=== PATIENT | male | born 1940 | race Caucasian/White ===

== ENCOUNTER 2023-09-17 20:11 | Inpatient (IN) ==
--- NOTE | 2023-09-17 20:37 | Emergency Department Note ---
Impression & Plan Acute UTI, Nausea & vomiting, Weakness ED Provider Note Provider: Onur Tate MD DATE OF SERVICE: 09/17/2023 CHIEF COMPLAINT: Weakness, nausea and vomiting, some diarrhea HISTORY OF PRESENT ILLNESS: Patient is a 83-year-old gentleman past medical history of thyroid cancer, PE on Eliquis, hypertension presenting here today with daughter. Yesterday became quite weak and had difficulty getting out of bed. Experience of nausea and then vomiting last evening. Continued weakness today nausea decreased intake and has had some blackish diarrhea but did take Pepto-Bismol. Vomited up some brownish-red vomit a little bit ago and daughter brought here for evaluation as he seemed a little bit weak and fatigued. Denies syncope or trauma. Some slight mid upper abdominal discomfort. No other sick contacts. Low-grade fever at home. PAST MEDICAL HISTORY: As noted above MEDICATIONS: Reviewed home medications but unsure he been able to keep them down SOCIAL HISTORY: Lives at home PHYSICAL EXAM: GENERAL: alert and oriented in no acute distress on stretcher Head: normocephalic and atraumatic EYES: No injection, discharge or icterus. PERRL, EOMI. NECK: Trachea midline. Supple. ENT: Mucous membranes pink and moist. LUNGS: Airway patent. No retractions. Breath sounds clear with good air entry bilaterally. HEART: Regular rate and rhythm. No chest wall tenderness ABDOMEN: Soft and non-tender, without guarding or rebound. No hepatosplenomegaly or masses Rectal: brown Hemoccult negative stool with RN present for exam ; no hemorrhoids noted. SKIN: Acyanotic, warm, dry, without rashes EXTREMITIES: Without swelling, tenderness or deformity NEUROLOGICAL: No focal deficits. No aphasia. No facial droop or slurred speech. Normal strength and tone in the extremities. Sensation to gross touch normal. EK bpm sinus bradycardia first-degree AV block. No PVC or PAC. No clear acute ST segment elevation or depression with a left axis noted. CONTINUOUS CARDIAC MONITORING: was ordered and showed a heart rate of 20s-60s bpm in sinus bradycardia to sinus rhythm with a first reviewed by Patient's laboratory studies and imaging reviewed. 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 IMPRESSION/MEDICAL DECISION MAKING: Patient given some Zofran and while this was occurring dry heaves and did vagal with heart rate into the 30s. No LOC. Little bit of abdominal discomfort but not significantly tender. Will obtain CT scan of the abdomen pelvis as well as with his generalized weakness anticoagulation a CT of the head although not really having focal deficits. Occult stool testing with brownish-black stool negative and has been on Pepto-Bismol lower suspicion for GI bleed but given some Protonix. Is anticoagulated. Blood work was sent including cultures given reports of some fever. History of heart failure given some gentle IV hydration but being careful to avoid fluid overload. 250 cc initially ordered as he is somewhat hypertensive. Respiratory viral panel sent to look for any viral respiratory infection that could be contributing. Denies significant chest pain or shortness of breath and I doubt this represents diaphragmatic injury or pneumonia. Blood work here with slight leukocytosis of 11.2. No significant anemia hemoglobin of 13.3. Normal platelet count. Normal electrolytes. No signs of significant renal dysfunction creatinine 1.08. Urinalysis is floridly positive likely the etiology of his symptoms. Procalcitonin low at 0.51. Lactate normal. Negative Lyme screen and respiratory viral panel. Quick review of the CT imaging by myself without obvious emergent pathology although formal reports from radiology are pending. (notable prostatomegaly and noninflamed hernia) Will bring into the hospital. Zosyn ordered. Updated patient and family. Will discuss with the hospitalist for admission and further care. Lower suspicion for GI bleed believe this is likely all secondary to the UTI. Blood pressure still somewhat high. Patient bit bradycardic but again seems to be perfusing well at this time. Discussed with hospitalist. DIAGNOSIS: Acute UTI, nausea and vomiting, weakness, bradycardia DISPOSITION: Hospitalist will evaluate Patient was agreeable with this plan. Past Med/Surg History Problem List (Updated 09/18/23 @ 11:41 by Maxim Ward) History of pulmonary embolism Aortic root dilatation Aortic valve sclerosis Hypertensive heart disease HFrEF (heart failure with reduced ejection fraction) Bradycardia Bacteremia UTI (urinary tract infection) Benign prostatic hyperplasia (BPH) with straining on urination Weakness (Acute) Nausea & vomiting (Acute) Acute UTI (Acute) Vitamin D deficiency Fatigue Hyperthyroidism Fracture Post-surgical hypothyroidism Papillary thyroid carcinoma COVID-19 (Acute) Medical History Hypertension Social History Smoking Status: Never smoker Second Hand Exposure: No; Do You Dip or Chew Tobacco: No; Tobacco Cessation Education Requested by Patient: No Hx Alcohol Use: No Hx Substance Use: No Preferred Language: Icelandic Communication Ability: Effective Deer Farmer 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: No Beliefs That Will Affect Care: None Current Living Situation: Alone Other Information That Helps Us Care for You: No Feels Safe at Home: Yes Safety Concerns: Feels Safe At This Time Assistive Devices: Walker Allergies Allergies Allergy/AdvReac Type Severity Reaction Status Date / Time shrimp Allergy Anaphylaxis Verified 09/17/23 21:58 Home Meds Home Medications Medication Instructions Recorded Confirmed escitalopram oxalate 10 mg tablet 10 mg PO QA 11/27/17 09/17/23 finasteride 5 mg tablet (Proscar) 5 mg PO [facility] 11/18/21 09/17/23 apixaban 5 mg tablet 5 mg PO BID 05/15/23 09/17/23 furosemide 20 mg tablet 20 mg PO 3XWK 05/15/23 09/17/23 metoprolol succinate 25 mg 12.5 mg PO QA 05/15/23 09/17/23 tablet,extended release 24 hr spironolactone 25 mg tablet 25 mg PO [facility] 05/15/23 09/17/23 tryptophan 500 mg capsule 1,500 mg PO 05/15/23 09/17/23 acetaminophen 500 mg tablet 1,000 mg PO Q6H PRN Pain 09/17/23 09/17/23 empagliflozin 10 mg tablet 10 mg PO QA 09/17/23 09/17/23 (Jardiance) levothyroxine 150 mcg tablet 150 mcg PO 5XWK 09/17/23 09/17/23 levothyroxine 150 mcg tablet 225 mcg PO 2XWK 09/17/23 09/17/23 sacubitril 97 mg-valsartan 103 mg 1 tab PO [facility] 09/17/23 09/17/23 tablet (Entresto) tamsulosin 0.4 mg capsule 0.4 mg PO QA 09/17/23 09/17/23 terazosin 10 mg capsule 10 mg PO 09/17/23 09/17/23 Previous Rx's Medication Instructions Recorded needle (disp) 18 G 18 gauge x 1 #4 ea 12/05/212" (BD Regular Bevel Joes) Results & Data (ED) Vital Signs Vital Signs - 24 hr 09/17/23 20:19 09/17/23 20:20 09/17/23 20:20 Temperature 36.8 C Temperature Source Oral Pulse Rate 50 L 48 L Pulse Rate from SpO2 Sensor Respiratory Rate 13 Respiratory Effort / Characteristics Non-Labored Respiratory Depth Normal Respiratory Pattern Regular Blood Pressure 166/73 H Blood Pressure Mean 104 Blood Pressure Position Sitting Pulse Oximetry 96 96 Oxygen Delivery Method Room Air Room Air Sepsis Recent Fever Within 48 Hours Yes Sepsis New/Unexplained Change in Mental Status No Sepsis Action Taken by Nursing No Action Required 09/17/23 20:23 09/17/23 20:27 09/17/23 20:30 Temperature Temperature Source Pulse Rate 50 L Pulse Rate from SpO2 Sensor 50 L 51 L Respiratory Rate 21 20 Respiratory Effort / Characteristics Respiratory Depth Respiratory Pattern Blood Pressure Blood Pressure Mean Blood Pressure Position Pulse Oximetry 96 96 95 Oxygen Delivery Method Room Air Sepsis Recent Fever Within 48 Hours Sepsis New/Unexplained Change in Mental Status Sepsis Action Taken by Nursing 09/17/23 20:42 09/17/23 21:00 09/17/23 21:06 Temperature Temperature Source Pulse Rate 48 L 45 L 48 L Pulse Rate from SpO2 Sensor 49 L 45 L 34 L Respiratory Rate 17 27 H 19 Respiratory Effort / Characteristics Respiratory Depth Respiratory Pattern Blood Pressure Blood Pressure Mean Blood Pressure Position Pulse Oximetry 94 93 93 Oxygen Delivery Method Sepsis Recent Fever Within 48 Hours Sepsis New/Unexplained Change in Mental Status Sepsis Action Taken by Nursing 09/17/23 21:30 09/17/23 21:30 09/17/23 21:39 Temperature Temperature Source Pulse Rate 45 L Pulse Rate from SpO2 Sensor 43 L Respiratory Rate 23 Respiratory Effort / Characteristics Respiratory Depth Respiratory Pattern Blood Pressure 166/86 H 166/86 H Blood Pressure Mean 108 108 Blood Pressure Position Pulse Oximetry 94 Oxygen Delivery Method Sepsis Recent Fever Within 48 Hours Sepsis New/Unexplained Change in Mental Status Sepsis Action Taken by Nursing 09/17/23 21:42 09/17/23 22:00 09/17/23 22:00 Temperature Temperature Source Pulse Rate 47 L Pulse Rate from SpO2 Sensor 42 L Respiratory Rate 29 H Respiratory Effort / Characteristics Respiratory Depth Respiratory Pattern Blood Pressure 140/73 140/73 Blood Pressure Mean 102 102 Blood Pressure Position Pulse Oximetry 94 Oxygen Delivery Method Sepsis Recent Fever Within 48 Hours Sepsis New/Unexplained Change in Mental Status Sepsis Action Taken by Nursing 09/17/23 22:00 09/17/23 22:03 09/17/23 22:36 Temperature Temperature Source Pulse Rate 44 L 45 L Pulse Rate from SpO2 Sensor 44 L 39 L Respiratory Rate 20 17 Respiratory Effort / Characteristics Respiratory Depth Respiratory Pattern Blood Pressure 140/73 Blood Pressure Mean 102 Blood Pressure Position Pulse Oximetry 94 95 Oxygen Delivery Method Sepsis Recent Fever Within 48 Hours Sepsis New/Unexplained Change in Mental Status Sepsis Action Taken by Nursing 09/17/23 22:42 09/17/23 23:00 09/17/23 23:01 Temperature Temperature Source Pulse Rate 43 L 39 L Pulse Rate from SpO2 Sensor 42 L 39 L Respiratory Rate 23 18 Respiratory Effort / Characteristics Respiratory Depth Respiratory Pattern Blood Pressure 126/62 Blood Pressure Mean 94 Blood Pressure Position Pulse Oximetry 95 95 Oxygen Delivery Method Sepsis Recent Fever Within 48 Hours Sepsis New/Unexplained Change in Mental Status Sepsis Action Taken by Nursing Laboratory Data 09/18/23 06:04 09/18/23 06:04 Lab Results 09/17/23 09/17/23 09/17/23 Range/Units 20:16 20:22 20:31 WBC 11.20 H (4.8-10.8) K/ul RBC 4.20 L (4.70-6.10) M/uL Hgb 13.3 L (14.0-18.0) g/dl POC Hgb (14.0-18.0) g/dl Hct 39.4 L (42.0-52.0) % POC Hct (42-52) % MCV 93.8 (80.0-100.0) fL MCH 31.7 (25.0-34.0) pg MCHC 33.8 (32.0-36.0) g/dL RDW Std Deviation 43.8 (36.4-46.3) fL RDW Coeff of Suma 12.8 (11.5-14.5) % Plt Count 202 (130-400) K/uL MPV 10.9 (9.4-12.4) fL Immature Gran % (Auto) 0.4 % Neut % (Auto) 85.7 % Lymph % (Auto) 5.3 % Morgan % (Auto) 8.5 % Eos % (Auto) 0.0 % Baso % (Auto) 0.1 % Neut # (Auto) 9.61 H (1.40-6.50) K/uL Lymph # (Auto) 0.59 L (1.20-3.40) K/uL Morgan # (Auto) 0.95 H (0.11-0.59) K/uL Eos # (Auto) 0.00 (0.00-0.50) K/uL Baso # (Auto) 0.01 (0.00-0.20) K/uL Immature Gran # (Auto) 0.04 (0.01-0.20) K/uL PT 11.4 (9.0-12.0) Seconds INR 1.1 (0.9-1.1) POC Sodium (135-144) mmol/L Sodium 138 (136-145) mmol/L POC Potassium (3.3-5.0) mmol/L Potassium 4.4 (3.5-5.1) mmol/L POC Chloride (101-112) mmol/L Chloride 107 (98-107) mmol/L Carbon Dioxide 23 (21-32) mmol/L POC Total CO2 (24-31) mmol/L Anion Gap 8 (3-11) POC Anion Gap (16-25) mmol/L POC BUN (7-18) mg/dl BUN 38 H (6-23) mg/dl Creatinine 1.08 (0.6-1.4) mg/dl POC Creatinine (0.6-1.3) mg/dl Est Cr Clr Drug Dosing 59.8 ml/min Est GFR ( Amer) 72.2 ml/min Est GFR (Non-Af Amer) 62.3 ml/min BUN/Creatinine Ratio 35.2 H (10-20) Glucose 181 H (70-99(Fasting)) mg/dl POC Glucose (other) (70-99) mg/dl Lactate 1.3 (0.4-2.0) mmol/L Calcium 8.6 (8.6-10.3) mg/dl POC Ioniz Calcium Arvind (1.12-1.32) mmol/l Magnesium 2.1 (1.7-2.4) mg/dl Total Bilirubin 0.6 (0.2-1.0) mg/dl AST 12 L (13-39) U/L ALT 10 (7-52) U/L Alkaline Phosphatase 56 (34-104) U/L Troponin I High Sens 15.6 (0-20) pg/ml Total Protein 6.3 (6.0-8.3) gm/dl Albumin 3.5 (3.4-5.0) gm/dl Globulin 2.8 (2.5-4.0) gm/dl Albumin/Globulin Ratio 1.3 (0.9-2) Lipase 84 H (11-82) U/L Procalcitonin 0.51 H (0-0.5) ng/ml TSH 0.279 L (0.300-4.500) uIu/ml Free T4 1.23 (0.61-1.60) ng/dl Urine Color Urine Appearance (Clear) Urine pH (4.5-7.5) Ur Specific Winston (1.000-1.030) Urine Protein (Negative) Urine Glucose (UA) (Negative) Urine Ketones (Negative) Urine Blood (Negative) Urine Nitrite (Negative) Urine Bilirubin (Negative) Urine Urobilinogen (Negative) Ur Leukocyte Esterase (Negative) Urine WBC (Auto) (0-5) /hpf Urine RBC (Auto) (0-2) /hpf U Hyaline Cast (Auto) (0-2) /lpf U Epithel Cells (Auto) (0-2) /hpf Urine Bacteria (Auto) (None Seen) POC Stool Occult Blood Negative (Negative) Adenovirus (PCR) (NotDetected) B. pertussis DNA (PCR) (NotDetected) B.parapertussis DNA PCR (NotDetected) Lyme Disease Screen Negative (Negative) C. pneumoniae DNA (PCR) (NotDetected) Coronavirus OC43 (PCR) (NotDetected) Coronavirus HKU1 (PCR) (NotDetected) Coronavirus 229E (PCR) (NotDetected) SARS-CoV-2 (PCR) (NotDetected) Coronavirus NL63 (PCR) (NotDetected) Enterobacterales (PCR) DETECTED A (NotDetected) E. cloacae complex PCR DETECTED A (NotDetected) Human Metapneumovir PCR (NotDetected) Influenza Type A (PCR) (NotDetected) Influenza Type B (PCR) (NotDetected) M. pneumoniae (PCR) (NotDetected) Parainfluenza 1 (PCR) (NotDetected) Parainfluenza 2 (PCR) (NotDetected) Parainfluenza 3 (PCR) (NotDetected) Parainfluenza 4 (PCR) (NotDetected) RSV (PCR) (NotDetected) Entero/Rhino (PCR) (NotDetected) mcr-1 Colistin Res Gene PCR Not Detected (NotDetected) blaIMP Car res Gene PCR Not Detected (NotDetected) KPC-Carbap Res Gene PCR Not Detected (NotDetected) blaNDM Car Res Gene PCR Not Detected (NotDetected) OXA-48 Carbapenem Resis Gene (PCR) Not Detected (NotDetected) blaVIM Car Res Gene PCR Not Detected (NotDetected) CTX-M Gene Resistance (PCR) Not Detected (NotDetected) Bld Cult ID Panel PCR See PCR Comment (NotDetected) 09/17/23 09/17/23 Range/Units 20:38 20:39 WBC (4.8-10.8) K/ul RBC (4.70-6.10) M/uL Hgb (14.0-18.0) g/dl POC Hgb 13.3 L (14.0-18.0) g/dl Hct (42.0-52.0) % POC Hct 39 L (42-52) % MCV (80.0-100.0) fL MCH (25.0-34.0) pg MCHC (32.0-36.0) g/dL RDW Std Deviation (36.4-46.3) fL RDW Coeff of Suma (11.5-14.5) % Plt Count (130-400) K/uL MPV (9.4-12.4) fL Immature Gran % (Auto) % Neut % (Auto) % Lymph % (Auto) % Morgan % (Auto) % Eos % (Auto) % Baso % (Auto) % Neut # (Auto) (1.40-6.50) K/uL Lymph # (Auto) (1.20-3.40) K/uL Morgan # (Auto) (0.11-0.59) K/uL Eos # (Auto) (0.00-0.50) K/uL Baso # (Auto) (0.00-0.20) K/uL Immature Gran # (Auto) (0.01-0.20) K/uL PT (9.0-12.0) Seconds INR (0.9-1.1) POC Sodium 140 (135-144) mmol/L Sodium (136-145) mmol/L POC Potassium 4.3 (3.3-5.0) mmol/L Potassium (3.5-5.1) mmol/L POC Chloride 108 (101-112) mmol/L Chloride (98-107) mmol/L Carbon Dioxide (21-32) mmol/L POC Total CO2 20 L (24-31) mmol/L Anion Gap (3-11) POC Anion Gap 17.0 (16-25) mmol/L POC BUN 33 H (7-18) mg/dl BUN (6-23) mg/dl Creatinine (0.6-1.4) mg/dl POC Creatinine 1.2 (0.6-1.3) mg/dl Est Cr Clr Drug Dosing ml/min Est GFR ( Amer) ml/min Est GFR (Non-Af Amer) ml/min BUN/Creatinine Ratio (10-20) Glucose (70-99(Fasting)) mg/dl POC Glucose (other) 184 H (70-99) mg/dl Lactate (0.4-2.0) mmol/L Calcium (8.6-10.3) mg/dl POC Ioniz Calcium Arvind 1.16 (1.12-1.32) mmol/l Magnesium (1.7-2.4) mg/dl Total Bilirubin (0.2-1.0) mg/dl AST (13-39) U/L ALT (7-52) U/L Alkaline Phosphatase (34-104) U/L Troponin I High Sens (0-20) pg/ml Total Protein (6.0-8.3) gm/dl Albumin (3.4-5.0) gm/dl Globulin (2.5-4.0) gm/dl Albumin/Globulin Ratio (0.9-2) Lipase (11-82) U/L Procalcitonin (0-0.5) ng/ml TSH (0.300-4.500) uIu/ml Free T4 (0.61-1.60) ng/dl Urine Color Yellow Urine Appearance Cloudy A (Clear) Urine pH 5.5 (4.5-7.5) Ur Specific Winston 1.030 (1.000-1.030) Urine Protein 2+ H (Negative) Urine Glucose (UA) 3+ H (Negative) Urine Ketones 1+ H (Negative) Urine Blood 3+ H (Negative) Urine Nitrite Positive A (Negative) Urine Bilirubin Negative (Negative) Urine Urobilinogen Negative (Negative) Ur Leukocyte Esterase 2+ H (Negative) Urine WBC (Auto) >50 H (0-5) /hpf Urine RBC (Auto) 6-10 H (0-2) /hpf U Hyaline Cast (Auto) 6-10 H (0-2) /lpf U Epithel Cells (Auto) 0-2 (0-2) /hpf Urine Bacteria (Auto) 4+ H (None Seen) POC Stool Occult Blood (Negative) Adenovirus (PCR) Not Detected (NotDetected) B. pertussis DNA (PCR) Not Detected (NotDetected) B.parapertussis DNA PCR Not Detected (NotDetected) Lyme Disease Screen (Negative) C. pneumoniae DNA (PCR) Not Detected (NotDetected) Coronavirus OC43 (PCR) Not Detected (NotDetected) Coronavirus HKU1 (PCR) Not Detected (NotDetected) Coronavirus 229E (PCR) Not Detected (NotDetected) SARS-CoV-2 (PCR) Not Detected (NotDetected) Coronavirus NL63 (PCR) Not Detected (NotDetected) Enterobacterales (PCR) (NotDetected) E. cloacae complex PCR (NotDetected) Human Metapneumovir PCR Not Detected (NotDetected) Influenza Type A (PCR) Not Detected (NotDetected) Influenza Type B (PCR) Not Detected (NotDetected) M. pneumoniae (PCR) Not Detected (NotDetected) Parainfluenza 1 (PCR) Not Detected (NotDetected) Parainfluenza 2 (PCR) Not Detected (NotDetected) Parainfluenza 3 (PCR) Not Detected (NotDetected) Parainfluenza 4 (PCR) Not Detected (NotDetected) RSV (PCR) Not Detected (NotDetected) Entero/Rhino (PCR) Not Detected (NotDetected) mcr-1 Colistin Res Gene PCR (NotDetected) blaIMP Car res Gene PCR (NotDetected) KPC-Carbap Res Gene PCR (NotDetected) blaNDM Car Res Gene PCR (NotDetected) OXA-48 Carbapenem Resis Gene (PCR) (NotDetected) blaVIM Car Res Gene PCR (NotDetected) CTX-M Gene Resistance (PCR) (NotDetected) Bld Cult ID Panel PCR (NotDetected) Administered Medications Apixaban (Apixaban 5 Mg Tablet) 5 mg PO BID ON LICENSE OF [facility] Stop: 10/18/23 08:59 Last Admin: 09/18/23 08:13 Dose: 5 mg Documented By: ALBERT Escitalopram Oxalate (Escitalopram [facility]alate 10 Mg Tab) [facility] Stop: 10/18/23 08:59 Last Admin: 09/18/23 08:13 Dose: 10 mg Documented By: ALBERT Finasteride (Finasteride 5 Mg Tab) [facility] Stop: 10/18/23 08:59 Last Admin: 09/18/23 08:13 Dose: 5 mg Documented By: ALBERT Sodium Chloride (Nss) 1,000 mls @ 75 mls/hr IV .[id number] ON LICENSE OF [facility] Stop: 09/18/23 13:40 Last Admin: 09/18/23 00:30 Dose: 75 mls/hr Documented By: BENITA Cefepime HCl 2,000 mg/ Syringe 20 mls @ 5 mls/min IV Q8H ON LICENSE OF [facility] Stop: 10/02/23 11:59 Last Admin: 09/18/23 12:23 Dose: 5 mls/min Documented By: ALBERT Insulin Aspart (Insulin Aspart Per Unit Charge) 0 units SC Q6 ON LICENSE OF [facility] Stop: 10/18/23 01:14 Last Admin: 09/18/23 11:13 Dose: Not Given Documented By: Admin: 09/18/23 05:32 Dose: Not Given Documented By: Admin: 09/18/23 01:33 Dose: 2 units Documented By: BENITA Co-signed By: ALBERT(2) Levothyroxine Sodium (Levothyroxine Sodium 150 Mcg Tablet) 150 mcg PO DAILYBB ON LICENSE OF [facility] Stop: 10/18/23 06:29 Last Admin: 09/18/23 05:38 Dose: 150 mcg Documented By: BENITA Melatonin (Melatonin 3 Mg Tab) 3 mg PO HS PRN PRN Reason: Sleep Stop: 10/18/23 01:35 Last Admin: 09/18/23 01:56 Dose: 3 mg Documented By: BENITA Sacubitril/Valsartan (Valsartan/Sacubitril 103/97mg Tab) 1 tab PO BID ASIF Stop: 10/18/23 08:59 Last Admin: 09/18/23 08:13 Dose: 1 tab Documented By: ALBERT Tamsulosin HCl (Tamsulosin Hcl 0.4 Mg Cap) 0.4 mg PO QAM ASIF Stop: 10/18/23 08:59 Last Admin: 09/18/23 08:14 Dose: 0.4 mg Documented By: ALBERT Discontinued Medications Sodium Chloride (Nss) 250 mls @ 999 mls/hr IV .Q16M ONE Stop: 09/17/23 20:39 Last Infusion: 09/17/23 21:03 Dose: Infused Documented By: Admin: 09/17/23 20:45 Dose: 999 mls/hr Documented By: ROBIN Pantoprazole Sodium 80 mg/ (Dextrose) 120 mls @ 480 mls/hr IV ONE STA Stop: 09/17/23 20:58 Last Infusion: 09/17/23 22:14 Dose: Infused Documented By: Admin: 09/17/23 21:41 Dose: 480 mls/hr Documented By: ROBIN Piperacillin Sod/Tazobactam Sod (Zosyn) 4.5 gm in 100 mls @ 200 mls/hr IV NOW ONE Stop: 09/17/23 21:54 Last Infusion: 09/17/23 23:19 Dose: Infused Documented By: Admin: 09/17/23 22:09 Dose: 200 mls/hr Documented By: ROBIN Piperacillin Sod/Tazobactam (Sod 4.5 gm/ Dextrose) 100 mls @ 25 mls/hr IV Q8H ON LICENSE OF [facility]; Protocol Stop: 09/28/23 04:59 Last Infusion: 09/18/23 09:44 Dose: Infused Documented By: Admin: 09/18/23 05:32 Dose: 25 mls/hr Documented By: BENITA Ioversol (Optiray 320 100ml) 94 ml IV ONCE ONE Stop: 09/17/23 21:23 Last Admin: 09/17/23 21:22 Dose: 94 ml Documented By: SHAGGY Ondansetron HCl (Ondansetron Inj 2 Mg/Ml 2 Ml Vial) 4 mg IV NOW STA Stop: 09/17/23 20:23 Last Admin: 09/17/23 20:38 Dose: 4 mg Documented By: KMHarrison Imaging Data Radiologist's Impression: Chest X-Ray 09/17/23 20:23 XR chest 1V portable CLINICAL HISTORY: weakness TECHNIQUE: Single frontal radiograph of the chest was obtained. Comparison: Comparison is made to chest radiograph 02/28/2023 FINDINGS: No lines and tubes are seen. Cardiomegaly is noted. The lungs are clear. Small left pleural effusion is seen. IMPRESSION: Small left pleural effusion is seen. No airspace opacities are seen. ACT 112: Negative or not required by law. Electronically signed by: Matthieu Kelley M.D. 09/18/2023 7:50 AM Discharge Plan Visit Data Chief Complaint: Weakness Stated Complaint: WEAKNESS, N/V, LETHARGIC, ED Provider: Onur Tate Discharge Problem: Acute UTI, Nausea & vomiting, Weakness Patient Disposition: Admitted As Inpatient Discharge Instructions Interventions: ED Discharge Assessment Last Done: 09/18/23 00:42
[2023-09-17] MEDS: ONDANSETRON INJ 2 MG/ML 2 ML VIAL IV STA (20:38)
[2023-09-17 20:44] LABS: Basophils # (auto) 0.01 K/uL (0.00-0.20); Basophils % (auto) 0.1 %; Hematocrit (blood only) 39.4 % (42.0-52.0); Hemoglobin 13.3 g/dl (14.0-18.0); Immature Granulocytes # (auto) 0.04 K/uL (0.01-0.20); Immature Granulocytes % (auto) 0.4 %; Lymphocytes # (auto) 0.59 K/uL (1.20-3.40); Lymphocytes % (auto) 5.3 %; Mean Corpuscular Hemoglobin 31.7 pg (25.0-34.0); Mean Corpuscular Hgb Conc 33.8 g/dL (32.0-36.0); Mean Corpuscular Volume 93.8 fL (80.0-100.0); Mean Platelet Volume 10.9 fL (9.4-12.4); Monocytes # (auto) 0.95 K/uL (0.11-0.59); Monocytes % (auto) 8.5 %; Neutrophils # (auto) 9.61 K/uL (1.40-6.50); Neutrophils % (auto) 85.7 %; Platelet Count 202 K/uL (130-400); RDW Coefficient of Variation 12.8 % (11.5-14.5); RDW Standard Deviation 43.8 fL (36.4-46.3)
[2023-09-17] MEDS: SODIUM CHLORIDE 0.9% 250 ML IV ONE (20:45)
[2023-09-17 20:49] LABS: INR 1.1 (0.9-1.1); Prothrombin Time 11.4 Seconds (9.0-12.0)
[2023-09-17 20:50] LABS: iSTAT Creatinine 1.2 mg/dl (0.6-1.3); iSTAT Hemoglobin 13.3 g/dl (14.0-18.0); iSTAT Ionized Calcium 1.16 mmol/l (1.12-1.32); iSTAT Potassium 4.3 mmol/L (3.3-5.0)
[2023-09-17 20:57] LABS: Albumin Globulin Ratio 1.3 (0.9-2); Albumin Level 3.5 gm/dl (3.4-5.0); BUN Creatinine Ratio 35.2 (10-20); Bilirubin,Total 0.6 mg/dl (0.2-1.0); Calcium 8.6 mg/dl (8.6-10.3); Creatinine Clr Calc Pharmacy 59.8 ml/min; Est GFR (African American) 72.2 ml/min; Est GFR (Non-African American) 62.3 ml/min; Globulin 2.8 gm/dl (2.5-4.0); Magnesium 2.1 mg/dl (1.7-2.4); Potassium 4.4 mmol/L (3.5-5.1); Total Protein 6.3 gm/dl (6.0-8.3)
[2023-09-17 21:02] LABS: Appearance Urine Cloudy (Clear); Bacteria Urine Automated 4+ (None Seen); Bilirubin Urine Negative (Negative); Blood Urine 3+ (Negative); Color Urine Yellow; Epithelial Cell Urine Auto 0-2 /hpf (0-2); Glucose Urine UA 3+ (Negative); Ketones Urine 1+ (Negative); Leukocyte Esterase Urine 2+ (Negative); Nitrite Urine Positive (Negative); Protein Urine 2+ (Negative); Urobilinogen Urine Negative (Negative); WBC Urine Automated >50 /hpf (0-5); pH Urine 5.5 (4.5-7.5)
[2023-09-17 21:03] LABS: Troponin I High Sensitivity 15.6 pg/ml (0-20)
[2023-09-17 21:13] LABS: Thyroid Stimulating Hormone 0.279 uIu/ml (0.300-4.500)
[2023-09-17 21:14] LABS: Procalcitonin 0.51 ng/ml (0-0.5)
[2023-09-17] MEDS: OPTIRAY 320 100ml IV ONE (21:22)
[2023-09-17] MEDS: PANTOprazole 80 MG in DEXTROSE 5% 100 ML IV STA (21:41)
[2023-09-17 21:44] LABS: Adenovirus PCR Not Detected (NotDetected); Bordetella parapertussis PCR Not Detected (NotDetected); Bordetella pertussis PCR Not Detected (NotDetected); Chlamydia pneumoniae PCR Not Detected (NotDetected); Coronavirus 229E PCR Not Detected (NotDetected); Coronavirus CoV-2 (COVID19)PCR Not Detected (NotDetected); Coronavirus HKU1 PCR Not Detected (NotDetected); Coronavirus NL63 PCR Not Detected (NotDetected); Coronavirus OC43PCR Not Detected (NotDetected); Human Metapneumovirus PCR Not Detected (NotDetected); Influenza A PCR Not Detected (NotDetected); Influenza B PCR Not Detected (NotDetected); Mycoplasma pneumoniae PCR Not Detected (NotDetected); Parainfluenza Virus 1 PCR Not Detected (NotDetected); Parainfluenza Virus 2 PCR Not Detected (NotDetected); Parainfluenza Virus 3 PCR Not Detected (NotDetected); Parainfluenza Virus 4 PCR Not Detected (NotDetected); Respiratory Syncytial VirusPCR Not Detected (NotDetected); Rhinovirus/Enterovirus PCR Not Detected (NotDetected)
[2023-09-17 21:47] LABS: Lyme Screen Rflx Confirmation Negative (Negative)
[2023-09-17 21:48] LABS: T4 Free Thyroxine 1.23 ng/dl (0.61-1.60)
[2023-09-17] MEDS: PIPERACILLIN/TAZOBACTAM 4.5 GM/100 ML BAG IV ONE (22:09)
--- NOTE | 2023-09-17 23:27 | History & Physical Report ---
Date of Service September 17, 2023 Assessment & Plan (1) Acute UTI: Plan: 83-year-old male with past medical history significant for prediabetes, history of papillary thyroid carcinoma, pancreatic cyst, history of left hemothorax, history of acute pulmonary embolism, history of systolic CHF, hypertension, closed fracture of multiple ribs of left side, history of anxiety state, insomnia, lives alone at home and ambulates with a walker and daughter lives close by was brought in because of weakness and also nausea vomiting and in the ER he was found to have bradycardia and also found to have UTI. As per daughter yesterday patient was feeling very weak having difficulty getting up from the bed and last night he had nausea vomiting but today when he woke up was doing okay. But later in the evening again he developed nausea and in the bathroom he felt like falling down and he was holding on the sink and called his daughter. When daughter came he seemed very stiff and weak and brought him to the ER. Resting comfortably. Bradycardia on monitor. Family is in the room. Today had a fever as per daughter. Denies any headache. When he was in the bathroom when he felt like falling down felt dizzy at that time. No blurred vision. No headache. No runny nose. No sore throat. No cough. No difficulty swallowing. Denies any chest pain or shortness of breath. Earlier complained of some left lower quad abdominal pain as per daughter but currently patient denies any pain. No burning micturition. No hematuria. Patient had black stools but took Pepto-Bismol yesterday and Hemoccult was negative in the ER. As per daughter when he had PE he had to be left flighted to [place] and is on Eliquis. Acute UTI weakness possible cause of nausea and vomiting will follow CT abdomen pelvis and CT head empirically started on Zosyn which will be continued gentle fluids follow cultures bradycardia will hold metoprolol will check Lyme screen telemetry cardiology consult chronic systolic CHF had echo on 09/05/2023 which showed EF of 50 to 54%. Previous echo on 03/29/2023 EF 45%. Echo on 03/01/23 showed EF of 40% holding metoprolol for bradycardia. Holding Lasix and spironolactone as patient has nausea vomiting. Will continue Entresto. Hold Jardiance. restart diuretics as soon as possible. Will monitor for volume overload. prediabetes follow HbA1c levels and sliding scale. History of PE on Eliquis questionable black stools Hemoccult was negative in the ER will monitor H&H hypertension continue Entresto and terazosin holding diuretics and metoprolol we will monitor BPH on Flomax and terazosin and finasteride ct abd/pelvis showing severe prostatomegaly with significant mass effect on base of bladder and bladder outlet obstruction. Will consult urology. will monitor hypothyroidism on Synthyroid anxiety on Lexapro DVT prophylaxis on Eliquis disposition telemetry full code. History of Present Illness Chief Complaint: Weakness Primary Care Provider: Linda Rendon DO 83-year-old male with past medical history significant for prediabetes, history of papillary thyroid carcinoma, pancreatic cyst, history of left hemothorax, history of acute pulmonary embolism, history of systolic CHF, hypertension, closed fracture of multiple ribs of left side, history of anxiety state, insomnia, lives alone at home and ambulates with a walker and daughter lives close by was brought in because of weakness and also nausea vomiting and in the ER he was found to have bradycardia and also found to have UTI. As per daughter yesterday patient was feeling very weak having difficulty getting up from the bed and last night he had nausea vomiting but today when he woke up was doing okay. But later in the evening again he developed nausea and in the bathroom he felt like falling down and he was holding on the sink and called his daughter. When daughter came he seemed very stiff and weak and brought him to the ER. Resting comfortably. Bradycardia on monitor. Family is in the room. Today had a fever as per daughter. Denies any headache. When he was in the bathroom when he felt like falling down felt dizzy at that time. No blurred vision. No headache. No runny nose. No sore throat. No cough. No difficulty swallowing. Denies any chest pain or shortness of breath. Earlier complained of some left lower quad abdominal pain as per daughter but currently patient denies any pain. No burning micturition. No hematuria. Patient had black stools but took Pepto-Bismol yesterday and Hemoccult was negative in the ER. As per daughter when he had PE he had to be left flighted to [place] and is on Eliquis. Past medical history. As mentioned above past surgical history. Anesthesia for bladder surgery. Removal of thyroid tumor. Bilateral cataracts. Social history. . Lives alone. Daughter lives close by. Quit smoking 1965. No alcohol use. No drug use. Family history. Father had CHF. Brother had prostate cancer. Brother had NM. Sister has hypertension. Allergies Allergy/AdvReac Type Severity Reaction Status Date / Time shrimp Allergy Anaphylaxis Verified 09/17/23 21:58 Home Medications Medication Instructions Recorded Confirmed Type escitalopram oxalate 10 mg tablet 10 mg PO QAM 11/27/17 09/17/23 History finasteride 5 mg tablet (Proscar) 5 mg PO QAM 11/18/21 09/17/23 History needle (disp) 18 G 18 gauge x 1 #4 ea 12/05/21 05/15/23 Rx 1/2" (BD Regular Bevel [place]) apixaban 5 mg tablet 5 mg PO BID 05/15/23 09/17/23 History furosemide 20 mg tablet 20 mg PO 3XWK 05/15/23 09/17/23 History metoprolol succinate 25 mg 12.5 mg PO QAM 05/15/23 09/17/23 History tablet,extended release 24 hr spironolactone 25 mg tablet 25 mg PO QAM 05/15/23 09/17/23 History tryptophan 500 mg capsule 1,500 mg PO HS 05/15/23 09/17/23 History acetaminophen 500 mg tablet 1,000 mg PO Q6H PRN Pain 09/17/23 09/17/23 History empagliflozin 10 mg tablet 10 mg PO QAM 09/17/23 09/17/23 History (Jardiance) levothyroxine 150 mcg tablet 150 mcg PO 5XWK 09/17/23 09/17/23 History levothyroxine 150 mcg tablet 225 mcg PO 2XWK 09/17/23 09/17/23 History sacubitril 97 mg-valsartan 103 mg 1 tab PO AMHS 09/17/23 09/17/23 History tablet (Entresto) tamsulosin 0.4 mg capsule 0.4 mg PO QAM 09/17/23 09/17/23 History terazosin 10 mg capsule 10 mg PO HS 09/17/23 09/17/23 History Past Med/Surg History Problem List (Updated 09/18/23 @ 00:19 by Background Daemon) Weakness (Acute) Nausea & vomiting (Acute) Acute UTI (Acute) Vitamin D deficiency Fatigue Hyperthyroidism Fracture Post-surgical hypothyroidism Papillary thyroid carcinoma COVID-19 (Acute) Medical History (Updated 09/18/23 @ 00:19 by Background Dachencho) Hypertension Social History Smoking Status: Never smoker Second Hand Exposure: No; Do You Dip or Chew Tobacco: No; Tobacco Cessation Education Requested by Patient: No Hx Alcohol Use: No Hx Substance Use: No Preferred Language: Citizen Of [place] Communication Ability: Effective Aerobics Teacher Required: No Beliefs That Will Affect Care: None Current Living Situation: Alone Other Information That Helps Us Care for You: No Feels Safe at Home: Yes Safety Concerns: Feels Safe At This Time Assistive Devices: Glasses and Walker Review of Systems Review of Systems: All systems reviewed & are unremarkable except as noted in HPI & below Physical Exam Physical Exam: General-Not in distress Head- atraumatic Eyes- PERRL. ENT- oropharynx clear Neck- supple, no JVD. Lungs- clear to auscultation no wheezing or crackles. Heart- regular rate and rhythm; no murmur, no gallop. Abdomen- normal bowel sounds, soft, nontender, no distension. Extremities- no pretibial edema, no erythema seen. Neuro- alert, oriented PERRL, ; no facial palsy; no dysarthria; moves extremities. Results & Data Results & Data Vital Signs (Past 12 Hours) Vital Signs Temp Pulse Resp BP Pulse Ox O2 Del Method 09/17/23 20:23 96 Room Air 09/17/23 20:20 96 Room Air 09/17/23 20:20 36.8 C 48 L 13 166/73 H 96 Room Air 09/17/23 20:19 50 L Diagnostic Findings Laboratory Results WBC 11.20 K/ul (4.8-10.8) H 09/17/23 20:16 RBC 4.20 M/uL (4.70-6.10) L 09/17/23 20:16 Hgb 13.3 g/dl (14.0-18.0) L 09/17/23 20:16 POC Hgb 13.3 g/dl (14.0-18.0) L 09/17/23 20:38 Hct 39.4 % (42.0-52.0) L 09/17/23 20:16 POC Hct 39 % (42-52) L 09/17/23 20:38 MCV 93.8 fL (80.0-100.0) 09/17/23 20:16 MCH 31.7 pg (25.0-34.0) 09/17/23 20:16 MCHC 33.8 g/dL (32.0-36.0) 09/17/23 20:16 RDW Std Deviation 43.8 fL (36.4-46.3) 09/17/23 20:16 RDW Coeff of [place] 12.8 % (11.5-14.5) 09/17/23 20:16 Plt Count 202 K/uL (130-400) 09/17/23 20:16 MPV 10.9 fL (9.4-12.4) 09/17/23 20:16 Immature Gran % (Auto) 0.4 % 09/17/23 20:16 Neut % (Auto) 85.7 % 09/17/23 20:16 Lymph % (Auto) 5.3 % 09/17/23 20:16 Gove % (Auto) 8.5 % 09/17/23 20:16 Eos % (Auto) 0.0 % 09/17/23 20:16 Baso % (Auto) 0.1 % 09/17/23 20:16 Neut # (Auto) 9.61 K/uL (1.40-6.50) H 09/17/23 20:16 Lymph # (Auto) 0.59 K/uL (1.20-3.40) L 09/17/23 20:16 Gove # (Auto) 0.95 K/uL (0.11-0.59) H 09/17/23 20:16 Eos # (Auto) 0.00 K/uL (0.00-0.50) 09/17/23 20:16 Baso # (Auto) 0.01 K/uL (0.00-0.20) 09/17/23 20:16 Immature Gran # (Auto) 0.04 K/uL (0.01-0.20) 09/17/23 20:16 PT 11.4 Seconds (9.0-12.0) 09/17/23 20:16 INR 1.1 (0.9-1.1) 09/17/23 20:16 POC Sodium 140 mmol/L (135-144) 09/17/23 20:38 Sodium 138 mmol/L (136-145) 09/17/23 20:16 POC Potassium 4.3 mmol/L (3.3-5.0) 09/17/23 20:38 Potassium 4.4 mmol/L (3.5-5.1) 09/17/23 20:16 POC Chloride 108 mmol/L (101-112) 09/17/23 20:38 Chloride 107 mmol/L (98-107) 09/17/23 20:16 Carbon Dioxide 23 mmol/L (21-32) 09/17/23 20:16 POC Total CO2 20 mmol/L (24-31) L 09/17/23 20:38 Anion Gap 8 (3-11) 09/17/23 20:16 POC Anion Gap 17.0 mmol/L (16-25) 09/17/23 20:38 POC BUN 33 mg/dl (7-18) H 09/17/23 20:38 BUN 38 mg/dl (6-23) H 09/17/23 20:16 Creatinine 1.08 mg/dl (0.6-1.4) 09/17/23 20:16 POC Creatinine 1.2 mg/dl (0.6-1.3) 09/17/23 20:38 Est Cr Clr Drug Dosing 59.8 ml/min 09/17/23 20:16 Est GFR ( Amer) 72.2 ml/min 09/17/23 20:16 Est GFR (Non-Af Amer) 62.3 ml/min 09/17/23 20:16 BUN/Creatinine Ratio 35.2 (10-20) H 09/17/23 20:16 Glucose 181 mg/dl (70-99(Fasting)) H 09/17/23 20:16 POC Glucose (other) 184 mg/dl (70-99) H 09/17/23 20:38 Lactate 1.3 mmol/L (0.4-2.0) 09/17/23 20:31 Calcium 8.6 mg/dl (8.6-10.3) 09/17/23 20:16 POC Ioniz Calcium Arvind 1.16 mmol/l (1.12-1.32) 09/17/23 20:38 Magnesium 2.1 mg/dl (1.7-2.4) 09/17/23 20:16 Total Bilirubin 0.6 mg/dl (0.2-1.0) 09/17/23 20:16 AST 12 U/L (13-39) L 09/17/23 20:16 ALT 10 U/L (7-52) 09/17/23 20:16 Alkaline Phosphatase 56 U/L (34-104) 09/17/23 20:16 Troponin I High Sens 15.6 pg/ml (0-20) 09/17/23 20:16 Total Protein 6.3 gm/dl (6.0-8.3) 09/17/23 20:16 Albumin 3.5 gm/dl (3.4-5.0) 09/17/23 20:16 Globulin 2.8 gm/dl (2.5-4.0) 09/17/23 20:16 Albumin/Globulin Ratio 1.3 (0.9-2) 09/17/23 20:16 Lipase 84 U/L (11-82) H 09/17/23 20:16 Procalcitonin 0.51 ng/ml (0-0.5) H 09/17/23 20:16 TSH 0.279 uIu/ml (0.300-4.500) L 09/17/23 20:16 Free T4 1.23 ng/dl (0.61-1.60) 09/17/23 20:16 Urine Color Yellow 09/17/23 20:39 Urine Appearance Cloudy (Clear) A 09/17/23 20:39 Urine pH 5.5 (4.5-7.5) 09/17/23 20:39 Ur Specific [place] 1.030 (1.000-1.030) 09/17/23 20:39 Urine Protein 2+ (Negative) H 09/17/23 20:39 Urine Glucose (UA) 3+ (Negative) H 09/17/23 20:39 Urine Ketones 1+ (Negative) H 09/17/23 20:39 Urine Blood 3+ (Negative) H 09/17/23 20:39 Urine Nitrite Positive (Negative) A 09/17/23 20:39 Urine Bilirubin Negative (Negative) 09/17/23 20:39 Urine Urobilinogen Negative (Negative) 09/17/23 20:39 Ur Leukocyte Esterase 2+ (Negative) H 09/17/23 20:39 Urine WBC (Auto) >50 /hpf (0-5) H 09/17/23 20:39 Urine RBC (Auto) 6-10 /hpf (0-2) H 09/17/23 20:39 U Hyaline Cast (Auto) 6-10 /lpf (0-2) H 09/17/23 20:39 U Epithel Cells (Auto) 0-2 /hpf (0-2) 09/17/23 20:39 Urine Bacteria (Auto) 4+ (None Seen) H 09/17/23 20:39 POC Stool Occult Blood Negative (Negative) 09/17/23 20:22 Adenovirus (PCR) Not Detected (NotDetected) 09/17/23 20:39 B. pertussis DNA (PCR) Not Detected (NotDetected) 09/17/23 20:39 B.parapertussis DNA PCR Not Detected (NotDetected) 09/17/23 20:39 Lyme Disease Screen Negative (Negative) 09/17/23 20:16 C. pneumoniae DNA (PCR) Not Detected (NotDetected) 09/17/23 20:39 Coronavirus OC43 (PCR) Not Detected (NotDetected) 09/17/23 20:39 Coronavirus HKU1 (PCR) Not Detected (NotDetected) 09/17/23 20:39 Coronavirus 229E (PCR) Not Detected (NotDetected) 09/17/23 20:39 SARS-CoV-2 (PCR) Not Detected (NotDetected) 09/17/23 20:39 Coronavirus NL63 (PCR) Not Detected (NotDetected) 09/17/23 20:39 Human Metapneumovir PCR Not Detected (NotDetected) 09/17/23 20:39 Influenza Type A (PCR) Not Detected (NotDetected) 09/17/23 20:39 Influenza Type B (PCR) Not Detected (NotDetected) 09/17/23 20:39 M. pneumoniae (PCR) Not Detected (NotDetected) 09/17/23 20:39 Parainfluenza 1 (PCR) Not Detected (NotDetected) 09/17/23 20:39 Parainfluenza 2 (PCR) Not Detected (NotDetected) 09/17/23 20:39 Parainfluenza 3 (PCR) Not Detected (NotDetected) 09/17/23 20:39 Parainfluenza 4 (PCR) Not Detected (NotDetected) 09/17/23 20:39 RSV (PCR) Not Detected (NotDetected) 09/17/23 20:39 Entero/Rhino (PCR) Not Detected (NotDetected) 09/17/23 20:39 ECG Additional Comments: ECG. Sinus bradycardia with first-degree AV block at rate of 47. Left axis deviation. Nonspecific intra-atrial conduction block. T wave abnormality lateral leads. QTc 410. Code Status & VTE Plan VTE Prophylaxis Plan VTE Prophylaxis will be ordered: Yes
[2023-09-18] MEDS ORDERED: ACETAMINOPHEN 325 MG TAB PO PRN (00:21)
[2023-09-18] MEDS ORDERED: GLUCOSE 40% GEL 15 GM TUBE PO PRN (00:21)
[2023-09-18] MEDS ORDERED: NITROGLYCERIN SL 0.4 MG/TAB TAB SL PRN (00:21)
[2023-09-18] MEDS ORDERED: DEXTROSE 50% 50 ML SYRINGE IV PRN (00:21)
[2023-09-18] MEDS ORDERED: GLUCAGON FOR INJ 1 MG VIAL SQ PRN (00:21)
[2023-09-18] MEDS ORDERED: GLUCOSE 10 TAB/TUBE PO PRN (00:21)
[2023-09-18] MEDS ORDERED: CARBOHYDRATES FOR HYPOGLYCEMIA PO PRN (00:21)
[2023-09-18] MEDS: SODIUM CHLORIDE 0.9% 1,000 ML IV SCH (00:30)
--- NOTE | 2023-09-18 00:34 | CT Scan Report ---
Exam(s): CT HEAD Without Contrast EXAM: CT Head Without Intravenous Contrast CLINICAL HISTORY: Reason for exam: nausea, eliquis, weak. TECHNIQUE: Axial computed tomography images of the head/brain without intravenous contrast. CTDI is 55.07 mGy and DLP is 2432.52 mGy-cm. Automated exposure control was utilized for the study. A dose lowering technique was utilized adhering to the principles of ALARA. COMPARISON: No relevant prior studies available. FINDINGS: Brain: Unremarkable. No hemorrhage. Moderate nonspecific white matter changes. No edema. Ventricles: Moderate ventriculomegaly. Bones/joints: Unremarkable. No acute fracture. Soft tissues: Unremarkable. Sinuses: Unremarkable as visualized. No acute sinusitis. Mastoid air cells: Unremarkable as visualized. No mastoid effusion. IMPRESSION: No evidence of acute intracranial pathology. Electronically signed by: Anny Pathak MD 09/18/23 00:33 AM
--- NOTE | 2023-09-18 01:16 | CT Scan Report ---
Exam(s): CT ABDOMEN + PELVIS With Contrast IV Amt: 94 ml opti 320 EXAM: CT Abdomen and Pelvis With Intravenous Contrast CLINICAL HISTORY: Reason for exam: n/v/abd pain, weak. TECHNIQUE: Axial computed tomography images of the abdomen and pelvis with intravenous contrast. CTDI is 55.07 mGy and DLP is 2432.52 mGy-cm. Automated exposure control was utilized for the study. A dose lowering technique was utilized adhering to the principles of ALARA. CONTRAST: Patient received 94 ml opti 320 of IV contrast COMPARISON: 02/18/23. FINDINGS: Lung bases: Unremarkable. No mass. No consolidation. Heart: Enlarged heart, unchanged. Small pericardial effusion and severe coronary artery calcifications noted as well. Mediastinum: Small hiatal hernia. There is a very small fluid at the left aspect of the hiatal hernia, and this may represent an ulcer. Consider correlation with direct endoscopic visualization. ABDOMEN: Liver: Unremarkable. No mass. Gallbladder and bile ducts: Unremarkable. No calcified stones. No ductal dilation. Pancreas: Unremarkable. No mass. No ductal dilation. Spleen: Unremarkable. No splenomegaly. Adrenals: Unremarkable. No mass. Kidneys and ureters: Unremarkable. No hydronephrosis. There are scattered, simple morphology parapelvic and cortical renal cysts bilaterally, stable from prior examination. These require no further follow-up. Stomach and bowel: Left inguinal hernia containing portion of large bowel again demonstrated, unchanged in appearance. There is no transition point or bowel dilatation to suggest obstruction. No mucosal thickening. PELVIS: Appendix: No findings to suggest acute appendicitis. Bladder: Large mass-effect from the enlarged prostate with small bladder diverticula. There is also abnormal thickening of the anterior aspect of the urinary bladder wall, unchanged. Findings are characteristic for chronic bladder outlet obstruction. Reproductive: Severe prostatomegaly redemonstrated. Prostate measures 9.9 cm AP, 9.1 cm transverse, and 9.3 cm in height. Significant mass- effect on the base of the urinary bladder. ABDOMEN and PELVIS: Intraperitoneal space: Unremarkable. No free air. No significant fluid collection. Bones/joints: No acute fracture. No dislocation. Lumbar spine degenerative changes noted. There is left hip osteoarthritis. Soft tissues: See above. Vasculature: See above. Lymph nodes: Unremarkable. No enlarged lymph nodes. IMPRESSION: 1. Severe prostatomegaly redemonstrated. Prostate measures 9.9 cm AP, 9. 1 cm transverse, and 9.3 cm in height. Significant mass-effect on the base of the urinary bladder. 2. Large mass-effect from the enlarged prostate with small bladder diverticula. There is also abnormal thickening of the anterior aspect of the urinary bladder wall, unchanged. Findings are characteristic for chronic bladder outlet obstruction. 3. Enlarged heart, unchanged. Small pericardial effusion and severe coronary artery calcifications noted as well. 4. Left inguinal hernia containing portion of large bowel again demonstrated, unchanged in appearance. There is no transition point or bowel dilatation to suggest obstruction. 5. Small hiatal hernia. There is a very small fluid at the left aspect of the hiatal hernia, and this may represent an ulcer. Consider correlation with direct endoscopic visualization. Electronically signed by: Bruce Pearson MD 09/18/23 01:15 AM
[2023-09-18] MEDS: INSULIN ASPART PER UNIT CHARGE SC SCH ×2 (01:33→16:52)
[2023-09-18] MEDS: MELATONIN 3 MG TAB PO PRN (01:56)
[2023-09-18] MEDS: PIPERACILLIN/TAZOBACTAM 4.5 GM in DEXTROSE 5% MINI-B 100 ML IV SCH (05:32)
[2023-09-18] MEDS: LEVOTHYROXINE SODIUM 150 MCG TABLET PO SCH (05:38)
[2023-09-18 06:40] LABS: Basophils # (auto) 0.01 K/uL (0.00-0.20); Basophils % (auto) 0.1 %; Hematocrit (blood only) 37.8 % (42.0-52.0); Hemoglobin 12.7 g/dl (14.0-18.0); Immature Granulocytes # (auto) 0.03 K/uL (0.01-0.20); Immature Granulocytes % (auto) 0.3 %; Lymphocytes # (auto) 0.59 K/uL (1.20-3.40); Lymphocytes % (auto) 5.5 %; Mean Corpuscular Hemoglobin 31.4 pg (25.0-34.0); Mean Corpuscular Hgb Conc 33.6 g/dL (32.0-36.0); Mean Corpuscular Volume 93.3 fL (80.0-100.0); Mean Platelet Volume 10.6 fL (9.4-12.4); Monocytes # (auto) 1.13 K/uL (0.11-0.59); Monocytes % (auto) 10.6 %; Neutrophils # (auto) 8.94 K/uL (1.40-6.50); Neutrophils % (auto) 83.5 %; Platelet Count 174 K/uL (130-400); RDW Standard Deviation 44.9 fL (36.4-46.3); Red Blood Count 4.05 M/uL (4.70-6.10)
[2023-09-18 06:59] LABS: Calcium 7.8 mg/dl (8.6-10.3); Potassium 3.9 mmol/L (3.5-5.1)
[2023-09-18 07:05] LABS: BUN Creatinine Ratio 32.8 (10-20); Creatinine Clr Calc Pharmacy 55.6 ml/min; Est GFR (African American) 66.2 ml/min; Est GFR (Non-African American) 57.1 ml/min
[2023-09-18 07:40] LABS: Estimated Average Glucose 137 mg/dl; Hemoglobin A1C 6.4 % (4.5-5.6)
--- NOTE | 2023-09-18 07:51 | XRay Report ---
XR chest 1V portable CLINICAL HISTORY: weakness TECHNIQUE: Single frontal radiograph of the chest was obtained. Comparison: Comparison is made to chest radiograph 02/28/2023 FINDINGS: No lines and tubes are seen. Cardiomegaly is noted. The lungs are clear. Small left pleural effusion is seen. IMPRESSION: Small left pleural effusion is seen. No airspace opacities are seen. ACT 112: Negative or not required by law. Electronically signed by: Matthieu Kelley M.D. 09/18/2023 7:50 AM
[2023-09-18] MEDS: ESCITALOPRAM OXALATE 10 MG TAB PO SCH (08:13)
[2023-09-18] MEDS: FINASTERIDE 5 MG TAB PO SCH (08:13)
[2023-09-18] MEDS: VALSARTAN/SACUBITRIL 103/97MG TAB PO SCH (08:13)
[2023-09-18] MEDS: APIXABAN 5 MG TABLET PO SCH (08:13)
[2023-09-18] MEDS: TAMSULOSIN HCL 0.4 MG CAP PO SCH (08:14)
--- OUTSIDE RECORDS SUMMARY | 2023-09-18 09:50 | External Medical Summary | Summary of Care ---
Author Name Unknown Organization [facility] Address [address] [place] [address] Phone [phone] Care Team Providers Care Machine Inspector Name Role Phone Linda Rendon DO Primary Care Provider [phone] Reason for Visit * Reason Onset Date Comments Test Results 09/05/2023 Encounter Details Date Type Department Care Team (Late st Contact Info) Description 09/05/2023 Telephone Cardiology, [facility] [address] [place] [address] Preeti Calix CRNP [address] [facility] [place] [address] Test Results Allergies Active Allergy Reactions Criticality Noted Date Comments Nitroglycerin 09/01/1999 Family is unsure of this being a true allergy documented as of this encounter (statuses as of 09/05/2023) Medications Medication Sig Dispensed Refills Start Date End Date Status Levothyroxine Sodium 150 MCG Oral Tablet (Levoxyl) Take by mouth 1 Tablet in the morning. (at least 30 min prior to breakfast or other meds). Do not start before October 11, 2021. 30 Tablet 3 10/11/2021 Active Acetaminophen 500 MG Oral Tablet (Tylenol Extra Strength) Take 2 Tablets by mouth every 6 hours as needed for Pain, Moderate. Active L-Tryptophan 500 MG Oral Tablet Take 1,500 mg by mouth at bedtime. Pt takes 3 tablets at night Active Escitalopram Oxalate 10 MG Oral Tablet (Lexapro)Indication s:Adjustment disorder with anxious mood Take 1 Tablet by mouth in the morning. 90 Tablet 1 04/25/2023 Active Spironolactone 25 MG Oral Tablet (Aldactone)Indicati ons:HFrEF (heart failure with reduced ejection fraction) ([facility]),Acute pulmonary embolism, unspecified pulmonary embolism type, unspecified whether acute cor pulmonale present (HCC),NSVT (nonsustained ventricular tachycardia) (HCC),HTN, goal below 140/90 Take 1 Tablet by mouth in the morning. 90 Tablet 3 04/25/2023 Active Metoprolol Succinate ER 25 MG Oral Tablet Extended Release 24 Hour (toPROL XL)Indications:HFrE F (heart failure with reduced ejection fraction) ([facility]),NSVT (nonsustained ventricular tachycardia) ([facility]) Take 0.5 Tablets by mouth in the morning. 45 Tablet 3 04/27/2023 Active Furosemide 20 MG Oral Tablet (Lasix)Indications: HFrEF (heart failure with reduced ejection fraction) ([facility]),NSVT (nonsustained ventricular tachycardia) ([facility]) Take 1 Tablet by mouth once a day on Sunday, Sunday, and Sunday only. 30 Tablet 5 04/27/2023 Active Levothyroxine Sodium 150 MCG Oral Tablet (Levoxyl) Take 1.5 tablet Sunday and Sunday. (at least 30 min prior to breakfast or other meds) Do not start before June 03, 2023. 06/03/2023 Active Tamsulosin HCl 0.4 MG Oral Capsule (Flomax) Take 1 Capsule by mouth in the morning. 30 Capsule 6 06/22/2023 Active Finasteride 5 MG Oral Tablet (Proscar) Take 1 Tablet by mouth in the morning. 90 Tablet 3 06/22/2023 Active Sacubitril-Valsarta n 97-103 MG Oral Tablet (Entresto) Take 1 Tablet by mouth in the morning and 1 Tablet before bedtime. 60 Tablet 5 07/06/2023 Active Apixaban 5 MG Oral Tablet (Eliquis) Take two tablets twice daily for 7 days; then take 1 tab twice daily as maintenance therapy. 90 Tablet 2 07/17/2023 Active Empagliflozin 10 MG Oral Tablet (Jardiance) Take 1 Tablet by mouth in the morning. 30 Tablet 5 08/03/2023 Active documented as of this encounter (statuses as of 09/05/2023) Active Problems Problem Noted Date Diagnosed Date Pancreatic cyst 03/09/2023 Renal cyst 03/09/2023 Cardiomyopathy 03/02/2023 Acute pulmonary embolism 03/02/2023 Fall at home 02/28/2023 Closed fracture of multiple ribs of left side Hemothorax on left 02/28/2023 Papillary thyroid carcinoma 02/27/2023 Prediabetes 04/01/2018 Overview: Per Prediabetes protocol #1 History of nonmelanoma skin cancer 04/30/2017 Overview: BCC left ala 04/02, BCC left posterior shoulder 10/29 Family history of malignant neoplasm of prostate 03/07/2016 Anxiety state 12/01/2014 Insomnia 11/25/2014 HTN, goal below 140/90 documented as of this encounter (statuses as of 09/05/2023) Resolved Problems Problem Noted Date Diagnosed Date Resolved Date Elevated prostate specific antigen (PSA) 10/04/2015 documented as of this encounter (statuses as of 09/05/2023) Immunizations Name Administration Dates Next Due Seasonal Influenza, Quad, Nasal (Flumist) 2018 documented as of this encounter Social History Tobacco Use Types Packs/Day Years Used Date Smoking Tobacco: Former Cigarettes Q uit: 03/19/1965 Smokeless Tobacco: Never Comments:QUIT 1965 Alcohol Use Standard Drinks/Week Comments Not Currently 0 (1 standard drink = 0.6 oz pur e alcohol) RARE PHQ-2 Answer Date Recorded PHQ Adult Total Score 0 08/21/2023 Personal Safety Answer Date Recorded Do you feel unsafe or have concerns for your saf ety? No 02/28/2023 Do you have concerns for you r family's safety? (Household - for ages 0-17 years) Not on file 02/28/2023 Utilities Answer Date Recorded Do you have trouble paying y our heating, water, or electric bill? No 02/28/2023 Is your family able to pay t he heat, water, or electric bill? (Household - for ages 0-17 years) Not on file 02/28/2023 Does your family have access to good internet? (Household - for ages 0-17 years) Not on file 02/28/2023 Social Connections Answer Date Recorded How often do you feel lonely or isolated from those around you? (Adult - for ages 18 years and over) Not on file 09/04/2023 Transportation Needs Answer Date Record ed READ ONLY Do you have troubl e getting a ride to medical visits or work? Never True 02/28/2023 Does your family have a hard time getting a ride to doctors visits? (Household - for ages 0-17 years) Not on file 02/28/2023 Has lack of transportation k ept you from medical appointments, meetings, work, or from getting things needed for daily living? Check all that apply. (Adult - for ages 18 years and over) Not on file 02/28/2023 Do you (or your family) have trouble finding or paying for a ride (transportation)? (Household - for ages 0-17 years) Not on file 02/28/2023 Housing Stability Answer Date Recorded Do you currently live in a s helter or have no steady place to sleep at night? (Adult - for ages 18 years and over) Not on file 02/28/2023 READ ONLY Do you think you a re at risk of becoming homeless? No 02/28/2023 Does your family worry about paying for your home or becoming homeless? (Household - for ages 0-17 years) Not on file 1 05/01/2022 Are you homeless or worried that you might be in the future? (Adult - for ages 18 years and over) Not on file Are you (or your family) hank eless or worried that you might be in the future? (Household - for ages 0-17 years) Not on file Food Insecurity Answer Date Recorded Do you need food for this week? No 02/28/2023 Are you able to get enough f ood for your family? (Household - for ages 0-17 years) Not on file 02/28/2023 Does your family need food t his week? (Household - for ages 0-17 years) Not on file 02/28/2023 Do you always have enough fo od for your family? (Household - for ages 0-17 years) Not on file 02/28/2023 Sex and Gender Information Value Date Recorded Sex Assigned at Not on file Gender Identity Not on file Sexual Orientation Not on file Job Start Date Occupation Industry Not on file Not on file Not on file documented as of this encounter Functional Status Functional Status Response Date of Assess ment Are you deaf or do you have serious difficulty h earing? No 02/28/2023 Are you blind or do you have serious difficulty seeing, even when wearing glasses? No 02/28/2023 Do you have serious difficul ty walking or climbing stairs? (5 years old or older) Yes 02/28/2023 Do you have difficulty dress ing or bathing? (5 years old or older) No 02/28/2023 Because of a physical, menta l, or emotional condition, do you have difficulty doing errands alone such as visiting a doctor s office or shopping? (15 years old or older) No 02/29/20 Cognitive Status Response Date of Assessm ent Because of a physical, menta l, or emotional condition, do you have serious difficulty concentrating, remembering, or making decisions? (5 years old or older) No 02/28/2023 documented as of this encounter Miscellaneous Notes * Telephone Encounter - Cricket Sauceda LPN - 09/05/2023 12:54 PM EDT Sent patient a TV Volume Wizard App message to make aware. ----- Message from Preeti Calix sent at 09/05/2023 12:13 PM EDT ----- Echocardiogram showed a low normal LVEF of 50-54%, slightly improved compared to prior echo. No wall motion abnormalities. Small pericardial effusion noted-- known and stable. Aortic root measured at4.0 cm and proximal ascending thoracic aorta measured at 4.1 cm. No changes needed at this time. Follow-up as scheduled to discuss in detail. documented in this encounter Plan of Treatment Upcoming Encounters Date Type Department Care Team (Late st Contact Info) Description 09/14/2023 10:30 AM EDT [facility] [address] [place] [address] [facility] Card[facility] [address] [place] [address] 09/18/2023 11:30 AM EDT Office Visit Cardiology, [facility] [address] [place] [address] Giovani Shannon MD [address] [facility] [place] [address] 12/25/2023 10:15 AM EDT Office Visit Urology, [facility] [address] [facility] [place] [address] Jean Marie Mix MD [address] [facility] [address] [place] [address] 08/26/2024 1:00 PM EDT Office Visit Family Practice [facility] [address] [facility] [place] [address] Linda Rendon DO [address] [place] [place] [address] Scheduled Procedures Name Priority Associated Diagnoses Date/Ti me ESOPHAGOGASTRODUODENOSCOPY ( EGD), FLEXIBLE, TRANSORAL, ENDOSCOPIC ULTRASOUND Recall Abnormal CT scan Health Maintenance Due Date Last Done Comments Pneumococcal Vaccine: 65+ Years (1 of 2 - PCV) 1946 DTaP,Tdap,and Td Vaccines (1 - Tdap) 1957 Zoster Vaccines (1 of 2) 1988 COVID-19 Vaccine (1 - 2022- season) 2022 Influenza Vaccine (FLU shot) (Season Ended) 2023 01/21/2019 TSH 03/22/2024 03/22/2023, 02/16, 06/07/2022, Additional history exists HbA1c 06/12/2024 06/13/2023, 06/0 05/2021, 02/20/2019, Additional history exists Depression Screening 08/20/2024 08/21/2023 Albumin/Creatinine Ratio 06/12/2026 06/13/2023, 05/18 GARDASIL-HPV IMMUNIZATION SERIES Aged Out No longer eligible based on patient's age to complete this topic Hepatitis B Aged Out No longer eligi ble based on patient's age to complete this topic MENINGOCOCCAL (MENACTRA/MENVEO) Aged Out No longer eligible based on patient's age to complete this topic documented as of this encounter Medical Devices Implanted Type Area Nurse Transplant Device Identifier Shelf Expiration Date Model / Serial / Lot Lens Intraoc 18.5 - [id number] - [id number] Implanted:Qty: 1 on 06/01/2022 by Jonny Foster MD at [facility] Right: Eye [employer] 01/16/2027 [id number] / [id number] / [id number] Lens Intraoc 18.5 - [id number] - [id number] Implanted:Qty: 1 on 06/13/2022 by Jonny Foster MD at OR [facility] Left: Eye [employer] 01/16/2027 [id number] / [id number] / [id number] documented as of this encounter Advance Directives * Full Code (Latest Code Status on File) Date Activated Date Inactivated Comments 02/28/2023 5:39 PM 03/12/2023 6:27 PM This order reflects the patients wishes and were consensually agreed upon. Question Answer Comments Discussion of Advance Directives occurred with: Patient * No Code Date Activated Date Inactivated Comments 06/13/2022 9:04 AM 06/13/2022 3:27 PM This order r eflects the patients wishes and were consensually agreed upon. Question Answer Comments Discussion of Advance Directives occurred with: Patient Does the patient have a Living Will? No Does the patient have Health Care Power of Attor bahman? No * No Code Date Activated Date Inactivated Comments 06/01/2022 7:05 AM 06/01/2022 1:27 PM This order r eflects the patients wishes and were consensually agreed upon. Question Answer Comments Discussion of Advance Directives occurred with: Patient Does the patient have a Living Will? No Does the patient have Health Care Power of Attor bahman? No * Full Code Date Activated Date Inactivated Comments 10/10/2021 12:53 PM 10/11/2021 4:11 PM This order reflects the patients wishes and were consensually agreed upon. Question Answer Comments Discussion of Advance Directives occurred with: Not Discussed Care Teams Machine Inspector Relationship Specialty Start Date End Date Linda Rendon DO [address] [place] [address] PCP - General Family Medicine 03/07/16 documented as of this encounter
--- OUTSIDE RECORDS SUMMARY | 2023-09-18 09:50 | External Medical Summary ---
Author Name Unknown Address Unknown Organization K01:[facility] [address] [facility] [place] [address] Laboratory Report Ordering Provider Test Date Status GODFREY GARRIDO 08/20/2023 15:16:35 Final Observation Date Value Abnormality Reference (Units ) Status BUN 08/20/2023 15:16:35 33 Above high normal 6-20 (mg/dL) Final Creatinine 08/20/2023 15:16:35 1.0 0.6-1.2 (mg/dL) Final Glomerular filtration rate/1.73 sq M.predicted [Volume Rate/Area] in Serum, Plasma or Blood by Creatinine-based formula (CKD-EPI) 08/20/2023 15:16:35 78 >=60 (mL/min) Final eGFR is calculated based on the CKD-EPI 2020 equation Sodium 08/20/2023 15:16:35 140 135-146 (m mol/L) Final Potassium 08/20/2023 15:16:35 5.0 3.5-5.1 (m mol/L) Final Cl 08/20/2023 15:16:35 105 98-107 (mm ol/L) Final CO2 08/20/2023 15:16:35 25 22-32 (mmo l/L) Final Anion gap 08/20/2023 15:16:35 10 7-15 (mmol /L) Final Glucose 08/20/2023 15:16:35 104 70-120 (mg /dL) Final Calcium 08/20/2023 15:16:35 9.5 8.4-10.2 ( mg/dL) Final Performing Location [facility] [address] [place] [address]
--- OUTSIDE RECORDS SUMMARY | 2023-09-18 09:50 | External Medical Summary | Summary of Care ---
Author Name Unknown Organization [facility] Address [address] [place] [address] Phone [phone] Care Team Providers Care Transverse Abdominal Muscle Surgeon Name Role Phone Linda Rendon DO Primary Care Provider [phone] Reason for Referral * Precert (Within 10 days (routine)) - Pending Review Specialty Diagnoses / Procedures Referred By Contac t Referred To Contact Cardiac Studies Diagnoses HFrEF (heart failure with reduced ejection fraction) (HCC) Stress-induced cardiomyopathy Procedures ECHO, COMPLETE (2D), TRANS-THORACIC ECHO, COMPLETE (2D), TRANS-THORACIC Preeti Calix CRNP [address] [place] [address] Referral ID Status Reason Start Date Expiration Date Visits Requested Visits Authorized [id number] Pending Review Precert 09/17/[phone] Encounter Details Date Type Department Care Team (Late st Contact Info) Description 08/03/2023 Telephone Cardiology, [facility] [address] [place] [address] Preeti Calix CRNP [address] [place] [address] Allergies Active Allergy Reactions Criticality Noted Date Comments Nitroglycerin 09/01/1999 Family is unsure of this being a true allergy documented as of this encounter (statuses as of 08/03/2023) Medications Medication Sig Dispensed Refills Start Date End Date Status Levothyroxine Sodium 150 MCG Oral Tablet (Levoxyl) Take by mouth 1 Tablet in the morning. (at least 30 min prior to breakfast or other meds). Do not start before October 11, 2021. 30 Tablet 3 10/11/2021 Active Calcium Carbonate Antacid 500 MG Oral Tablet Chewable (Tums) Take 1 Tablet by mouth 2 times a day as needed for Heartburn. 0 Active Acetaminophen 500 MG Oral Tablet (Tylenol Extra Strength) Take 2 Tablets by mouth every 6 hours as needed for Pain, Moderate. 0 Active L-Tryptophan 500 MG Oral Tablet Take 1,500 mg by mouth at bedtime. Pt takes 3 tablets at night 0 Active Escitalopram Oxalate 10 MG Oral Tablet (Lexapro)Indication s:Adjustment disorder with anxious mood Take 1 Tablet by mouth in the morning. 90 Tablet 1 04/25/2023 Active Spironolactone 25 MG Oral Tablet (Aldactone)Indicati ons:HFrEF (heart failure with reduced ejection fraction) ([facility]),Acute pulmonary embolism, unspecified pulmonary embolism type, unspecified whether acute cor pulmonale present ([facility]),NSVT (nonsustained ventricular tachycardia) ([facility]),HTN, goal below 140/90 Take 1 Tablet by mouth in the morning. 90 Tablet 3 04/25/2023 Active Metoprolol Succinate ER 25 MG Oral Tablet Extended Release 24 Hour (toPROL XL)Indications:HFrE F (heart failure with reduced ejection fraction) ([facility]),NSVT (nonsustained ventricular tachycardia) ([facility]) Take 0.5 Tablets by mouth in the morning. 45 Tablet 3 04/27/2023 Active Furosemide 20 MG Oral Tablet (Lasix)Indications: HFrEF (heart failure with reduced ejection fraction) ([facility]),NSVT (nonsustained ventricular tachycardia) ([facility]) Take 1 Tablet by mouth once a day on Sunday, Sunday, and Sunday only. 30 Tablet 5 04/27/2023 Active Levothyroxine Sodium 150 MCG Oral Tablet (Levoxyl) Take 1.5 tablet Sunday and Sunday. (at least 30 min prior to breakfast or other meds) Do not start before June 03, 2023. 0 06/03/2023 Active Terazosin HCl 10 MG Oral Capsule Take 1 Capsule by mouth at bedtime. 90 Capsule 3 06/05/2023 Active Tamsulosin HCl 0.4 MG Oral Capsule [...] as of this encounter (statuses as of 08/03/2023) Active Problems Problem Noted Date Diagnosed Date [...] as of this encounter (statuses as of 08/03/2023) Resolved Problems Problem Noted Date Diagnosed Date Resolved Date Elevated prostate specific antigen (PSA) 10/04/2015 documented as of this encounter (statuses as of 08/03/2023) Immunizations Name Administration Dates Next Due Seasonal Influenza, Quad, Nasal (Flumist) 2018 documented as of this encounter Social History Tobacco Use Types Packs/Day Years Used Date Smoking Tobacco: Former Cigarettes Q uit: 03/19/1965 Smokeless Tobacco: Never Comments:QUIT 1965 Alcohol Use Standard Drinks/Week Comments Yes 0 (1 standard drink = 0.6 oz pur e alcohol) RARE PHQ-2 Answer Date Recorded PHQ Adult Total Score 0 08/09/2022 Sex and Gender Information Value Date Recorded [...] encounter Miscellaneous Notes * Telephone Encounter - Prakash Shannon OSA - 08/03/2023 3:19 PM EDT Called patient, spoke with daughter. Patient is setup for the ECHO before the FU with Shiva, on: Sunday Appt at 10:35 AM (1 hr) * Telephone Encounter - Preeti Calix CRNP - 08/03/2023 2:44 PM EDT GDMT optimized with the help of the cardio MTM clinic. Please repeat echo prior to follow up with Dr. Shannon in September documented in this encounter Plan of Treatment Upcoming Encounters Date Type Department Care Team (Late st Contact Info) Description 08/20/2023 3:40 PM EDT Office Visit Pulmonary Medicine, [facility] [address] [place] [address] Quintin [facility]ozano [facility] [address] [facility] [place] [address] 08/21/2023 1:00 PM EDT Office Visit Family Practice [facility] [address] [place] [address] Linda Rendon DO [address] [place] [address] 08/24/2023 2:10 PM EDT Office Visit Cardiology, [facility] [address] [place] [address] [facility] Cardiology [place] [address] [facility] [place] [address] 09/04/2023 2:30 PM EDT Office Visit General Surgery, [place] [address] [place] [address] 620, [facility] [address] [place] [address] 09/05/2023 10:35 AM EDT Cardiac Studies Cardiac Studies, [facility] [address] [facility] [place] [address] 09/18/2023 11:30 AM EDT Office Visit Cardiology, [facility] [address] [place] [address] Giovani Shannon MD [address] [place] [address] 12/25/2023 10:15 AM EDT Office Visit Urology, [facility] [address] [place] [address] Jean Marie Mix MD [address] [facility] [address] [place] [address] Scheduled Orders Name Type Priority Associated Diagnoses Orde r Schedule ECHO, COMPLETE (2D), TRANS-THORACIC Echocardiology Routine HFrEF (heart failure with reduced ejection fraction) (HCC) Stress-induced cardiomyopathy Expected: 09/17/2023 (Approximate), Expires: 09/02/2025 Scheduled Procedures Name Priority Associated Diagnoses Date/Ti me ESOPHAGOGASTRODUODENOSCOPY ( EGD), FLEXIBLE, TRANSORAL, ENDOSCOPIC ULTRASOUND Recall Abnormal CT scan Health Maintenance Due Date Last Done Comments Pneumococcal Vaccine: 65+ Years (1 of 2 - PCV) 1946 DTaP,Tdap,and Td Vaccines (1 - Tdap) 1957 Zoster Vaccines (1 of 2) 1988 COVID-19 Vaccine (1 - 2022- season) 2022 Depression Screening 08/10/2023 08/09/2022 Influenza Vaccine (FLU shot) (Season Ended) 2023 01/21/2019 TSH 03/22/2024 03/22/2023, 02/16, 06/07/2022, Additional history exists HbA1c 06/12/2024 06/13/2023, 06/0 05/2021, 02/20/2019, Additional history exists Albumin/Creatinine Ratio 06/12/2026 06/13/2023, 05/18 GARDASIL-HPV IMMUNIZATION SERIES Aged Out No longer eligible based on patient's age to complete this topic Hepatitis B Aged Out No longer eligi ble based on patient's age to complete this topic MENINGOCOCCAL (MENACTRA/MENVEO) Aged Out No longer eligible based on patient's age to complete this topic documented as of this encounter Medical Devices Implanted Type Area Size Mixer Device Identifier Shelf Expiration Date Model / Serial / Lot Lens Intraoc 18.5 - [id number] - [id number] Implanted:Qty: 1 on 06/01/2022 by Jonny Foster MD at OR [facility] Right: Eye [employer] 01/16/2027 [id number] / [id number] / [id number] Lens Intraoc 18.5 - [id number] - [id number] Implanted:Qty: 1 on 06/13/2022 by Jonny Foster MD at [facility] Left: Eye [employer]OM[employer] 01/16/2027 [id number] / [id number] / [id number] documented as of this encounter Visit Diagnoses Diagnosis HFrEF (heart failure with reduced ejection fraction) (HCC)- Primary Stress-induced cardiomyopathy Takotsubo syndrome documented in this encounter Advance Directives Latest Code Status on File Code Status Date Activated Date Inactivated Comments Full Code 02/28/2023 5:39 PM 03/12/2023 6:27 PM Thi s order reflects the patients wishes and were consensually agreed upon. Question Answer Comments Discussion of Advance Directives occurred with: Patient Code Status History Code Status Date Activated Date Inactivated Comments No Code 06/13/2022 9:04 AM 06/13/2022 3:27 PM This order reflects the patients wishes and were consensually agreed upon. Question Answer Comments Discussion of Advance Directives occurred with: Patient Does the patient have a Living Will? No Does the patient have Health Care Power of Spot Remover? No No Code 06/01/2022 7:05 AM 06/01/2022 1:27 PM This order reflects the patients wishes and were consensually agreed upon. Question Answer Comments Discussion of Advance Directives occurred with: Patient Does the patient have a Living Will? No Does the patient have Health Care Power of Spot Remover? No Full Code 10/10/2021 12:53 PM 10/11/2021 4:11 PM This order reflects the patients wishes and were consensually agreed upon. Question Answer Comments Discussion of Advance Directives occurred with: Not Discussed Care Teams Transverse Abdominal Muscle Surgeon Relationship Specialty Start Date End Date Linda Rendon DO [address] [place] [address] PCP - General Family Medicine 03/07/16 documented as of this encounter
--- OUTSIDE RECORDS SUMMARY | 2023-09-18 09:50 | External Medical Summary | Summary of Care ---
Author Name Unknown Organization [facility] Address [address] [place] [address] Phone [phone] Care Team Providers Care Community Outreach Worker Name Role Phone Linda Rendon DO Primary Care Provider [phone] Reason for Visit * Reason Onset Date Comments Other 09/04/2023 Follow up with dalia read regarding surgery preference Encounter Details Date Type Department Care Team (Late st Contact Info) Description 09/04/2023 Telephone General Surgery, [place] [address] [place] [address] Carlos Eduardo Salinas MD [address] [place] [address] Other (Follow up with patient regarding moore... Allergies Active Allergy Reactions Criticality Noted Date Comments Nitroglycerin 09/01/1999 Family is unsure of this being a true allergy documented as of this encounter (statuses as of 09/07/2023) Medications Medication Sig Dispensed Refills Start Date [...] ons:HFrEF (heart failure with reduced ejection fraction) (HCC),Acute pulmonary embolism, unspecified pulmonary embolism type, unspecified whether acute cor pulmonale present (HCC),NSVT (nonsustained ventricular tachycardia) (HCC),HTN, goal below 140/90 Take 1 Tablet by mouth in the morning. 90 Tablet 3 04/25/2023 Active Metoprolol Succinate ER 25 MG Oral Tablet Extended Release 24 Hour (toPROL XL)Indications:HFrE F (heart failure with reduced ejection fraction) ([facility]),NSVT (nonsustained ventricular tachycardia) (HCC) Take 0.5 Tablets by mouth in the morning. 45 Tablet 3 04/27/2023 Active Furosemide 20 MG Oral Tablet (Lasix)Indications: HFrEF (heart failure with reduced ejection fraction) ([facility]),NSVT (nonsustained ventricular tachycardia) ([facility]) Take 1 Tablet by mouth once a [...] as of this encounter (statuses as of 09/07/2023) Active Problems Problem Noted Date Diagnosed Date [...] as of this encounter (statuses as of 09/07/2023) Resolved Problems Problem Noted Date Diagnosed Date Resolved Date Elevated prostate specific antigen (PSA) 10/04/2015 documented as of this encounter (statuses as of 09/07/2023) Immunizations Name Administration Dates Next Due Seasonal [...] encounter Miscellaneous Notes * Telephone Encounter - Gisela Cosme RN - 09/07/2023 3:33 PM EDT Called placed to patient. Spoke with patient's daughter, Keyana, to inquire if the patient is going to pursue diaphragmatic hernia repair surgery at this time. Daughter states her dad was just seenby his purchasing agent and the purchasing agent will not clear him for surgery as it is too risky. I thanked Keyana for her time and advised to reach out to Dr. Salinas if anything changes. * Telephone Encounter - Gisela Cosme RN - 09/04/2023 3:56 PM EDT Attempted to contact patient per Dr. Salinas's request regarding scheduled appointment today that wascancelled by the patient. Contacting the patient for possible need to reschedule appointment and ifhe would like to pursue surgical repair of diaphragmatic hernia. Left message for patient to returnmy call to [phone]. documented in this encounter Plan of Treatment Upcoming Encounters Date Type Department Care Team (Late st Contact Info) Description 09/14/2023 10:30 AM EDT Office Visit Cardiology, [facility] [address] [place] [address] [facility] [address] [place] [address] 09/18/2023 11:30 AM EDT Office Visit Cardiology, [facility] [address] [place] [address] Giovani Shannon MD [address] [place] [address] 12/25/2023 10:15 AM EDT Office Visit Urology, [facility] [address] [place] [address] Jean Marie Mix MD [address] [place] [address] 08/26/2024 1:00 PM EDT Office Visit Family Practice [facility] [address] [place] [address] Linda Rendon DO [address] [place] [address] Scheduled Procedures Name Priority Associated Diagnoses Date/Ti me ESOPHAGOGASTRODUODENOSCOPY ( EGD), FLEXIBLE, TRANSORAL, ENDOSCOPIC ULTRASOUND Recall Abnormal CT scan Health Maintenance Due Date Last Done Comments Pneumococcal Vaccine: 65+ Years (1 of 2 - PCV) 1946 DTaP,Tdap,and Td Vaccines (1 - Tdap) 1957 Zoster Vaccines (1 of 2) 1988 COVID-19 Vaccine (1 - 2022-24 season) 2022 Influenza Vaccine (FLU shot) (Season [...] this encounter Medical Devices Implanted Type Area Call Centre Supervisor Device Identifier Shelf Expiration Date Model / Serial / Lot Lens Intraoc 18.5 - [id number] - [id number] Implanted:Qty: 1 on 06/01/2022 by Jonny Foster MD at [facility] Right: Eye [employer] 01/16/2027 [id number] / [id number] / [id number] Lens Intraoc 18.5 - [id number] - [id number] Implanted:Qty: 1 on 06/13/2022 by Jonny Foster MD at OR [facility] Left: Eye [employer] 01/16/2027 [id number] / [id number] / [id number] documented as of this encounter Advance Directives [...] Directives occurred with: Not Discussed Care Teams Community Outreach Worker Relationship Specialty Start Date End Date Linda Rendon DO [address] [place] [address] PCP - General Family Medicine 03/07/16 documented as of this encounter
--- OUTSIDE RECORDS SUMMARY | 2023-09-18 09:50 | External Medical Summary | Summary of Care ---
Author Name Unknown Organization [facility] Address [address] [place] [address] Phone [phone] Care Team Providers Care Wardrobe Mistress Name Role Phone Linda Rendon DO Primary Care Provider [phone] Reason for Visit * Reason Comments Physical-Exam Yearly exam, black s pot on R side, pain on upper R side-broken ribs? Encounter Details Date Type Department Care Team (Late st Contact Info) Description 08/21/2023 1:00 PM EDT Office Visit Family Practice [facility] [address] [facility] [place] [address] Linda Rendon, [address] [place] [address] Cardiomyopathy, unspecified type (HCC)*; Acute pulmonary embolism, unspecified pulmonary embolism type, unspecified whether acute cor pulmonale present (HCC); HTN, goal below 140/90; Risk and functional assessment; Bilateral impacted cerumen Allergies Active Allergy Reactions Criticality Noted Date Comments Nitroglycerin 09/01/1999 Family is unsure of this being a true allergy documented as of this encounter (statuses as of 08/26/2023) Medications Medication Sig Dispensed Refills Start Date [...] Active Escitalopram Oxalate 10 MG Oral Tablet (Lexapro)Indicati ons:Adjustment disorder with anxious mood Take 1 Tablet by mouth in the morning. 90 Tablet 1 04/25/2023 Active Spironolactone 25 MG Oral Tablet (Aldactone)Indica tions:HFrEF (heart failure with reduced ejection fraction) ([facility]),Acute pulmonary embolism, unspecified pulmonary embolism type, unspecified whether acute cor pulmonale present (HCC),NSVT (nonsustained ventricular tachycardia) ([facility]),HTN, goal below 140/90 Take 1 Tablet by mouth in the morning. 90 Tablet 3 04/25/2023 Active Metoprolol Succinate ER 25 MG Oral Tablet Extended Release 24 Hour (toPROL XL)Indications:HF rEF (heart failure with reduced ejection fraction) ([facility]),NSVT (nonsustained ventricular tachycardia) ([facility]) Take 0.5 Tablets by mouth in the morning. 45 Tablet 3 04/27/2023 Active Furosemide 20 MG Oral Tablet (Lasix)Indication s:HFrEF (heart failure with reduced ejection fraction) ([facility]),NSVT (nonsustained ventricular tachycardia) ([facility]) Take 1 Tablet by mouth once [...] by mouth in the morning. 90 Tablet 06/22/2023 Active Sacubitril-Valsar gaines 97-103 MG Oral Tablet (Entresto) Take 1 [...] the morning. 30 Tablet 5 08/03/2023 Active Terazosin HCl 10 MG Oral Capsule Take 1 Capsule by mouth at bedtime. 90 Capsule 3 06/05/2023 4 Discontinue d(Medicatio n List Clean Up) documented as of this encounter (statuses as of 08/26/2023) Active Problems Problem Noted Date Diagnosed Date [...] as of this encounter (statuses as of 08/26/2023) Resolved Problems Problem Noted Date Diagnosed Date Resolved Date Elevated prostate specific antigen (PSA) 10/04/2015 documented as of this encounter (statuses as of 08/26/2023) Immunizations Name Administration Dates Next Due Seasonal [...] Recorded PHQ Adult Total Score 0 08/21/2023 Sex and Gender Information Value Date Recorded Sex Assigned at Not on file Gender Identity Not on file Sexual Orientation Not on file Job Start Date Occupation Industry Not on file Not on file Not on file documented as of this encounter Last Filed Vital Signs Vital Sign Reading Time Taken Comments Blood Pressure 126/64 08/21/2023 12:50 PM EDT Pulse 68 08/21/2023 12:50 PM EDT Temperature 36.4 C (97.5 F) 08/21/2023 12:50 PM E DT Respiratory Rate 16 08/21/2023 12:50 PM EDT Oxygen Saturation - - Inhaled Oxygen Concentration - - Weight 92.5 kg (204 lb) 08/21/2023 12:50 PM EDT Height 190.5 cm (6' 3") 08/21/2023 12:50 PM EDT Body Mass Index 25.5 08/21/2023 12:50 PM EDT documented in this encounter Functional Status Functional Status Response [...] No 02/28/2023 documented as of this encounter Patient Instructions * Patient Instructions* Sandra Neff RN - 08/21/2023 12:50 PM EDT Patient Instructions - Fall Prevention (This education is for all patients over 65 regardless of symptoms) Remember to take your current medications as prescribed. In order to prevent falls, you are encouraged to: Exercise Utilize assistive/adaptive devices Avoid multifocal lenses when walking Avoid hazards in home Maintain a regular toileting schedule Any questions please contact our office. Preventing Falls in the Home (This education is for all patients over 65 regardless of symptoms) As you get older, falls are more likely. Thats because your reaction time slows. Your muscles and joints may also get stiffer, making them less flexible. Illness, medications, and vision changes can also affect your balance. A fall could leave you unable to live on your own. To make your home safer, follow these tips: Floors Put nonskid pads under area rugs Remove throw rugs Replace worn floor coverings Tack carpets firmly to each step on carpeted stairs. Put nonskid strips on the edges of uncarpeted stairs Keep floors and stairs free of clutter and cords Arrange furniture so there are clear pathways Clean up any spills right away Bathrooms Install grab bars in the tub or shower Apply nonskid strips or put a nonskid rubber mat in the tub or shower Sit on a bath chair to bathe Use bathmats with nonskid backing Lighting Keep a flashlight in each room Put a nightlight along the pathway between the bedroom and the bathroom [employer] Patient Education Copyright 2008 - 2010 [employer] except where otherwise noted Preventing Falls: Exercises to Improve Balance, Flexibility, Strength, and Staying Power (This education is for all patients over 65 regardless of symptoms) Certain types of exercises may help make you less likely to fall. Try the ones below. Or do other exercises that your healthcare provider suggests. Depending on your health, you may need to start slowly. Dont let that stop you. Even small amounts of exercise can help you. Be sure to talk to yourhealthcare provider before starting any exercise program. Improve Balance Many types of exercise can help improve balance. Nathaniel chi and yoga are good examples. Heres another one to try. You can do it anytime and almost anywhere. Stand next to a counter or solid support. Push yourself up onto your tiptoes. Hold for 5 seconds. If you start to lose your balance, hold on to the counter. Rest and repeat 5 times. Work up to holding for 20 to 30 seconds, if you can. Increase Flexibility Being more flexible makes it easier for you to move around safely. Try exercises like the seated hamstring stretch. Sit in a chair and put one foot on a stool. Straighten your leg and reach with both hands down either side of your leg. Reach as far down your leg as you can. Hold for about 20 seconds. Go back to the starting position. Then repeat 5 times. Switch legs. Build Strength Resistance exercises help build strength. You can do them without equipment. Or you can use weights, elastic bands, or special machines. One such exercise is called the biceps curl. You can hold a 1 pound weight or even a can of soup. Do this exercise at least 3 times a week. Strive for everyday. Sit up straight in a chair. Keep your elbow close to your body and your wrist straight. Bend your arm, moving your hand up to your shoulder. Then slowly lower your arm. Repeat 5 times. Switch to the other arm. Build Your Staying Power Aerobic exercises make your heart and lungs stronger so you can keep moving longer. Walking and swimming are two of the best types of exercises you can do. Using a stationary bike is great, too. Find an aerobic exercise that you enjoy. Start slowly and build up. Even 5 minutes is helpful. Aimfor a goal of 30 minutes, at least 3 times a week. You dont have to do 30 minutes in one session. Break it up and walk a little throughout the day. More Helpful Tips Start easy. Slowly work up to doing more. Talk with your healthcare provider about the best exercises for you. Call senior centers or health clubs about exercise programs. If needed, have a family member watch you walk every so often to check your stability. Exercise with a friend. Choose an activity you both enjoy. Try exercises that you can do anytime, anywhere. Here are two examples. Have someone with you when you first try these: Practice walking by placing one foot right in front of the other. Stand up and sit down 10 times. Repeat this throughout the day. [employer] Patient Education Copyright 2008 - 2010 [employer] except where otherwise noted. Preventing Falls: Moving Safely Using a Cane or Walker (This education is for all patients over 65 regardless of symptoms) Keep the cane away from your feet so you dont trip. A walking aid, such as a cane or walker, can help you stay more independent and avoid falls. Remember to keep your walking aid within easy reach when youre in a chair or in bed. And learn how to use it safely so you dont injure yourself. Using a Cane If you have a stronger side, hold the cane on that side. Get your balance. Move the cane and your weaker leg forward. Support your weight on both the cane and your weaker side. Step with your stronger leg. Start again from step 1. If youre using a folding walker, be sure you know how to lock it open. Check that its locked open before each use. Using a Walker Roll the walker (or lift it, if youre using one without wheels) forward about 12 inches. Step forward with your weaker leg first. Use the walker to help keep your balance. Bring your other foot forward to the center of the walker. Start again from step 1. Helpful Tips Check with your healthcare provider about the right walking aid to use. Ask about a walker with a seat attached. Check the tips of your cane or walker to make sure they have nonskid covers. Move slowly from room to room. Dont hall. Sit down to get dressed. Use a ely pack or backpack to keep your hands free. Get help for jobs that mean climbing, even on a stepstool. [employer] Patient Education Copyright 2008 - 2010 [employer] except where otherwise noted. Treating Urinary Incontinence in Men (This education is for all patients over 65 regardless of symptoms) You can't always control the release of urine. You may leak urine. Or you may not be able to hold your urine until you can get to a bathroom. This is called urinary incontinence. The problem can be managed. Talk to your doctor about your treatment options. Taking Medications Prescription medications may help you. They may: Help the sphincter to work better. (This is the muscle that closes to keep urine from leaking out of the bladder.) Help stop the bladder from ash too often to push urine out. Help the bladder muscles contract with more force. Help relax the sphincter muscle and allow urine to flow more freely. Making Changes to Your Routine Certain changes in your daily routine may help. These include: Avoiding caffeine and alcohol. Using timed voiding. This is following a schedule for drinking fluids and urinating. Doing Kegel exercises daily. These exercises involve tightening the muscles in your sphincter and around your bladder to help strengthen them. Your doctor can explain how to do them. Using a Catheter A catheter is a narrow tube that is inserted through the urethra into the bladder. It drains urine.A condom catheter covers the penis. It channels urine into a collection bag. It is worn most of thetime. Intermittent catheterization means inserting a catheter to drain the bladder, then removing it. This is done on a regular schedule. Having Surgery If other options don't work, surgery may be recommended. If surgery is an option, your healthcare provider can discuss it with you and explain its risks and benefits. Healing After Prostate Surgery Surgery on the prostate gland can cause incontinence. Most often, the incontinence is only for a short time. It clears up when healing is complete. Very rarely, prostate surgery can result in permanent incontinence. documented in this encounter Progress Notes * Linda Rendon, - 08/21/2023 1:04 PM EDT Subjective: Hector Pastrana is a 83 year old male. Chief Complaint Patient presents with Physical-Exam Yearly exam, black spot on R side, pain on upper R side-broken ribs? HPI: Pt presents for follow up today with daughter. Has a spot on his R side that he wants checked out. Also had fell into a doorframe about 1 week ago, 2 days later developed sig pain on the R side. Starting to improve now. Hx of fractured ribs. Denies sob, etc. 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 Has caregiver who comes in 3 mornings a week, makes breakfast. Pt is able to bathe on his own. Lives on one floor. Seen by pulm yesterday - to remain on anticoagulate indefinitely for hx of PE. Working w/[employer] for med mgt of heart failure. Denies chest pain, no increased swelling in lower extremities. Most recently started on entresto, tolerating it well. Also on jardiance. Following w/urology - monitoring PSA, avoiding aggressive tx for elevated PSA, switched from terazosin to tamsulosin. Pt is tolerating this without lightheadedness. Pt notes his stool is more liquid for the past few days. No recent antibiotics. No hx of cdiff. No blood in stool. Also notes increased belching. To scheduled EGD/EUS for eval of pancreatic cyst. PHM: Patient Active Problem List Diagnosis HTN, goal below 140/90 Insomnia Anxiety state Family history of malignant neoplasm of prostate History of nonmelanoma skin cancer Prediabetes Papillary thyroid carcinoma (HCC) Fall at home Closed fracture of multiple ribs of left side Hemothorax on left Cardiomyopathy (HCC) Acute pulmonary embolism (HCC) Pancreatic cyst Renal cyst Current Outpatient Medications Medication Sig Dispense Refill Levothyroxine Sodium 150 MCG Oral Tablet (Levoxyl) Take by mouth 1 Tablet in the morning. (at least30 min prior to breakfast or other meds). Do not start before October 11, 2021. 30 Tablet 3 Acetaminophen 500 MG Oral Tablet (Tylenol Extra Strength) Take 2 Tablets by mouth every 6 hours as needed for Pain, Moderate. L-Tryptophan 500 MG Oral Tablet Take 1,500 mg by mouth at bedtime. Pt takes 3 tablets at night Escitalopram Oxalate 10 MG Oral Tablet (Lexapro) Take 1 Tablet by mouth in the morning. 90 Tablet 1 Spironolactone 25 MG Oral Tablet (Aldactone) Take 1 Tablet by mouth in the morning. 90 Tablet 3 Metoprolol Succinate ER 25 MG Oral Tablet Extended Release 24 Hour (toPROL XL) Take 0.5 Tablets by mouth in the morning. 45 Tablet 3 Furosemide 20 MG Oral Tablet (Lasix) Take 1 Tablet by mouth once a day on Sunday, Sunday, and Sunday only. 30 Tablet 5 Levothyroxine Sodium 150 MCG Oral Tablet (Levoxyl) Take 1.5 tablet Sunday and Sunday. (at least 30 min prior to breakfast or other meds) Do not start before June 03, 2023. Terazosin HCl 10 MG Oral Capsule Take 1 Capsule by mouth at bedtime. 90 Capsule 3 Tamsulosin HCl 0.4 MG Oral Capsule (Flomax) Take 1 Capsule by mouth in the morning. 30 Capsule 6 Finasteride 5 MG Oral Tablet (Proscar) Take 1 Tablet by mouth in the morning. 90 Tablet 3 Sacubitril-Valsartan 97-103 MG Oral Tablet (Entresto) Take 1 Tablet by mouth in the morning and 1 Tablet before bedtime. 60 Tablet 5 Apixaban 5 MG Oral Tablet (Eliquis) Take two tablets twice daily for 7 days; then take 1 tab twice daily as maintenance therapy. 90 Tablet 2 Empagliflozin 10 MG Oral Tablet (Jardiance) Take 1 Tablet by mouth in the morning. 30 Tablet 5 No current facility-administered medications for this visit. Past Medical History: Diagnosis Date Adrenal abnormality (HCC) treated w/herbal supplements by Dr. Bhatt Elevated prostate specific antigen (PSA) 6.2 -->4.2 -->3.9 HTN, goal below 140/90 Dr Corazon Sandoval Hyperplasia of prostate Past Surgical History: Procedure Laterality Date ANESTHESIA FOR BLADDER SURGERY bladder polyp removed. RELIEVE INNER EYE PRESSURE Right 06/01/2022 GONIOTOMY performed by Jonny Foster MD at OR [facility] RELIEVE INNER EYE PRESSURE Left 06/13/2022 GONIOTOMY performed by Jonny Foster MD at OR [facility] REMOVAL OF THYROID FOR TUMOR N/A 10/10/2021 THYROIDECTOMY WITH LIMITED NECK DISSECTION performed by Clarissa Hernandez MD at OR [facility] REMOVE CATARACT, INSERT LENS PROSTH Right 06/01/2022 RIGHT EXTRACAPSULAR CATARACT REMOVAL WITH INTRAOCULAR LENS performed by Jonny Foster MD at OR [facility] REMOVE CATARACT, INSERT LENS PROSTH Left 06/13/2022 LEFT EXTRACAPSULAR CATARACT REMOVAL WITH INTRAOCULAR LENS performed by Jonny Foster MD at OR [facility] Review of patient's allergies indicates: Allergen Reactions Nitroglycerin Family is unsure of this being a true allergy Objective: BP 126/64 (BP Site: Left Arm, BP Position: Sitting, BP Cuff Size: Regular) | Pulse 68 | Temp 36.4 C (97.5 F) (Tympanic) | Resp 16 | Ht 1.905 m (6' 3") | Wt 92.5 kg (204 lb) | BMI 25.50 kg/m | BSA 2.21 m Review of Systems: As per HPI, all other ROS neg. Physical Exam: General: alert, healthy and no distress Heart: regular rate & rhythm, no murmurs and no gallops Lungs: chest symmetric with normal AP diameter, no chest deformities noted, lungs clear to auscultation Extremities: no joint deformities, effusion, or inflammation, no edema Skin: SK R flank Cardiomyopathy, unspecified type (HCC) (Primary) Euvolemic On GDMT Acute pulmonary embolism, unspecified pulmonary embolism type, unspecified whether acute cor pulmonale present (HCC) Remains on eliquis HTN, goal below 140/90 Bp stable Risk and functional assessment Impacted cerumen - REMOVAL IMPACTED CERUMEN IRRIGATION/LAVAGE, UNILAT Follow up: in 6 month(s). Linda Rendon DO documented in this encounter Nursing Notes * Sandra Neff RN - 08/21/2023 1:53 PM EDT Bilat ear lavage with large amounts of wax removed from each ear. Tolerated well documented in this encounter Plan of Treatment Upcoming Encounters Date Type Department Care Team (Late st Contact Info) Description 09/04/2023 2:30 PM EDT Office Visit General Surgery, [place] [address] [place] [address], Trauma Clinic [facility] [place] [address] 09/05/2023 10:35 AM EDT Cardiac Studies Cardiac Studies, [facility] [address] [facility] [place] [address] 09/14/2023 10:30 AM EDT Office Visit Cardiology, [facility] [address] [place] [place] [address] [facility] Card[facility] [address] [place] [address] 09/18/2023 11:30 AM EDT Office Visit Cardiology, [facility] [address] [facility] [place] [address] Giovani Shannon MD [address] [facility] [place] [address] 12/25/2023 10:15 AM EDT Office Visit Urology, [facility] [address] [place] [address] Jean Marie Mix MD [address] [facility] [address] [place] [address] 08/26/2024 1:00 PM EDT Office Visit Family [facility] [address] [place] [address] Linda Rendon DO [address] [place] [address] Scheduled Orders Name Type Priority Associated Diagnoses Orde r Schedule REMOVAL IMPACTED CERUMEN IRRIGATION/LAVAGE, UNILAT Procedures Routine Bilateral impacted cerumen Ordered: 08/21/2023 Scheduled Procedures Name Priority Associated Diagnoses Date/Ti [...] this encounter Medical Devices Implanted Type Area Idea Worker Device Identifier Shelf Expiration Date Model / Serial / Lot Lens Intraoc 18.5 - [id number] - [id number] Implanted:Qty: 1 on 06/01/2022 by Jonny Foster MD at [facility] Right: Eye [employer] 01/16/2027 [id number] / [id number] / [id number] Lens Intraoc 18.5 - [id number] - [id number] Implanted:Qty: 1 on 06/13/2022 by Jonny Foster MD at OR [facility] Left: Eye [employer] 01/16/2027 [id number] / [id number] / [id number] documented as of this encounter Visit Diagnoses Diagnosis Cardiomyopathy, unspecified type (HCC)- Primary Acute pulmonary embolism, unspecified pulmonary embolism type, unspecified whether acute cor pulmonale present (HCC) HTN, goal below 140/90 Unspecified essential hypertension Risk and functional assessment Screening for unspecified condition Bilateral impacted cerumen Impacted cerumen documented in this encounter Advance Directives * Full Code [...] Directives occurred with: Not Discussed Care Teams Wardrobe Mistress Relationship Specialty Start Date End Date Linda Rendon DO [address] [place] [address] PCP - General Family Medicine 03/07/16 documented as of this encounter
--- OUTSIDE RECORDS SUMMARY | 2023-09-18 09:50 | External Medical Summary | Summary of Care ---
Author Name Unknown Organization [facility] Address [address] [place] [address] Phone [phone] Care Team Providers Care Dam Attendant Name Role Phone Linda Rendon DO Primary Care Provider [phone] Reason for Visit * Reason Onset Date Comments Other 09/04/2023 Follow up with dalia read regarding surgery preference Encounter Details Date Type Department Care Team (Late st Contact Info) Description 09/04/2023 Telephone General Surgery, [place] [address] [place] [address] Carlos Eduardo Salinas MD [address] [place] [address] Other (Follow up with patient regarding moore... Allergies Active Allergy Reactions Criticality Noted Date Comments Nitroglycerin 09/01/1999 Family is unsure of this being a true allergy documented as of this encounter (statuses as of 09/04/2023) Medications Medication Sig Dispensed Refills Start Date [...] (heart failure with reduced ejection fraction) ([facility]),NSVT (nonsustained ventricular tachycardia) (HCC) Take 0.5 Tablets by mouth in the morning. 45 Tablet 3 04/27/2023 Active Furosemide 20 MG Oral Tablet (Lasix)Indications: HFrEF (heart failure with reduced ejection fraction) ([facility]),NSVT (nonsustained ventricular tachycardia) ([facility]) Take 1 Tablet by mouth once a [...] as of this encounter (statuses as of 09/04/2023) Active Problems Problem Noted Date Diagnosed Date [...] as of this encounter (statuses as of 09/04/2023) Resolved Problems Problem Noted Date Diagnosed Date Resolved Date Elevated prostate specific antigen (PSA) 10/04/2015 documented as of this encounter (statuses as of 09/04/2023) Immunizations Name Administration Dates Next Due Seasonal [...] message for patient to returnmy call to [phone]. documented in this encounter Plan of Treatment Upcoming Encounters Date Type Department Care Team (Late st Contact Info) Description 09/05/2023 10:35 AM EDT Cardiac Studies Cardiac Studies, [facility] [address] [facility] [place] [address] 09/14/2023 10:30 AM EDT Office Visit Cardiology, [facility] [address] [place] [address] [facility] Card[facility] [place] [address] [address] [place] [address] 09/18/2023 11:30 AM EDT Office Visit Cardiology, [facility] [address] [place] [address] Giovani Shannon MD [address] [facility] [place] [address] 12/25/2023 10:15 AM EDT Office Visit Urology, [facility] [address] [facility] [place] [address] Jean Marie Mix MD [address] [facility] [address] [place] [address] 08/26/2024 1:00 PM EDT Office Visit Family Practice [facility] [address] [facility] [place] [address] Linda Rendon DO [address] [facility] [place] [address] Scheduled Procedures Name Priority Associated Diagnoses Date/Ti [...] this encounter Medical Devices Implanted Type Area Electro Tech Device Identifier Shelf Expiration Date Model / Serial / Lot Lens Intraoc 18.5 - [id number] - [id number] Implanted:Qty: 1 on 06/01/2022 by Jonny Foster MD at OR [facility] Right: Eye [employer] 01/16/2027 [id number] / [id number] / [id number] Lens Intraoc 18.5 - [id number] - [id number] Implanted:Qty: 1 on 06/13/2022 by Jonny Foster MD at OR [facility] Left: Eye [employer] 01/16/2027 [id number] / [id number] / [id number] documented as of this encounter Advance Directives [...] Directives occurred with: Not Discussed Care Teams Dam Attendant Relationship Specialty Start Date End Date Linda Rendon DO [address] [place] [address] PCP - General Family Medicine 03/07/16 documented as of this encounter
--- OUTSIDE RECORDS SUMMARY | 2023-09-18 09:50 | External Medical Summary | Summary of Care ---
Author Name Unknown Organization [facility] Address [address] [place] [address] Phone [phone] Care Team Providers Care Receiving Distribution Station Operator Name Role Phone Linda Rendon DO Primary Care Provider [phone] Reason for Visit * Reason Comments Follow Up Encounter Details Date Type Department Care Team (Late st Contact Info) Description 08/20/2023 3:40 PM EDT Office Visit Pulmonary Medicine, [facility] [address] [facility] [place] [address] Quintin Lozano MD [address] [facility] [place] [id number] Other pulmonary embolism without acute cor pulmonale, unspecified chronicity (HCC)* Allergies Active Allergy Reactions Criticality Noted Date Comments Nitroglycerin 09/01/1999 Family is unsure of this being a true allergy documented as of this encounter (statuses as of 08/20/2023) Medications Medication Sig Dispensed Refills Start Date [...] tions:HFrEF (heart failure with reduced ejection fraction) (HCC),Acute pulmonary embolism, unspecified pulmonary embolism type, unspecified whether acute cor pulmonale present (HCC),NSVT (nonsustained ventricular tachycardia) (HCC),HTN, goal below 140/90 Take 1 Tablet by mouth in the morning. 90 Tablet 3 04/25/2023 Active Metoprolol Succinate ER 25 MG Oral Tablet Extended Release 24 Hour (toPROL XL)Indications:HF rEF (heart failure with reduced ejection fraction) (HCC),NSVT (nonsustained ventricular tachycardia) (HCC) Take 0.5 Tablets by mouth in the morning. 45 Tablet 3 04/27/2023 Active Furosemide 20 MG Oral Tablet (Lasix)Indication s:HFrEF (heart failure with reduced ejection fraction) (HCC),NSVT (nonsustained ventricular tachycardia) (HCC) Take 1 Tablet by mouth once a day on Sunday, Sunday, and Sunday only. 30 Tablet 5 04/27/2023 Active Levothyroxine Sodium 150 MCG Oral Tablet (Levoxyl) Take 1.5 tablet Sunday and Sunday. (at least 30 min prior to breakfast or other meds) Do not start before June 03, 2023. 06/03/2023 Active Terazosin HCl 10 MG Oral Capsule Take 1 Capsule by mouth at bedtime. 90 Capsule 3 06/05/2023 Active Tamsulosin HCl 0.4 MG Oral Capsule (Flomax) Take 1 Capsule by mouth in the morning. 30 Capsule 6 06/22/2023 Active Finasteride 5 MG Oral Tablet (Proscar) Take 1 Tablet by mouth in the morning. 90 Tablet 3 06/22/2023 Active Sacubitril-Valsar gaines 97-103 MG Oral [...] the morning. 30 Tablet 5 08/03/2023 Active Calcium Carbonate Antacid 500 MG Oral Tablet Chewable (Tums) Take 1 Tablet by mouth 2 times a day as needed for Heartburn. 4 Discontinue d(Medicatio n List Clean Up) documented as of this encounter (statuses as of 08/20/2023) Active Problems Problem Noted Date Diagnosed Date [...] as of this encounter (statuses as of 08/20/2023) Resolved Problems Problem Noted Date Diagnosed Date Resolved Date Elevated prostate specific antigen (PSA) 10/04/2015 documented as of this encounter (statuses as of 08/20/2023) Immunizations Name Administration Dates Next Due Seasonal [...] Sign Reading Time Taken Comments Blood Pressure 120/62 08/20/2023 3:24 PM EDT Pulse 77 08/20/2023 3:24 PM EDT Temperature 36.8 C (98.3 F) 08/20/2023 3:24 PM ED T Respiratory Rate 20 08/20/2023 3:24 PM EDT Oxygen Saturation 96% 08/20/2023 3:25 PM EDT ra, amb Inhaled Oxygen Concentration - - Weight 92.7 kg (204 lb 6.4 oz) 08/20/2023 3:24 P M EDT Height 190.5 cm (6' 3") 08/20/2023 3:24 PM EDT Body Mass Index 25.55 08/20/2023 3:24 PM EDT documented in this encounter Functional [...] No 02/28/2023 documented as of this encounter Progress Notes * Quintin Lozano MD - 08/20/2023 4:01 PM EDT 08/20/2023 Pulmonary Medicine, [address] [place] [id number] Hector Pastrana 1940 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 Patient had follow-up CT scan chest with PE protocol done which showed residual clot burden. Procedure had been done prior to scheduled endoscopy which was canceled pending pulmonary clearance. Eliquis therapy was resumed at initial starting dose followed by maintenance regimen to be continued as maintenance anticoagulation. Patient describes gradually improving respiratory status, denies any recent flare-ups. Tolerating Eliquis therapy without any significant discomfort. No bleeding episodes reported. Denies cough, expectoration or hemoptysis. Initial episodes of pulmonary emboli noted following recuperation from recent left hemothorax and rib fractures. Patient had reported a fall in a hotel facility at night followed by onset of left ribcage discomfort requiring chest tube placement and evacuation of left hemothorax. Pulmonary embolismwas noted during hospitalization and patient was started on Eliquis therapy. Physical examination is significant for class 2 throat, decreased breath sounds left base without dullness, scattered rhonchi, regular cardiac rhythm, no evidence of volume overload and nonlateralizing Neuro examination. CT PE study June 2023 showed residual nonocclusive clots in subsegmental blood vessels noted bilaterally. At this point, we would recommend maintenance anticoagulation therapy with apixaban. Patient is cleared for scheduling endoscopic procedures (requiring withholding apixaban therapy for 72 hours followed by resuming apixaban therapy postprocedure). Importance of maintaining physically active status, bleeding precautions, and aspiration precautions were discussed. Pulmonary clinic follow-up recommended in 6 months. Patient was advised to contact the office with any change in respiratory symptoms status. 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 Cleared for GI endoscopy with 72 hrs off Eliquis and resume post procedure per GI plan F/u in 6 months Follow-up: Return in about 6 months (around 02/19/2024). 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 Cleared for GI endoscopy with 72 hrs off Eliquis and resume post procedure per GI plan F/u in 6 months Quintin Lozano MD Subjective CC: Chief Complaint Patient presents with Follow Up HPI: Nursing Notes: Elida Pereira, SHARON 08/20/23 1530 Addendum Pt for f/u traumatic hemothorax. MMRC Dyspnea Scale = 2 (On level ground, I walk slower than people of the same age because of breathlessness or have to stop for breath when walking at my own) Interm History/Respiratory Symptoms Cough: no Hemoptysis: no Sinus Symptoms: occasional congestion if lying down Hospitalizations: no ED Trips: no Triggers: none Nocturnal: no problems, sleeps with head slightly elevated for comfort CPAP/BiPAP/O2: no DME Supplier: n/a Flu Vaccine: declined Pneumovax: declined Prevnar: declined COVID 19: no Objective Filed Vitals: 08/20/23 1524 08/20/23 1525 BP: 120/62 Pulse: 77 Resp: 20 Temp: 36.8 C (98.3 F) TempSrc: Tympanic SpO2: 98% 96% Weight: 92.7 kg (204 lb 6.4 oz) Height: 1.905 m (6' 3") Exam: Const: No signs of acute distress present. Head/Face: Normal on inspection. Eyes: Conjunctivae clear. Pupils equal round and reactive to light. ENMT: Oropharynx: No erythema, exudate or masses. Posterior pharynx is normal. Neck: Supple and symmetric. Resp: Respiratory examination as outlined above CV: Rate is regular. Rhythm is regular. No heart murmur appreciated. Extremities: No edema of the lower limbs bilaterally. Skin: Skin is warm and dry. Neuro: Coordination normal. No involuntary movement. Psych: Patient's attitude is cooperative. Mood is normal. Affect is normal. Tests reviewed with the patient: CT PULMONARY EMBOLUS W CONTRAST Result Date: 07/17/2023 IMPRESSION Filling defects within the segmental and subsegmental branches of the right upper lobe and left upper lobe compatible with pulmonary embolism. No CT evidence of heart strain. This exam wassubmitted to the radiology corporate banking officer worklist and the ordering provider will be notified that the final report is available in EPIC. MRI ABDOMEN W WO CONTRAST Result Date: 06/04/2023 IMPRESSION 1. Abrupt caliber change of the pancreatic duct within the body with the main pancreaticduct measuring up to 7 mm within the body/tail. There is associated dilated side branches and parenchymal atrophy. No focal lesion is identified. Findings are likely sequela of stricture. 2. 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 3. Bilateral renal cortical and parapelvic cysts. No enhancing renal mass. US HEAD AND NECK Result Date: 05/12/2023 IMPRESSION: There has been a prior total thyroidectomy. The subcentimeter well- circumscribed hypoechoic nodule in the inferior right thyroidectomy bed is stable. THIS DOCUMENT HAS BEEN ELECTRONICALLYSIGNED BY GUIDO PERERA DO CT CHEST W CONTRAST Result Date: 04/20/2023 IMPRESSION 1. Similar small fat-containing left lateral diaphragmatic hernia. 2. Similar small leftpleural effusion, attenuating as simple fluid. No pneumothorax. XR CHEST 2 VIEWS Result Date: 04/09/2023 IMPRESSION Left rib fracture. No pneumothorax XR CHEST 2 VIEWS Result Date: 03/23/2023 IMPRESSION 1. No discernible pneumothorax. 2. Left pleural effusion with adjacent atelectasis, not significantly changed from prior, likely reactive to overlying rib fractures. I have personally reviewed this examination and agree with the resident/fellow physician's interpretation. XR CHEST 1 VIEW Result Date: 03/09/2023 IMPRESSION 1. No pneumothorax. 2. Left pleural effusion and atelectasis are not significantly changed since prior. I have personally reviewed this examination and agree with the resident/fellow physician's interpretation. XR CHEST 1 VIEW Result Date: 03/08/2023 IMPRESSION: Left effusion and atelectasis, similar to prior. CT CHEST/ABDOMEN/PELVIS WITH IV CONTRAST WITHOUT ORAL CONTRAST Result Date: 03/07/2023 IMPRESSION Lateral left diaphragmatic hernia containing fat, presumed posttraumatic with similar adjacent rib fractures. Small residual left-sided pneumothorax after chest tube removal. Small pleuraleffusions and mild basilar atelectasis, greater on the left. Improved burden of right pulmonary emboli, better delineated on the prior PE exam. Mild pancreatic duct distention with apparent strictureat the pancreatic body and upstream atrophy. No remote prior exams to establish stability; advise follow-up if this is unknown. 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 MR pancreas/MRCP could evaluate both these findings on an outpatient basis. Probable mildly complex, 2.0 cm cyst at the lateral right kidney; the density is technically indeterminate for a solid lesion. This canalso be assessed at the time of MRI. Similar marked prostatomegaly. Additional findings are described above. Added to the INTERNATIONAL TRADE COMPLIANCE MANAGER result communication system at 10:17 p.m. 03/07/2023. I have personally reviewed this examination and agree with the resident/fellow physician's interpretation. XR CHEST 1 VIEW Result Date: 03/07/2023 IMPRESSION Trace left apical pneumothorax. Interval removal of the left chest tube. I have personally reviewed this examination and agree with the resident/fellow physician's interpretation. XR CHEST 1 VIEW Result Date: 03/07/2023 IMPRESSION 1. Similar trace left apical pneumothorax with chest tube in stable position. 2. Left basilar opacity, unchanged. XR CHEST 1 VIEW Result Date: 03/06/2023 IMPRESSION 1. Relatively stable examination with trace left apical pneumothorax and left basilar pleural and parenchymal opacification subjacent to rib fractures. XR CHEST 1 VIEW Result Date: 03/05/2023 IMPRESSION: 1. Trace left apical pneumothorax in the setting of a left chest tube. 2. Hypoventilatory changes of the lungs with small left effusion. VASC DUPLEX VENOUS LE BILAT Result Date: 03/04/2023 : Right lower extremity with no evidence of acute deep venous thrombosis. Left lower extremity withno evidence of acute deep venous thrombosis. XR CHEST 1 VIEW Result Date: 03/04/2023 IMPRESSION 1. Tiny left apical pneumothorax noted on the prior day study is no longer appreciated. 2. Decreasing volume of left pleural effusion in comparison to 03/03/2023. Small right pleural effusion is again suggested. 3. Decreasing caliber of the pulmonary vasculature suggesting resolving CHF. XR CHEST 2 VIEWS Result Date: 03/03/2023 IMPRESSION Tiny left apical pneumothorax. XR CHEST 1 VIEW Result Date: 03/02/2023 IMPRESSION Left chest tube with stable consolidative opacity in the left base. This corresponds with the effusion at, atelectasis as well as left diaphragmatic hernia noted on previous CT scan. CT 3D RECONSTRUCTION MUSCULOSKELETAL Result Date: 03/01/2023 IMPRESSION As above. XR CHEST 1 VIEW Result Date: 03/01/2023 IMPRESSION 1. Unchanged position of the left chest tube. Known pneumothorax is not well appreciatedon this exam. 2. Small left pleural effusion with bibasilar atelectasis. I have personally reviewedthis examination and agree with the resident/fellow physician's interpretation. CT ABD/PELVIS W IV CONTRAST - WO ORAL CONTRAST Result Date: 03/01/2023 IMPRESSION 1. A 9 millimeter linear low-density is present along the inferior aspect of the spleen similar to prior examination favors a splenic cleft rather than a grade 1 splenic laceration. 2. Multiple displaced acute left-sided rib fractures redemonstrated. Partially imaged left pneumothorax redemonstrated. Redemonstrated is fat containing left diaphragmatic hernia which is most likely posttraumatic. Bilateral pleural effusions with subjacent consolidation which could represent atelectasis or pneumonia. Lung contusions in the left lower lobe are not excluded. Pleural effusions are mildly complex most likely representing a small component of hemorrhage. Mild complex pericardial effusion similar to prior examination. 3. Fat stranding in the abdominal and pelvic wall, nonspecific. Focal prominence overlying the left greater trochanter which could represent soft tissue injury. Correlateclinically. 4. Redemonstrated are right- sided pulmonary emboli similar to CT scan of the chest dated 02/28/2023 on which they have been noted. 5. Massively enlarged prostate which should be correlated clinically with changes in the urinary bladder representing chronic bladder outlet obstruction. 6.Atrophy of the body and tail of the pancreas with prominent main pancreatic duct. This should be assessed with a nonemergent MRI of the abdomen without and with contrast with MRCP as an outpatient. The renal cortical lesions can also be assessed at the time of MRI. 7. Additional findings and details as above. (In compliance with Act 112, the INTERNATIONAL TRADE COMPLIANCE MANAGER (Sheetrock Applicator) was contacted to invoke system generated communication of the patient's results.) CT PULMONARY EMBOLUS W CONTRAST Result Date: 03/01/2023 IMPRESSION 1. Significant pulmonary embolism involving the distal right main pulmonary artery with involvement of right upper right middle and right lower lobe segmental and subsegmental pulmonary arteries. 2. Probable loculated left pneumomediastinum as well as probable loculated left small pneumothorax. 3. Probable splenic laceration 4. Diaphragm intact posteriorly although there is probable splenic laceration and anterior diaphragm limited evaluation. Further evaluation with repeat CT scan of the abdomen recommended for additional evaluation of the diaphragm and spleen. 5. Bilateral pleural effusions left side greater than right 6. Subsegmental atelectasis involving the right lung with le ft lower lobe atelectasis and subsegmental atelectasis in left upper lobe 7. Mild mosaic attenuation in the right lung may be secondary to pulmonary emboli 8. Left chest tube with subcutaneous emphysema 9. Cysts in the kidneys with right parapelvic cyst and lower pole cyst. Hyperdense lesion in thelateral aspect of the right kidney for which further evaluation recommended. 10. Multiple left displaced rib fractures with fractures in multiple sites 11. Other findings as above XR CHEST 2 VIEWS Result Date: 02/28/2023 IMPRESSION 1. Large left-sided pleural effusion. 2. Multiple acutely displaced left-sided rib fractures. CT ABD/PELVIS WO IV/ORAL CONTRAST Result Date: 02/28/2023 IMPRESSION 1. Partially imaged acute, mildly displaced left lateral 7th to 11th rib fractures. 2. No additional traumatic injury to the abdomen or pelvis. 3. Improved small left hemothorax. 4. Indeterminate exophytic lesion in the lower pole of the right kidney is possibly a proteinaceous cyst or solid neoplasm. Further evaluation with an outpatient abdominal MRI can be obtained for definite characterization. 5. Focus of gas in the spinal canal at level L4-5 of unclear significance and etiology. Relative right lateral position could be due to vacuum phenomena from the adjacent facet synovium.6. Additional findings are described above. Added to radiology results pathway communication systemat 7:04 pm on 02/28/2023. I have personally reviewed this examination and agree with the resident/fellow physician's interpretation. XR CHEST 1 VIEW Result Date: 02/28/2023 IMPRESSION 1. Improved known left hemothorax, now small in size. 2. Redemonstrated mildly displacedleft lateral rib fractures. 3. Cardiomegaly. I have personally reviewed this examination and agree with the resident/fellow physician's interpretation. CT HEAD/BRAIN WO CONTRAST Result Date: 02/28/2023 IMPRESSION: No evidence of acute infarction, recent intracranial hemorrhage, or calvarial fracture.Chronic microvascular white matter disease and parenchymal volume loss. No evidence of acute fracture or traumatic malalignment of the cervical spine. Multilevel degenerative changes of the cervical spine. Partially visualized left hemothorax, better evaluated on concurrently performed CT of the chest. CT C SPINE WO CONTRAST Result Date: 02/28/2023 IMPRESSION: No evidence of acute infarction, recent intracranial hemorrhage, or calvarial fracture.Chronic microvascular white matter disease and parenchymal volume loss. No evidence of acute fracture or traumatic malalignment of the cervical spine. Multilevel degenerative changes of the cervical spine. Partially visualized left hemothorax, better evaluated on concurrently performed CT of the chest. Available Radiologic data was reviewed by me in PACS. The images were shown to the patient and findings were discussed with the patient. HOME MEDICATIONS: Empagliflozin 10 MG Oral Tablet (Jardiance) Apixaban 5 MG Oral Tablet (Eliquis) Sacubitril-Valsartan 97-103 MG Oral Tablet (Entresto) Finasteride 5 MG Oral Tablet (Proscar) Tamsulosin HCl 0.4 MG Oral Capsule (Flomax) Terazosin HCl 10 MG Oral Capsule Levothyroxine Sodium 150 MCG Oral Tablet (Levoxyl) Furosemide 20 MG Oral Tablet (Lasix) Metoprolol Succinate ER 25 MG Oral Tablet Extended Release 24 Hour (toPROL XL) Escitalopram Oxalate 10 MG Oral Tablet (Lexapro) Spironolactone 25 MG Oral Tablet (Aldactone) L-Tryptophan 500 MG Oral Tablet Acetaminophen 500 MG Oral Tablet (Tylenol Extra Strength) Levothyroxine Sodium 150 MCG Oral Tablet (Levoxyl) ROS: No reported history of Hemoptysis, Hematemesis, Melena No reported history of Dysuria, Hematuria, Flank Pain No reported history of chronic headache, seizures No reported history of Fall or trauma . No reported history of recent change in weight or appetite. Past Medical History: Diagnosis Date Adrenal abnormality (HCC) treated w/herbal supplements by Dr. Bhatt Elevated prostate specific antigen (PSA) 6.2 -->4.2 -->3.9 HTN, goal below 140/90 Dr Bhatt- Jaime Hyperplasia of prostate Past Surgical History: Procedure Laterality Date ANESTHESIA FOR BLADDER SURGERY bladder polyp removed. RELIEVE INNER EYE PRESSURE Right 06/01/2022 GONIOTOMY performed by Jonny Foster MD at OR [facility] RELIEVE INNER EYE PRESSURE Left 06/13/2022 GONIOTOMY performed by Jonny Foster MD at OR [facility] REMOVAL OF THYROID FOR TUMOR N/A 10/10/2021 THYROIDECTOMY WITH LIMITED NECK DISSECTION performed by Clarissa Hernandez MD at OR [facility] REMOVE CATARACT, INSERT LENS PROSTH Right 06/01/2022 RIGHT EXTRACAPSULAR CATARACT REMOVAL WITH INTRAOCULAR LENS performed by Jonny Foster MD at OR [facility] REMOVE CATARACT, INSERT LENS PROSTH Left 06/13/2022 LEFT EXTRACAPSULAR CATARACT REMOVAL WITH INTRAOCULAR LENS performed by Jonny Foster MD at OR [facility] Social History Socioeconomic History Marital status: 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 No one else in the home. Part of the family lives in [place]. 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 Family History Problem Relation Name Age of Onset Other (CHF) Father 67 Blood Disorder Sister iron anemia Hypertension Sister Hypertension Brother [place] Cancer Brother prostate CA Cancer Brother unknown Review of patient's allergies indicates: Allergen Reactions Nitroglycerin Family is unsure of this being a true allergy documented in this encounter Nursing Notes * Elida Pereira LPN - 08/20/2023 3:19 PM EDT Pt for f/u traumatic hemothorax. MMRC Dyspnea Scale = 2 (On level ground, I walk slower than people of the same age because of breathlessness or have to stop for breath when walking at my own) Interm History/Respiratory Symptoms Cough: no Hemoptysis: no Sinus Symptoms: occasional congestion if lying down Hospitalizations: no ED Trips: no Triggers: none Nocturnal: no problems, sleeps with head slightly elevated for comfort CPAP/BiPAP/O2: no DME Supplier: n/a Flu Vaccine: declined Pneumovax: declined Prevnar: declined COVID 19: no documented in this encounter Plan of Treatment Upcoming Encounters Date Type Department Care Team (Late st Contact Info) Description 08/21/2023 1:00 PM EDT Office Visit Family Practice [facility] [place] [address] Linda Rendon DO [address] [facility] [place] [address] 09/04/2023 2:30 PM EDT Office Visit General Surgery, [address] [address], Tra[facility] Clinic [address] [address] 09/05/2023 10:35 AM EDT Cardiac Studies Cardiac Studies, [facility] [address] [facility] [place] [address] 09/14/2023 10:30 AM EDT Office Visit Cardiology, [facility] [address] [facility] [place] [address] [facility] Cardiology [facility] [address] [facility] [place] [address] 09/18/2023 11:30 AM EDT Office Visit Cardiology, [facility] [address] [facility] [place] [address] Giovani Shannon MD [address] [facility] [place] [address] 12/25/2023 10:15 AM EDT Office Visit Urology, [facility] [address] [facility] [place] [address] Jean Marie Mix MD [address] [place] [address] [place] [address] Scheduled Procedures Name Priority Associated Diagnoses Date/Ti [...] this encounter Medical Devices Implanted Type Area Upholsterer Limousine [employer] Hearse Device Identifier Shelf Expiration Date Model / Serial / Lot Lens Intraoc 18.5 - [id number] - [id number] Implanted:Qty: 1 on 06/01/2022 by Jonny Foster MD at OR [facility] Right: Eye [employer]CH [employer] LOMB 01/16/2027 [id number] / [id number] / [id number] Lens Intraoc 18.5 - [id number] - [id number] Implanted:Qty: 1 on 06/13/2022 by Jonny Foster MD at OR [facility] Left: Eye BAUSCH [employer] LOMB 01/16/2027 [id number] / [id number] / [id number] documented as of this encounter Visit Diagnoses Diagnosis Other pulmonary embolism without acute cor pulmonale, unspecified chronicity (HCC)- Primary documented in this encounter Advance Directives * [...] Directives occurred with: Not Discussed Care Teams Receiving Distribution Station Operator Relationship Specialty Start Date End Date Linda Rendon DO [address] [place] [address] PCP - General Family Medicine 03/07/16 documented as of this encounter
--- OUTSIDE RECORDS SUMMARY | 2023-09-18 09:50 | External Medical Summary | Summary of Care ---
Author Name Unknown Organization [facility] Address [address] [place] [address] Phone [phone] Care Team Providers Care Television Repairer Name Role Phone Linda Rendon DO Primary Care Provider [phone] Reason for Visit * Reason Comments Dosage Adjustment Via Phone (anticoag Cl inic) Congestive Heart Failure Encounter Details Date Type Department Care Team (Late st Contact Info) Description 09/14/2023 10:30 AM EDT Office Visit [facility], [facility] [address] [facility] [address] [place] [address] HFrEF (heart failure with reduced ejection fraction) ([facility])* Allergies Active Allergy Reactions Criticality Noted Date Comments Nitroglycerin 09/01/1999 Family is unsure of this being a true allergy documented as of this encounter (statuses as of 09/14/2023) Medications Medication Sig Dispensed Refills Start Date [...] ons:HFrEF (heart failure with reduced ejection fraction) ([facility]),Acute pulmonary embolism, unspecified pulmonary embolism type, unspecified whether acute cor pulmonale present (HCC),NSVT (nonsustained ventricular tachycardia) ([facility]),HTN, goal below 140/90 Take 1 Tablet by mouth in the morning. 90 Tablet 3 04/25/2023 Active Metoprolol Succinate ER 25 MG Oral Tablet Extended Release 24 Hour (toPROL XL)Indications:HFrE F (heart failure with reduced ejection fraction) ([facility]),NSVT (nonsustained ventricular tachycardia) ([facility]) Take 0.5 Tablets by mouth in the morning. 45 Tablet 3 04/27/2023 Active Furosemide 20 MG Oral Tablet (Lasix)Indications: HFrEF (heart failure with reduced ejection fraction) ([facility]),NSVT (nonsustained ventricular tachycardia) ([facility]) Take 1 Tablet by mouth [...] as of this encounter (statuses as of 09/14/2023) Active Problems Problem Noted Date Diagnosed Date [...] as of this encounter (statuses as of 09/14/2023) Resolved Problems Problem Noted Date Diagnosed Date Resolved Date Elevated prostate specific antigen (PSA) 10/04/2015 documented as of this encounter (statuses as of 09/14/2023) Immunizations Name Administration Dates Next Due Seasonal [...] Sign Reading Time Taken Comments Blood Pressure 126/71 09/14/2023 10:36 AM EDT Pulse 63 09/14/2023 10:36 AM EDT Temperature - - Respiratory Rate - - Oxygen Saturation - - Inhaled Oxygen Concentration - - Weight 91.4 kg (201 lb 6.4 oz) 09/14/2023 10:36 AM EDT Height - - Body Mass Index 25.17 08/21/2023 12:50 PM EDT documented in this [...] this encounter Patient Instructions * Patient Instructions* Sumaya Lam RPh - 09/14/2023 10:41 AM EDT [phone] option 3 Sumaya Lam Pharm D Clinical MTDM Pharmacist Cardiology 09/14/2023,10:41 AM documented in this encounter Progress Notes * Sumaya Lam RPh - 09/14/2023 10:31 AM EDT PHARMACY CHRONIC DISEASE MANAGEMENT - HEART FAILURE Hector Pastrana is an 83 year old patient referred to the Heart Failure [facility] clinic by Preeti Ag the following: General heart failure medication optimization PCP: Linda Rendon DO Cardiology Provider: Preeti Calix Meat Counter Worker: Not currently active with case management Urgent HF Access: Reviewed the following treatment locations for urgent HF symptoms with patient and provided them with contact information Cardiology based urgent heart failure clinic, [facility] [phone] HPI: Patient has heart failure assessment: Heart failure with REDUCED ejection fraction (SYStolic heart failure) undetermined if ischemic heart disease is present Patient has evidence of RV dysfunction: No Most recent LVEF: 50-54% Date: 09/05/23 Echo Previous LVEF: 45 % Date: 03/29/23 Modality: Echo 40 % Date: 03/01/23 Modality: Echo Home vitals: Does patient monitor BP at home? no Any dizziness or lightheadedness: Denies Home BP log results: N/a Does patient monitor HR at home? no Home HR log results: N/a Does patient monitor weight at home? no Any increased edema or shortness of breath: Denies Home weight log results: N/a Objective: BP Readings from Last 3 Encounters: 08/21/23 126/64 08/20/23 120/62 08/03/23 149/87 Pulse Readings from Last 3 Encounters: 08/21/23 68 08/20/23 77 08/03/23 62 Wt Readings from Last 3 Encounters: 08/21/23 92.5 kg (204 lb) 08/20/23 92.7 kg (204 lb 6.4 oz) 08/03/23 92 kg (202 lb 14.4 oz) Lab Results Component Value Date/Time CREATININE - [facility] 1.0 08/20/2023 03:16 PM CREATININE - [facility] 0.9 07/17/2023 10:22 AM CREATININE - [facility] 1.0 06/13/2023 01:22 PM CREATININE - [facility] 1.2 12/01/1999 08:36 AM CREATININE - [facility] 0.8 07/26/1999 08:32 AM CREATININE - [facility] 0.80 12/26/1996 10:38 AM CREATININE, RANDOM URINE - [facility] 101 06/13/2023 01:25 PM CREATININE, RANDOM URINE - [facility] 253 06/07/2022 11:55 AM CREATININE-OUTSIDE LAB 0.79 05/10/2020 12:00 AM CREATININE-OUTSIDE LAB 0.86 02/20/2019 12:00 AM CREATININE-OUTSIDE LAB 0.86 02/01/2018 12:00 AM Lab Results Component Value Date/Time SODIUM - [facility] 140 08/20/2023 03:16 PM SODIUM - [facility] 141 07/17/2023 10:22 AM SODIUM - [facility] 140 06/13/2023 01:22 PM SODIUM - [facility] 144 12/01/1999 08:36 AM SODIUM - [facility] 146 07/26/1999 08:32 AM SODIUM - [facility] 142 12/26/1996 10:38 AM Lab Results Component Value Date/Time POTASSIUM - [facility] 5.0 08/20/2023 03:16 PM POTASSIUM - [facility] 4.5 07/17/2023 10:22 AM POTASSIUM - [facility] 4.6 06/13/2023 01:22 PM POTASSIUM - [facility] 3.8 12/20/1999 08:39 AM POTASSIUM - [facility] 3.4 (L) 12/01/1999 08:36 AM POTASSIUM - [facility] 4.1 07/26/1999 08:32 AM POTASSIUM-OUTSIDE LAB 3.7 05/10/2020 12:00 AM POTASSIUM-OUTSIDE LAB 3.7 02/20/2019 12:00 AM POTASSIUM-OUTSIDE LAB 3.6 02/01/2018 12:00 AM No results found for: "DIG" Lab Results Component Value Date/Time HGB 12.0 (L) 04/20/2023 03:33 PM HGB 12.2 (L) 03/23/2023 01:49 PM HGB 11.7 (L) 03/21/2023 05:03 AM HGB 15.5 05/10/2020 12:00 AM HGB 14.5 02/20/2019 12:00 AM HGB 15.1 02/01/2018 12:00 AM No results found for: "FERRITIN" No results found for: "IRON" No results found for: "IRON BIND" No results found for: "TRANSFERRIN" Diet Review: not reviewed Current Cardiac Medication(s): Metoprolol Er 25 mg tablet-take 12.5 mg daily-started 04/27/23 Spironolactone 25 mg daily Entresto 97-103 mg BID-started 06/01/23; increased 07/06/23 Jardiance 10 mg daily-started 08/03/23 Eliquis 5 mg BID Lasix 20 mg MWF-started 04/27/23 Eligible for [facility] pharmacy? Agree or Declined? Not eligible Assessment & Plan: HFimprovedEF -in setting of acute illness w/ traumatic hemothroax and PE 02/2023 -Planning to rule out ischemic with stress test in future -Continue current medications Overall patient continues to to great. His echo showed his EF improved. He denies any edema or SOB.Weight is stable. Vitals well controlled. Last visit, pt started Jardiance and is tolerating well. Follow up BMP stable, K is borderline. Will monitor to monitor. GDMT optimized so will sign off at this time. Seeing Dr Shannon 09/17 2. Controlled Hypertension -Continue current medications 3. Aortic sclerosis 4. Non sustained VT -seen on Zio 5. PE -02/2023 -3 months anticoagulation until June 2023 -Eliquis 6. Pre-Diabetes -Jardiance 10 mg daily Medication changes: None Labs Due: BMP 3 months Vaccine Due: not discussed Follow up: none; MTM will sign off Sumaya Orourke [facility] Clinical Pharmacist Medication Therapy Disease Management 09/14/2023,10:31 AM documented in this encounter Plan of Treatment Upcoming Encounters Date Type Department Care Team (Late st Contact Info) Description 09/18/2023 11:30 AM EDT Office Visit Cardiology, [facility] [address] [place] [address] Giovani Shannon MD [address] [place] [address] 12/25/2023 10:15 AM EDT Office Visit Urology, [facility] [address] [place] [address] Jean Marie Mix MD [address] [place] [address] 08/26/2024 1:00 PM EDT Office Visit [facility] [address] [place] [address] Linda Rendon DO [address] [place] [address] Scheduled Procedures Name Priority Associated Diagnoses Date/Ti me ESOPHAGOGASTRODUODENOSCOPY ( EGD), FLEXIBLE, TRANSORAL, ENDOSCOPIC ULTRASOUND Recall Abnormal CT scan Health Maintenance Due Date Last Done Comments Pneumococcal Vaccine: 65+ Years (1 of 2 - PCV) 1946 DTaP,Tdap,and Td Vaccines (1 - Tdap) 1957 Zoster Vaccines (1 of 2) 1988 COVID-19 Vaccine (1 - season) 2022 Influenza Vaccine (FLU shot) (Season Ended) 2023 01/21/2019 TSH 03/22/2024 03/22/2023, 02/16, 06/07/2022, Additional history exists HbA1c 06/12/2024 06/13/2023, 0605/2021, 02/20/2019, Additional history exists Depression Screening 08/20/2024 [...] this encounter Medical Devices Implanted Type Area Licensed Appraiser Device Identifier Shelf Expiration Date Model / Serial / Lot Lens Intraoc 18.5 - [id number] - [id number] Implanted:Qty: 1 on 06/01/2022 by Jonny Foster MD at OR [facility] Right: Eye BAUSCH [employer] LOMB 01/16/2027 [id number] / [id number] / [id number] Lens Intraoc 18.5 - [id number] - [id number] Implanted:Qty: 1 on 06/13/2022 by Jonny Foster MD at [facility] Left: Eye BAUSCH & LOMB 01/16/2027 [id number] / [id number] / [id number] documented as of this encounter Visit Diagnoses Diagnosis HFrEF (heart failure with reduced ejection fraction) ([facility])- Primary documented in this encounter Advance Directives [...] Directives occurred with: Not Discussed Care Teams Television Repairer Relationship Specialty Start Date End Date Linda Rendon DO [address] [place] [address] PCP - General Family Medicine 03/07/16 documented as of this encounter
--- OUTSIDE RECORDS SUMMARY | 2023-09-18 09:50 | External Medical Summary | Summary of Care ---
Author Name Unknown Organization [facility] Address [address] [place] [address] Phone [phone] Care Team Providers Care R Developer Name Role Phone Linda Rendon DO Primary Care Provider [phone] Reason for Visit * Reason Comments Outpatient Testing Encounter Details Date Type Department Care Team (Late st Contact Info) Description 08/20/2023 4:00 PM EDT Laboratory Laboratory, [facility] [address] [place] [id number] [facility] [address] [place] [address] HFrEF (heart failure with reduced ejection fraction) ([facility]) Allergies Active Allergy Reactions Criticality Noted Date [...] rEF (heart failure with reduced ejection fraction) ([facility]),NSVT (nonsustained ventricular tachycardia) (HCC) Take 0.5 Tablets by mouth in the morning. 45 Tablet 3 04/27/2023 Active Furosemide 20 MG Oral Tablet (Lasix)Indication s:HFrEF (heart failure with reduced ejection fraction) ([facility]),NSVT (nonsustained ventricular tachycardia) ([facility]) Take 1 Tablet by mouth [...] No 02/28/2023 documented as of this encounter Plan of Treatment Upcoming Encounters Date Type Department Care Team (Late st Contact Info) Description 08/20/2023 3:40 PM EDT Office Visit Pulmonary Medicine, [facility] [address] [place] [address] Quintin Lozano MD [address] [place] [place] [address] Arrived 08/21/2023 1:00 PM EDT Office Visit Family Practice [facility] [address] [place] [address] Linda Rendon DO [address] [place] [address] 09/04/2023 2:30 PM EDT Office Visit General Surgery, [place] [address] [facility] [place] [address], [facility] [address] [place] [address] 09/05/2023 10:35 AM EDT Cardiac Studies Cardiac Studies, [facility] [address] [place] [address] 09/14/2023 10:30 AM EDT Office Visit Cardiology, [facility] [address] [place] [address] [facility] Cardiology [facility] [address] [place] [address] 09/18/2023 11:30 AM EDT Office Visit Cardiology, [facility] [address] [place] [address] Giovani Shannon MD [address] [place] [address] 12/25/2023 10:15 AM EDT Office Visit Urology, [facility] [address] [place] [address] Jean Marie Mix MD [address] [place] [address] Pending Results Name Type Priority Associated Diagnoses Date /Time BASIC METABOLIC PANEL Lab Routine HFrEF (heart failure with reduced ejection fraction) (HCC) 08/20/2023 3:16 PM EDT Scheduled Procedures Name Priority Associated Diagnoses Date/Ti [...] this encounter Medical Devices Implanted Type Area Linseed Cake Trimmer Device Identifier Shelf Expiration Date Model / Serial / Lot Lens Intraoc 18.5 - [id number] - [id number] Implanted:Qty: 1 on 06/01/2022 by Jonny Foster MD at OR [facility] Right: Eye [employer]USCH [employer] LOMB 01/16/2027 [id number] / [id number] / [id number] Lens Intraoc 18.5 - [id number] - [id number] Implanted:Qty: 1 on 06/13/2022 by Jonny Foster MD at OR [facility] Left: Eye BAUSCH & LOMB 01/16/2027 [id number] / [id number] / [id number] documented as of this encounter Visit Diagnoses Diagnosis HFrEF (heart failure with reduced ejection fraction) ([facility]) documented in this encounter Advance Directives * [...] Directives occurred with: Not Discussed Care Teams R Developer Relationship Specialty Start Date End Date Linda Rendon DO [address] [place] [address] PCP - General Family Medicine 03/07/16 documented as of this encounter
--- OUTSIDE RECORDS SUMMARY | 2023-09-18 09:51 | External Medical Summary | Summary of Care ---
Author Name Unknown Organization [facility] Address [address] [place] [address] Phone [phone] Care Team Providers Care Account Services Manager Name Role Phone Linda Rendon DO Primary Care Provider [phone] Reason for Visit * Reason Onset Date Comments Advice 06/08/2023 Encounter Details Date Type Department Care Team (Late st Contact Info) Description 06/08/2023 Telephone Gastroenterology, [facility] [address] [place] [address] Rich Núñez DO [address] [place] [address] Advice Allergies Active Allergy Reactions Criticality Noted Date Comments Nitroglycerin 09/01/1999 Family is unsure of this being a true allergy documented as of this encounter (statuses as of 07/18/2023) Medications Medication Sig Dispensed Refills Start Date [...] Active Escitalopram Oxalate 10 MG Oral Tablet (Lexapro)Indicat ions:Adjustment disorder with anxious mood Take 1 Tablet by mouth in the morning. 90 Tablet 1 04/25/2023 Active Spironolactone 25 MG Oral Tablet (Aldactone)Indic ations:HFrEF (heart failure with reduced ejection fraction) (HCC),Acute pulmonary embolism, unspecified pulmonary embolism type, unspecified whether acute cor pulmonale present (HCC),NSVT (nonsustained ventricular tachycardia) (HCC),HTN, goal below 140/90 Take 1 Tablet by mouth in the morning. 90 Tablet 3 04/25/2023 Active Metoprolol Succinate ER 25 MG Oral Tablet Extended Release 24 Hour (toPROL XL)Indications:H FrEF (heart failure with reduced ejection fraction) (HCC),NSVT (nonsustained ventricular tachycardia) (HCC) Take 0.5 Tablets by mouth in the morning. 45 Tablet 3 04/27/2023 Active Furosemide 20 MG Oral Tablet (Lasix)Indicatio ns:HFrEF (heart failure with reduced ejection fraction) (HCC),NSVT [...] at bedtime. 90 Capsule 3 06/05/2023 Active Finasteride 5 MG Oral Tablet (Proscar) Take 1 Tablet by mouth in the morning. 90 Tablet 3 06/01/2022 06/22/19 24 Discontinued(Ref ill) Apixaban 5 MG Oral Tablet (Eliquis) Take 1 Tablet by mouth in the morning and 1 Tablet before bedtime. 180 Tablet 0 04/23/2023 07/17/19 24 Discontinued Entresto 49-51 MG Oral Tablet (sacubitril-vals marina 49-51 mg per tab) Take 1 Tablet by mouth in the morning and 1 Tablet before bedtime. 60 Tablet 5 06/01/2023 07/06/19 24 Discontinued(Med ication/Dose Changed) documented as of this encounter (statuses as of 07/18/2023) Active Problems Problem Noted Date Diagnosed Date [...] as of this encounter (statuses as of 07/18/2023) Resolved Problems Problem Noted Date Diagnosed Date Resolved Date Elevated prostate specific antigen (PSA) 10/04/2015 documented as of this encounter (statuses as of 07/18/2023) Immunizations Name Administration Dates Next Due Seasonal [...] encounter Miscellaneous Notes * Telephone Encounter - Rosie Beaulieu OSA - 07/18/2023 2:40 PM EDT Pt cx'd procedure and stated he will call back to r/s JUVENAL Arora 07/18/2023 2:40 PM * Telephone Encounter - Karina Gomez OSA - 06/13/2023 1:[address] Núñez would like procedure moved up in about 4 weeks. Called daughter and left message on Keyana's vm to call office back. * Telephone Encounter - Karlie Rodriguez OSA - 06/08/2023 12:38 PM EDT Spoke with Pt's daughter, appt scheduled 06/[address] Shannon. * Telephone Encounter - Preeti Calix CRNP - 06/08/2023 11:45 AM EDT Please offer sooner appt-- known to Dr. Shannon, Bridgette Portillo PA-C , and the undersigned. DEVAN Hogue * Telephone Encounter - Radha Guillaume CRNP - 06/08/2023 11:31 AM EDT Noted Thanks He may need cardiology clearance When I had seen him in the office acute systolic CHF (LVEF 40-44%) in the setting of acute illness with traumatic hemothorax, splenic laceration, acute PE with mild RV dilation on Eliquis I believe he is to be on AC until June DEVAN Jerez 06/08/2023 11:32 AM * Telephone Encounter - Rich Núñez DO - 06/08/2023 11:10 AM EDT His recent MRI was forwarded to my inbox. It appears that there is a concerning finding on the patient's MRI. It would be possible to reschedule this patient's endoscopic ultrasound for an earlier date, ideally within the next 4 weeks. Recommend a repeat CMP done to ensure that the patient has no evidence of biliary obstruction. MRI results: Pancreas: Abrupt caliber change of the pancreatic duct within the body with the main pancreatic duct measuring up to 7 mm within the body/tail. There is associated dilated side branches and parenchymal atrophy. No focal lesion is identified. Findings are likely sequela of stricture within the pancreatic body. 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 Spleen: Within normal limits. Plan CMP Expedite EUS please documented in this encounter Plan of Treatment Upcoming Encounters Date Type Department Care Team (Late st Contact Info) Description 07/19/2023 Hospital Encounter [facility] [address] [place] [phone] Rich Núñez DO [address] [place] [address] 08/03/2023 2:00 PM EDT Office Visit Cardiology, [facility] 132 [facility] [place] [address] [facility] Cardiology [facility] [place] [address] 08/15/2023 12:40 PM EDT Office Visit Pulmonary Medicine, [facility] 132 [facility] [place] [address] Quintin Lozano MD [address] [place] [address] 08/21/2023 1:00 PM EDT Office Visit Family Practice [facility] 132 [facility] [place] [address] Linda Rendon DO 132 [facility] [place] [address] 09/04/2023 2:30 PM EDT Office Visit General Surgery, [place] [address] [place] [address] 620, Trauma Clinic [address] [place] [address] 09/18/2023 11:30 AM EDT Office Visit Cardiology, [facility] 132 [facility] [place] [address] Giovani Shannon MD 132 [facility] [place] [address] 12/25/2023 10:15 AM EDT Office Visit Urology, [facility] 132 [facility] [place] [address] Jean Marie Mix MD [address] [facility] [address] [place] [address] Scheduled Procedures Name Priority Associated Diagnoses Date/Ti me ESOPHAGOGASTRODUODENOSCOPY ( EGD), FLEXIBLE, TRANSORAL, ENDOSCOPIC ULTRASOUND Abnormal CT scan Health Maintenance Due Date Last Done Comments Pneumococcal Vaccine: 65+ Years (1 of 2 - PCV) 1946 DTaP,Tdap,and Td Vaccines (1 - Tdap) 1957 Zoster Vaccines (1 of 2) 1988 COVID-19 Vaccine (1 - 2022- season) 2022 Depression Screening 08/10/2023 08/09/2022 Influenza Vaccine (FLU shot) (Season Ended) 2023 01/21/2019 TSH 03/22/2024 03/22/2023, 02/16, 06/07/2022, Additional history exists HbA1c 06/12/2024 06/13/2023, 06/05/2021, 02/20/2019, Additional history exists Albumin/Creatinine Ratio 06/12/2026 [...] this encounter Medical Devices Implanted Type Area Collar Turner Device Identifier Shelf Expiration Date Model / Serial / Lot Lens Intraoc 18.5 - [id number] - [id number] Implanted:Qty: 1 on 06/01/2022 by Jonny Foster MD at OR [facility] Right: Eye [employer]OM[employer] 01/16/2027 [id number] / [id number] / [id number] Lens Intraoc 18.5 - [id number] - [id number] Implanted:Qty: 1 on 06/13/2022 by Jonny Foster MD at OR [facility] Left: Eye [employer]CH [employer] LOMB 01/16/2027 [id number] / [id number] / [id number] documented as of this encounter Results * (ABNORMAL) COMPREHENSIVE METABOLIC PANEL (06/13/2023 1:22 PM EDT) BUN 22(H) 6 - 20 mg/dL 06/13/2023 2:22 PM EDT [facility] Creatinine 1.0 0.6 - 1.2 mg/dL 06/13/2023 2:22 PM EDT [facility] Estimated Glomerular Filtration Rate 77 >=60 mL/min 06/13/2023 2:22 PM EDT [facility] Comment:eGFR is calculated b ased on the CKD-EPI 2020 equation Sodium 140 135 - 146 mmol/L 06/13/2023 2:22 PM EDT [facility] Potassium 4.6 3.5 - 5.1 mmol/L 06/13/2023 2:22 PM EDT [facility] Chloride 104 98 - 107 mmol/L 06/13/2023 2:22 PM EDT [facility] CO2 28 22 - 32 mmol/L 06/13/2023 2:22 PM EDT [facility] Anion Gap 8 7 - 15 mmol/L 06/13/2023 2:22 PM EDT [facility] Glucose 105 70 - 120 mg/dL 06/13/2023 2:22 PM EDT [facility] Albumin 4.0 3.8 - 5.0 g/dL 06/13/2023 2:22 PM EDT [facility] AST 17 10 - 50 U/L 06/13/2023 2:22 PM EDT [facility] Alkaline Phosphatase 69 35 - 130 U/L 06/13/2023 2:22 PM EDT [facility] Bilirubin, Total 0.5 <=1.2 mg/dL 06/13/2023 2:22 PM EDT [facility] Calcium 9.6 8.4 - 10.2 mg/dL 06/13/2023 2:22 PM EDT [facility] Protein 6.3 6.0 - 8.3 g/dL 06/13/2023 2:22 PM EDT [facility] ALT 16 10 - 50 U/L 06/13/2023 2:22 PM EDT [facility] Blood Venous blood specimen / Unknown Venipuncture / Unknown 06/13/2023 1:22 PM EDT 06/13/2023 1:22 PM EDT Rich Núñez DO LAB BLOOD ORDERABLES [facility] [place] [place] [facility] [address] [place] [address] documented in this encounter Visit Diagnoses Diagnosis Abnormal CT of the abdomen- Primary Nonspecific (abnormal) findings on radiological and other examination of abdominal area, including retroperitoneum documented in this encounter Advance Directives Latest [...] the patient have Health Care Power of Hplc Chemist? No No Code 06/01/2022 7:05 AM 06/01/2022 1:27 PM This order reflects the patients wishes and were consensually agreed upon. Question Answer Comments Discussion of Advance Directives occurred with: Patient Does the patient have a Living Will? No Does the patient have Health Care Power of Hplc Chemist? No Full Code 10/10/2021 12:53 PM 10/11/2021 4:11 PM This order reflects the patients wishes and were consensually agreed upon. Question Answer Comments Discussion of Advance Directives occurred with: Not Discussed Care Teams Account Services Manager Relationship Specialty Start Date End Date Linda Rendon DO [address] [place] [address] PCP - General Family Medicine 03/07/16 documented as of this encounter
--- OUTSIDE RECORDS SUMMARY | 2023-09-18 09:51 | External Medical Summary | Summary of Care ---
Author Name Unknown Organization [facility] Address [address] [place] [address] Phone [phone] Care Team Providers Care Traffic Circuit Engineer Name Role Phone Linda Rendon DO Primary Care Provider [phone] Reason for Visit * Reason Comments Dosage Adjustment In Person (Anticoag Cl inic) Congestive Heart Failure Encounter Details Date Type Department Care Team (Late st Contact Info) Description 08/03/2023 2:00 PM EDT Office Visit Cardiology, [facility] [address] [facility] Cardiology [place] 132 [place] [address] HFrEF (heart failure with reduced ejection fraction) ([facility])* Allergies Active Allergy Reactions Criticality Noted Date [...] ons:HFrEF (heart failure with reduced ejection fraction) ([facility]),Acute pulmonary embolism, unspecified pulmonary embolism type, unspecified whether acute cor pulmonale present (HCC),NSVT (nonsustained ventricular tachycardia) ([facility]),HTN, goal below 140/90 Take 1 Tablet by mouth in the morning. 90 Tablet 3 04/25/2023 Active Metoprolol Succinate ER 25 MG Oral Tablet Extended Release 24 Hour (toPROL XL)Indications:HFrE F (heart failure with reduced ejection fraction) ([facility]),NSVT (nonsustained ventricular tachycardia) ([facility]) Take 0.5 Tablets by mouth in the morning. 45 Tablet 3 04/27/2023 Active Furosemide 20 MG Oral Tablet (Lasix)Indications: HFrEF (heart failure with reduced ejection fraction) ([facility]),NSVT (nonsustained ventricular tachycardia) ([facility]) Take 1 Tablet by mouth once a [...] Sign Reading Time Taken Comments Blood Pressure 149/87 08/03/2023 2:21 PM EDT Pulse 62 08/03/2023 2:21 PM EDT Temperature - - Respiratory Rate - - Oxygen Saturation - - Inhaled Oxygen Concentration - - Weight 92 kg (202 lb 14.4 oz) 08/03/2023 2:07 PM EDT Height - - Body Mass Index 26.05 07/12/2023 9:20 AM EDT documented in this encounter Functional Status [...] encounter Patient Instructions * Patient Instructions* Sumaya Orourke RPh - 08/03/2023 2:17 PM EDT START Jardiace 10 mg daily Lab work 2 weeks after starting medication Take blood pressure at home and write down the readings Consisently >140/90 Sumaya Orourke Pharm D Clinical [facility] Pharmacist Cardiology 08/03/2023,2:18 PM documented in this encounter Progress Notes * Sumaya Orourke RPh - 08/03/2023 1:59 PM EDT PHARMACY CHRONIC DISEASE MANAGEMENT - HEART FAILURE Hector Pastrana is an 83 year old patient referred to the Heart Failure [facility] clinic by Preeti Ag the following: General heart failure medication optimization PCP: Linda Rendon DO Cardiology Provider: Preeti Calix Ski Binding Fitter And Repairer: Not currently active with case management Urgent HF Access: Reviewed the following treatment locations for urgent HF symptoms with patient and provided them with contact information Cardiology based urgent heart failure clinic, [facility] [phone] HPI: Patient has heart failure assessment: Heart failure with REDUCED ejection fraction (SYStolic heart failure) undetermined if ischemic heart disease is present Patient has evidence of RV dysfunction: No Most recent LVEF: 45 % Date: 03/29/23 Modality: Echo Previous LVEF: 40 % Date: 03/01/23 Modality: Echo Home [...] Objective: BP Readings from Last 3 Encounters: 08/03/23 149/87 07/06/23 154/89 06/22/23 137/79 Pulse Readings from Last 3 Encounters: 08/03/23 62 07/06/23 59 06/22/23 85 Wt Readings from Last 3 Encounters: 08/03/23 92 kg (202 lb 14.4 oz) 07/06/23 93.4 kg (206 lb) 06/22/23 92.8 kg (204 lb 9.6 oz) Lab Results Component Value Date/Time CREATININE - [facility] 0.9 07/17/2023 10:22 AM CREATININE - [facility] 1.0 06/13/2023 01:22 PM CREATININE - [facility] 0.8 04/20/2023 03:33 PM CREATININE - [facility] 1.2 12/01/1999 08:36 [...] Results Component Value Date/Time SODIUM - [facility] 141 07/17/2023 10:22 AM SODIUM - [facility] 140 06/13/2023 01:22 PM SODIUM - [facility] 139 04/20/2023 03:33 PM SODIUM - [facility] 144 12/01/1999 08:36 AM SODIUM - [facility] 146 07/26/1999 08:32 AM SODIUM - [facility] 142 12/26/1996 10:38 AM Lab Results Component Value Date/Time POTASSIUM - [facility] 4.5 07/17/2023 10:22 AM POTASSIUM - [facility] 4.6 06/13/2023 01:22 PM POTASSIUM - [facility] 4.6 04/20/2023 03:33 PM POTASSIUM - [facility] 3.8 12/20/1999 08:39 [...] Entresto 97-103 mg BID-started 06/01/23; increased 07/06/23 Eliquis 5 mg BID Lasix 20 mg MWF-started 04/27/23 Eligible for [facility]? Agree or Declined? Not eligible Assessment & Plan: HFrEF -in setting of acute illness w/ traumatic hemothroax and PE 02/2023 -Planning to rule out ischemic with stress test in future -Start Jardinace 10 mg daily; BMP 2 weeks -Test blood pressure and weight at home At last visit, Entresto was titrated to 49-51 mg twice daily. He had a follow up BMP which shows stable renal function and potassium. His blood pressure remains high in office, came down upon resting a few minutes.Will have patient test BP at home and report readings. Will start jardiance 10 mg daily with BMP in 2 weeks. Educated patient on Jardiance 10 mg daily. Patient to monitor for signs of low blood pressure such as dizziness and lightheadedness. Instructed patient to monitor for signs of yeast and urinary tractinfections. Patient was instructed to stay hydrated while taking this medication. Reviewed cardiovascular benefits with patient. For Invokana, instructed patient to monitor lower limbs for sores, ulcers, and infection daily. Instructed patient to call if experiencing any signs of ketoacidosis such as nausea/vomiting, abdominal pain, malaise, and shortness of breath. 2. Controlled Hypertension -Titrate CHF regimen 3. Aortic sclerosis 4. Non sustained VT -seen on Zio 5. PE -02/2023 -3 months anticoagulation until June 2023 -Eliquis 6. Pre-Diabetes -not discussed -start jardiance 10 mg daily Medication changes: Jardiance 10 mg daily Labs Due: BMP 2 weeks (ordered) Vaccine Due: not discussed Follow up: 3 jayy Orourke [facility] Clinical Pharmacist Medication Therapy Disease Management 08/03/2023,2:00 PM documented in this encounter Plan of Treatment Upcoming Encounters Date Type Department Care Team (Late st Contact Info) Description 08/20/2023 3:40 PM EDT Office Visit Pulmonary Medicine, [facility] 132 [facility] [place] [address] Quintin Lozano MD [address] [facility] [place] [address] 08/21/2023 1:00 PM EDT Office Visit Family Practice [facility] [address] [place] [address] Linda Rendon DO [address] [place] [address] 08/24/2023 2:10 PM EDT Office Visit Cardiology, [facility] [address] [place] [address] [facility] Cardiology [place] [address] [place] [address] 09/04/2023 2:30 PM EDT Office Visit General Surgery, [place] [address] [place] [address], Trauma Clinic [address] [place] [address] 09/18/2023 11:30 AM EDT Office Visit Cardiology, [facility] [address] [place] [address] Giovani Shannon MD [address] [place] [address] 12/25/2023 10:15 AM EDT Office Visit Urology, [facility] [address] [place] [address] Jean Marie Mix MD 27 [facility] [address] [place] [address] Scheduled Orders Name Type Priority Associated Diagnoses Orde r Schedule BASIC METABOLIC PANEL Lab Routine HFrEF (heart failure with reduced ejection fraction) ([facility]) Expected: 08/03/2023, Expires: 08/02/2024 Scheduled Procedures Name Priority Associated Diagnoses Date/Ti [...] this encounter Medical Devices Implanted Type Area Gravel Hauler Device Identifier Shelf Expiration Date Model / Serial / Lot Lens Intraoc 18.5 - [id number] - [id number] Implanted:Qty: 1 on 06/01/2022 by Jonny Foster MD at OR [facility] Right: Eye [employer]OMB 01/16/2027 [id number] / [id number] / [id number] Lens Intraoc 18.5 - [id number] - [id number] Implanted:Qty: 1 on 06/13/2022 by Jonny Foster MD at OR [facility] Left: Eye BAUSCH [employer] LOMB 01/16/2027 [id number] / [id number] / [id number] documented as of this encounter Visit Diagnoses Diagnosis HFrEF (heart failure with reduced ejection fraction) ([facility])- Primary documented in this encounter Advance Directives Latest [...] the patient have Health Care Power of Plate Shop Helper? No No Code 06/01/2022 7:05 AM 06/01/2022 1:27 PM This order reflects the patients wishes and were consensually agreed upon. Question Answer Comments Discussion of Advance Directives occurred with: Patient Does the patient have a Living Will? No Does the patient have Health Care Power of Plate Shop Helper? No Full Code 10/10/2021 12:53 PM 10/11/2021 4:11 PM This order reflects the patients wishes and were consensually agreed upon. Question Answer Comments Discussion of Advance Directives occurred with: Not Discussed Care Teams Traffic Circuit Engineer Relationship Specialty Start Date End Date Linda Rendon DO [address] [place] [address] PCP - General Family Medicine 03/07/16 documented as of this encounter
--- OUTSIDE RECORDS SUMMARY | 2023-09-18 09:51 | External Medical Summary | Summary of Care ---
Author Name Unknown Organization [facility] Address [address] [place] [address] Phone [phone] Care Team Providers Care Corn Shredder Name Role Phone Linda Rendon DO Primary Care Provider [phone] Reason for Visit * Reason Onset Date Comments Test Results 07/18/2023 CT Chest Encounter Details Date Type Department Care Team (Late st Contact Info) Description 07/18/2023 Telephone Pulmonary Medicine, [facility] [address] [facility] [place] [id number] Quintin [facility] [address] [facility] [address] Test Results (CT Chest) Allergies Active Allergy Reactions Criticality Noted Date [...] type, unspecified whether acute cor pulmonale present ([facility]),NSVT (nonsustained ventricular tachycardia) ([facility]),HTN, [...] maintenance therapy. 90 Tablet 2 07/17/2023 Active documented as of this encounter (statuses [...] encounter Miscellaneous Notes * Telephone Encounter - Elida Pereira LPN - 07/18/2023 10:28 AM EDT ----- Message from Quintin Lozano MD sent at 07/18/2023 8:20 AM EDT ----- Results have been notified to patient's family. New order for Eliquis therapy to be resumed at treatment dose has been entered. documented in this encounter Plan of Treatment Upcoming Encounters Date Type Department Care Team (Late st Contact Info) Description 07/19/2023 Hospital Encounter [facility], [facility] [address] [place] [phone] Rich Núñez, [address] [place] [address] 08/03/2023 2:00 PM EDT Office Visit Cardiology, [facility] [address] [place] [address] [facility] Cardiology [facility] [address] [place] [address] 08/15/2023 12:40 PM EDT Office Visit Pulmonary Medicine, [facility] [address] [place] [address] Quintin Lozano MD [address] [place] [facility] [place] [address] 08/21/2023 1:00 PM EDT Office Visit Family Practice [facility] 132 [facility] [place] [address] Linda Rendon DO 132 [facility] [place] [address] 09/04/2023 2:30 PM EDT Office Visit General Surgery, [place] [address] [place] [address] [facility], Trauma Clinic [address] [place] [address] 09/18/2023 11:30 AM EDT Office Visit Cardiology, [facility] 132 [facility] [place] [address] Giovani Shannon MD 132 [facility] [place] [address] 12/25/2023 10:15 AM EDT Office Visit Urology, [facility] 132 [facility] [place] [address] Jean Marie Mix MD 27 [facility] [address] [place] [address] Scheduled Procedures Name Priority Associated Diagnoses Date/Ti [...] this encounter Medical Devices Implanted Type Area Cnc Machinist 2Nd Shift Device Identifier Shelf Expiration Date Model / Serial / Lot Lens Intraoc 18.5 - [id number] - [id number] Implanted:Qty: 1 on 06/01/2022 by Jonny Foster MD at OR [facility] Right: Eye [employer]USCH [employer] LOMB 01/16/2027 [id number] / [id number] / [id number] Lens Intraoc 18.5 - [id number] - [id number] Implanted:Qty: 1 on 06/13/2022 by Jonny Foster MD at OR [facility] Left: Eye [employer]CH [employer] LOMB 01/16/2027 [id number] / [id number] / [id number] documented as of this encounter Advance Directives Latest Code Status [...] the patient have Health Care Power of Log Manager? No No Code 06/01/2022 7:05 AM 06/01/2022 1:27 PM This order reflects the patients wishes and were consensually agreed upon. Question Answer Comments Discussion of Advance Directives occurred with: Patient Does the patient have a Living Will? No Does the patient have Health Care Power of Log Manager? No Full Code 10/10/2021 12:53 PM 10/11/2021 4:11 PM This order reflects the patients wishes and were consensually agreed upon. Question Answer Comments Discussion of Advance Directives occurred with: Not Discussed Care Teams Corn Shredder Relationship Specialty Start Date End Date Linda Rendon DO [address] [place] [address] PCP - General Family Medicine 03/07/16 documented as of this encounter
--- OUTSIDE RECORDS SUMMARY | 2023-09-18 09:51 | External Medical Summary | Summary of Care ---
Author Name Unknown Organization [facility] Address [address] [place] [address] Phone [phone] Care Team Providers Care Black Leather Buffer Name Role Phone Linda Rendon DO Primary Care Provider [phone] Reason for Visit * Reason Onset Date Comments Test Results 07/17/2023 Encounter Details Date Type Department Care Team (Late st Contact Info) Description 07/17/2023 Telephone Pulmonary Medicine, [facility] [address] [facility] [place] [address] Quintin Lozano MD [address] [facility] [address] Test Results Allergies Active Allergy Reactions Criticality Noted Date Comments Nitroglycerin 09/01/1999 Family is unsure of this being a true allergy documented as of this encounter (statuses as of 07/19/2023) Medications Medication Sig Dispensed Refills Start Date [...] tions:HFrEF (heart failure with reduced ejection fraction) ([facility]),Acute pulmonary embolism, unspecified pulmonary embolism [...] Sunday, Sunday, and Sunday only. 30 Tablet 04/27/2023 Active Levothyroxine Sodium 150 MCG Oral [...] Tablet before bedtime. 180 Tablet 0 04/23/2023 4 Discontinued Apixaban Starter Pack 5 MG Oral Tablet Therapy Pack (Eliquis DVT/PE Starter Pack) Take 10 mg by mouth 2 times a day for 14 days, THEN 5 mg 2 times a day. 74 Tablet 0 07/17/2023 4 Discontinued Hospital, Clinic, or Other Facility Administered Medication Ordered Dose Route Frequency Start Date End Date Status sodium chloride 0.9 % flush/inj 10 mL 10 mL IV PUSH ONCE 07/17/2023 07/17/2023 Ended documented as of this encounter (statuses as of 07/19/2023) Active Problems Problem Noted Date Diagnosed Date [...] as of this encounter (statuses as of 07/19/2023) Resolved Problems Problem Noted Date Diagnosed Date Resolved Date Elevated prostate specific antigen (PSA) 10/04/2015 documented as of this encounter (statuses as of 07/19/2023) Immunizations Name Administration Dates Next Due Seasonal [...] encounter Miscellaneous Notes * Telephone Encounter - Sima Navas OSA - 07/17/2023 12:57 PM EDT I spoke to Patient daughter and scheduled pt for August 14. * Telephone Encounter - Quintin Lozano MD - 07/17/2023 11:[address] chest with PE protocol done at [facility] would shows? Residual right apical and left apical subsegmental filling defects. Daughter Keyana was notified regarding results. Patient has been maintaining asymptomatic respiratory status without shortness of breath, chest pain, dizziness. Plan to resume therapeutic dose Eliquis followed by transition to maintenance dose. Pulmonary clinic follow-up in 4 weeks Upcoming scheduled GI procedure will be rescheduled for 2 months. Patient and family was advised to contact the office with any change in symptoms status, or go to nearest emergency room in case of respiratory distress/chest pain/syncope. Eliquis 10 mg twice daily for 2 weeks followed by 5 mg twice daily for maintenance therapy for 90 days. Please schedule pulmonary clinic follow-up in 4 weeks. documented in this encounter Plan of Treatment Upcoming Encounters Date Type Department Care Team (Late st Contact Info) Description 08/03/2023 2:00 PM EDT Office Visit Cardiology, [facility] [address] [place] [address] [facility] Cardiology [facility] [address] [place] [address] 08/15/2023 12:40 PM EDT Office Visit Pulmonary Medicine, [facility] [place] [address] Quintin Lozano MD [address] [place] [address] 08/21/2023 1:00 PM EDT Office Visit Family Practice [facility] [address] [place] [address] Linda Rendon DO [address] [place] [address] 09/04/2023 2:30 PM EDT Office Visit General Surgery, [place] [address] [place] [address] 620, Tra[facility] Clinic [address] [place] [address] 09/18/2023 11:30 AM EDT Office Visit Cardiology, [facility] [address] [place] [address] Giovani Shannon MD [address] [place] [address] 12/25/2023 10:15 AM EDT Office Visit Urology, [facility] 132 [facility] [place] [address] Jean Marie Mix MD 27 [facility] [address] [place] [address] Scheduled Procedures Name Priority Associated Diagnoses [...] this encounter Medical Devices Implanted Type Area Assistant Principal Device Identifier Shelf Expiration Date Model / Serial / Lot Lens Intraoc 18.5 - [id number] - [id number] Implanted:Qty: 1 on 06/01/2022 by Jonny Foster MD at [facility] Right: Eye [employer] 01/16/2027 [id number] / [id number] / [id number] Lens Intraoc 18.5 - [id number] - [id number] Implanted:Qty: 1 on 06/13/2022 by Jonny Foster MD at OR [facility] Left: Eye [employer]OM[employer] 01/16/2027 [id number] / [id number] / [id number] documented as of this encounter Advance Directives [...] the patient have Health Care Power of Charge Nurse? No No Code 06/01/2022 7:05 AM 06/01/2022 1:27 PM This order reflects the patients wishes and were consensually agreed upon. Question Answer Comments Discussion of Advance Directives occurred with: Patient Does the patient have a Living Will? No Does the patient have Health Care Power of Charge Nurse? No Full Code 10/10/2021 12:53 PM 10/11/2021 4:11 PM This order reflects the patients wishes and were consensually agreed upon. Question Answer Comments Discussion of Advance Directives occurred with: Not Discussed Care Teams Black Leather Buffer Relationship Specialty Start Date End Date Linda Rendon DO [address] [place] [address] PCP - General Family Medicine 03/07/16 documented as of this encounter
--- OUTSIDE RECORDS SUMMARY | 2023-09-18 09:51 | External Medical Summary | Summary of Care ---
Author Name Unknown Organization [facility] Address [address] [place] [address] Phone [phone] Care Team Providers Care Finance Assistant Name Role Phone Linda Rendon DO Primary Care Provider [phone] Reason for Visit * Reason Onset Date Comments Medication Problem 07/17/2023 Encounter Details Date Type Department Care Team (Late st Contact Info) Description 07/17/2023 Telephone Pulmonary Medicine [place] [address] [place] [address] Quintin Lozano MD [address] [place] [address] Medication Problem Allergies Active Allergy Reactions Criticality Noted Date [...] ations:HFrEF (heart failure with reduced ejection fraction) ([facility]),Acute pulmonary embolism, unspecified pulmonary embolism type, unspecified whether acute cor pulmonale present (HCC),NSVT (nonsustained ventricular tachycardia) (HCC),HTN, goal below 140/90 Take 1 Tablet by mouth in the morning. 90 Tablet 3 04/25/2023 Active Metoprolol Succinate ER 25 MG Oral Tablet Extended Release 24 Hour (toPROL XL)Indications:H FrEF (heart failure with reduced ejection fraction) ([facility]),NSVT (nonsustained ventricular tachycardia) ([facility]) Take 0.5 Tablets by mouth in the morning. 45 Tablet 3 04/27/2023 Active Furosemide 20 MG Oral Tablet (Lasix)Indicatio ns:HFrEF (heart failure with reduced ejection fraction) ([facility]),NSVT (nonsustained ventricular tachycardia) (HCC) Take 1 Tablet [...] in the morning. 90 Tablet 06/22/2023 Active Sacubitril-Valsa rtan 97-103 MG Oral Tablet (Entresto) Take 1 Tablet by mouth in the morning and 1 Tablet before bedtime. 60 Tablet 5 07/06/2023 Active Apixaban 5 MG Oral Tablet (Eliquis) Take two tablets twice daily for 7 days; then take 1 tab twice daily as maintenance therapy. 90 Tablet 2 07/17/2023 Active Apixaban Starter Pack 5 MG Oral Tablet Therapy Pack (Eliquis DVT/PE Starter Pack) Take 10 mg by mouth 2 times a day for 14 days, THEN 5 mg 2 times a day. 74 Tablet 0 07/17/2023 Discontinued Hospital, Clinic, or Other Facility Administered [...] encounter Miscellaneous Notes * Telephone Encounter - Quintin Lozano MD - 07/17/2023 4:45 PM EDT Previous apixaban prescription was discontinued. New prescription with clear directions was issued.Patient will take 10 mg twice daily for 7 days followed by 5 mg twice daily as maintenance therapy. * Telephone Encounter - Ashley Kimball CPhT - 07/17/2023 12:34 PM EDT Pharmacy stating that the starter pack is for 7 days. Pharmacy is calling because pt's prescription for Apixaban Starter Pack 5 MG Oral Tablet Therapy Pack (Eliquis DVT/PE Starter Pack) was sent with unclear directions stating "Take 10 mg by mouth 2 times a day for 14 days, THEN 5 mg 2 times a day ". Please clarify the directions for this medication and send a new prescription to [id number] [address] ABRAM TY. Thank you, Darlyn Kimball [employer] Fusion Developer [facility] (Formerly Telepharmacy) 07/17/2023,12:34 PM documented in this encounter Plan of Treatment Upcoming Encounters Date Type Department Care Team (Late st Contact Info) Description 07/19/2023 Hospital Encounter ENDO [facility], Endoscopy Room [facility] [address] [place] [phone] Rich Núñez, DO [address] [place] [address] 08/03/2023 2:00 PM EDT Office Visit Cardiology, [facility] [address] [place] [address] [facility] Cardiology [facility] [place] [address] 08/15/2023 12:40 PM EDT Office Visit Pulmonary Medicine, [facility] [address] [place] [address] Quintin Lozano MD [address] [place] [address] 08/21/2023 1:00 PM EDT Office Visit Family Practice [facility] [address] [place] [address] Linda Rendon, DO [address] [place] [address] 09/04/2023 2:30 PM EDT Office Visit General Surgery, [place] [address] [place] [address] 620, Trauma Clinic [facility] [place] [address] 09/18/2023 11:30 AM EDT Office Visit Cardiology, [facility] [place] [address] Giovani Shannon MD [address] [place] [address] 12/25/2023 10:15 AM EDT Office Visit Urology, [facility] [place] [address] Jean Marie Mix MD [address] [place] [address] Scheduled Procedures Name Priority Associated Diagnoses Date/Ti me ESOPHAGOGASTRODUODENOSCOPY ( EGD), FLEXIBLE, TRANSORAL, ENDOSCOPIC ULTRASOUND Abnormal CT scan Health Maintenance Due Date Last Done Comments Pneumococcal Vaccine: 65+ Years (1 of 2 - PCV) 1944 DTaP,Tdap,and Td Vaccines (1 - Tdap) 1957 Zoster Vaccines (1 of 2) 1988 COVID-19 Vaccine (1 - season) 2022 Depression Screening 08/10/2023 08/09/2022 Influenza [...] this encounter Medical Devices Implanted Type Area Exercise Specialist Device Identifier Shelf Expiration Date Model / Serial / Lot Lens Intraoc 18.5 - [id number] - [id number] Implanted:Qty: 1 on 06/01/2022 by Jonny Foster MD at OR [facility] Right: Eye [employer]OM[employer] 01/16/2027 [id number] / [id number] / [id number] Lens Intraoc 18.5 - [id number] - [id number] Implanted:Qty: 1 on 06/13/2022 by Jonny Foster MD at OR [facility] Left: Eye [employer]OMB 01/16/2027 [id number] / [id number] / [id number] documented as of this encounter Advance Directives [...] the patient have Health Care Power of Watch Manufacturing Supervisor? No No Code 06/01/2022 7:05 AM 06/01/2022 1:27 PM This order reflects the patients wishes and were consensually agreed upon. Question Answer Comments Discussion of Advance Directives occurred with: Patient Does the patient have a Living Will? No Does the patient have Health Care Power of Watch Manufacturing Supervisor? No Full Code 10/10/2021 12:53 PM 10/11/2021 4:11 PM This order reflects the patients wishes and were consensually agreed upon. Question Answer Comments Discussion of Advance Directives occurred with: Not Discussed Care Teams Finance Assistant Relationship Specialty Start Date End Date Linda Rendon DO [address] [place] [address] PCP - General Family Medicine 03/07/16 documented as of this encounter
--- OUTSIDE RECORDS SUMMARY | 2023-09-18 09:51 | External Medical Summary | Summary of Care ---
Author Name Unknown Organization [facility] Address [address] [place] [address] Phone [phone] Care Team Providers Care Assembler Leather Goods Name Role Phone Linda Rendon DO Primary Care Provider [phone] Reason for Visit * Reason Onset Date Comments Medication Question 07/19/2023 Re: Eliquis Encounter Details Date Type Department Care Team (Late st Contact Info) Description 07/19/2023 Telephone Pulmonary Medicine, [facility] 132 [facility] [place] [id number] Quintin Lozano MD [address] [facility] [place] [address] Medication Question (Re: Eliquis) Allergies Active Allergy Reactions Criticality Noted Date [...] ons:HFrEF (heart failure with reduced ejection fraction) ([facility]),Acute pulmonary embolism, unspecified pulmonary embolism type, unspecified whether acute cor pulmonale present (HCC),NSVT (nonsustained ventricular tachycardia) ([facility]),HTN, goal below 140/90 Take 1 Tablet by mouth in the morning. 90 Tablet 3 04/25/2023 Active Metoprolol Succinate ER 25 MG Oral Tablet Extended Release 24 Hour (toPROL XL)Indications:HFrE F (heart failure with reduced ejection fraction) ([facility]),NSVT (nonsustained ventricular tachycardia) ([facility]) Take 0.5 Tablets by mouth in the morning. 45 Tablet 3 04/27/2023 Active Furosemide 20 MG Oral Tablet (Lasix)Indications: HFrEF (heart failure with reduced ejection fraction) ([facility]),NSVT (nonsustained ventricular tachycardia) ([facility]) Take 1 Tablet by mouth [...] Telephone Encounter - Elida Pereira LPN - 07/19/2023 3:01 PM EDT [facility] and left message requesting call back re: Eliquis dosing. They are asking if Dr Lozano wants the pt to start back on loading dose, per the sig on the rx he sent to them on 07/17/23. I asked Dr Lozano, who confirms yes, he wants the pt to take according to the sig on the rx from 07/17/23. I called [facility] and relayed this to Sammi, one of the pharmacists. documented in this encounter Plan of Treatment Upcoming Encounters Date Type Department Care Team (Late st Contact Info) Description 08/03/2023 2:00 PM EDT Office Visit Cardiology, [facility] 132 [facility] [place] [address] [facility] Cardiology [place] [address] [place] [address] 08/15/2023 12:40 PM EDT Office Visit Pulmonary Medicine, [facility] 132 [facility] [place] [address] Quintin Lozano MD [address] [facility] [place] [address] 08/21/2023 1:00 PM EDT Office Visit Family Practice [facility] 132 [facility] [place] [address] Linda Rendon DO 132 [facility] [place] [address] 09/04/2023 2:30 PM EDT Office Visit General Surgery, [place] [address] [place] [address] 620, Trauma Clinic [address] [place] [address] 09/18/2023 11:30 AM EDT Office Visit Cardiology, [facility] 132 [facility] [place] [address] Giovani [place] MD [address] [place] [address] 12/25/2023 10:15 AM EDT Office Visit Urology, [facility] [address] [place] [address] Jean Marie Mix MD 27 [facility] [address] [place] [address] Scheduled Procedures Name [...] this encounter Medical Devices Implanted Type Area Agitator Operator Device Identifier Shelf Expiration Date Model / Serial / Lot Lens Intraoc 18.5 - [id number] - [id number] Implanted:Qty: 1 on 06/01/2022 by Jonny Foster MD at OR [facility] Right: Eye [employer]OM[employer] 01/16/2027 [id number] / [id number] / [id number] Lens Intraoc 18.5 - [id number] - [id number] Implanted:Qty: 1 on 06/13/2022 by Jonny Foster MD at OR [facility] Left: Eye [employer]OMB 01/16/2027 [id number] / [id number] / [id number] documented as of this encounter Advance Directives [...] the patient have Health Care Power of Industrial Relations Analyst? No No Code 06/01/2022 7:05 AM 06/01/2022 1:27 PM This order reflects the patients wishes and were consensually agreed upon. Question Answer Comments Discussion of Advance Directives occurred with: Patient Does the patient have a Living Will? No Does the patient have Health Care Power of Industrial Relations Analyst? No Full Code 10/10/2021 12:53 PM 10/11/2021 4:11 PM This order reflects the patients wishes and were consensually agreed upon. Question Answer Comments Discussion of Advance Directives occurred with: Not Discussed Care Teams Assembler Leather Goods Relationship Specialty Start Date End Date Linda Rendon DO [address] [place] [address] PCP - General Family Medicine 03/07/16 documented as of this encounter
--- OUTSIDE RECORDS SUMMARY | 2023-09-18 09:52 | External Medical Summary | Summary of Care ---
Author Name Unknown Organization [facility] Address [address] [place] [address] Phone [phone] Care Team Providers Care Hospice Case Manager Name Role Phone Linda Rendon DO Primary Care Provider [phone] Reason for Visit * Reason Onset Date Comments Test Results 07/17/2023 Encounter Details Date Type Department Care Team (Late st Contact Info) Description 07/17/2023 Telephone Pulmonary Medicine, [facility] [address] [facility] [place] [address] Quintin Lozano MD [address] [facility] [address] Test Results Allergies Active Allergy Reactions Criticality Noted Date Comments Nitroglycerin 09/01/1999 Family is unsure of this being a true allergy documented as of this encounter (statuses as of 07/17/2023) Medications Medication Sig Dispensed Refills Start Date [...] tions:HFrEF (heart failure with reduced ejection fraction) ([facility]),Acute pulmonary embolism, unspecified pulmonary embolism type, unspecified [...] s:HFrEF (heart failure with reduced ejection fraction) ([facility]),NSVT (nonsustained ventricular tachycardia) (HCC) Take 1 Tablet [...] bedtime. 60 Tablet 5 07/06/2023 Active Apixaban Starter Pack 5 MG Oral Tablet Therapy Pack (Eliquis DVT/PE Starter Pack) Take 10 mg by mouth 2 times a day for 14 days, THEN 5 mg 2 times a day. 74 Tablet 0 07/17/2023 4 Active Apixaban 5 MG Oral Tablet (Eliquis) Take 1 Tablet by mouth in the morning and 1 Tablet before bedtime. 180 Tablet 0 04/23/2023 4 Discontinued Hospital, Clinic, or Other Facility Administered Medication Ordered Dose Route Frequency Start Date End Date Status sodium chloride 0.9 % flush/inj 10 mL 10 mL IV PUSH ONCE 07/17/2023 07/17/2023 Active documented as of this encounter (statuses as of 07/17/2023) Active Problems Problem Noted Date Diagnosed Date [...] as of this encounter (statuses as of 07/17/2023) Resolved Problems Problem Noted Date Diagnosed Date Resolved Date Elevated prostate specific antigen (PSA) 10/04/2015 documented as of this encounter (statuses as of 07/17/2023) Immunizations Name Administration Dates Next Due Seasonal [...] CT chest with PE protocol done at [facility] would shows? Residual right apical and [...] Upcoming Encounters Date Type Department Care Team (Latest Contact Info) Description 07/19/2023 11:30 AM EDT [facility] [address] [place] [address] Rich Núñez, DO [address] [place] [address] 07/19/2023 11:30 AM EDT - 07/19/2023 12:15 PM EDT Surgery ENDO [facility], Endoscopy Room [facility] [address] [place] [address] Rich Núñez, DO [address] [place] [address] ESOPHAGOGASTRODUODENOSCOPY (EGD), FLEXIBLE, TRANSORAL, ENDOSCOPIC ULTRASOUND 08/03/2023 2:00 PM EDT Office Visit Cardiology, [facility] [address] [place] [address] [facility] Cardiology [facility] [address] [place] [address] 08/21/2023 1:00 PM EDT Office Visit Family Practice [facility] [address] [place] [address] Linda Rendon, DO [address] [place] [address] 09/04/2023 2:30 PM EDT Office Visit General Surgery, [place] [address] [facility] [address] 620, Tra[facility] Clinic [address] [place] [facility] [address] 09/18/2023 11:30 AM EDT Office Visit Cardiology, [facility] [address] [place] [address] Giovani Shannon MD [address] [place] [address] 12/25/2023 10:15 AM EDT Office Visit Urology, [facility] [address] [facility] [place] [address] eJan Marie Mix MD 27 [facility] [address] [place] [address] Scheduled Procedures Name Priority Associated Diagnoses Date/Ti me ESOPHAGOGASTRODUODENOSCOPY ( EGD), FLEXIBLE, TRANSORAL, ENDOSCOPIC ULTRASOUND Abnormal CT scan 07/19/2023 11:30 AM EDT Health Maintenance Due Date Last Done Comments [...] this encounter Medical Devices Implanted Type Area Global Implementation Manager Device Identifier Shelf Expiration Date Model / Serial / Lot Lens Intraoc 18.5 - [id number] - [id number] Implanted:Qty: 1 on 06/01/2022 by Jonny Foster MD at OR [facility] Right: Eye [employer]OM[employer] 01/16/2027 [id number] / [id number] / [id number] Lens Intraoc 18.5 - [id number] - [id number] Implanted:Qty: 1 on 06/13/2022 by Jonny Foster MD at OR [facility] Left: Eye [employer]USCH [employer] LOMB 01/16/2027 [id number] / [id number] / [id number] documented as of this encounter Advance Directives [...] the patient have Health Care Power of Occupational Therapy Aides Teacher? No No Code 06/01/2022 7:05 AM 06/01/2022 1:27 PM This order reflects the patients wishes and were consensually agreed upon. Question Answer Comments Discussion of Advance Directives occurred with: Patient Does the patient have a Living Will? No Does the patient have Health Care Power of Occupational Therapy Aides Teacher? No Full Code 10/10/2021 12:53 PM 10/11/2021 4:11 PM This order reflects the patients wishes and were consensually agreed upon. Question Answer Comments Discussion of Advance Directives occurred with: Not Discussed Care Teams Hospice Case Manager Relationship Specialty Start Date End Date Linda Rendon DO [address] [place] [address] PCP - General Family Medicine 03/07/16 documented as of this encounter
--- OUTSIDE RECORDS SUMMARY | 2023-09-18 09:52 | External Medical Summary | Summary of Care ---
Author Name Unknown Organization [facility] Address [address] [place] [address] Phone [phone] Care Team Providers Care Dowel Inserting Machine Operator Name Role Phone Linda Rendon DO Primary Care Provider [phone] Reason for Visit * Reason Comments Outpatient Testing Encounter Details Date Type Department Care Team (Late st Contact Info) Description 07/17/2023 8:30 AM EDT Laboratory Laboratory, [facility] [address] [place] [phone] [facility] [address] [place] [address] Stress-induced cardiomyopathy; Hyperlipidemia, unspecified hyperlipidemia type Allergies Active Allergy Reactions Criticality Noted Date [...] takes 3 tablets at night 0 Active Apixaban 5 MG Oral Tablet (Eliquis) Take 1 Tablet by mouth in the morning and 1 Tablet before bedtime. 180 Tablet 0 04/23/2023 Active Escitalopram Oxalate 10 MG Oral Tablet (Lexapro)Indications :Adjustment disorder with anxious mood Take 1 Tablet by mouth in the morning. 90 Tablet 1 04/25/2023 Active Spironolactone 25 MG Oral Tablet (Aldactone)Indicatio ns:HFrEF (heart failure with reduced ejection fraction) (HCC),Acute pulmonary embolism, unspecified pulmonary embolism type, unspecified whether acute cor pulmonale present (HCC),NSVT (nonsustained ventricular tachycardia) (HCC),HTN, goal below 140/90 Take 1 Tablet by mouth in the morning. 90 Tablet 3 04/25/2023 Active Metoprolol Succinate ER 25 MG Oral Tablet Extended Release 24 Hour (toPROL XL)Indications:HFrEF (heart failure with reduced ejection fraction) (HCC),NSVT (nonsustained ventricular tachycardia) (HCC) Take 0.5 Tablets by mouth in the morning. 45 Tablet 3 04/27/2023 Active Furosemide 20 MG Oral Tablet (Lasix)Indications:H FrEF (heart failure with reduced ejection fraction) [...] the morning. 90 Tablet 3 06/22/2023 Active Sacubitril-Valsartan 97-103 MG Oral Tablet (Entresto) Take 1 Tablet by mouth in the morning and 1 Tablet before bedtime. 60 Tablet 5 07/06/2023 Active documented as of this encounter (statuses [...] Department Care Team (Latest Contact Info) Description 07/17/2023 11:00 AM EDT Imaging Radiology [facility] 1st [facility] [address] [place] [address] Traumatic hemothorax without open wound into thorax, subsequent encounter; Other pulmonary embolism without acute cor pulmonale, unspecified chronicity (HCC) 07/19/2023 11:30 AM EDT Hospital Encounter ENDO OSSC, Endoscopy Room [facility] [address] [place] [address] Rich Núñez, DO [address] [place] [address] 07/19/2023 11:30 AM EDT - 07/19/2023 12:15 PM EDT Surgery ENDO OSSC, Endoscopy Room [facility] [address] [place] [phone] Rich Núñez, [address] [place] [address] ESOPHAGOGASTRODUODENOSCOPY (EGD), FLEXIBLE, TRANSORAL, ENDOSCOPIC ULTRASOUND 08/03/2023 2:00 PM EDT Office Visit Cardiology, [facility] [address] [place] [address] [facility] Cardiology [facility] [address] [place] [address] 08/21/2023 1:00 PM EDT Office Visit Family Practice [facility] [address] [facility] [place] [address] Linda Rendon DO 132 [facility] [place] [address] 09/04/2023 2:30 PM EDT Office Visit General Surgery, [place] [address] [place] [address] 620, [facility] [address] [place] [address] 09/18/2023 11:30 AM EDT Office Visit Cardiology, [facility] [address] [facility] [place] [address] Giovani Shannon MD 132 [place] [address] 12/25/2023 10:15 AM EDT Office Visit Urology, [facility] [address] [facility] [place] [address] Jean Marie Mix MD [address] [place] [address] [place] [address] Pending Results Name Type Priority Associated Diagnoses Date /Time BASIC METABOLIC PANEL Lab Routine Stress-induced cardiomyopathy 07/17/2023 10:22 AM EDT LIPID PANEL WITH DIRECT LDL IF TG IS HIGH Lab Routine Hyperlipidemia, unspecified hyperlipidemia type 07/17/2023 10:22 AM EDT Scheduled Procedures Name Priority Associated Diagnoses Date/Ti me ESOPHAGOGASTRODUODENOSCOPY ( EGD), FLEXIBLE, TRANSORAL, ENDOSCOPIC ULTRASOUND Abnormal CT scan 07/19/2023 11:30 AM EDT Health Maintenance Due Date Last Done Comments Pneumococcal Vaccine: 65+ Years (1 of 2 - PCV) 1944 DTaP,Tdap,and Td Vaccines (1 - Tdap) 1957 Zoster Vaccines (1 of 2) 1988 COVID-19 Vaccine (1 - 2022-24 season) 2022 Depression Screening 08/10/2023 08/09/2022 Influenza [...] this encounter Medical Devices Implanted Type Area Cheese Packer Device Identifier Shelf Expiration Date Model / Serial / Lot Lens Intraoc 18.5 - [id number] - [id number] Implanted:Qty: 1 on 06/01/2022 by Jonny Foster MD at OR [facility] Right: Eye [employer] 01/16/2027 [id number] / [id number] / [id number] Lens Intraoc 18.5 - [id number] - [id number] Implanted:Qty: 1 on 06/13/2022 by Jonny Foster MD at OR [facility] Left: Eye [employer] 01/16/2027 [id number] / [id number] / [id number] documented as of this encounter Visit Diagnoses Diagnosis Traumatic hemothorax without open wound into thorax, subsequent encounter Other pulmonary embolism without acute cor pulmonale, unspecified chronicity (HCC) Stress-induced cardiomyopathy Takotsubo syndrome Hyperlipidemia, unspecified hyperlipidemia type Abnormal CT scan Other nonspecific (abnormal) findings on radiological and other examinations of body structure documented in this encounter Advance Directives Latest [...] the patient have Health Care Power of Fibre Composite Technician? No No Code 06/01/2022 7:05 AM 06/01/2022 1:27 PM This order reflects the patients wishes and were consensually agreed upon. Question Answer Comments Discussion of Advance Directives occurred with: Patient Does the patient have a Living Will? No Does the patient have Health Care Power of Fibre Composite Technician? No Full Code 10/10/2021 12:53 PM 10/11/2021 4:11 PM This order reflects the patients wishes and were consensually agreed upon. Question Answer Comments Discussion of Advance Directives occurred with: Not Discussed Care Teams Dowel Inserting Machine Operator Relationship Specialty Start Date End Date Linda Rendon DO [address] [place] [address] PCP - General Family Medicine 03/07/16 documented as of this encounter
--- OUTSIDE RECORDS SUMMARY | 2023-09-18 09:52 | External Medical Summary | Summary of Care ---
Author Name Unknown Organization [facility] Address [address] [place] [address] Phone [phone] Care Team Providers Care Survival Specialist Name Role Phone Ryan Rendon DO Primary Care Provider [phone] Reason for Visit * Reason Comments Follow Up Elevated PSA, BPH wi th obstruction, * Evaluate & Treat - Unlimited Visits (Within 30 days (routine)) - Pending Review Specialty Diagnoses / Procedures Referred By Manolo peralta Referred To Contact Urology Diagnoses Renal cyst Ubbens, DEVAN Story [address] [place] [address] Referral ID Status Reason Start Date Expiration Date Visits Requested Visits Authorized [id number] Pending Review Specialty Services Required [phone] Encounter Details Date Type Department Care Team (Late st Contact Info) Description 06/22/2023 10:30 AM EDT Telemedicine Urology [facility] [address] [place] [address] Jean Marie Mix MD [address] [place] [address] 7, Telemed [facility] Urology Ex [address] [place] [address] Elevated prostate specific antigen (PSA)*; BPH with obstruction/lower urinary tract symptoms Allergies Active Allergy Reactions Criticality Noted Date Comments Nitroglycerin 09/01/1999 Family is unsure of this being a true allergy documented as of this encounter (statuses as of 06/22/2023) Medications Medication Sig Dispensed Refills Start Date [...] tions:HFrEF (heart failure with reduced ejection fraction) ([facility]),Acute pulmonary embolism, unspecified pulmonary embolism type, unspecified whether acute cor pulmonale present ([facility]),NSVT (nonsustained ventricular tachycardia) ([facility]),HTN, goal below 140/90 Take 1 Tablet by mouth in the morning. 90 Tablet 3 04/25/2023 Active Metoprolol Succinate ER 25 MG Oral Tablet Extended Release 24 Hour (toPROL XL)Indications:HF rEF (heart failure with reduced ejection fraction) ([facility]),NSVT (nonsustained ventricular tachycardia) (HCC) Take 0.5 Tablets by mouth in the morning. 45 Tablet 3 04/27/2023 Active Furosemide 20 MG Oral Tablet (Lasix)Indication s:HFrEF (heart failure with reduced ejection fraction) ([facility]),NSVT (nonsustained ventricular tachycardia) ([facility]) Take 1 Tablet by mouth once a day on Sunday, Sunday, and Sunday only. 30 Tablet 5 04/27/2023 Active Levothyroxine Sodium 150 MCG Oral Tablet (Levoxyl) Take 1.5 tablet Sunday and Sunday. (at least 30 min prior to breakfast or other meds) Do not start before June 03, 2023. 0 06/03/2023 Active Entresto 49-51 MG Oral Tablet (sacubitril-valsa rtan 49-51 mg per tab) Take 1 Tablet by mouth in the morning and 1 Tablet before bedtime. 60 Tablet 5 06/01/2023 Active Terazosin HCl 10 MG Oral Capsule Take 1 Capsule by mouth at bedtime. 90 Capsule 3 06/05/2023 Active Tamsulosin HCl 0.4 MG Oral Capsule (Flomax) Take 1 Capsule by mouth in the morning. 30 Capsule 6 06/22/2023 Active Finasteride 5 MG Oral Tablet (Proscar) Take 1 Tablet by mouth in the morning. 90 Tablet 3 06/22/2023 Active Finasteride 5 MG Oral Tablet (Proscar) Take 1 Tablet by mouth in the morning. 90 Tablet 3 06/01/2022 06/22/2023 Discontinue d(Refill) documented as of this encounter (statuses as of 06/22/2023) Active Problems Problem Noted Date Diagnosed Date [...] as of this encounter (statuses as of 06/22/2023) Resolved Problems Problem Noted Date Diagnosed Date Resolved Date Elevated prostate specific antigen (PSA) 10/04/2015 documented as of this encounter (statuses as of 06/22/2023) Immunizations Name Administration Dates Next Due Seasonal Influenza, Quad, Nasal (Flumist) 2018 documented as of this encounter Social History Tobacco Use Types Packs/Day Years Used Date Smoking Tobacco: Former Cigarettes Q uit: 03/19/1965 Smokeless Tobacco: Never Tobacco Cessation:Counseling Given: Not Answered Comments:QUIT 1965 Alcohol Use Standard Drinks/Week Comments [...] Sign Reading Time Taken Comments Blood Pressure 137/79 06/22/2023 10:36 AM EDT Pulse 85 06/22/2023 10:36 AM EDT Temperature 36.6 C (97.8 F) 06/22/2023 10:36 AM E DT Respiratory Rate - - Oxygen Saturation - - Inhaled Oxygen Concentration - - Weight 92.8 kg (204 lb 9.6 oz) 06/22/2023 10:36 AM EDT Height - - Body Mass Index 25.57 04/18/2023 2:16 PM EST documented in this encounter Functional Status Functional [...] as of this encounter Progress Notes * Jean Marie Mix MD - 06/22/2023 10:31 AM EDT [id number] PCP: RYAN RENDON [place] [address] [phone] Hector Pastrana is a 83 year old male, who presents for 1 year follow-up of his history of BPHand significantly elevated PSA. Patient's past notes reviewed. Continued fluctuations in PSA are appreciated. Current value remains elevated with a corrected PSA of 13. Patient is here today with family. He had a fall in February 2023, was hospitalized for a couple of weeks, rib fx noted, heart fail ure noted. Elevated PSA: Patient is being seen for evaluation of an elevated PSA. Previous evaluation includes prostate MRI. Patient has been on finasteride, terazosin and dose 10 mg. He reports slow stream. Prostate MRI April 2021 PI-RADS 3. PSA Results: PSA of 60 in April 2021. PSA Results: Lab Results Component Value Date/Time PSA - [facility] 6.56 (H) 06/13/2023 01:22 PM PSA - [facility] 11.27 (H) 02/27/2023 11:16 AM PSA - [facility] 4.25 (H) 06/07/2022 11:55 AM PSA - [facility] 4.2 (H) 08/14/1997 01:29 PM PSA - [facility] 6.2 (H) 12/26/1996 10:38 AM PSA - [facility] MALES 12/26/1996 10:38 AM PSA - [facility] >40yrs 96.0 3.5 0.5 0.0 0.0 12/26/1996 10:38 AM PSA - [facility] <40yrs 100.0 0.0 0.0 0.0 0.0 12/26/1996 10:38 AM PSA - [facility] MALIGNANT 12/26/1996 10:38 AM PSA - [facility] DISEASES 12/26/1996 10:38 AM PSA - [facility] PROSTATE 12/26/1996 10:38 AM PSA - [facility] STAGE A 60.0 30.8 7.7 0.0 1.5 12/26/1996 10:38 AM PSA - [facility] STAGE B 37.5 26.1 23.9 3.4 9.1 12/26/1996 10:38 AM PSA - [facility] STAGE C 19.7 23.7 30.3 13.2 13.2 12/26/1996 10:38 AM PSA - [facility] STAGE D 14.7 11.8 16.2 10.3 47.1 12/26/1996 10:38 AM PSA - [facility] DISTRIBUTION OF PSA VALUES 12/26/1996 10:38 AM PSA - [facility] GENITO- 12/26/1996 10:38 AM PSA - [facility] URINARY 88.3 10.0 1.7 0.0 0.0 12/26/1996 10:38 AM PSA - [facility] NONMALIGNANT 12/26/1996 10:38 AM PSA - [facility] DISEASES 12/26/1996 10:38 AM PSA - [facility] BPH 78.5 16.3 4.3 1.0 0.0 12/26/1996 10:38 AM PSA - [facility] PROSTA- 12/26/1996 10:38 AM PSA - [facility] BRIANNA 81.2 12.5 6.2 0.0 0.0 12/26/1996 10:38 AM PSA - [facility] GENITO- 12/26/1996 10:38 AM PSA - [facility] URINARY 86.1 8.9 5.0 0.0 0.0 12/26/1996 10:38 AM PSA - [facility] RENAL 87.3 10.8 2.0 0.0 0.0 12/26/1996 10:38 AM PSA - [facility] 12/26/1996 10:38 AM PSA - [facility] CIRRHOSIS 91.4 8.6 0.0 0.0 0.0 12/26/1996 10:38 AM PSA - [facility] 12/26/1996 10:38 AM PSA - [facility] 12/26/1996 10:38 AM IN THIS STUDY, 98% OF THE SPECIMENS FROM NORMAL MALES(n=397) HAD VALUES OF 4.0ng/mL OR LESS. PSA - [facility] PERCENT(%) 12/26/1996 10:38 AM PSA - [facility] 0-4.0 4.1-10 10.1-30 30.1-60 >60 12/26/1996 10:38 AM PSA - [facility] ng/mL ng/mL ng/mL ng/mL ng/mL 12/26/1996 10:38 AM PSA - [facility] 12/26/1996 10:38 AM PSA - [facility] HEALTHY 12/26/1996 10:38 AM PSA - [facility] SUBJECTS 12/26/1996 10:38 AM Current Outpatient Medications Medication Sig Dispense Refill Levothyroxine Sodium 150 MCG Oral Tablet (Levoxyl) Take by mouth 1 Tablet in the morning. (at least30 min prior to breakfast or other meds). Do not start before October 11, 2021. 30 Tablet 3 Finasteride 5 MG Oral Tablet (Proscar) Take 1 Tablet by mouth in the morning. 90 Tablet 3 Calcium Carbonate Antacid 500 MG Oral Tablet Chewable (Tums) Take 1 Tablet by mouth 2 times a day as needed for Heartburn. Acetaminophen 500 MG Oral Tablet (Tylenol Extra Strength) Take 2 Tablets by mouth every 6 hours as needed for Pain, Moderate. L-Tryptophan 500 MG Oral Tablet Take 1,500 mg by mouth at bedtime. Pt takes 3 tablets at night Apixaban 5 MG Oral Tablet (Eliquis) Take 1 Tablet by mouth in the morning and 1 Tablet before bedtime. 180 Tablet 0 Escitalopram Oxalate 10 MG Oral Tablet (Lexapro) [...] Do not start before June 03, 2023. Entresto 49-51 MG Oral Tablet (sacubitril-valsartan 49-51 mg per tab) Take 1 Tablet by mouth in themorning and 1 Tablet before bedtime. 60 Tablet 5 Terazosin HCl 10 MG Oral Capsule Take 1 Capsule by mouth at bedtime. 90 Capsule 3 No current facility-administered medications for this visit. Review of patient's allergies indicates: Allergen Reactions Nitroglycerin Family is unsure of this being a true allergy Social History: Social History Tobacco Use Smoking status: Former Current packs/day: 0.00 Types: Cigarettes Quit date: 03/19/1965 Years since quittin.2 Smokeless tobacco: Never Tobacco comments: QUIT 1965 Substance Use Topics Alcohol use: Yes Comment: RARE Vaping/E-Cigarette Use Vaping/E-Cigarette Use Never User Vaping/E-Cigarette Substances Vaping/E-Cigarette Devices Family History Problem Relation Age of Onset Other (CHF) Father 67 Hypertension Sister Hypertension Brother [place] Blood Disorder Sister iron anemia Cancer Brother prostate CA Cancer Brother unknown Past Surgical History: Procedure Laterality Date ANESTHESIA FOR BLADDER SURGERY bladder polyp removed. RELIEVE INNER EYE PRESSURE Right 06/01/2022 GONIOTOMY performed by Jonny Foster MD at OR [facility] RELIEVE INNER EYE PRESSURE Left 06/13/2022 GONIOTOMY performed by Jonny Foster MD at OR [facility] REMOVAL OF THYROID FOR TUMOR N/A 10/10/2021 THYROIDECTOMY WITH LIMITED NECK DISSECTION [place] Clar[place] [facility] [place] CATARACT, INSERT LENS PROSTH Right 06/01/2022 RIGHT EXTRACAPSULAR CATARACT REMOVAL WITH INTRAOCULAR LENS performed by Jonny Foster MD at OR [facility] REMOVE CATARACT, INSERT LENS PROSTH Left 06/13/2022 LEFT EXTRACAPSULAR CATARACT REMOVAL WITH INTRAOCULAR LENS performed by Jonny Foster MD at OR [facility] Past Medical History: Diagnosis Date Adrenal abnormality (HCC) treated w/herbal supplements by Dr. Bhatt Elevated prostate specific antigen (PSA) 6.2 -->4.2 -->3.9 HTN, goal below 140/90 Dr Corazon Sandoval Hyperplasia of prostate Patient Active Problem List Diagnosis Code HTN, goal below 140/90 I10 Insomnia G47.00 Anxiety state F41.1 Family history of malignant neoplasm of prostate Z80.42 History of nonmelanoma skin cancer Z85.828 Prediabetes R73.03 Papillary thyroid carcinoma (HCC) C73 Fall at home W19.XXXA, Y92.009 Closed fracture of multiple ribs of left side S22.42XA Hemothorax on left J94.2 Cardiomyopathy (HCC) I42.9 Acute pulmonary embolism (HCC) I26.99 Pancreatic cyst K86.2 Renal cyst N28.1 Constitutional: (-) fever and (-) chills ENT: (-) stridor Male : see HPI Musculoskeletal: (+) muscle weakness Neurology: (+) loss of balance Psychiatry: (-) negative: no depression or anxiety Physical Exam Constitutional: Appearance: He is not ill-appearing or toxic-appearing. HENT: Head: Normocephalic. Right Ear: External ear normal. Left Ear: External ear normal. Nose: Nose normal. Mouth/Throat: Mouth: Mucous membranes are moist. Pulmonary: Effort: Pulmonary effort is normal. No respiratory distress. Abdominal: General: There is no distension. Skin: Coloration: Skin is not pale. Neurological: Motor: Weakness present. Gait: Gait abnormal. Psychiatric: Thought Content: Thought content normal. Impression/Plan: Comorbid 83-year-old male with a history of fall, BPH, elevated and fluctuating PSA. See the patient's comorbidities will avoid aggressive evaluation for his elevated and fluctuating PSA. Continue finasteride. Considering the patient's difficulties with heart failure and fall, I think it would be goodrich to remove terazosin seen possible contribution. Will provide the alternate of tamsulosin. Risk of orthostasis with alpha blockers and general is reviewed. If they feel this to be significantly less effective they can contact us for a trial of alternate medication. Will move back to six-month visit seen changes in medication and fluctuations in PSA value. Above content is personally reviewed. Jean Marie Mix MD 10:31 AM 06/22/2023 documented in this encounter Nursing Notes * Meeta Cosme LPN - 06/22/2023 10:39 AM EDT Patient identified by name and date of . Chief Complaint Patient presents with Follow Up Elevated PSA, BPH with obstruction, Pt presents today with his daughter. Pt doing well , no complaints at this time.last PSA done on 06/13/2023- elevated documented in this encounter Plan of Treatment Upcoming Encounters Date Type Department Care Team (Latest Contact Info) Description 07/06/2023 1:00 PM EDT Office Visit Cardiology, [facility] [address] [place] [address] [facility] Cardiology [facility] [address] [place] [address] 07/17/2023 11:00 AM EDT Imaging Radiology [facility]st [facility] [address] [place] [address] 07/19/2023 11:15 AM EDT Hospital Encounter ENDO OSSC, Endoscopy Room [facility] [address] [place] [address] Rich Núñez, DO [address] [place] [address] 07/19/2023 11:15 AM EDT - 07/19/2023 12:15 PM EDT Surgery ENDO [facility], Endoscopy Room [facility] [address] [place] [address] Rich Núñez, DO [address] [place] [address] ESOPHAGOGASTRODUODENOSCOPY (EGD), FLEXIBLE, TRANSORAL, ENDOSCOPIC ULTRASOUND 08/21/2023 1:00 PM EDT Office Visit Family Practice [facility] [address] [place] [address] Ryan Rendon DO [address] [place] [address] 09/04/2023 2:30 PM EDT Office Visit General Surgery, [place] [address] [place] [address] 620, [facility] [address] [place] [address] 09/18/2023 11:30 AM EDT Office Visit Cardiology, [facility] 132 [facility] [place] [address] Giovani Shannon MD [address] [place] [address] 12/25/2023 10:15 AM EDT Office Visit Urology, [facility] [address] [facility] [place] [address] Jean Marie Mix MD 27 [facility] [address] [place] [address] Scheduled Orders Name Type Priority Associated Diagnoses Orde r Schedule PSA Lab Routine Elevated prostate specific antigen (PSA) BPH with obstruction/lower urinary tract symptoms Expected: 12/22/2023, Expires: 06/21/2024 Scheduled Procedures Name Priority Associated Diagnoses Date/Ti me ESOPHAGOGASTRODUODENOSCOPY ( EGD), FLEXIBLE, TRANSORAL, ENDOSCOPIC ULTRASOUND Abnormal CT scan 07/19/2023 11:15 AM EDT Health Maintenance Due Date Last [...] this encounter Medical Devices Implanted Type Area Vegetable Farm Worker Device Identifier Shelf Expiration Date Model / Serial / Lot Lens Intraoc 18.5 - [id number] - [id number] Implanted:Qty: 1 on 06/01/2022 by Jonny Foster MD at OR [facility] Right: Eye [employer] 01/16/2027 [id number] / [id number] / [id number] Lens Intraoc 18.5 - [id number] - [id number] Implanted:Qty: 1 on 06/13/2022 by Jonny Foster MD at OR [facility] Left: Eye [employer]OM[employer] 01/16/2027 [id number] / [id number] / [id number] documented as of this encounter Visit Diagnoses Diagnosis Elevated prostate specific antigen (PSA)- Primary BPH with obstruction/lower urinary tract symptoms Hypertrophy of prostate with urinary obstruction and other lower urinary tract symptoms (LUTS) Abnormal CT scan Other nonspecific (abnormal) findings [...] the patient have Health Care Power of Filenet P8 Developer? No No Code 06/01/2022 7:05 AM 06/01/2022 1:27 PM This order reflects the patients wishes and were consensually agreed upon. Question Answer Comments Discussion of Advance Directives occurred with: Patient Does the patient have a Living Will? No Does the patient have Health Care Power of Filenet P8 Developer? No Full Code 10/10/2021 12:53 PM 10/11/2021 4:11 PM This order reflects the patients wishes and were consensually agreed upon. Question Answer Comments Discussion of Advance Directives occurred with: Not Discussed Care Teams Survival Specialist Relationship Specialty Start Date End Date Ryan Rendon DO [address] [place] [address] PCP - General Family Medicine 03/07/16 documented as of this encounter
--- OUTSIDE RECORDS SUMMARY | 2023-09-18 09:52 | External Medical Summary | Summary of Care ---
Author Name Unknown Organization [facility] Address [address] [place] [address] Phone [phone] Care Team Providers Care Chief Operator Synthesis Name Role Phone Linda Rendon DO Primary Care Provider [phone] Reason for Visit * Reason Onset Date Comments Medication Refill 06/23/2023 Encounter Details Date Type Department Care Team (Late st Contact Info) Description 06/23/2023 Refill Urology Oj Menard [address] [place] [address] Jean Marie Mix MD [address] [place] [address] Allergies Active Allergy Reactions Criticality Noted Date Comments Nitroglycerin 09/01/1999 Family is unsure of this being a true allergy documented as of this encounter (statuses as of 06/27/2023) Medications Medication Sig Dispensed Refills Start Date [...] 06/03/2023 Active Entresto 49-51 MG Oral Tablet (sacubitril-valsarta n 49-51 mg per tab) Take 1 Tablet [...] the morning. 90 Tablet 3 06/22/2023 Active documented as of this encounter (statuses as of 06/27/2023) Active Problems Problem Noted Date Diagnosed Date [...] as of this encounter (statuses as of 06/27/2023) Resolved Problems Problem Noted Date Diagnosed Date Resolved Date Elevated prostate specific antigen (PSA) 10/04/2015 documented as of this encounter (statuses as of 06/27/2023) Immunizations Name Administration Dates Next Due Seasonal [...] (15 years old or older) No 02/29/20 23 Cognitive Status Response Date of Assessm ent Because of a physical, menta l, or emotional condition, do you have serious difficulty concentrating, remembering, or making decisions? (5 years old or older) No 02/28/2023 documented as of this encounter Miscellaneous Notes * Telephone Encounter - Janel Hidalgo LPN - 06/27/2023 9:19 AM EDT Already filled documented in this encounter Plan of Treatment Upcoming Encounters Date Type Department Care Team (Latest Contact Info) Description 07/06/2023 1:00 PM EDT Office Visit Cardiology, [facility] [address] [place] [address] [facility] Cardiology [facility] [address] [place] [address] 07/17/2023 11:00 AM EDT Imaging Radiology [address] [place] [address] 07/19/2023 11:15 AM EDT Hospital Encounter ENDO OSSC, Endoscopy Room [facility] [address] [place] [phone] iRch Núñez, [address] [place] [address] 07/19/2023 11:15 AM EDT - 07/19/2023 12:15 PM EDT Surgery ENDO O[facility], Endoscopy Room [facility] [address] [place] [phone] Rich Núñez, DO [address] [place] [address] ESOPHAGOGASTRODUODENOSCOPY (EGD), FLEXIBLE, TRANSORAL, ENDOSCOPIC ULTRASOUND 08/21/2023 1:00 PM EDT Office Visit Family Practice [facility] 132 [facility] [place] [address] Linda Rendon, DO [facility] [place] [address] 09/04/2023 2:30 PM EDT Office Visit General Surgery, [place] [address] [place] [address] [facility], Tra[facility] Clinic [address] [place] [address] 09/18/2023 11:30 AM EDT Office Visit Cardiology, [facility] 132 [facility] [place] [address] Giovani Shannon MD 132 [facility] [place] [address] 12/25/2023 10:15 AM EDT Office Visit Urology, [facility] 132 [facility] [place] [address] Jean Marie Mix MD 27 [facility] [address] [place] [address] Scheduled Procedures Name Priority Associated Diagnoses Date/Ti [...] this encounter Medical Devices Implanted Type Area Oyster Opener Device Identifier Shelf Expiration Date Model / Serial / Lot Lens Intraoc 18.5 - [id number] - [id number] Implanted:Qty: 1 on 06/01/2022 by Jonny Foster MD at OR [facility] Right: Eye [employer]USCH [employer] LOMB 01/16/2027 [id number] / [id number] / [id number] Lens Intraoc 18.5 - [id number] - [id number] Implanted:Qty: 1 on 06/13/2022 by Jonny Foster MD at OR [facility] Left: Eye BAUSCH & LOMB 01/16/2027 [id number] / [id number] / [id number] documented as of this encounter Advance Directives [...] the patient have Health Care Power of Training Analyst? No No Code 06/01/2022 7:05 AM 06/01/2022 1:27 PM This order reflects the patients wishes and were consensually agreed upon. Question Answer Comments Discussion of Advance Directives occurred with: Patient Does the patient have a Living Will? No Does the patient have Health Care Power of Training Analyst? No Full Code 10/10/2021 12:53 PM 10/11/2021 4:11 PM This order reflects the patients wishes and were consensually agreed upon. Question Answer Comments Discussion of Advance Directives occurred with: Not Discussed Care Teams Chief Operator Synthesis Relationship Specialty Start Date End Date Linda Rendon DO [address] [place] [address] PCP - General Family Medicine 03/07/16 documented as of this encounter
--- OUTSIDE RECORDS SUMMARY | 2023-09-18 09:52 | External Medical Summary | Summary of Care ---
Author Name Unknown Organization [facility] Address [address] [place] [address] Phone [phone] Care Team Providers Care Impregnator And Drier Helper Name Role Phone Linda Rendon DO Primary Care Provider [phone] Reason for Visit * Reason Onset Date Comments Test Results 07/17/2023 Encounter Details Date Type Department Care Team (Late st Contact Info) Description 07/17/2023 Telephone Pulmonary Medicine, [facility] [address] [facility] [place] [address] Quintin [facility]ozano MD [address] [facility] [address] Test Results Allergies Active Allergy Reactions [...] tions:HFrEF (heart failure with reduced ejection fraction) ([facility]),Acute pulmonary embolism, unspecified pulmonary embolism [...] s:HFrEF (heart failure with reduced ejection fraction) ([facility]),NSVT (nonsustained ventricular tachycardia) (HCC) Take [...] CT chest with PE protocol done at [facility] would shows? Residual right apical and left [...] 07/19/2023 11:30 AM EDT Hospital Encounter ENDO OSS, Endoscopy Room [facility] [address] [place] [address] Rich Núñez, DO [address] [place] [address] 07/19/2023 11:30 AM EDT - 07/19/2023 12:15 PM EDT Surgery ENDO O[facility]C, Endoscopy Room [facility] [address] [place] [phone] Rich Núñez, DO [address] [place] [address] ESOPHAGOGASTRODUODENOSCOPY (EGD), FLEXIBLE, TRANSORAL, ENDOSCOPIC ULTRASOUND 08/03/2023 2:00 PM EDT Office Visit Cardiology, [facility] [address] [place] [address] [facility] Card[facility] [address] [place] [address] 08/15/2023 12:40 PM EDT Office Visit Pulmonary Medicine, [facility] [place] [address] Quintin Lozano MD [address] [facility] [place] [address] 08/21/2023 1:00 PM EDT Office Visit Family Practice [facility] [address] [place] [address] Linda Rendon, DO [address] [place] [address] 09/04/2023 2:30 PM EDT Office Visit General Surgery, [place] [address] [place] [address] 620, Trauma Clinic [address] [place] [address] 09/18/2023 11:30 AM EDT Office Visit Cardiology, [facility] 132 [facility] [place] [address] Giovani Shannon MD 132 [facility] [place] [address] 12/25/2023 10:15 AM EDT Office Visit Urology, [facility] 132 [facility] [place] [address] Jean Marie Mix MD [address] [facility] [address] [place] [address] Scheduled Procedures Name Priority Associated Diagnoses Date/Ti [...] this encounter Medical Devices Implanted Type Area Felt Hanger Device Identifier Shelf Expiration Date Model / Serial / Lot Lens Intraoc 18.5 - [id number] - [id number] Implanted:Qty: 1 on 06/01/2022 by Jonny Foster MD at OR [facility] Right: Eye BAUSCH [employer] LOMB 01/16/2027 [id number] / [id number] / [id number] Lens Intraoc 18.5 - [id number] - [id number] Implanted:Qty: 1 on 06/13/2022 by Jonny Foster MD at OR [facility] Left: Eye BAUSCH & LOMB 01/16/2027 [id number] / [id number] / [id number] documented as of this encounter Advance Directives [...] the patient have Health Care Power of High School Music Teacher? No No Code 06/01/2022 7:05 AM 06/01/2022 1:27 PM This order reflects the patients wishes and were consensually agreed upon. Question Answer Comments Discussion of Advance Directives occurred with: Patient Does the patient have a Living Will? No Does the patient have Health Care Power of High School Music Teacher? No Full Code 10/10/2021 12:53 PM 10/11/2021 4:11 PM This order reflects the patients wishes and were consensually agreed upon. Question Answer Comments Discussion of Advance Directives occurred with: Not Discussed Care Teams Impregnator And Drier Helper Relationship Specialty Start Date End Date Linda Rendon DO [address] [place] [address] PCP - General Family Medicine 03/07/16 documented as of this encounter
--- OUTSIDE RECORDS SUMMARY | 2023-09-18 09:52 | External Medical Summary | Summary of Care ---
Author Name Unknown Organization [facility] Address [address] [place] [address] Phone [phone] Care Team Providers Care Acid Wash Operator Name Role Phone Ryan Rendon DO Primary Care Provider [phone] Reason for Visit * Reason Comments Follow Up Elevated PSA, BPH wi th obstruction, * Evaluate & Treat - Unlimited Visits (Within 30 days (routine)) - Pending Review Specialty Diagnoses / Procedures Referred By Manolo peralta Referred To Contact Urology Diagnoses Renal cyst Ubbens, DEVAN Story [address] [place] [address] Referral ID Status Reason Start Date Expiration Date Visits Requested Visits Authorized [id number] Pending Review Specialty Services Required [phone] Encounter Details Date Type Department Care Team (Late st Contact Info) Description 06/22/2023 10:30 AM EDT Telemedicine Urology Oj Menard [address] [place] [place] [address] Jean Marie Mix MD [address] [place] [address] 7, Telemed [facility] Urology Ex [address] [place] [address] Elevated prostate specific antigen (PSA)*; BPH with [...] tions:HFrEF (heart failure with reduced ejection fraction) ([facility]),Acute pulmonary embolism, unspecified pulmonary embolism type, unspecified whether acute cor pulmonale present ([facility]),NSVT (nonsustained ventricular tachycardia) ([facility]),HTN, goal below 140/90 Take 1 Tablet by mouth in the morning. 90 Tablet 3 04/25/2023 Active Metoprolol Succinate ER 25 MG Oral Tablet Extended Release 24 Hour (toPROL XL)Indications:HF rEF (heart failure with reduced ejection fraction) ([facility]),NSVT (nonsustained ventricular tachycardia) (HCC) Take 0.5 Tablets by mouth in the morning. 45 Tablet 3 04/27/2023 Active Furosemide 20 MG Oral Tablet (Lasix)Indication s:HFrEF (heart failure with reduced ejection fraction) ([facility]),NSVT (nonsustained ventricular tachycardia) ([facility]) Take 1 Tablet by mouth once a [...] Mix MD - 06/22/2023 10:31 AM EDT [id number] PCP: [place] [address] [phone] Patient location: CLINIC. I was in a different facility from the patient. After connecting through [employer], patient was verified with two unique identifiers. Patient (or authorized legal customer sales representative) was then informed that this was a Telemedicine visit and being conducted confidentially over secure lines. My office door was closed. No one else was in the room with me. Patient acknowledged consent and understanding of privacy and security of the Telemedicine visit, and gave permission to have a telemedicine presenter stay in the room in order to assist with the history and to conduct the exam as needed. I informed the patient that I have reviewed their record in [employer] and presented the opportunity for them to ask any questions regarding the visit today. The patient agreed to participate. Hector Pastrana is a 83 year old [...] (CHF) Father 67 Hypertension Sister Hypertension Brother [place] Blood Disorder Sister iron anemia Cancer Brother prostate CA Cancer Brother unknown Past Surgical History: Procedure Laterality Date ANESTHESIA FOR BLADDER SURGERY bladder polyp removed. RELIEVE INNER EYE PRESSURE Right 06/01/2022 GONIOTOMY performed by Jonny Foster MD at [facility] RELIEVE INNER EYE PRESSURE Left 06/13/2022 GONIOTOMY performed by Jonny Foster MD at OR [facility] REMOVAL OF THYROID FOR TUMOR N/A 10/10/2021 THYROIDECTOMY WITH LIMITED NECK DISSECTION performed by Clarissa Hernandez MD at OR [facility] REMOVE CATARACT, INSERT LENS PROSTH Right 06/01/2022 RIGHT EXTRACAPSULAR CATARACT REMOVAL WITH INTRAOCULAR LENS performed by Jonny Foster MD at OR [facility] REMOVE CATARACT, INSERT LENS PROSTH Left 06/13/2022 LEFT EXTRACAPSULAR CATARACT REMOVAL WITH INTRAOCULAR LENS performed by Jonny Foster MD at OR [facility] Past Medical History: Diagnosis Date Adrenal abnormality (HCC) treated w/herbal supplements by Dr. Bhatt Elevated prostate specific antigen (PSA) 6.2 -->4.2 -->3.9 HTN, goal below 140/90 Dr Bhatt- [place] Hyperplasia of prostate Patient Active Problem List [...] 07/06/2023 1:00 PM EDT Office Visit Cardiology, [facility] [address] [place] [address] [facility] Cardiology [facility] [address] [place] [address] 07/17/2023 11:00 AM EDT Imaging Radiology [facility] 1st Floor, [place] [address] [place] [address] 07/19/2023 11:15 AM EDT Hospital Encounter ENDO [facility], Endoscopy Room [facility] [address] [place] [phone] Rich Núñez, [address] [place] [address] 07/19/2023 11:15 AM EDT - 07/19/2023 12:15 PM EDT Surgery ENDO [facility], Endoscopy Room [facility] [address] [place] [phone] Rich Núñez, DO [address] [place] [address] ESOPHAGOGASTRODUODENOSCOPY (EGD), FLEXIBLE, TRANSORAL, ENDOSCOPIC ULTRASOUND 08/21/2023 1:00 PM EDT Office Visit Family Practice [facility] [address] [place] [address] Ryan Rendon, DO [address] [place] [address] 09/04/2023 2:30 PM EDT Office Visit General Surgery, [place] [address] [place] [address] 620, Tra[facility] Clinic [address] [place] [address] 09/18/2023 11:30 AM EDT Office Visit Cardiology, [facility] 132 [facility] [place] [address] Giovani Shannon MD 132 [facility] [place] [address] 12/25/2023 10:15 AM EDT Office Visit Urology, [facility] [place] [address] Jean Marie Mix MD [address] [place] [address] [place] [address] Scheduled Orders Name Type Priority Associated Diagnoses [...] this encounter Medical Devices Implanted Type Area Calendering Supervisor Device Identifier Shelf Expiration Date Model / Serial / Lot Lens Intraoc 18.5 - [id number] - [id number] Implanted:Qty: 1 on 06/01/2022 by Jonny Foster MD at OR [facility] Right: Eye BAUSCH & LOMB 01/16/2027 [id number] / [id number] / [id number] Lens Intraoc 18.5 - [id number] - [id number] Implanted:Qty: 1 on 06/13/2022 by Jonny Foster MD at OR [facility] Left: Eye BAUSCH & LOMB 01/16/2027 [id number] / [id number] / [id number] documented as of this encounter Visit Diagnoses [...] the patient have Health Care Power of Children'S Attendant? No No Code 06/01/2022 7:05 AM 06/01/2022 1:27 PM This order reflects the patients wishes and were consensually agreed upon. Question Answer Comments Discussion of Advance Directives occurred with: Patient Does the patient have a Living Will? No Does the patient have Health Care Power of Children'S Attendant? No Full Code 10/10/2021 12:53 PM 10/11/2021 4:11 PM This order reflects the patients wishes and were consensually agreed upon. Question Answer Comments Discussion of Advance Directives occurred with: Not Discussed Care Teams Acid Wash Operator Relationship Specialty Start Date End Date Ryan Rendon DO 132 [facility] [place] [address] PCP - General Family Medicine 03/07/16 documented as of this encounter
--- OUTSIDE RECORDS SUMMARY | 2023-09-18 09:52 | External Medical Summary ---
Author Name Unknown Address Unknown Organization K01:LABORATORY [facility] - [address] [facility] [address] Laboratory Report Ordering Provider Test Date Status JANEE GARRIDO 07/17/2023 10:22:32 Final Observation Date Value Abnormality Reference (Units ) Status Triglyceride 07/17/2023 10:22:32 78 <=174 ( mg/dL) Final Triglyceride Reference Range s (mg/dL):
<150 Acceptable
150-174 Borderline high
175-499 High
>=500 Very high Cholesterol 07/17/2023 10:22:32 146 <200 (mg /dL) Final Total Cholesterol Reference Ranges (mg/dL):
<200 Desirable
200-239 Borderline high
>=240 High HDL 07/17/2023 10:22:32 49 >39 (mg/dL ) Final HDL Cholesterol Reference Ra nges (mg/dL):
>=60 High (Desirable)
<50 Low (Undesirable) For Females
<40 Low (Undesirable) For Males NON-HDL CHOLESTEROL 07/17/2023 10:22:32 97 <=159 (mg/dL) Final Non-HDL Cholesterol Referenc e Range (mg/dL):
<100 Target level for high risk ASCVD patient
<130 Optimal for general population
130-159 Near optimal for general population
160-189 Borderline High
190-219 High
>=220 Very High LDL, (calculated) 07/17/2023 10:22:32 81 <= 129 (mg/dL) Final LDL Cholesterol Reference Ra nges (mg/dL):
<70 Target level for high risk ASCVD patient
<100 Optimal for general population
100-129 Near optimal for general population
130-159 Borderline high
160-189 High
>=190 Very high Performing Location LABORATORY [facility] - [address] [facility] [address]
--- OUTSIDE RECORDS SUMMARY | 2023-09-18 09:52 | External Medical Summary | Summary of Care ---
Author Name Unknown Organization [facility] Address [address] [place] [address] Phone [phone] Care Team Providers Care Sign Builder Supervisor Name Role Phone Linda Rendon DO Primary Care Provider [phone] Reason for Visit * Reason Onset Date Comments Surgery Procedure Cancelled 07/17/2023 Encounter Details Date Type Department Care Team (Late st Contact Info) Description 07/17/2023 Telephone Gastroenterology, [facility] [address] [facility] [place] [address] Rich Núñez DO [address] [place] [address] Surgery Procedure Cancelled Allergies Active Allergy Reactions Criticality Noted Date [...] ons:HFrEF (heart failure with reduced ejection fraction) ([facility]),Acute pulmonary embolism, unspecified pulmonary embolism type, unspecified whether acute cor pulmonale present ([facility]),NSVT (nonsustained ventricular tachycardia) ([facility]),HTN, goal below 140/90 Take 1 Tablet by mouth in the morning. 90 Tablet 3 04/25/2023 Active Metoprolol Succinate ER 25 MG Oral Tablet Extended Release 24 Hour (toPROL XL)Indications:HFrE F (heart failure with reduced ejection fraction) ([facility]),NSVT (nonsustained ventricular tachycardia) ([facility]) Take 0.5 Tablets by mouth in the morning. 45 Tablet 3 04/27/2023 Active Furosemide 20 MG Oral Tablet (Lasix)Indications: HFrEF (heart failure with reduced ejection fraction) ([facility]),NSVT (nonsustained ventricular tachycardia) ([facility]) Take 1 Tablet by mouth once [...] times a day. 74 Tablet 0 07/17/2023 10/29/2023 Active Hospital, Clinic, or Other Facility Administered Medication [...] encounter Miscellaneous Notes * Telephone Encounter - Prisca Mallory OSA - 07/17/2023 1:58 PM EDT Procedure cancelled. * Telephone Encounter - Ernestina Villeda OSA - 07/17/2023 11:42 AM EDT Pt daughter stopped in. Cancelling procedure scheduled for 07/18 due to pulmonary embolism. Pt will need to stay on eliquis for a month. Will call in when ready to reschedule. documented in this encounter Plan of Treatment Upcoming Encounters Date Type Department Care Team (Late st Contact Info) Description 07/19/2023 Hospital Encounter ENDO [facility], Endoscopy Room [facility] [address] [place] [phone] Rich Núñez, [address] [place] [address] 08/03/2023 2:00 PM EDT Office Visit Cardiology, [facility] 132 [facility] [place] [address] [facility] Cardiology [facility] [place] [address] 08/15/2023 12:40 PM EDT Office Visit Pulmonary Medicine, [facility] [place] [address] Quintin Lozano MD [address] [place] [address] 08/21/2023 1:00 PM EDT Office Visit Family Practice [facility] [place] [address] Linda Rendon DO [address] [facility] [place] [address] 09/04/2023 2:30 PM EDT Office Visit General Surgery, [place] [address] [place] [address] 620, Trauma Clinic [address] [place] [address] 09/18/2023 11:30 AM EDT Office Visit Cardiology, [facility] 132 [facility] [place] [address] Giovani Shannon MD [address] [facility] [place] [address] 12/25/2023 10:15 AM EDT Office Visit Urology, [facility] 132 [facility] [place] [address] Jean Marie Mix MD [address] [address] [place] [address] Scheduled Procedures Name Priority Associated Diagnoses Date/Ti [...] this encounter Medical Devices Implanted Type Area Dredge Deckhand Device Identifier Shelf Expiration Date Model / Serial / Lot Lens Intraoc 18.5 - [id number] - [id number] Implanted:Qty: 1 on 06/01/2022 by Jonny Foster MD at OR [facility] Right: Eye BAUSCH & LOMB 01/16/2027 [id number] / [id number] / [id number] Lens Intraoc 18.5 - [id number] - [id number] Implanted:Qty: 1 on 06/13/2022 by Jonny Foster MD at OR [facility] Left: Eye BAUSCH & LOMB 01/16/2027 [id number] / [id number] / [id number] documented as of this encounter Advance Directives [...] the patient have Health Care Power of Underground Mining Section Foreman? No No Code 06/01/2022 7:05 AM 06/01/2022 1:27 PM This order reflects the patients wishes and were consensually agreed upon. Question Answer Comments Discussion of Advance Directives occurred with: Patient Does the patient have a Living Will? No Does the patient have Health Care Power of Underground Mining Section Foreman? No Full Code 10/10/2021 12:53 PM 10/11/2021 4:11 PM This order reflects the patients wishes and were consensually agreed upon. Question Answer Comments Discussion of Advance Directives occurred with: Not Discussed Care Teams Sign Builder Supervisor Relationship Specialty Start Date End Date Linda Rendon DO [address] [facility] [place] [address] PCP - General Family Medicine 03/07/16 documented as of this encounter
--- OUTSIDE RECORDS SUMMARY | 2023-09-18 09:52 | External Medical Summary | Summary of Care ---
Author Name Unknown Organization [facility] Address [address] [place] [address] Phone [phone] Care Team Providers Care Food Products Sales Representative Name Role Phone Linda Rendon DO Primary Care Provider [phone] Reason for Visit * Reason Comments Dosage Adjustment In Person (Anticoag Cl inic) Congestive Heart Failure Encounter Details Date Type Department Care Team (Late st Contact Info) Description 07/06/2023 1:00 PM EDT Office Visit Cardiology, [facility] [address] [place] [address] [facility] Cardiology [facility] [address] [place] [address] Stress-induced cardiomyopathy*; Hyperlipidemia, unspecified hyperlipidemia type Allergies Active Allergy Reactions Criticality Noted Date Comments Nitroglycerin 09/01/1999 Family is unsure of this being a true allergy documented as of this encounter (statuses as of 07/06/2023) Medications Medication Sig Dispensed Refills Start Date [...] failure with reduced ejection fraction) ([facility]),Acute pulmonary embolism, unspecified pulmonary embolism type, unspecified whether acute cor pulmonale present (HCC),NSVT (nonsustained ventricular tachycardia) ([facility]),HTN, goal below 140/90 Take 1 Tablet by mouth in the morning. 90 Tablet 3 04/25/2023 Active Metoprolol Succinate ER 25 MG Oral Tablet Extended Release 24 Hour (toPROL XL)Indications:HF rEF (heart failure with reduced ejection fraction) ([facility]),NSVT (nonsustained ventricular tachycardia) (HCC) Take 0.5 [...] before bedtime. 60 Tablet 5 07/06/2023 Active Entresto 49-51 MG Oral Tablet (sacubitril-valsa rtan 49-51 mg per tab) Take 1 Tablet by mouth in the morning and 1 Tablet before bedtime. 60 Tablet 5 06/01/2023 07/06/2023 Discontinue d(Medicatio n/Dose Changed) documented as of this encounter (statuses as of 07/06/2023) Active Problems Problem Noted Date Diagnosed Date [...] as of this encounter (statuses as of 07/06/2023) Resolved Problems Problem Noted Date Diagnosed Date Resolved Date Elevated prostate specific antigen (PSA) 10/04/2015 documented as of this encounter (statuses as of 07/06/2023) Immunizations Name Administration Dates Next Due Seasonal [...] Sign Reading Time Taken Comments Blood Pressure 154/89 07/06/2023 1:07 PM EDT Pulse 59 07/06/2023 1:07 PM EDT Temperature - - Respiratory Rate - - Oxygen Saturation - - Inhaled Oxygen Concentration - - Weight 93.4 kg (206 lb) 07/06/2023 1:07 PM EDT Height - - Body Mass Index 25.75 04/18/2023 2:16 PM EST documented in this [...] * Patient Instructions* Sumaya Orourke RPh - 07/06/2023 1:13 PM EDT INCREASE Entresto 91-103 mg twice daily Blood work 1-2 weeks after increasing dose [phone] Sumaya Orourke Pharm D Clinical [facility] Pharmacist Cardiology 07/06/2023,1:14 PM documented in this encounter Progress Notes * Sumaya Orourke RPh - 07/06/2023 12:59 PM EDT PHARMACY CHRONIC DISEASE MANAGEMENT - HEART FAILURE Hector Pastrana is an 83 year old patient referred to the Heart Failure MTM clinic by Preeti Ag the following: General heart failure medication optimization PCP: Linda Rendon DO Cardiology Provider: Preeti Cal[employer] Aircraft Fueler: Not currently active with case management Urgent HF Access: Reviewed the following treatment locations for urgent HF symptoms with patient and provided them with contact information Cardiology based urgent heart failure clinic, [facility] [phone] HPI: Patient has heart failure assessment: Heart failure with REDUCED ejection fraction (SYStolic heart failure) undetermined if ischemic heart disease is present Patient has evidence of RV dysfunction: No Most recent LVEF: 45 % Date: 03/29/23 Modality: Echo Previous LVEF: 40 % Date: 03/01/23 Modality: Echo Home vitals: Does patient monitor BP at home? yes Any dizziness or lightheadedness: Denies Home BP log results: Not checking often 120s/80 Does patient monitor HR at home? yes Home HR log results: 50s Does patient monitor weight at home? yes Any increased edema or shortness of breath: Denies Home weight log results: Not checking regularly Objective: BP Readings from Last 3 Encounters: 06/22/23 137/79 06/18/23 138/70 06/01/23 132/66 Pulse Readings from Last 3 Encounters: 06/22/23 85 06/18/23 58 06/01/23 54 Wt Readings from Last 3 Encounters: 07/06/23 93.4 kg (206 lb) 06/22/23 92.8 kg (204 lb 9.6 oz) 06/18/23 92.1 kg (203 lb) Lab Results Component Value Date/Time CREATININE - [facility] 1.0 06/13/2023 01:22 PM CREATININE - [facility] 0.8 04/20/2023 03:33 PM CREATININE - [facility] 1.0 03/23/2023 01:49 PM CREATININE - [facility] 1.2 12/01/1999 08:36 [...] Component Value Date/Time SODIUM - [facility] 140 06/13/2023 01:22 PM SODIUM - [facility] 139 04/20/2023 03:33 PM SODIUM - [facility] 140 03/23/2023 01:49 PM SODIUM - [facility] 144 12/01/1999 08:36 AM SODIUM - [facility] 146 07/26/1999 08:32 AM SODIUM - [facility] 142 12/26/1996 10:38 AM Lab Results Component Value Date/Time POTASSIUM - [facility] 4.6 06/13/2023 01:22 PM POTASSIUM - [facility] 4.6 04/20/2023 03:33 PM POTASSIUM - [facility] 4.9 03/23/2023 01:49 PM POTASSIUM - [facility] 3.8 12/20/1999 08:39 [...] daily-started 04/27/23 Spironolactone 25 mg daily Entresto 49-51 mg BID-started 3/15/24 Eliquis 5 mg BID Lasix 20 mg MWF-started 04/27/23 Eligible for [employer] [facility] pharmacy? Agree or Declined? Not eligible Assessment & Plan: HFrEF -in setting of acute illness w/ traumatic hemothroax and PE 02/2023 -Planning to rule out ischemic with stress test in future -obtain digital scale -Test vitals at home and write down At last visit, pt was instructed to stop Amlodipine-Benazepril and start Entresto 49-51 mg BID. Hadfollow up BMP which is stable. Denies any dizziness or weight gain. Denies any edema. BP mildly elevated in office. Will increase Entresto 97-103 mg BID; BMP 1-2 weeks later. 2. Controlled Hypertension -Titrate CHF regimen 3. Aortic sclerosis 4. Non sustained VT -seen on Zio 5. PE -02/2023 -3 months anticoagulation until June 2023 -Eliquis 6. Pre-Diabetes -not discussed -Will benefit from SGLT2 in future Medication changes: INCREASE Entresto 97-103 mg BID Labs Due: BMP 1-2 weeks Lipid panel with next fasting labs Vaccine Due: not discussed Follow up: 4 weeks Sumaya Orourke [facility] Clinical Pharmacist Medication Therapy Disease Management 07/06/2023,12:59 PM documented in this encounter Plan of Treatment Upcoming Encounters Date Type Department Care Team (Latest Contact Info) Description 07/17/2023 11:00 AM EDT Imaging Radiology [address] [place] [address] 07/19/2023 11:15 AM EDT Hospital Encounter ENDO [facility], Endoscopy Room [facility] [address] [place] [phone] Rich Núñez DO [address] [place] [address] 07/19/2023 11:15 AM EDT - 07/19/2023 12:15 PM EDT Surgery ENDO [facility], Endoscopy Room [facility] [address] [place] [phone] Rich Núñez, DO [address] [place] [address] ESOPHAGOGASTRODUODENOSCOPY (EGD), FLEXIBLE, TRANSORAL, ENDOSCOPIC ULTRASOUND 08/03/2023 2:00 PM EDT Office Visit Cardiology, [facility] [address] [facility] [place] [address] [facility] Cardiology [facility] [place] [address] 08/21/2023 1:00 PM EDT Office Visit Family Practice [facility] [place] [address] Linda Rendon, DO 132 [facility] [place] [address] 09/04/2023 2:30 PM EDT Office Visit General Surgery, [place] [address] [place] [address] 620, Tra[facility] Clinic [address] [place] [address] 09/18/2023 11:30 AM EDT Office Visit Cardiology, [facility] [address] [facility] [place] [address] Giovani Shannon MD 132 [facility] [place] [address] 12/25/2023 10:15 AM EDT Office Visit Urology, [facility] [address] [facility] [place] [address] Jean Marie Mix MD [address] [facility] [address] [place] [address] Scheduled Orders Name Type Priority Associated Diagnoses Orde r Schedule BASIC METABOLIC PANEL Lab Routine Stress-induced cardiomyopathy Expected: 07/13/2023, Expires: 07/05/2024 LIPID PANEL WITH DIRECT LDL IF TG IS HIGH Lab Routine Hyperlipidemia, unspecified hyperlipidemia type Expected: 07/13/2023, Expires: 07/05/2024 Scheduled Procedures Name Priority Associated Diagnoses Date/Ti [...] this encounter Medical Devices Implanted Type Area Bone Drier Device Identifier Shelf Expiration Date Model / Serial / Lot Lens Intraoc 18.5 - [id number] - [id number] Implanted:Qty: 1 on 06/01/2022 by Jonny Foster MD at OR [facility] Right: Eye [employer] 01/16/2027 [id number] / [id number] / [id number] Lens Intraoc 18.5 - [id number] - [id number] Implanted:Qty: 1 on 06/13/2022 by Jonny Foster MD at [facility] Left: Eye [employer]OM[employer] 01/16/2027 [id number] / [id number] / [id number] documented as of this encounter Visit Diagnoses Diagnosis Stress-induced cardiomyopathy- Primary Takotsubo syndrome Hyperlipidemia, unspecified hyperlipidemia type Abnormal [...] the patient have Health Care Power of Orthopedic Dentist? No No Code 06/01/2022 7:05 AM 06/01/2022 1:27 PM This order reflects the patients wishes and were consensually agreed upon. Question Answer Comments Discussion of Advance Directives occurred with: Patient Does the patient have a Living Will? No Does the patient have Health Care Power of Orthopedic Dentist? No Full Code 10/10/2021 12:53 PM 10/11/2021 4:11 PM This order reflects the patients wishes and were consensually agreed upon. Question Answer Comments Discussion of Advance Directives occurred with: Not Discussed Care Teams Food Products Sales Representative Relationship Specialty Start Date End Date Linda Rendon DO [address] [place] [address] PCP - General Family Medicine 03/07/16 documented as of this encounter
--- OUTSIDE RECORDS SUMMARY | 2023-09-18 09:52 | External Medical Summary | Summary of Care ---
Author Name Unknown Organization [facility] Address [address] [place] [address] Phone [phone] Care Team Providers Care Area Safety Manager Name Role Phone Linda Rendon DO Primary Care Provider [phone] Reason for Visit * Reason Onset Date [...] ations:HFrEF (heart failure with reduced ejection fraction) ([facility]),Acute pulmonary embolism, unspecified pulmonary embolism type, unspecified whether acute cor pulmonale present (HCC),NSVT (nonsustained ventricular tachycardia) (HCC),HTN, goal below 140/90 Take 1 Tablet by mouth in the morning. 90 Tablet 3 04/25/2023 Active Metoprolol Succinate ER 25 MG Oral Tablet Extended Release 24 Hour (toPROL XL)Indications:H FrEF (heart failure with reduced ejection fraction) ([facility]),NSVT (nonsustained ventricular tachycardia) ([facility]) Take 0.5 Tablets by mouth in the morning. 45 Tablet 3 04/27/2023 Active Furosemide 20 MG Oral Tablet (Lasix)Indicatio ns:HFrEF (heart failure with reduced ejection fraction) ([facility]),NSVT (nonsustained ventricular tachycardia) (HCC) Take 1 Tablet [...] medication and send a new prescription to [id number] [address] [address]. Thank you, Darlyn Kimball Linux Architect [facility] (Formerly Telepharmacy) 07/17/2023,12:34 PM documented in this encounter Plan of Treatment Upcoming Encounters Date Type Department Care Team (Late st Contact Info) Description 07/19/2023 Hospital Encounter ENDO [facility], Endoscopy Room [facility] [address] [place] [phone] Rich Núñez, DO [address] [place] [address] 08/03/2023 2:00 PM EDT Office Visit Cardiology, [facility] [address] [place] [address] [facility] Cardiology [facility] [place] [address] 08/15/2023 12:40 PM EDT Office Visit Pulmonary Medicine, [facility] [address] [place] [address] Quintin Lozano MD [address] [place] [address] 08/21/2023 1:00 PM EDT Office Visit Family Practice [facility] [address] [place] [address] Linda Rendon, DO [address] [place] [address] 09/04/2023 2:30 PM EDT Office Visit General Surgery, [place] [address] [place] [address] 620, Trauma Clinic [facility] [place] [address] 09/18/2023 11:30 AM EDT Office Visit Cardiology, [facility] [place] [address] Giovani Shannon MD [address] [place] [address] 12/25/2023 10:15 AM EDT Office Visit Urology, [facility] [address] [facility] [place] [address] Jean Marie Mix MD [address] [place] [address] Scheduled Procedures Name Priority Associated Diagnoses Date/Ti [...] this encounter Medical Devices Implanted Type Area Surveying Or Spatial Science Technician Device Identifier Shelf Expiration Date Model / Serial / Lot Lens Intraoc 18.5 - [id number] - [id number] Implanted:Qty: 1 on 06/01/2022 by Jonny Foster MD at OR [facility] Right: Eye [employer] 01/16/2027 [id number] / [id number] / [id number] Lens Intraoc 18.5 - [id number] - [id number] Implanted:Qty: 1 on 06/13/2022 by Jonny Foster MD at OR [facility] Left: Eye [employer]OM[employer] 01/16/2027 [id number] / [id number] / [id number] documented as of this encounter Advance Directives [...] the patient have Health Care Power of Application Coordinator? No No Code 06/01/2022 7:05 AM 06/01/2022 1:27 PM This order reflects the patients wishes and were consensually agreed upon. Question Answer Comments Discussion of Advance Directives occurred with: Patient Does the patient have a Living Will? No Does the patient have Health Care Power of Application Coordinator? No Full Code 10/10/2021 12:53 PM 10/11/2021 4:11 PM This order reflects the patients wishes and were consensually agreed upon. Question Answer Comments Discussion of Advance Directives occurred with: Not Discussed Care Teams Area Safety Manager Relationship Specialty Start Date End Date Linda Rendon DO [address] [place] [address] PCP - General Family Medicine 03/07/16 documented as of this encounter
--- OUTSIDE RECORDS SUMMARY | 2023-09-18 09:52 | External Medical Summary ---
Author Name Unknown Address Unknown Organization K0[facility] [address] [place] [address] Laboratory Report Ordering Provider Test Date Status JANEE GARRIDO 07/17/2023 10:22:32 Final Observation Date Value Abnormality Reference (Units ) Status BUN 07/17/2023 10:22:32 21 Above high normal 6-20 (mg/dL) Final Creatinine 07/17/2023 10:22:32 0.9 0.6-1.2 (mg/dL) Final Glomerular filtration rate/1.73 sq M.predicted [Volume Rate/Area] in Serum, Plasma or Blood by Creatinine-based formula (CKD-EPI) 07/17/2023 10:22:32 85 >=60 (mL/min) Final eGFR is calculated based on the CKD-EPI 2020 equation Sodium 07/17/2023 10:22:32 141 135-146 (m mol/L) Final Potassium 07/17/2023 10:22:32 4.5 3.5-5.1 (m mol/L) Final Cl 07/17/2023 10:22:32 105 98-107 (mm ol/L) Final CO2 07/17/2023 10:22:32 25 22-32 (mmo l/L) Final Anion gap 07/17/2023 10:22:32 11 7-15 (mmol /L) Final Glucose 07/17/2023 10:22:32 121 Above high normal 70 -120 (mg/dL) Final Calcium 07/17/2023 10:22:32 9.3 8.4-10.2 ( mg/dL) Final Performing Location [facility] [place] [address]
--- OUTSIDE RECORDS SUMMARY | 2023-09-18 09:52 | External Medical Summary | Summary of Care ---
Author Name Unknown Organization [facility] Address [address] [place] [address] Phone [phone] Care Team Providers Care Field Crop Farm Worker Name Role Phone Ryan Rahman DO Primary Care Provider [phone] Reason for Visit * Reason Comments Follow Up Encounter Details Date Type Department Care Team (Late st Contact Info) Description 06/18/2023 10:30 AM EDT Office Visit Cardiology, [facility] [address] [facility] [address] Giovani Shannon MD [address] [place] [address] Stress-induced cardiomyopathy*; HTN, goal below 140/90; HFrEF (heart failure with reduced ejection fraction) ([facility]) Allergies Active Allergy Reactions Criticality Noted Date Comments Nitroglycerin 09/01/1999 Family is unsure of this being a true allergy documented as of this encounter (statuses as of 06/18/2023) Medications Medication Sig Dispensed Refills Start Date End Date Status Levothyroxine Sodium 150 MCG Oral Tablet (Levoxyl) Take by mouth 1 Tablet in the morning. (at least 30 min prior to breakfast or other meds). Do not start before October 11, 2021. 30 Tablet 3 10/11/2021 Active Finasteride 5 MG Oral Tablet (Proscar) Take 1 Tablet by mouth in the morning. 90 Tablet 3 06/01/2022 Active Calcium Carbonate Antacid 500 MG Oral [...] ns:HFrEF (heart failure with reduced ejection fraction) ([facility]),Acute pulmonary embolism, unspecified pulmonary embolism type, unspecified whether acute cor pulmonale present (HCC),NSVT (nonsustained ventricular tachycardia) ([facility]),HTN, goal below 140/90 Take 1 [...] FrEF (heart failure with reduced ejection fraction) ([facility]),NSVT (nonsustained ventricular tachycardia) ([facility]) Take 1 Tablet by mouth [...] at bedtime. 90 Capsule 3 06/05/2023 Active documented as of this encounter (statuses as of 06/18/2023) Active Problems Problem Noted Date Diagnosed Date [...] as of this encounter (statuses as of 06/18/2023) Resolved Problems Problem Noted Date Diagnosed Date Resolved Date Elevated prostate specific antigen (PSA) 10/04/2015 documented as of this encounter (statuses as of 06/18/2023) Immunizations Name Administration Dates Next Due Seasonal Influenza, Quad, Nasal (Flumist) 2018 documented as of this encounter Social History Tobacco Use Types Packs/Day Years Used Date Smoking Tobacco: Former Cigarettes Q uit: 03/19/1965 Smokeless Tobacco: Never Tobacco Cessation:Counseling Given: No Comments:QUIT 1965 Alcohol Use Standard Drinks/Week Comments [...] Sign Reading Time Taken Comments Blood Pressure 138/70 06/18/2023 10:35 AM EDT Pulse 58 06/18/2023 10:35 AM EDT Temperature - - Respiratory Rate 16 06/18/2023 10:35 AM EDT Oxygen Saturation - - Inhaled Oxygen Concentration - - Weight 92.1 kg (203 lb) 06/18/2023 10:35 AM EDT Height - - Body Mass Index 25.37 04/18/2023 2:16 PM EST documented in this [...] as of this encounter Progress Notes * Giovani Shannon MD - 06/18/2023 10:44 AM EDT 06/18/2023 Cardiology Follow Up Referring Provider: PCP: [place] [address] [phone] Chief Complaint: Follow-up cardiomyopathy SUBJECTIVE: Hector Pastrana is a 83 year old year old male with ongoing cardiac issues Acute systolic CHF (LVEF 40-44%) in the setting of acute illness with traumatic hemothorax, spleniclaceration, and PE, 02/2023 Acute PE with mild RV dilation per echo 03/01/2023, on Eliquis Longstanding hypertension Aortic sclerosis without stenosis with associated mild murmur History of papillary thyroid carcinoma status post thyroidectomy Patient presents today notes has had made continuous improvement since acute traumatic event in February of 2023. Walking with walker. No chest pains or shortness of breath. Blood pressure generally well controlled. Antihypertensives transitioned to Entresto with so far good tolerance other than mild orthostasis this morning. No fevers chills or unexplained infections no edema. Appetite is good no difficulty taking medications A Complete Review of Systems is as stated above or negative. Patient Active Problem List Diagnosis Code HTN, [...] I26.99 Pancreatic cyst K86.2 Renal cyst N28.1 Review of patient's allergies indicates: Allergen Reactions Nitroglycerin Family is unsure of this being a true allergy Current Outpatient Medications Medication Sig Dispense Refill [...] No current facility-administered medications for this visit. OBJECTIVE/PHYSICAL EXAMINATION: BP 138/70 (BP Site: Left Arm, BP Position: Sitting, BP Cuff Size: Regular) | Pulse 58 | Resp 16 | Wt 92.1 kg (203 lb) | BMI 25.37 kg/m | BSA 2.21 m General: Age appropriate in no acute distress Head: normocephalic, no masses, lesions, tenderness or abnormalities Eyes: conjunctiva are pink and non-injected, sclera clear Throat: clear Nares: without discharge Neck: supple, no adenopathy, normal jugular venous pulse, no hepatojugular reflux, no carotid bruits Chest: normal shape and normal respiratory effort Lungs: clear to auscultation and percussion Cardiac Exam: - regular rate & rhythm, no murmur, gallop or rub - normal S-1, normal S-2 Abdomen: abdomen soft, non-tender, no abnormal masses, no hepatosplenomegaly, no abdominal bruit, no femoral bruit Musculoskeletal: no gait disturbance, no joint inflammation, no deforming arthritis Extremities: no edema, no cyanosis, pulses intact 2+/4 Neuro: grossly normal exam Data: Latest Reference Range & Units 06/13/23 13:22 Sodium 135 - 146 mmol/L 140 Potassium 3.5 - 5.1 mmol/L 4.6 Chloride 98 - 107 mmol/L 104 CO2 22 - 32 mmol/L 28 BUN 6 - 20 mg/dL 22 (H) Creatinine 0.6 - 1.2 mg/dL 1.0 Estimated Glomerular Filtration Rate >=60 mL/min 77 Anion Gap 7 - 15 mmol/L 8 Glucose 70 - 120 mg/dL 105 Calcium 8.4 - 10.2 mg/dL 9.6 (H): Data is abnormally high ASSESSMENT: 83 year old year old male seen in follow-up with cardiac concerns 1. Compensated heart failure with reduced ejection fraction by past echocardiogram performed in thesetting of acute illness. Currently compensated without signs of fluid retention or edema. Tolerating Entresto other than mild orthostasis. May ultimately need reduction in medication suspect terazosin and and Proscar contributing but helpful per patient 2. Reduced ejection fraction on guideline directed medical therapies including Entresto, spironolactone with normal electrolytes on 06/12. Consider repeat echocardiogram after next visit depending onclinical course 3. Pulmonary embolus on chronic anticoagulation with apixaban 4.Acute chest trauma diaphragmatic rupture, hemothorax February 2023 PLAN: Continue current medications with noted suggestions may ultimately require reduction in diuretic dose slightly Fall prevention discussed in detail with patient No contraindications to EGD/EUS on July 19, 2023. Patient notes being seen for concerns regarding diaphragmatic rupture. Surgical intervention would be at higher risk in this patient DISPOSITION: Return 3 months Giovani Shannon MD Cardiology, [address] [address] documented in this encounter Nursing Notes * aDwn Torrez RN - 06/18/2023 10:36 AM EDT Examination Room: 14 Name: Hector Pastrana Date of : (1940). Reason for Visit: Follow up Interim Hospitalization(s): No Problems/Concerns: Now on Entresto. Did note some dizziness this morning for the first time recently. Chest Pain/SOB: Denies [facility] Discussed: Not applicable My QRGLisinger is a way you can talk to your provider online through e-mail. Would you like to sign up? I can activate it for you? ALREADY ACTIVE Patient was instructed to not get up on the exam table until directed and assisted by their provider; patient is to remain seated in the chair/ wheelchair/ exam table for fall prevention and safety reasons. Patient is aware to have assistance to step down off exam table with personnel. Patient voiced full comprehension of instructions. documented in this encounter Plan of Treatment Upcoming Encounters Date Type Department Care Team (Latest Contact Info) Description 4 10:30 AM EDT Telemedicine Urology [facility] [address] [place] [address] Jean Marie Mix MD [address] [place] [address] 7, Telemed [facility] Urology Ex [address] [place] [address] 4 1:00 PM EDT Office Visit Cardiology, [facility] [address] [place] [address] [place], [facility] Cardiology [facility] [address] [place] [address] 4 11:00 AM EDT Imaging Radiology [facility] 1st [facility] [address] [place] [address] 4 11:15 AM EDT Hospital Encounter ENDO O[facility], Endoscopy Room [facility] [address] [place] [address] Rich Núñez, DO [address] [place] [address] 4 11:15 AM EDT - 4 12:15 PM EDT Surgery ENDO [facility], Endoscopy Room [facility] [address] [place] [address] Rich Núñez, DO [address] [place] [address] ESOPHAGOGASTRODUODENOSCOPY (EGD), FLEXIBLE, TRANSORAL, ENDOSCOPIC ULTRASOUND 4 1:00 PM EDT Office Visit Family Practice [facility] [address] [place] [address] Ryan Rahman, DO [address] [place] [address] 2:30 PM EDT Office Visit General Surgery, [address] [address], Trauma Clinic [address] [address] Scheduled Procedures Name Priority Associated Diagnoses Date/Ti [...] this encounter Medical Devices Implanted Type Area Plastics Worker Device Identifier Shelf Expiration Date Model / Serial / Lot Lens Intraoc 18.5 - [id number] - [id number] Implanted:Qty: 1 on 06/01/2022 by Jonny Foster MD at OR [facility] Right: Eye [employer] 01/16/2027 [id number] / [id number] / [id number] Lens Intraoc 18.5 - [id number] - [id number] Implanted:Qty: 1 on 06/13/2022 by Jonny Foster MD at [facility] Left: Eye [employer]OM[employer] 01/16/2027 [id number] / [id number] / [id number] documented as of this encounter Visit Diagnoses Diagnosis Stress-induced cardiomyopathy- Primary Takotsubo syndrome HTN, goal below 140/90 Unspecified essential hypertension HFrEF (heart failure with reduced ejection fraction) (HCC) Abnormal CT scan Other nonspecific (abnormal) findings [...] the patient have Health Care Power of Contact Center Associate? No No Code 06/01/2022 7:05 AM 06/01/2022 1:27 PM This order reflects the patients wishes and were consensually agreed upon. Question Answer Comments Discussion of Advance Directives occurred with: Patient Does the patient have a Living Will? No Does the patient have Health Care Power of Contact Center Associate? No Full Code 10/10/2021 12:53 PM 10/11/2021 4:11 PM This order reflects the patients wishes and were consensually agreed upon. Question Answer Comments Discussion of Advance Directives occurred with: Not Discussed Care Teams Field Crop Farm Worker Relationship Specialty Start Date End Date Ryan Rahman DO [address] [place] [address] PCP - General Family Medicine 03/07/16 documented as of this encounter"
--- OUTSIDE RECORDS SUMMARY | 2023-09-18 09:52 | External Medical Summary | Summary of Care ---
Author Name Unknown Organization [facility] Address [address] [place] [address] Phone [phone] Care Team Providers Care Reading Instructor Name Role Phone Linda Rendon DO Primary Care Provider [phone] Reason for Visit * Reason Onset Date Comments Appointment 06/18/2023 Encounter Details Date Type Department Care Team (Late st Contact Info) Description 06/18/2023 Telephone Cardiology, [facility] [address] [facility] [place] [address] Giovani Shannon MD [address] [facility] [place] [address] Appointment Allergies Active Allergy Reactions Criticality Noted Date Comments Nitroglycerin 09/01/1999 Family is unsure of this being a true allergy documented as of this encounter (statuses as of 06/19/2023) Medications Medication Sig Dispensed Refills Start Date [...] ns:HFrEF (heart failure with reduced ejection fraction) ([facility] [...] XL)Indications:HFrEF (heart failure with reduced ejection fraction) ([facility]),NSVT (nonsustained ventricular tachycardia) ([facility]) Take 0.5 Tablets by mouth in the morning. 45 Tablet 3 04/27/2023 Active Furosemide 20 MG Oral Tablet (Lasix)Indications:H FrEF (heart failure with reduced ejection fraction) ([facility] [...] as of this encounter (statuses as of 06/19/2023) Active Problems Problem Noted Date Diagnosed Date [...] as of this encounter (statuses as of 06/19/2023) Resolved Problems Problem Noted Date Diagnosed Date Resolved Date Elevated prostate specific antigen (PSA) 10/04/2015 documented as of this encounter (statuses as of 06/19/2023) Immunizations Name Administration Dates Next Due Seasonal [...] Telephone Encounter - Prakash Shannon OSA - 06/19/2023 10:15 AM EDT Patient scheduled: Sunday Arrive by 11:15 AMAppt at 11:30 AM (30 min) * Telephone Encounter - Sima Navas OSA - 06/18/2023 11:09 AM EDT Return in about 3 months (around 09/17/2023). documented in this encounter Plan of Treatment Upcoming Encounters Date Type Department Care Team (Latest Contact Info) Description 10:30 AM EDT Telemedicine Urology [facility] [address] [place] [address] Jean Marie Mix MD [address] [place] [address] 7, Telemed [facility] Urology Ex [address] [place] [address] 4 1:00 PM EDT Office Visit Cardiology, [facility] [address] [place] [address] [facility] [address] [place] [address] 4 11:00 AM EDT Imaging Radiology [facility] 1st [facility] [address] [place] [address] 4 11:15 AM EDT Hospital Encounter ENDO OSS[facility], Endoscopy Room [facility] [address] [place] [address] Rich Núñez, DO [address] [place] [address] 4 11:15 AM EDT - 4 12:15 PM EDT Surgery ENDO O[facility], Endoscopy Room [facility] [address] [place] [address] Rich Núñez, DO [address] [place] [address] ESOPHAGOGASTRODUODENOSCOPY (EGD), FLEXIBLE, TRANSORAL, ENDOSCOPIC ULTRASOUND 4 1:00 PM EDT Office Visit Family Practice [facility] [address] [place] [address] Linda Rendon, DO [address] [place] [address] 4 2:30 PM EDT Office Visit General Surgery, [place] [address] [place] [address] 620, [facility] [address] [place] [address] 4 11:30 AM EDT Office Visit Cardiology, [facility] [address] [place] [address] Giovani Shannon MD [address] [place] [address] Scheduled Procedures Name Priority Associated Diagnoses Date/Ti [...] this encounter Medical Devices Implanted Type Area Disc Pad Grinding Machine Feeder Device Identifier Shelf Expiration Date Model / Serial / Lot Lens Intraoc 18.5 - [id number] - [id number] Implanted:Qty: 1 on 06/01/2022 by Jonny Foster MD at OR [facility] Right: Eye [employer] 01/16/2027 [id number] / [id number] / [id number] Lens Intraoc 18.5 - [id number] - [id number] Implanted:Qty: 1 on 06/13/2022 by Jonny Foster MD at OR [facility] Left: Eye [employer] 01/16/2027 [id number] / [id number] / [id number] documented as of this encounter Advance Directives [...] the patient have Health Care Power of Legal Secretary Receptionist? No No Code 06/01/2022 7:05 AM 06/01/2022 1:27 PM This order reflects the patients wishes and were consensually agreed upon. Question Answer Comments Discussion of Advance Directives occurred with: Patient Does the patient have a Living Will? No Does the patient have Health Care Power of Legal Secretary Receptionist? No Full Code 10/10/2021 12:53 PM 10/11/2021 4:11 PM This order reflects the patients wishes and were consensually agreed upon. Question Answer Comments Discussion of Advance Directives occurred with: Not Discussed Care Teams Reading Instructor Relationship Specialty Start Date End Date Linda Rendon DO [address] [place] [address] PCP - General Family Medicine 03/07/16 documented as of this encounter
--- OUTSIDE RECORDS SUMMARY | 2023-09-18 09:53 | External Medical Summary | Summary of Care ---
Author Name Unknown Organization [facility] Address [address] [place] [address] Phone [phone] Care Team Providers Care Numerical Control Machine Machinist Name Role Phone Linda Rendon DO Primary Care Provider [phone] Reason for Visit * Reason Onset Date Comments Advice 06/08/2023 Encounter Details Date Type Department Care Team (Late st Contact Info) Description 06/08/2023 Telephone Gastroenterology, [facility] [address] [facility] [place] [address] Rich Núñez DO [address] [place] [place] [address] Advice Allergies Active Allergy Reactions Criticality Noted Date Comments Nitroglycerin 09/01/1999 Family is unsure of this being a true allergy documented as of this encounter (statuses as of 06/08/2023) Medications Medication Sig Dispensed Refills Start Date [...] failure with reduced ejection fraction) ([facility]),Acute pulmonary embolism, unspecified pulmonary embolism type, unspecified whether acute cor pulmonale present (HCC),NSVT (nonsustained ventricular tachycardia) ([facility]),HTN, goal below 140/90 Take 1 Tablet by mouth in the morning. 90 Tablet 3 04/25/2023 Active Metoprolol Succinate ER 25 MG Oral Tablet Extended Release 24 Hour (toPROL XL)Indications:HFrEF (heart failure with reduced ejection fraction) ([facility]),NSVT (nonsustained ventricular tachycardia) (HCC) Take 0.5 Tablets by mouth in the morning. 45 Tablet 3 04/27/2023 Active Furosemide 20 MG Oral Tablet (Lasix)Indications:H FrEF (heart failure with reduced ejection fraction) ([facility]),NSVT (nonsustained ventricular tachycardia) (HCC) Take 1 Tablet [...] as of this encounter (statuses as of 06/08/2023) Active Problems Problem Noted Date Diagnosed Date [...] as of this encounter (statuses as of 06/08/2023) Resolved Problems Problem Noted Date Diagnosed Date Resolved Date Elevated prostate specific antigen (PSA) 10/04/2015 documented as of this encounter (statuses as of 06/08/2023) Immunizations Name Administration Dates Next Due Seasonal [...] encounter Miscellaneous Notes * Telephone Encounter - Preeti Calix CRNP - 06/08/2023 11:45 AM EDT Please offer sooner appt-- known to Bridgette Chakraborty PA-C , and the undersigned. DEVAN Hogue [...] EDT Telemedicine Urology [facility] Men[facility] [address] [place] [address] Jean Marie Mix MD [address] [place] [place] [address] 7, Telemed [facility] Urology Ex [address] [place] [address] 4 1:00 PM EDT Office Visit Cardiology, [facility] [address] [place] [address] [facility] Cardiology [facility] [address] [place] [address] 4 11:00 AM EDT Imaging Radiology [facility] 1st Floor, [place] [address] [place] [address] 4 2:00 PM EDT Office Visit Cardiology, [facility] [address] [place] [address] Preeti Calix CRNP [address] [place] [address] 4 1:00 PM EDT Office Visit Family Practice [facility] [address] [place] [address] Newhouser, Linda M, DO [address] [place] [address] 4 10:00 AM EDT Hospital Encounter ENDO [facility], Endoscopy Room [facility] [address] [place] [address] Rich Núñez, DO [address] [place] [address] 4 10:00 AM EDT - 4 11:00 AM EDT Surgery ENDO [facility], Endoscopy Room [facility] [address] [place] [address] Rich Núñez, DO [address] [place] [address] ESOPHAGOGASTRODUODENOSCOPY (EGD), FLEXIBLE, TRANSORAL, ENDOSCOPIC ULTRASOUND Scheduled Orders Name Type Priority Associated Diagnoses Orde r Schedule COMPREHENSIVE METABOLIC PANEL Lab Routine Abnormal CT of the abdomen Expected: 06/08/2023, Expires: 06/07/2024 Scheduled Procedures Name Priority Associated Diagnoses Date/Ti me ESOPHAGOGASTRODUODENOSCOPY ( EGD), FLEXIBLE, TRANSORAL, ENDOSCOPIC ULTRASOUND Abnormal CT scan 08/29/2023 10:00 AM EDT Health Maintenance Due Date Last Done Comments Pneumococcal Vaccine: 65+ Years (1 of 2 - PCV) 1944 DTaP,Tdap,and Td Vaccines (1 - Tdap) 1957 Zoster Vaccines (1 of 2) 1988 HbA1c 08/19/2022 08/19/2021, 1207/2018, 02/01/2018 COVID-19 Vaccine (1 - 2022- season) 2022 Influenza Vaccine (FLU shot) (#1) 2022 01/21/2019 Depression Screening 08/10/2023 08/09/2022 TSH 03/22/2024 03/22/2023, 02/16, 06/07/2022, Additional history exists Albumin/Creatinine Ratio 06/07/2025 06/07/2022 GARDASIL-HPV IMMUNIZATION SERIES Aged Out No longer eligible based on patient's age to complete this topic Hepatitis B Aged Out No longer eligi ble based on patient's age to complete this topic MENINGOCOCCAL (MENACTRA/MENVEO) Aged Out No longer eligible based on patient's age to complete this topic documented as of this encounter Medical Devices Implanted Type Area Escalator Constructor Device Identifier Shelf Expiration Date Model / Serial / Lot Lens Intraoc 18.5 - [id number] - [id number] Implanted:Qty: 1 on 06/01/2022 by Jonny Foster MD at OR [facility] Right: Eye [employer] 01/16/2027 [id number] / [id number] / [id number] Lens Intraoc 18.5 - [id number] - [id number] Implanted:Qty: 1 on 06/13/2022 by Jonny Foster MD at OR [facility] Left: Eye [employer]CH [employer]OMB 01/16/2027 [id number] / [id number] / [id number] documented as of this encounter Visit Diagnoses Diagnosis Abnormal CT of the abdomen- Primary Nonspecific (abnormal) findings on radiological and other examination of abdominal area, including retroperitoneum Abnormal CT scan Other nonspecific (abnormal) findings [...] the patient have Health Care Power of Financial Counselor? No No Code 06/01/2022 7:05 AM 06/01/2022 1:27 PM This order reflects the patients wishes and were consensually agreed upon. Question Answer Comments Discussion of Advance Directives occurred with: Patient Does the patient have a Living Will? No Does the patient have Health Care Power of Financial Counselor? No Full Code 10/10/2021 12:53 PM 10/11/2021 4:11 PM This order reflects the patients wishes and were consensually agreed upon. Question Answer Comments Discussion of Advance Directives occurred with: Not Discussed Care Teams Numerical Control Machine Machinist Relationship Specialty Start Date End Date Linda Rendon DO [address] [place] [place] [address] PCP - General Family Medicine 03/07/16 documented as of this encounter
--- OUTSIDE RECORDS SUMMARY | 2023-09-18 09:53 | External Medical Summary | Summary of Care ---
Author Name Unknown Organization [facility] Address [address] [place] [address] Phone [phone] Care Team Providers Care Dolly Pusher Name Role Phone Linda Rendon DO Primary Care Provider [phone] Reason for Visit * Reason Onset Date Comments Advice 06/08/2023 Encounter Details Date Type Department Care Team (Late st Contact Info) Description 06/08/2023 Telephone Gastroenterology, [facility] [address] [facility] [place] [address] Rich Núñez DO [address] [place] [address] Advice Allergies Active Allergy Reactions Criticality Noted [...] ns:HFrEF (heart failure with reduced ejection fraction) ([facility]),Acute pulmonary embolism, unspecified pulmonary embolism type, unspecified whether acute cor pulmonale present (HCC),NSVT (nonsustained ventricular tachycardia) ([facility]),HTN, goal below 140/90 Take 1 Tablet by mouth in the morning. 90 Tablet 3 04/25/2023 Active Metoprolol Succinate ER 25 MG Oral Tablet Extended Release 24 Hour (toPROL XL)Indications:HFrEF (heart failure with reduced ejection fraction) ([facility]),NSVT (nonsustained ventricular tachycardia) (HCC) Take 0.5 Tablets by mouth in the morning. 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 Spleen: Within normal limits. Plan CMP Expedite EUS please documented in this encounter Plan of Treatment Upcoming Encounters Date Type Department Care Team (Latest Contact Info) Description 4 10:30 AM EDT Telemedicine Urology [facility] [address] [place] [address] Jean Marie Mix MD [address] [place] [address] 7, Telemed [facility] Urology Ex Rm [address] [place] [address] 4 1:00 PM EDT Office Visit Cardiology, [facility] [address] [place] [address] Jorge [facility] Cardiology [facility] [address] [place] [address] 4 11:00 AM EDT [facility] [address] [place] [address] 4 2:00 PM EDT Office Visit Cardiology, [facility] [address] [place] [address] Preeti Calix CRNP [address] [place] [address] 4 1:00 PM EDT Office Visit Family Practice [facility] [address] [place] [address] Linda Rendon, DO [address] [place] [address] 4 10:00 AM EDT Hospital Encounter ENDO [facility], Endoscopy Room [facility] [address] [place] [phone] Rich Núñez, DO [address] [place] [address] 4 10:00 AM EDT - 4 11:00 AM EDT Surgery ENDO [facility], Endoscopy Room [facility] [address] [place] [phone] Rich Núñez DO [address] [place] [address] ESOPHAGOGASTRODUODENOSCOPY (EGD), FLEXIBLE, TRANSORAL, ENDOSCOPIC ULTRASOUND Scheduled [...] (1 of 2) 1988 HbA1c 08/19/2022 08/19/2021, 07/2018, 02/01/2018 COVID-19 Vaccine (1 - 2022- season) [...] this encounter Medical Devices Implanted Type Area Volleyball Assistant Coach Device Identifier Shelf Expiration Date Model / Serial / Lot Lens Intraoc 18.5 - [id number] - [id number] Implanted:Qty: 1 on 06/01/2022 by Jonny Foster MD at [facility] Right: Eye [employer] 01/16/2027 [id number] / [id number] / [id number] Lens Intraoc 18.5 - [id number] - [id number] Implanted:Qty: 1 on 06/13/2022 by Jonny Foster MD at OR [facility] Left: Eye [employer] 01/16/2027 [id number] / [id number] / [id number] documented as of this encounter Visit Diagnoses [...] the patient have Health Care Power of Manager Nicu? No No Code 06/01/2022 7:05 AM 06/01/2022 1:27 PM This order reflects the patients wishes and were consensually agreed upon. Question Answer Comments Discussion of Advance Directives occurred with: Patient Does the patient have a Living Will? No Does the patient have Health Care Power of Manager Nicu? No Full Code 10/10/2021 12:53 PM 10/11/2021 4:11 PM This order reflects the patients wishes and were consensually agreed upon. Question Answer Comments Discussion of Advance Directives occurred with: Not Discussed Care Teams Dolly Pusher Relationship Specialty Start Date End Date Linda Rendon DO [address] [place] [address] PCP - General Family Medicine 03/07/16 documented as of this encounter
--- OUTSIDE RECORDS SUMMARY | 2023-09-18 09:53 | External Medical Summary ---
Author Name Unknown Address Unknown Organization K0G[facility] [place] [address] [place] [address] Laboratory Report Ordering Provider Test Date Status TATYANA APARICIO 06/13/2023 13:22:50 Final Observation Date Value Abnormality Reference (Units ) Status BUN 06/13/2023 13:22:50 22 Above high normal 6-20 (mg/dL) Final Creatinine 06/13/2023 13:22:50 1.0 0.6-1.2 (mg/dL) Final Glomerular filtration rate/1.73 sq M.predicted [Volume Rate/Area] in Serum, Plasma or Blood by Creatinine-based formula (CKD-EPI) 06/13/2023 13:22:50 77 >=60 (mL/min) Final eGFR is calculated based on the CKD-EPI 2020 equation Sodium 06/13/2023 13:22:50 140 135-146 (m mol/L) Final Potassium 06/13/2023 13:22:50 4.6 3.5-5.1 (m mol/L) Final Cl 06/13/2023 13:22:50 104 98-107 (mm ol/L) Final CO2 06/13/2023 13:22:50 28 22-32 (mmo l/L) Final Anion gap 06/13/2023 13:22:50 8 7-15 (mmol /L) Final Glucose 06/13/2023 13:22:50 105 70-120 (mg /dL) Final Albumin 06/13/2023 13:22:50 4.0 3.8-5.0 (g /dL) Final AST (Aspartate aminotransferase) 06/13/2023 13:22:50 17 10-50 (U/L) Final Alk Phos 06/13/2023 13:22:50 69 35-130 (U/ L) Final Bilirubin, Total 06/13/2023 13:22:50 0.5 <=1 .2 (mg/dL) Final Calcium 06/13/2023 13:22:50 9.6 8.4-10.2 ( mg/dL) Final Protein 06/13/2023 13:22:50 6.3 6.0-8.3 (g /dL) Final ALT (Alanine aminotransferase) 06/13/2023 13:22:50 16 10-50 (U/L) Final Performing Location [facility] [address] [facility] [address]
--- OUTSIDE RECORDS SUMMARY | 2023-09-18 09:53 | External Medical Summary | Summary of Care ---
Author Name Unknown Organization [facility] Address [address] [place] [address] Phone [phone] Care Team Providers Care Crna Name Role Phone Julieta Linda Mahin BAZNA Primary Care Provider [phone] Reason for Visit * Reason Onset Date Comments Medication Refill 06/04/2023 Encounter Details Date Type Department Care Team (Late st Contact Info) Description 06/04/2023 Refill [facility] [address] Jean Marie Vasquez MD 27 [facility] [address] [place] [address] Allergies Active Allergy Reactions Criticality Noted Date Comments Nitroglycerin 09/01/1999 Family is unsure of this being a true allergy documented as of this encounter (statuses as of 06/05/2023) Medications Medication Sig Dispensed Refills Start Date [...] tions:HFrEF (heart failure with reduced ejection fraction) ([facility]),Acute pulmonary embolism, unspecified pulmonary embolism type, unspecified whether acute cor pulmonale present (HCC),NSVT (nonsustained ventricular tachycardia) ([facility]),HTN, goal below 140/90 Take 1 Tablet by mouth in the morning. 90 Tablet 3 04/25/2023 Active Metoprolol Succinate ER 25 MG Oral Tablet Extended Release 24 Hour (toPROL XL)Indications:HF rEF (heart failure with reduced ejection fraction) ([facility]),NSVT (nonsustained ventricular tachycardia) (HCC) Take 0.5 Tablets by mouth in the morning. 45 Tablet 3 04/27/2023 Active Furosemide 20 MG Oral Tablet (Lasix)Indication s:HFrEF (heart failure with reduced ejection fraction) ([facility]),NSVT (nonsustained ventricular tachycardia) ([facility]) Take 1 Tablet by mouth [...] at bedtime. 90 Capsule 3 06/05/2023 Active Terazosin HCl 10 MG Oral Capsule Take 1 Capsule by mouth at bedtime. 90 Capsule 3 05/11/2022 06/04/2023 Discontinue d(Refill) documented as of this encounter (statuses as of 06/05/2023) Active Problems Problem Noted Date Diagnosed Date [...] as of this encounter (statuses as of 06/05/2023) Resolved Problems Problem Noted Date Diagnosed Date Resolved Date Elevated prostate specific antigen (PSA) 10/04/2015 documented as of this encounter (statuses as of 06/05/2023) Immunizations Name Administration Dates Next Due Seasonal [...] encounter Miscellaneous Notes * Telephone Encounter - Jean Marie Vasquez MD - 06/05/2023 9:03 AM EDTSigned Prescriptions: Disp Refills Terazosin HCl 10 MG Oral Capsule 90 Cap*3 Sig: Take 1 Capsule by mouth at bedtime. Authorizing Provider: JEAN MARIE VASQUEZ * Telephone Encounter - Janel Hidalgo LPN - 06/05/2023 7:54 AM EDTPending Prescriptions: Disp Refills Terazosin HCl 10 MG Oral Capsule 90 Cap*3 Sig: Take 1 Capsule by mouth at bedtime. * Telephone Encounter - Janel Hidalgo LPN - 06/05/2023 7:53 AM EDT Last refilled on 05/11/2022, pending. Please sign if agreeable. documented in this encounter Plan of Treatment Upcoming Encounters Date Type Department Care Team (Latest Contact Info) Description 4 10:30 AM EDT Telemedicine Urology [facility] [address] [place] [address] Jean Marie Vasquez MD [address] [place] [address] 7, Telemed [facility] Urology Ex Rm [address] [place] [address] 4 1:00 PM EDT Office Visit Cardiology, [facility] [address] [place] [address] [facility] Cardiology [facility] [address] [place] [address] 4 11:00 AM EDT Imaging Radiology [facility] [address] [place] [address] 4 2:00 PM EDT Office Visit Cardiology, [facility] [address] [place] [address] Preeti Calix CRNP [address] [place] [address] 4 1:00 PM EDT Office Visit Family Practice [facility] [address] [place] [address] Linda Rendon DO [address] [place] [address] 4 10:00 AM EDT Hospital Encounter ENDO [facility], Endoscopy Room [facility] [address] [place], [place] [phone] Rich Núñez, DO [address] [place], [place] [address] 4 10:00 AM EDT - 4 11:00 AM EDT Surgery ENDO [facility], Endoscopy Room [facility] [address] [place], [place] [phone] Rich Núñez, DO [address] [place], [place] [address] ESOPHAGOGASTRODUODENOSCOPY (EGD), FLEXIBLE, TRANSORAL, ENDOSCOPIC ULTRASOUND Scheduled Procedures Name Priority Associated Diagnoses Date/Ti [...] this encounter Medical Devices Implanted Type Area Flotation Tender Helper Device Identifier Shelf Expiration Date Model / Serial / Lot Lens Intraoc 18.5 - [id number] - [id number] Implanted:Qty: 1 on 06/01/2022 by Jonny Foster MD at OR [facility] Right: Eye [employer] 01/16/2027 [id number] / [id number] / [id number] Lens Intraoc 18.5 - [id number] - [id number] Implanted:Qty: 1 on 06/13/2022 by Jonny Foster MD at OR [facility] Left: Eye [employer] 01/16/2027 [id number] / [id number] / [id number] documented as of this encounter Advance Directives [...] the patient have Health Care Power of Plant Protection Superintendent? No No Code 06/01/2022 7:05 AM 06/01/2022 1:27 PM This order reflects the patients wishes and were consensually agreed upon. Question Answer Comments Discussion of Advance Directives occurred with: Patient Does the patient have a Living Will? No Does the patient have Health Care Power of Plant Protection Superintendent? No Full Code 10/10/2021 12:53 PM 10/11/2021 4:11 PM This order reflects the patients wishes and were consensually agreed upon. Question Answer Comments Discussion of Advance Directives occurred with: Not Discussed Care Teams Crna Relationship Specialty Start Date End Date Linda Rendon DO [address] [place] [address] PCP - General Family Medicine 03/07/16 documented as of this encounter
--- OUTSIDE RECORDS SUMMARY | 2023-09-18 09:53 | External Medical Summary ---
Author Name Unknown Address Unknown Organization K01:[facility] [address] [facility] [address] Laboratory Report Ordering Provider Test Date Status PEDRO THOMPSON 06/13/2023 13:22:50 Final Observation Date Value Abnormality Reference (Units ) Status PSA 06/13/2023 13:22:50 6.56 Above high normal <4 .10 (ng/mL) Final Performing Location [facility] - [address] [place] [address]
--- OUTSIDE RECORDS SUMMARY | 2023-09-18 09:53 | External Medical Summary | Summary of Care ---
Author Name Unknown Organization [facility] Address [address] [place] [address] Phone [phone] Care Team Providers Care Field Service Manager Name Role Phone Linda Rendon DO Primary Care Provider [phone] Reason for Visit * Reason Comments Dosage Adjustment In Person (Anticoag Cl inic) Congestive Heart Failure Encounter Details Date Type Department Care Team (Late st Contact Info) Description 06/01/2023 2:40 PM EDT Office Visit [facility]iology, [facility] [address] [facility] Cardiology [facility] [address] [place] [address] HFrEF (heart failure with reduced ejection fraction) ([facility])* Allergies Active Allergy Reactions Criticality Noted Date Comments Nitroglycerin 09/01/1999 Family is unsure of this being a true allergy documented as of this encounter (statuses as of 06/01/2023) Medications Medication Sig Dispensed Refills Start Date End Date Status Levothyroxine Sodium 150 MCG Oral Tablet (Levoxyl) Take by mouth 1 Tablet in the morning. (at least 30 min prior to breakfast or other meds). Do not start before October 11, 2021. 30 Tablet 3 10/11/2021 Active Terazosin HCl 10 MG Oral Capsule Take 1 Capsule by mouth at bedtime. 90 Capsule 3 05/11/2022 Active Finasteride 5 MG Oral Tablet (Proscar) [...] (heart failure with reduced ejection fraction) ([facility]),Acute pulmonary embolism, unspecified pulmonary embolism type, unspecified whether acute cor pulmonale present (HCC),NSVT (nonsustained ventricular tachycardia) ([facility]),HTN, goal below 140/90 Take 1 Tablet [...] 06/03/2023 Active Entresto 49-51 MG Oral Tablet (sacubitril-vals marina 49-51 mg per tab) Take 1 Tablet by mouth in the morning and 1 Tablet before bedtime. 60 Tablet 5 06/01/2023 Active amLODIPine Besy-Benazepril HCl 10-20 MG Oral Capsule (Lotrel)Indicati ons:Hypertension , unspecified type Take 1 Capsule by mouth in the morning. 90 Capsule 3 02/27/2023 06/01/19 24 Discontinued(Med ication/Dose Changed) Levothyroxine Sodium 150 MCG Oral Tablet (Levoxyl) Take 1.5 Tablets by mouth every Sunday. (at least 30 min prior to breakfast or other meds) 0 06/01/19 24 Discontinued documented as of this encounter (statuses as of 06/01/2023) Active Problems Problem Noted Date Diagnosed Date [...] as of this encounter (statuses as of 06/01/2023) Resolved Problems Problem Noted Date Diagnosed Date Resolved Date Elevated prostate specific antigen (PSA) 10/04/2015 documented as of this encounter (statuses as of 06/01/2023) Immunizations Name Administration Dates Next Due Seasonal [...] Sign Reading Time Taken Comments Blood Pressure 132/66 06/01/2023 3:00 PM EDT Pulse 54 06/01/2023 3:00 PM EDT Temperature - - Respiratory Rate - - Oxygen Saturation - - Inhaled Oxygen Concentration - - Weight 91.1 kg (200 lb 14.4 oz) 06/01/2023 3:00 PM EDT Height - - Body Mass Index 25.11 04/18/2023 2:16 PM EST documented in this [...] Patient Instructions * Patient Instructions* Sumaya Orourke [facility] - 06/01/2023 3:07 PM EDT No more than 2000 mg/day sodium/salt Call with any swelling or weight gain of 3 lbs in 24 hours or 5 lbs in 1 week Start to test blood pressure a few times weekly and write down STOP Amlodipine-Benazepril START Entresto 49-51 mg twice daily after 36 hours of stopping Amlodipine-Benazepril Lab work 1 week after starting Entresto Call me with any cost issues Find the name of the holistic medication for your blood pressure and let me know [phone] opt 3 Sumaya Orourke Pharm D Clinical [facility] Pharmacist Cardiology 06/01/2023,3:09 PM documented in this encounter Progress Notes * Sumaya Orourke RPh - 06/01/2023 1:44 PM EDT PHARMACY CHRONIC DISEASE MANAGEMENT - HEART FAILURE Hector Pastrana is an 83 year old patient referred to the Heart Failure [facility] clinic by Preeti Ag the following: General heart failure medication optimization PCP: Linda Rendon DO Cardiology Provider: Preeti Calix Ciaio Counter Molder: Not currently active with case management Urgent HF Access: Reviewed the following treatment locations for urgent HF symptoms with patient and provided them with contact information Cardiology based urgent heart failure clinic, [facility] [phone] HPI: Patient has heart failure assessment: Heart [...] or lightheadedness: Denies Home BP log results: Hasn't checked recently Does patient monitor HR at home? yes Home HR log results: Hasn't checked recently Does patient monitor weight at home? yes Any increased edema or shortness of breath: Denies any recent edema Home weight log results: Hasn't checked recently; scale is not digital Diet Review: Today I discussed with patient the importance of diet restrictions for patients with heart failure,including: Low sodium diet, 2 grams of sodium per day Doesn't have quite as much appetite Objective: BP Readings from Last 3 Encounters: 06/01/23 132/66 04/27/23 140/82 04/18/23 128/74 Pulse Readings from Last 3 Encounters: 06/01/23 54 04/27/23 64 04/18/23 58 Wt Readings from Last 3 Encounters: 06/01/23 91.1 kg (200 lb 14.4 oz) 04/27/23 91.2 kg (201 lb) 04/18/23 92.5 kg (204 lb) Lab Results Component Value Date/Time CREATININE - [facility] 0.8 04/20/2023 03:33 PM CREATININE - [facility] 1.0 03/23/2023 01:49 PM CREATININE - [facility] 0.8 03/21/2023 05:03 AM CREATININE - [facility] 1.2 12/01/1999 08:36 AM CREATININE - [facility] 0.8 07/26/1999 08:32 AM CREATININE - [facility] 0.80 12/26/1996 10:38 AM CREATININE, RANDOM URINE - [facility] 253 06/07/2022 11:55 AM CREATININE-[facility] 0.79 05/10/2020 12:00 AM CREATININE-[facility] LAB 0.86 02/20/2019 12:00 AM CREATININE-OUTSIDE LAB 0.86 02/01/2018 12:00 AM Lab Results Component Value Date/Time SODIUM - [facility] 139 04/20/2023 03:33 PM SODIUM - [facility] 140 03/23/2023 01:49 PM SODIUM - [facility] 142 03/21/2023 05:03 AM SODIUM - [facility] 144 12/01/1999 08:36 AM SODIUM - [facility] 146 07/26/1999 08:32 AM SODIUM - [facility] 142 12/26/1996 10:38 AM Lab Results Component Value Date/Time POTASSIUM - [facility] 4.6 04/20/2023 03:33 PM POTASSIUM - [facility] 4.9 03/23/2023 01:49 PM POTASSIUM - [facility] 5.0 03/21/2023 05:03 AM POTASSIUM - [facility] 3.8 12/20/1999 08:39 AM POTASSIUM - [facility] 3.4 (L) 12/01/1999 08:36 AM POTASSIUM - [facility] 4.1 07/26/1999 08:32 AM POTASSIUM-[facility]IDE [facility] 3.7 05/10/2020 12:00 AM POTASSIUM-[facility]IDE LAB 3.7 02/20/2019 12:00 AM POTASSIUM-OUTSIDE LAB 3.6 02/01/2018 12:00 AM No results found for: "DIG" Anemia assessment: Lab Results Component Value Date/Time HGB 12.0 (L) 04/20/2023 03:33 PM HGB 12.2 (L) 03/23/2023 01:49 PM HGB 11.7 (L) 03/21/2023 05:03 AM HGB 15.5 05/10/2020 12:00 AM HGB 14.5 02/20/2019 12:00 AM HGB 15.1 02/01/2018 12:00 AM Current Cardiac Medication(s): Metoprolol Er 25 mg tablet-take 12.5 mg daily-started 04/27/23 Spironolactone 25 mg daily Amlodipine-Benazepril 10-20 mg daily Eliquis 5 mg BID Lasix 20 mg MWF-started 04/27/23 Eligible for [employer] Order pharmacy? Agree or Declined? Not eligible Assessment & Plan: HFrEF -in setting of acute illness w/ traumatic hemothroax and PE 02/2023 -Planning to rule out ischemic with stress test in future -obtain digital scale -Test vitals at home and write down -Stop Amlodipine-Benazepril -Start Entresto 49-51 mg BID -BMP 1 week Reviewed MTM cardiology role with patient and that I will be helping to optimize his medications. Daughter came with him to appt and helps with his pill boxes. Patient taking all medications as prescribed and tolerating well. Weight trending down in office. Vitals are stable. Will stop Amlodipine-Benazepril and start Entresto. Educated patient on Entresto. Instructed them to take Entresto 49-51 mg by mouth twice daily. Instructed patient to stop Lotrel 36 hours prior to starting Entresto. Educated patient that renal function and potassium will need to be monitored on this medication. Instructed the patient to monitor blood pressure manually as well as watch for sign of hypotension such as dizziness or lightheadedness. Instructed patient to monitor for signs of angioedema. Instructed patient to monitor for cough. Of note, pt reports taking some herbal medications. Advised he provide me a list for next visit to check for interactions. See's a holistic doctor. Pt to call with any issues with melendez of Entresto 2. Controlled Hypertension -Titrate CHF regimen 3. Aortic sclerosis 4. Non sustained VT -seen on Zio 5. PE -02/2023 -3 months anticoagulation until June 2023 -Eliquis 6. Pre-Diabetes -not discussed -Will benefit from SGLT2 in future Medication changes: Metoprolol Er 25 mg tablet-take 12.5 mg daily-started 04/27/23 Spironolactone 25 mg daily STOP Amlodipine-Benazepril 10-20 mg daily START Entresto 49-51 mg BID Eliquis 5 mg BID Lasix 20 mg MWF-started 04/27/23 Labs Due: BMP 1 week (ordered) Lipid panel with next fasting labs Vaccine Due: not discussed Follow up: 07/05 (pt request in person, this is soonest available I have) Sumaya Orourke [facility] Clinical Pharmacist Medication Therapy Disease Management 06/01/2023,1:44 PM documented in this encounter Plan of Treatment Upcoming Encounters Date Type Department Care Team (Latest Contact Info) Description 4 10:30 AM EDT Telemedicine Urology Oj Menard [address] [place] [address] Jean Marie Mix MD [address] [place] [address] 7, Telemed [facility] Urology Ex [address] [place] [address] 4 1:00 PM EDT Office Visit Cardiology, [facility] [address] [address] [facility] Cardiology [facility] [address] [place] [address] 4 11:00 AM EDT [facility] [address] [place] [address] 4 2:00 PM EDT Office Visit Cardiology, [facility] [address] [place] [address] Preeti Calix CRNP [address] [place] [address] 4 1:00 PM EDT Office Visit [facility] [address] [place] [address] Linda Rendon, DO [address] [place] [address] 4 10:00 AM EDT Hospital Encounter ENDO [facility], Endoscopy Room [facility] [address] [place] [address] Rich Núñez, DO [address] [place], [place] [address] 4 10:00 AM EDT - 4 11:00 AM EDT [facility] [address] [place] [id number] Rich Núñez, DO [address] [place] [address] ESOPHAGOGASTRODUODENOSCOPY (EGD), FLEXIBLE, TRANSORAL, ENDOSCOPIC ULTRASOUND Scheduled [...] this encounter Medical Devices Implanted Type Area Leather Sorter Device Identifier Shelf Expiration Date Model / Serial / Lot Lens Intraoc 18.5 - [id number] - [id number] Implanted:Qty: 1 on 06/01/2022 by Jonny Foster MD at OR [facility] Right: Eye [employer] 01/16/2027 [id number] / [id number] / [id number] Lens Intraoc 18.5 - [id number] - [id number] Implanted:Qty: 1 on 06/13/2022 by Jonny Foster MD at OR [facility] Left: Eye [employer] 01/16/2027 [id number] / [id number] / [id number] documented as of this encounter Visit Diagnoses Diagnosis HFrEF (heart failure with reduced ejection fraction) (HCC)- Primary Abnormal CT scan Other nonspecific (abnormal) findings [...] the patient have Health Care Power of Theater Company Producer? No No Code 06/01/2022 7:05 AM 06/01/2022 1:27 PM This order reflects the patients wishes and were consensually agreed upon. Question Answer Comments Discussion of Advance Directives occurred with: Patient Does the patient have a Living Will? No Does the patient have Health Care Power of Theater Company Producer? No Full Code 10/10/2021 12:53 PM 10/11/2021 4:11 PM This order reflects the patients wishes and were consensually agreed upon. Question Answer Comments Discussion of Advance Directives occurred with: Not Discussed Care Teams Field Service Manager Relationship Specialty Start Date End Date Linda Rendon DO [address] [place] [address] PCP - General Family Medicine 03/07/16 documented as of this encounter
--- OUTSIDE RECORDS SUMMARY | 2023-09-18 09:53 | External Medical Summary | Summary of Care ---
Author Name Unknown Organization [facility] Address [address] [place] [address] Phone [phone] Care Team Providers Care Guest Service Team Leader Name Role Phone Linda Rendon DO Primary Care Provider [phone] Reason for Visit * Reason Onset Date Comments Advice 06/08/2023 Encounter Details Date Type Department Care Team (Late st Contact Info) Description 06/08/2023 Telephone Gastroenterology, [facility] [address] [facility] [place] [address] Rich Núñez DO [address] [place] [address] Advice Allergies Active Allergy Reactions Criticality Noted [...] with reduced ejection fraction) ([facility]),Acute pulmonary embolism, unspecified pulmonary embolism type, unspecified whether acute cor pulmonale present (HCC),NSVT (nonsustained ventricular tachycardia) ([facility]),HTN, goal below 140/90 Take 1 [...] [facility]NSVT (nonsustained ventricular tachycardia) (HCC) Take 1 [...] encounter Miscellaneous Notes * Telephone Encounter - Rich Núñez DO [...] 10:30 AM EDT Telemedicine Urology Oj Menard [address] [place] [address] Jean Marie Mix MD [address] [place] [address] 7, Telemed [facility] U[facility] Ex Rm [address] [place] [address] 4 1:00 PM EDT Office Visit Cardiology, [facility] [address] [place] [address] [facility] Cardiology [facility] [address] [place] [address] 4 11:00 AM EDT Imaging Radiology [address] [place] [address] 4 2:00 PM EDT Office Visit Cardiology, [facility] [address] [place] [address] Preeti Calix CRNP [address] [place] [address] 4 1:00 PM EDT Office Visit Family Practice [facility] [address] [place] [address] Linda Rendon, DO [address] [place] [address] 4 10:00 AM EDT Hospital Encounter ENDO [facility], Endoscopy Room [facility] [address] [place] [address] Rich Núñez, DO [address] [place] [address] 4 10:00 AM EDT - 4 11:00 AM EDT Surgery ENDO [facility], Endoscopy Room [facility] [address] [place] [address] Rich Núñez, DO [address] [place] [address] ESOPHAGOGASTRODUODENOSCOPY (EGD), FLEXIBLE, TRANSORAL, ENDOSCOPIC ULTRASOUND Scheduled [...] this encounter Medical Devices Implanted Type Area Lopper Device Identifier Shelf Expiration Date Model / Serial / Lot Lens Intraoc 18.5 - [id number] - [id number] Implanted:Qty: 1 on 06/01/2022 by Jonny Foster MD at OR [facility] Right: Eye [employer] 01/16/2027 [id number] / [id number] / [id number] Lens Intraoc 18.5 - [id number] - [id number] Implanted:Qty: 1 on 06/13/2022 by Jonny Foster MD at OR [facility] Left: Eye [employer] 01/16/2027 [id number] / [id number] / [id number] documented as of this encounter Visit Diagnoses [...] the patient have Health Care Power of Pulp Grinder? No No Code 06/01/2022 7:05 AM 06/01/2022 1:27 PM This order reflects the patients wishes and were consensually agreed upon. Question Answer Comments Discussion of Advance Directives occurred with: Patient Does the patient have a Living Will? No Does the patient have Health Care Power of Pulp Grinder? No Full Code 10/10/2021 12:53 PM 10/11/2021 4:11 PM This order reflects the patients wishes and were consensually agreed upon. Question Answer Comments Discussion of Advance Directives occurred with: Not Discussed Care Teams Guest Service Team Leader Relationship Specialty Start Date End Date Linda Rendon DO [address] [place] [address] PCP - General Family Medicine 03/07/16 documented as of this encounter
--- OUTSIDE RECORDS SUMMARY | 2023-09-18 09:53 | External Medical Summary | Summary of Care ---
Author Name Unknown Organization [facility] Address [address] [place] [address] Phone [phone] Care Team Providers Care Oracle Database Architect Name Role Phone Linda Rendon DO Primary Care Provider [phone] Reason for Visit * Reason Comments Outpatient Testing Encounter Details Date Type Department Care Team (Late st Contact Info) Description 06/13/2023 1:20 PM EDT Laboratory Laboratory, [facility] [address] [place] [phone] [facility] [address] [place] [address] Elevated prostate specific antigen (PSA); BPH with obstruction/lower urinary tract symptoms; HFrEF (heart failure with reduced ejection fraction) ([facility]); NSVT (nonsustained ventricular tachycardia) ([facility]); Abnormal CT of the abdomen Allergies Active Allergy Reactions Criticality Noted Date Comments Nitroglycerin 09/01/1999 Family is unsure of this being a true allergy documented as of this encounter (statuses as of 06/13/2023) Medications Medication Sig Dispensed Refills Start Date [...] failure with reduced ejection fraction) ([facility]),Acute pulmonary embolism, unspecified pulmonary embolism type, unspecified whether acute cor pulmonale present ([facility]),NSVT (nonsustained ventricular tachycardia) ([facility]),HTN, goal below 140/90 Take 1 Tablet by mouth in the morning. 90 Tablet 3 04/25/2023 Active Metoprolol Succinate ER 25 MG Oral Tablet Extended Release 24 Hour (toPROL XL)Indications:HFrEF (heart failure with reduced ejection fraction) ([facility]),NSVT (nonsustained ventricular tachycardia) (HCC) Take 0.5 Tablets by mouth in the morning. 45 Tablet 3 04/27/2023 Active Furosemide 20 MG Oral Tablet (Lasix)Indications:H FrEF (heart failure with reduced ejection fraction) ([facility]),NSVT (nonsustained ventricular tachycardia) ([facility]) Take 1 Tablet by mouth once a [...] as of this encounter (statuses as of 06/13/2023) Active Problems Problem Noted Date Diagnosed Date [...] as of this encounter (statuses as of 06/13/2023) Resolved Problems Problem Noted Date Diagnosed Date Resolved Date Elevated prostate specific antigen (PSA) 10/04/2015 documented as of this encounter (statuses as of 06/13/2023) Immunizations Name Administration Dates Next Due Seasonal [...] as of this encounter Miscellaneous Notes * Result Encounter Note - Preeti Calix CRNP - 06/13/2023 2:44 PM EDT Stable documented in this encounter Plan of Treatment Upcoming Encounters Date Type Department Care Team (Latest Contact Info) Description 4 10:30 AM EDT Office Visit Cardiology, [facility] [address] [place] [address] Giovani Shannon MD [address] [place] [address] 4 10:30 AM EDT Telemedicine Urology Oj Menard [address] [place] [address] Jean Marie Mix MD [address] [place] [address] 7, Telemed [facility] Urology Ex [address] [place] [address] 4 1:00 PM EDT Office Visit Cardiology, [facility] [address] [place] [address] [facility] Cardiology [facility] [address] [place] [address] 4 11:00 AM EDT Imaging Radiology [address] [place] [address] 4 11:15 AM EDT Hospital Encounter ENDO [facility], Endoscopy Room [facility] [address] [place] [phone] Rich Núñez, DO [address] [place] [address] 4 11:15 AM EDT - 4 12:15 PM EDT Surgery ENDO [facility], Endoscopy Room [facility] [address] [place] [address] Rich Núñez, DO [address] [place] [address] ESOPHAGOGASTRODUODENOSCOPY (EGD), FLEXIBLE, TRANSORAL, ENDOSCOPIC ULTRASOUND 4 1:00 PM EDT Office Visit Family Practice [facility] [address] [place] [address] Linda Rendon, DO [address] [place] [address] 4 2:30 PM EDT Office Visit [facility] Surgery, [place] [address] [facility] [address], [facility] [address] [facility], [place] [address] Pending Results Name Type Priority Associated Diagnoses Date /Time PSA Lab Routine Elevated prostate specific antigen (PSA) BPH with obstruction/lower urinary tract symptoms 06/13/2023 1:22 PM EDT Scheduled Procedures Name Priority Associated Diagnoses Date/Ti me ESOPHAGOGASTRODUODENOSCOPY ( EGD), FLEXIBLE, TRANSORAL, ENDOSCOPIC ULTRASOUND Abnormal CT scan 07/19/2023 11:15 AM EDT Health Maintenance Due Date Last Done Comments Pneumococcal Vaccine: 65+ Years (1 of 2 - PCV) 1946 DTaP,Tdap,and Td Vaccines (1 - Tdap) 1957 Zoster Vaccines (1 of 2) 1988 HbA1c 08/19/2022 08/19/2021, 12/0 07/2018, 02/01/2018 COVID-19 Vaccine (1 - 2022- [...] this encounter Medical Devices Implanted Type Area Rn Delivery Device Identifier Shelf Expiration Date Model / Serial / Lot Lens Intraoc 18.5 - [id number] - [id number] Implanted:Qty: 1 on 06/01/2022 by Jonny Foster MD at OR [facility] Right: Eye [employer] 01/16/2027 [id number] / [id number] / [id number] Lens Intraoc 18.5 - [id number] - [id number] Implanted:Qty: 1 on 06/13/2022 by Jonny Foster MD at OR [facility] Left: Eye [employer]OMB 01/16/2027 [id number] / [id number] / [id number] documented as of this encounter Procedures Procedure Name Priority Date/Time Associated Diagnosis Comments COMPREHENSIVE METABOLIC PANEL Routine 06/13/2023 1:[address] of the abdomen documented in this encounter Results * (ABNORMAL) COMPREHENSIVE METABOLIC PANEL (06/13/2023 1:22 PM EDT) BUN 22(H) 6 - 20 mg/dL 06/13/2023 2:22 PM EDT LAB[facility]ATORY [place] [facility] 57-10 Creatinine 1.0 0.6 - 1.2 mg/dL 06/13/2023 2:22 PM EDT LABORATORY [place] 57-10 Estimated Glomerular Filtration Rate 77 >=60 mL/min 06/13/2023 2:22 PM EDT [facility] [place] [facility] 57-10 Comment:eGFR is calculated b ased on the CKD-EPI 2020 equation Sodium 140 135 - 146 mmol/L 06/13/2023 2:22 PM EDT LABORATORY [place] 57-10 Potassium 4.6 3.5 - 5.1 mmol/L 06/13/2023 2:22 PM EDT LAB[facility]ATORY [place] 57-10 Chloride 104 98 - 107 mmol/L 06/13/2023 2:22 PM EDT LAB[facility]ORY [place] [facility] 57-10 CO2 28 22 - 32 mmol/L 06/13/2023 2:22 PM EDT LAB[facility]ATORY [place] 57-10 Anion Gap 8 7 - 15 mmol/L 06/13/2023 2:22 PM EDT LABORATORY [place] 57-10 Glucose 105 70 - 120 mg/dL 06/13/2023 2:22 PM EDT LABORATORY [place] 57-10 Albumin 4.0 3.8 - 5.0 g/dL 06/13/2023 2:22 PM EDT [facility]ORY [place] [facility] 57-10 AST 17 10 - 50 U/L [...] LABORATORY [place] 57-10 [address] [place] [address] documented in this encounter Visit Diagnoses Diagnosis Elevated prostate specific antigen (PSA) BPH with obstruction/lower urinary tract symptoms Hypertrophy of prostate with urinary obstruction and other lower urinary tract symptoms (LUTS) HFrEF (heart failure with reduced ejection fraction) (HCC) NSVT (nonsustained ventricular tachycardia) (HCC) Paroxysmal ventricular tachycardia Abnormal CT of the abdomen Nonspecific (abnormal) findings on radiological and other [...] the patient have Health Care Power of New Home Sales Consultant? No No Code 06/01/2022 7:05 AM 06/01/2022 1:27 PM This order reflects the patients wishes and were consensually agreed upon. Question Answer Comments Discussion of Advance Directives occurred with: Patient Does the patient have a Living Will? No Does the patient have Health Care Power of New Home Sales Consultant? No Full Code 10/10/2021 12:53 PM 10/11/2021 4:11 PM This order reflects the patients wishes and were consensually agreed upon. Question Answer Comments Discussion of Advance Directives occurred with: Not Discussed Care Teams Oracle Database Architect Relationship Specialty Start Date End Date Linda Rendon DO [address] [place] [address] PCP - General Family Medicine 03/07/16 documented as of this encounter
--- OUTSIDE RECORDS SUMMARY | 2023-09-18 09:53 | External Medical Summary ---
Author Name Unknown Address Unknown Organization K01:[facility] [address] [facility]. [facility] [address] Laboratory Report Ordering Provider Test Date Status LACEY DAVIS 06/13/2023 13:22:50 Final Observation Date Value Abnormality Reference (Units ) Status HbA1C 06/13/2023 13:22:50 6.2 Above high normal 4. 0-5.6 (%) Final The use of HbA1c to monitor glycemic status is based on normal hemoglobin and HbA composition. This test should not be used in patients with abnormal hemoglobin that affects the half life of the red blood cell or the in vivo glycation rates. Glucose, estimated average 06/13/2023 13:22:50 131 Above high normal <126 (mg/dL) Jonatan hampton Performing Location [facility] [address] [facility] [address]
--- OUTSIDE RECORDS SUMMARY | 2023-09-18 09:53 | External Medical Summary | Summary of Care ---
Author Name Unknown Organization [facility] Address [address] [place] [address] Phone [phone] Care Team Providers Care Loading Machine Tool Setter Name Role Phone Linda Rendon DO Primary Care Provider [phone] Reason for Visit * Reason Comments Outpatient Testing Encounter Details Date Type Department Care Team (Late st Contact Info) Description 06/13/2023 1:20 PM EDT Laboratory Laboratory, [facility] [address] [place] [phone] [facility] [address] [place] [address] Elevated prostate specific antigen (PSA); BPH with obstruction/lower urinary tract symptoms; HFrEF (heart failure with reduced ejection fraction) ([facility]); NSVT (nonsustained ventricular tachycardia) ([facility]); Abnormal CT of the abdomen Allergies Active [...] ns:HFrEF (heart failure with reduced ejection fraction) ([facility] [...] XL)Indications:HFrEF (heart failure with reduced ejection fraction) ([facility]),NSVT (nonsustained ventricular tachycardia) (HCC) Take 0.5 Tablets by mouth in the morning. 45 Tablet 3 04/27/2023 Active Furosemide 20 MG Oral Tablet (Lasix)Indications:H FrEF (heart failure with reduced ejection fraction) ([facility] [...] 4 10:30 AM EDT Office Visit Cardiology, [facility] [address] [place] [address] Giovani Shannon MD [address] [place] [address] 4 10:30 AM EDT Telemedicine Urology Oj Menard [address] [place] [address] Jean Marie Mix MD [address] [place] [address] 7, Telemed [facility] Urology Ex [address] [place] [address] 4 1:00 PM EDT Office Visit Cardiology, [facility] [address] [place] [address] [facility] Cardiology [facility] [address] [place] [address] 4 11:00 AM EDT Imaging Radiology [facility]st [facility] [address] [place] [address] 4 1:00 PM EDT Office Visit [facility] [address] [place] [address] Linda Rendon, DO [address] [place] [address] 4 10:00 AM EDT Hospital Encounter ENDO [facility], Endoscopy Room [facility] [address] [place] [phone] Rich Núñez, DO [address] [place] [address] 4 10:00 AM EDT - 4 11:00 AM EDT Surgery ENDO [facility], Endoscopy Room [facility] [address] [place] [phone] Rich Núñez, DO [address] [place] [address] ESOPHAGOGASTRODUODENOSCOPY (EGD), FLEXIBLE, TRANSORAL, ENDOSCOPIC ULTRASOUND 4 2:30 PM EDT Office Visit General Surgery, [place] [address] [place] [address] 620, Trauma Clinic [address] [place] [address] Pending Results Name Type Priority Associated Diagnoses Date /Time PSA Lab Routine Elevated prostate specific antigen (PSA) BPH with obstruction/lower urinary tract symptoms 06/13/2023 1:22 PM EDT COMPREHENSIVE METABOLIC PANEL Lab Routine Abnormal CT of the abdomen 06/13/2023 1:22 PM EDT Scheduled Procedures Name Priority Associated Diagnoses Date/Ti nd ESOPHAGOGASTRODUODENOSCOPY ( EGD), FLEXIBLE, TRANSORAL, ENDOSCOPIC ULTRASOUND Abnormal CT scan 08/29/2023 10:00 AM EDT Health Maintenance Due Date Last Done Comments Pneumococcal Vaccine: 65+ Years (1 of 2 - PCV) 1946 DTaP,Tdap,and Td Vaccines (1 - Tdap) 1957 Zoster Vaccines (1 of 2) 1988 HbA1c 08/19/2022 08/19/2021, /07/2018, 02/01/2018 COVID-19 Vaccine ( season) 2022 Influenza Vaccine (FLU shot) (#1) [...] this encounter Medical Devices Implanted Type Area Corner Bead Operator Device Identifier Shelf Expiration Date Model / Serial / Lot Lens Intraoc 18.5 - [id number] - [id number] Implanted:Qty: 1 on 06/01/2022 by Jonny Foster MD at OR [facility] Right: Eye [employer] 01/16/2027 [id number] / [id number] / [id number] Lens Intraoc 18.5 - [id number] - [id number] Implanted:Qty: 1 on 06/13/2022 by Jonny Foster MD at OR [facility] Left: Eye [employer]OMB 01/16/2027 [id number] / [id number] / [id number] documented as of this encounter Visit Diagnoses [...] the patient have Health Care Power of Business Project Manager? No No Code 06/01/2022 7:05 AM 06/01/2022 1:27 PM This order reflects the patients wishes and were consensually agreed upon. Question Answer Comments Discussion of Advance Directives occurred with: Patient Does the patient have a Living Will? No Does the patient have Health Care Power of Business Project Manager? No Full Code 10/10/2021 12:53 PM 10/11/2021 4:11 PM This order reflects the patients wishes and were consensually agreed upon. Question Answer Comments Discussion of Advance Directives occurred with: Not Discussed Care Teams Loading Machine Tool Setter Relationship Specialty Start Date End Date Linda Rendon DO [address] [place] [address] PCP - General Family Medicine 03/07/16 documented as of this encounter
--- OUTSIDE RECORDS SUMMARY | 2023-09-18 09:53 | External Medical Summary ---
Author Name Unknown Address Unknown Organization K01:[facility] [place] [address] [facility] [address] Laboratory Report Ordering Provider Test Date Status RYANLACEY 06/13/2023 13:25:06 Final Normal: <30 mg/g creatinine< br/>High: 30-300 mg/g creatinine
Very High: >300 mg/g creatinine
Nephrotic: >2200 mg/g creatinine Observation Date Value Abnormality Reference (Units ) Status Albumin, Urine 06/13/2023 13:25:06 4.48 (mg/dL) Final Creatinine, Urine 06/13/2023 13:25:06 101 (mg/dL) Final Albumin/Creatinine [Mass Ratio] in Urine 06/13/2023 13:25:06 44 Above high normal <30 (mg/g Creat) Final Performing Location [facility] [place] [address] [place] [address]
--- OUTSIDE RECORDS SUMMARY | 2023-09-18 09:53 | External Medical Summary | Summary of Care ---
Author Name Unknown Organization [facility] Address [address] [place] [address] Phone [phone] Care Team Providers Care Clinical Informatics Strategist Name Role Phone Linda Rendon DO Primary Care Provider +[phone] Reason for Visit * Reason Onset Date Comments Advice 06/08/2023 Encounter Details Date Type Department Care Team (Late st Contact Info) Description 06/08/2023 Telephone Gastroenterology, [facility] [address] [email or web address] [place] [address] Rich Núñez DO [address] [place] [address] Advice Allergies Active Allergy Reactions Criticality Noted [...] ns:HFrEF (heart failure with reduced ejection fraction) ([facility] [...] XL)Indications:HFrEF (heart failure with reduced ejection fraction) ([facility]),NSVT (nonsustained ventricular tachycardia) (HCC) Take 0.5 Tablets by mouth in the morning. 45 Tablet 3 04/27/2023 Active Furosemide 20 MG Oral Tablet (Lasix)Indications:H FrEF (heart failure with reduced ejection fraction) ([facility]),NSVT (nonsustained ventricular tachycardia) (HCC) Take 1 [...] encounter Miscellaneous Notes * Telephone Encounter - Karina Gomez OSA - 06/13/2023 1:[address] Núñez would like procedure moved up in about 4 weeks. Called daughter and left message on [facility] to call office back. * Telephone Encounter [...] 4 10:30 AM EDT Office Visit Cardiology, [facility] [address] [address] Giovani Shannon MD [address] [place] [address] 4 10:30 AM EDT Telemedicine Urology Oj Menard [address] [place] [address] Jean Marie Mix MD [address] [place] [address] 7, Telemed [facility] Urology Ex [address] [place] [address] 4 1:00 PM EDT Office Visit Cardiology, [facility] [address] [place] [address] [facility] Cardiology [facility] [address] [place] [address] 4 11:00 AM EDT Imaging Radiology [facility] 1st [facility] [address] [place] [address] 4 1:00 PM EDT Office Visit Family Practice [facility] [address] [place] [address] Linda Rendon, DO [address] [place] [address] 4 10:00 AM EDT Hospital Encounter ENDO [facility], Endoscopy Room [facility] [address] [place] [address] Rich Núñez, DO [address] [place] [address] 4 10:00 AM EDT - 4 11:00 AM EDT Surgery ENDO [facility], Endoscopy Room [facility] [address] [place] [address] Rich Núñez, DO [address] [place] [address] ESOPHAGOGASTRODUODENOSCOPY (EGD), FLEXIBLE, TRANSORAL, ENDOSCOPIC ULTRASOUND 4 2:30 PM EDT Office Visit General Surgery, [place] [address] [address] [facility] [place] [address], Trauma Clinic [facility] N [facility] [place] [address] Pending Results Name Type Priority Associated Diagnoses Date /Time COMPREHENSIVE METABOLIC PANEL Lab Routine Abnormal CT of the abdomen 06/13/2023 1:22 PM EDT Scheduled Orders Name Type Priority Associated Diagnoses [...] this encounter Medical Devices Implanted Type Area Educational Psychology Teacher Device Identifier Shelf Expiration Date Model / Serial / Lot Lens Intraoc 18.5 - [id number] - [id number] Implanted:Qty: 1 on 06/01/2022 by Jonny Foster MD at OR [facility] Right: Eye [employer]OM[employer] 01/16/2027 [id number] / [id number] / [id number] Lens Intraoc 18.5 - [id number] - [id number] Implanted:Qty: 1 on 06/13/2022 by Jonny Foster MD at OR [facility] Left: Eye [employer]CH [employer] LOMB 01/16/2027 [id number] / [id number] / [id number] documented as of this encounter Visit Diagnoses [...] the patient have Health Care Power of Jig Builder Helper? No No Code 06/01/2022 7:05 AM 06/01/2022 1:27 PM This order reflects the patients wishes and were consensually agreed upon. Question Answer Comments Discussion of Advance Directives occurred with: Patient Does the patient have a Living Will? No Does the patient have Health Care Power of Jig Builder Helper? No Full Code 10/10/2021 12:53 PM 10/11/2021 4:11 PM This order reflects the patients wishes and were consensually agreed upon. Question Answer Comments Discussion of Advance Directives occurred with: Not Discussed Care Teams Clinical Informatics Strategist Relationship Specialty Start Date End Date Linda Rendon DO [address] [facility] [place] [address] PCP - General Family Medicine 03/07/16 documented as of this encounter
--- OUTSIDE RECORDS SUMMARY | 2023-09-18 09:53 | External Medical Summary | Summary of Care ---
Author Name Unknown Organization [facility] Address [address] [place] [address] Phone [phone] Care Team Providers Care Cia Agent Name Role Phone Linda Rendon DO Primary Care Provider [phone] Reason for Visit * Reason Onset Date Comments Advice 06/08/2023 Encounter Details Date Type Department Care Team (Late st Contact Info) Description 06/08/2023 Telephone Gastroenterology, [facility] [address] [facility] [place] [address] Rich Núñez DO [address] [place] [address] Advice Allergies Active Allergy Reactions Criticality Noted [...] ns:HFrEF (heart failure with reduced ejection fraction) ([facility]),Acute pulmonary embolism, unspecified pulmonary embolism type, unspecified whether acute cor pulmonale present (HCC),NSVT (nonsustained ventricular tachycardia) ([facility]),HTN, goal below 140/90 Take 1 Tablet by mouth in the morning. 90 Tablet 3 04/25/2023 Active Metoprolol Succinate ER 25 MG Oral Tablet Extended Release 24 Hour (toPROL XL)Indications:HFrEF (heart failure with reduced ejection fraction) ([facility]),NSVT (nonsustained ventricular tachycardia) (HCC) Take 0.5 Tablets by mouth in the morning. 45 Tablet 3 04/27/2023 Active Furosemide 20 MG Oral Tablet (Lasix)Indications:H FrEF (heart failure with reduced ejection fraction) ([facility]),NSVT (nonsustained ventricular tachycardia) (HCC) [...] encounter Miscellaneous Notes * Telephone Encounter - Karlie Rodriguez OSA [...] 4 10:30 AM EDT Office Visit Cardiology, [facility] [address] [place] [address] Giovani Shannon MD [address] [place] [address] 4 10:30 AM EDT Telemedicine Urology Oj Menard [address] [place] [address] Jean Marie Mix MD [address] [place] [address] 7, Telemed [facility] Urology Ex [address] [place] [address] 4 1:00 PM EDT Office Visit Cardiology, [facility] [address] [place] [address] [facility] Cardiology [facility] [address] [place] [address] 4 11:00 AM EDT Imaging Radiology [address] [place] [address] 4 1:00 PM EDT Office Visit Family Practice [facility] [address] [place] [address] Linda Rendon, DO [address] [place] [address] 4 10:00 AM EDT Hospital Encounter ENDO [facility], Endoscopy Room [facility] [address] [place] [address] Rich Núñez, DO [address] [place] [address] 4 10:00 AM EDT - 4 11:00 AM EDT Surgery ENDO [facility], Endoscopy Room [facility] [address] [place] [address] Rich Núñez, DO [address] [place] [address] ESOPHAGOGASTRODUODENOSCOPY (EGD), FLEXIBLE, TRANSORAL, ENDOSCOPIC ULTRASOUND Scheduled [...] 12/0 07/2018, 02/01/2018 COVID-19 Vaccine (1 - 2022-24 season) 2022 Influenza Vaccine (FLU shot) (#1) [...] this encounter Medical Devices Implanted Type Area Wide Area Network Systems Administrator Device Identifier Shelf Expiration Date Model / Serial / Lot Lens Intraoc 18.5 - [id number] - [id number] Implanted:Qty: 1 on 06/01/2022 by Jonny Foster MD at OR [facility] Right: Eye [employer]OM[employer] 01/16/2027 [id number] / [id number] / [id number] Lens Intraoc 18.5 - [id number] - [id number] Implanted:Qty: 1 on 06/13/2022 by Jonny Foster MD at OR [facility] Left: Eye [employer]OMB 01/16/2027 [id number] / [id number] / [id number] documented as of this encounter Visit Diagnoses [...] the patient have Health Care Power of Regional Cra? No No Code 06/01/2022 7:05 AM 06/01/2022 1:27 PM This order reflects the patients wishes and were consensually agreed upon. Question Answer Comments Discussion of Advance Directives occurred with: Patient Does the patient have a Living Will? No Does the patient have Health Care Power of Regional Cra? No Full Code 10/10/2021 12:53 PM 10/11/2021 4:11 PM This order reflects the patients wishes and were consensually agreed upon. Question Answer Comments Discussion of Advance Directives occurred with: Not Discussed Care Teams Cia Agent Relationship Specialty Start Date End Date Linda Rendon DO [address] [place] [address] PCP - General Family Medicine 03/07/16 documented as of this encounter
--- OUTSIDE RECORDS SUMMARY | 2023-09-18 09:53 | External Medical Summary | Summary of Care ---
Author Name Unknown Organization [facility] Address [address] [place] [address] Phone [phone] Care Team Providers Care Golf Course Manager Name Role Phone Linda Rendon DO Primary Care Provider [phone] Reason for Visit * Reason Onset Date Comments Appointment 06/18/2023 Encounter Details Date Type Department Care Team (Late st Contact Info) Description 06/18/2023 Telephone Cardiology, [facility] [address] [facility] [address] Giovani Shannon MD [address] [place] [address] Appointment Allergies Active Allergy Reactions Criticality Noted [...] failure with reduced ejection fraction) ([facility]),Acute pulmonary embolism, unspecified pulmonary embolism type, unspecified whether acute cor pulmonale present ([facility]),NSVT (nonsustained ventricular tachycardia) ([facility]),HTN, goal below 140/90 Take 1 Tablet by mouth in the morning. 90 Tablet 3 04/25/2023 Active Metoprolol Succinate ER 25 MG Oral Tablet Extended Release 24 Hour (toPROL XL)Indications:HFrEF (heart failure with reduced ejection fraction) ([facility]),NSVT (nonsustained ventricular tachycardia) ([facility]) Take 0.5 Tablets by mouth in the morning. 45 Tablet 3 04/27/2023 Active Furosemide 20 MG Oral Tablet (Lasix)Indications:H FrEF (heart failure with reduced ejection fraction) ([facility]),NSVT (nonsustained ventricular tachycardia) ([facility]) Take 1 Tablet by mouth once a [...] [address] [place] [address] Jean Marie Mix MD [address] [place] [address] 7, Telemed [facility] Urology Ex [address] [place] [address] 4 1:00 PM EDT Office Visit Cardiology, [facility] [address] [place] [address] [facility] Cardiology [facility] [address] [place] [address] 4 11:00 AM EDT Imaging Radiology [facility] [address] [place] [address] 4 11:15 AM EDT Hospital Encounter ENDO [facility], Endoscopy Room [facility] [address] [place] [phone] Rich Núñez, DO [address] [place] [address] 4 11:15 AM EDT - 4 12:15 PM EDT Surgery ENDO [facility], Endoscopy Room [facility] [address] [place] [address] Rich Núñez, DO [address] [place] [address] ESOPHAGOGASTRODUODENOSCOPY (EGD), FLEXIBLE, TRANSORAL, ENDOSCOPIC ULTRASOUND 4 1:00 PM EDT Office Visit [facility] [address] [place] [address] Linda Rendon, DO [address] [place] [address] 4 2:30 PM EDT Office Visit General Surgery, [place] [address] [place] [address] 620, [facility] [address] [place], [place] [id number] Scheduled Procedures Name Priority Associated Diagnoses Date/Ti [...] this encounter Medical Devices Implanted Type Area Vinyl Cutter Device Identifier Shelf Expiration Date Model / Serial / Lot Lens Intraoc 18.5 - [id number] - [id number] Implanted:Qty: 1 on 06/01/2022 by Jonny Foster MD at OR [facility] Right: Eye [employer] 01/16/2027 [id number] / [id number] / [id number] Lens Intraoc 18.5 - [id number] - [id number] Implanted:Qty: 1 on 06/13/2022 by Jonny Foster MD at OR [facility] Left: Eye [employer] 01/16/2027 [id number] / [id number] / [id number] documented as of this encounter Advance Directives [...] the patient have Health Care Power of Pilot Supervisor? No No Code 06/01/2022 7:05 AM 06/01/2022 1:27 PM This order reflects the patients wishes and were consensually agreed upon. Question Answer Comments Discussion of Advance Directives occurred with: Patient Does the patient have a Living Will? No Does the patient have Health Care Power of Pilot Supervisor? No Full Code 10/10/2021 12:53 PM 10/11/2021 4:11 PM This order reflects the patients wishes and were consensually agreed upon. Question Answer Comments Discussion of Advance Directives occurred with: Not Discussed Care Teams Golf Course Manager Relationship Specialty Start Date End Date Linda Rendon DO [address] [place] [address] PCP - General Family Medicine 03/07/16 documented as of this encounter
--- OUTSIDE RECORDS SUMMARY | 2023-09-18 09:54 | External Medical Summary | Summary of Care ---
Author Name Unknown Organization [facility] Address [address] [place] [address] Phone [phone] Care Team Providers Care Fitness Coordinator Name Role Phone Linda Rendon DO Primary Care Provider [phone] Encounter Details Date Type Department Care Team (Late st Contact Info) Description 05/18/2023 Orders Only Access Center, [address] *DO NOT REMOVE THIS DEPARTMENT* [place] [address] Requisition, External Radiology [address] [place] [address] Other injury of unspecified body region, initial encounter*; Disorder of bone density and structure, unspecified Allergies Active Allergy Reactions Criticality Noted Date Comments Nitroglycerin 09/01/1999 Family is unsure of this being a true allergy documented as of this encounter (statuses as of 05/18/2023) Medications Medication Sig Dispensed Refills Start Date [...] takes 3 tablets at night 0 Active amLODIPine Besy-Benazepril HCl 10-20 MG Oral Capsule (Lotrel)Indications: Hypertension, unspecified type Take 1 Capsule by mouth in the morning. 90 Capsule 3 02/27/2023 Active Levothyroxine Sodium 150 MCG Oral Tablet (Levoxyl) Take 1.5 Tablets by mouth every Sunday. (at least 30 min prior to breakfast or other meds) 0 Active Apixaban 5 MG Oral Tablet [...] with reduced ejection fraction) ([facility]),Acute pulmonary embolism, unspecified pulmonary embolism type, [...] [facility]),NSVT (nonsustained ventricular tachycardia) ([facility]) Take 1 Tablet by mouth once a day on Sunday, Sunday, and Sunday only. 30 Tablet 5 04/27/2023 Active documented as of this encounter (statuses as of 05/18/2023) Active Problems Problem Noted Date Diagnosed Date [...] as of this encounter (statuses as of 05/18/2023) Resolved Problems Problem Noted Date Diagnosed Date Resolved Date Elevated prostate specific antigen (PSA) 10/04/2015 documented as of this encounter (statuses as of 05/18/2023) Immunizations Name Administration Dates Next Due Seasonal [...] Care Team (Latest Contact Info) Description 4 1:45 PM EDT Imaging Radiology [address] [place] [address] 4 2:40 PM EDT Office Visit Cardiology, [facility] [address] [place] [address] [facility] Cardiology [facility] [place] [address] 4 10:30 AM EDT Telemedicine Urology Oj Menard [address] [place] [address] Jean Marie Mix MD [address] [place] [address] 7, Telemed [facility] Urology Ex [address] [place] [address] 4 11:00 AM EDT Imaging Radiology [address] [place] [address] 4 3:00 PM EDT Office Visit Cardiology, [facility] [address] [place] [address] Preeti Calix CRNP [address] [place] [address] 4 1:00 PM EDT Office Visit Family Practice [facility] [address] [place] [address] Linda Rendon, DO [address] [place] [address] 4 10:00 AM EDT Hospital Encounter ENDO [facility], Endoscopy Room [facility] [address] [place] [address] Rich Núñez, DO [address] [place] [address] 4 10:00 AM EDT - 4 11:00 AM EDT Surgery ENDO [facility], Endoscopy Room [facility] [address] [place] [phone] Rich Núñez, DO [address] [place] [address] ESOPHAGOGASTRODUODENOSCOPY (EGD), FLEXIBLE, TRANSORAL, ENDOSCOPIC ULTRASOUND Scheduled Orders Name Type Priority Associated Diagnoses Orde r Schedule DEXA SCAN/BONE MINERAL AXIAL Medical Imaging Routine Other injury of unspecified body region, initial encounter Disorder of bone density and structure, unspecified Ordered: 05/18/2023 Scheduled Procedures Name Priority Associated Diagnoses Date/Ti [...] 03/22/2024 03/22/2023, 02/16, 06/07/2022, Additional history exists GFR 04/20/2024 04/20/2023, 07/2023, 03/21/2023, Additional history exists Albumin/Creatinine Ratio 06/07/2025 06/07/2022 [...] this encounter Medical Devices Implanted Type Area Research Engineer Marine Equipment Device Identifier Shelf Expiration Date Model / Serial / Lot Lens Intraoc 18.5 - [id number] - [id number] Implanted:Qty: 1 on 06/01/2022 by Jonny Foster MD at OR [facility] Right: Eye [employer] 01/16/2027 [id number] / [id number] / [id number] Lens Intraoc 18.5 - [id number] - [id number] Implanted:Qty: 1 on 06/13/2022 by Jonny Foster MD at OR [facility] Left: Eye [employer]OM[employer] 01/16/2027 [id number] / [id number] / [id number] documented as of this encounter Visit Diagnoses Diagnosis Other injury of unspecified body region, initial encounter- Primary Disorder of bone density and structure, unspecified Abnormal CT scan Other nonspecific (abnormal) findings [...] the patient have Health Care Power of Hydrologic Engineer? No No Code 06/01/2022 7:05 AM 06/01/2022 1:27 PM This order reflects the patients wishes and were consensually agreed upon. Question Answer Comments Discussion of Advance Directives occurred with: Patient Does the patient have a Living Will? No Does the patient have Health Care Power of Hydrologic Engineer? No Full Code 10/10/2021 12:53 PM 10/11/2021 4:11 PM This order reflects the patients wishes and were consensually agreed upon. Question Answer Comments Discussion of Advance Directives occurred with: Not Discussed Care Teams Fitness Coordinator Relationship Specialty Start Date End Date Linda Rendon DO [address] [place] [address] PCP - General Family Medicine 03/07/16 documented as of this encounter
--- OUTSIDE RECORDS SUMMARY | 2023-09-18 09:54 | External Medical Summary | Summary of Care ---
Author Name Unknown Organization [facility] Address [address] [place] [address] Phone [phone] Care Team Providers Care Projection Technician Name Role Phone Linda Rendon DO Primary Care Provider [phone] Reason for Visit * Reason Onset Date Comments Appointment 05/31/2023 Encounter Details Date Type Department Care Team (Late st Contact Info) Description 05/31/2023 [address]phone [address] [place] [address] Antoinette Roldan, RT (M) Appointment Allergies Active Allergy Reactions Criticality Noted Date Comments Nitroglycerin 09/01/1999 Family is unsure of this being a true allergy documented as of this encounter (statuses as of 05/31/2023) Medications Medication Sig Dispensed Refills Start Date [...] as of this encounter (statuses as of 05/31/2023) Active Problems Problem Noted Date Diagnosed Date [...] as of this encounter (statuses as of 05/31/2023) Resolved Problems Problem Noted Date Diagnosed Date Resolved Date Elevated prostate specific antigen (PSA) 10/04/2015 documented as of this encounter (statuses as of 05/31/2023) Immunizations Name Administration Dates Next Due Seasonal [...] encounter Miscellaneous Notes * Telephone Encounter - Antoinette Roldan RT (M) - 05/31/2023 5:00 PM EDT If you answer "yes" to any of the following, please give us a call at before coming to your MRI appointment: Do you have a pacemaker/defibrillator? Do you have any electronic or mechanical implants? Have you had a recent colonoscopy in the last 30 days? Are you or ? Do you work around metal or ever gotten metal in your eyes? Any dermals or body piercing you cannot remove? Do you wear an insulin pump or diabetic monitor? Have you had any tattoos or permanent makeup in the last 4 weeks? LM to arrive at 1:15 PM documented in this encounter Plan of Treatment Upcoming Encounters Date Type Department Care Team (Latest Contact Info) Description 4 1:45 PM EDT Imaging Radiology [facility] [address] [facility] [place] [address] 4 2:40 PM EDT Office Visit Cardiology, [facility] [address] [facility] [place] [address] [facility] Cardiology [facility] [address] [facility] [place] [address] 4 10:30 AM EDT Telemedicine Urology Oj Menard [address] [place] [address] Jean Marie Mix MD [address] [place] [address] 7, Telemed [facility] Urology Ex [address] [place] [address] 4 11:00 AM EDT Imaging Radiology [facility] [address] [place] [address] 4 2:00 PM EDT Office Visit Cardiology, [facility] [address] [place] [address] Preeti Calix CRNP [address] [place] [address] 4 1:00 PM EDT Office Visit Family Practice [facility] [address] [place] [address] Linda Rendon, DO [address] [place] [address] 4 10:00 AM EDT Hospital Encounter ENDO [facility], Endoscopy Room [facility] [address] [place] [phone] Rich Núñez, DO [address] [place] [address] 4 10:00 AM EDT - 4 11:00 AM EDT Surgery ENDO [facility], Endoscopy Room [facility] [address] [place] [address] Rich Núñez, DO [address] [place] [address] ESOPHAGOGASTRODUODENOSCOPY (EGD), FLEXIBLE, TRANSORAL, ENDOSCOPIC ULTRASOUND Scheduled [...] this encounter Medical Devices Implanted Type Area Urologic Nurse Device Identifier Shelf Expiration Date Model / Serial / Lot Lens Intraoc 18.5 - [id number] - [id number] Implanted:Qty: 1 on 06/01/2022 by Jonny Foster MD at OR [facility] Right: Eye [employer] 01/16/2027 [id number] / [id number] / [id number] Lens Intraoc 18.5 - [id number] - [id number] Implanted:Qty: 1 on 06/13/2022 by Jonny Foster MD at OR [facility] Left: Eye [employer] 01/16/2027 [id number] / [id number] / [id number] documented as of this encounter Advance Directives [...] the patient have Health Care Power of Pyrometer Mechanic? No No Code 06/01/2022 7:05 AM 06/01/2022 1:27 PM This order reflects the patients wishes and were consensually agreed upon. Question Answer Comments Discussion of Advance Directives occurred with: Patient Does the patient have a Living Will? No Does the patient have Health Care Power of Pyrometer Mechanic? No Full Code 10/10/2021 12:53 PM 10/11/2021 4:11 PM This order reflects the patients wishes and were consensually agreed upon. Question Answer Comments Discussion of Advance Directives occurred with: Not Discussed Care Teams Projection Technician Relationship Specialty Start Date End Date Linda Rendon DO [address] [place] [address] PCP - General Family Medicine 03/07/16 documented as of this encounter
[2023-09-18 10:04] LABS: A calco-baum cmplx NotReported Not Detected (NotDetected); Bact fragilis Not Reported Not Detected (NotDetected); Blood Culture Id Panel See PCR Comment (NotDetected); C auris Not Reported Not Detected (NotDetected); CTX-M Resistant Gene Not Detected (NotDetected); Calbicans Not Reported Not Detected (NotDetected); Candida glabrata Not Reported Not Detected (NotDetected); Candida krusei Not Reported Not Detected (NotDetected); Cneoformans/gatti Not Reported Not Detected (NotDetected); Cparapsilosis Not Reported Not Detected (NotDetected); E cloacae compx Not Reported DETECTED (NotDetected); Efaecalis Not Reported Not Detected (NotDetected); Efaecium Not Reported Not Detected (NotDetected); Enterobacterales Not Reported DETECTED (NotDetected); Escherichia coli Not Reported Not Detected (NotDetected); H influenzae Not Reported Not Detected (NotDetected); IMP Resistant Gene Not Detected (NotDetected); K aerogenes Not Reported Not Detected (NotDetected); KPC Resistant Gene Not Detected (NotDetected); Koxytoca Not Reported Not Detected (NotDetected); Kpneumoniae grp Not Reported Not Detected (NotDetected); Lmonocyt Not Reported Not Detected (NotDetected); N meningitidis Not Reported Not Detected (NotDetected); NDM Resistant Gene Not Detected (NotDetected); OXA 48 Like Resistant Gene Not Detected (NotDetected); P aeruginosa Not Reported Not Detected (NotDetected); Proteus spp Not Reported Not Detected (NotDetected); Salmonella spp Not Reported Not Detected (NotDetected); Staph lugdunensis Not Reported Not Detected (NotDetected); Staph spp. Not Reported Not Detected (NotDetected); Staphaureus Not Reported Not Detected (NotDetected); Staphepi Not Reported Not Detected (NotDetected); Stenmaltophilia Not Reported Not Detected (NotDetected); Strep agal(GrpB) Not Reported Not Detected (NotDetected); Strep pneum Not Reported Not Detected (NotDetected); Strep pyog (GrpA) Not Reported Not Detected (NotDetected); Strep spp Not Reported Not Detected (NotDetected); VIM Resistant Gene Not Detected (NotDetected); mcr-1 Colistin Resistant Gene Not Detected (NotDetected)
[2023-09-18 10:19] LABS: Enterobacter cloacae complex DETECTED (NotDetected); Enterobacterales DETECTED (NotDetected)
--- NOTE | 2023-09-18 10:56 | Urology Consultation ---
Date of Consultation September 18, 2023 Assessment & Plan (1) Acute UTI: (2) Benign prostatic hyperplasia (BPH) with straining on urination: Plan 83-year-old gentleman with BPH and urinary tract infection There is no role for involvement in the current hospitalization This is a simple infection that requires antibiotics and IV fluids Jardiance may have been his predisposing factor which combined with his BPH tipped him over towards infection At present I do not believe he requires a catheter as he is preserving kidney function and has no hydronephrosis He reports that he is voiding adequately and has urine in his urinal at bedside Would recommend treatment for at least 14 days and outpatient follow-up with his urologist Please contact us if further issues during this hospitalization History of Present Illness Attending Physician: Darwin Becker MD History of Present Illness 83-year-old gentleman with longstanding voiding dysfunction who follows with Dr. Mix as an outpatient He is on max medications with an alpha-antonio and finasteride He reports that he has been voiding adequately for some time He recently started Jardiance for diabetes control and began experiencing urinary tract infectious-like symptoms Upon arrival here he had some bradycardia and general ill feelinghe has improved substantially since hydration was initiated His creatinine is 1.1 Had imaging which shows an extremely large prostate but a normal capacity bladder that is not grossly distended nor does he have hydronephrosis He has gram-negative bacilli growing in his urine and he has had a prior PE and is on Eliquis but has clear urine currently Allergies Allergy/AdvReac Type Severity Reaction Status Date / Time shrimp Allergy Anaphylaxis Verified 09/17/23 21:58 Home Medications Medication Instructions Recorded Confirmed Type escitalopram oxalate 10 mg tablet 10 mg PO QAM 11/27/17 09/17/23 History finasteride 5 mg tablet (Proscar) 5 mg PO QAM 11/18/21 09/17/23 History needle (disp) 18 G 18 gauge x 1 #4 ea 12/05/21 05/15/23 Rx 1/2" (BD Regular Bevel Steen) apixaban 5 mg tablet 5 mg PO BID 05/15/23 09/17/23 History furosemide 20 mg tablet 20 mg PO 3XWK 05/15/23 09/17/23 History metoprolol succinate 25 mg 12.5 mg PO QAM 05/15/23 09/17/23 History tablet,extended release 24 hr spironolactone 25 mg tablet 25 mg PO QAM 05/15/23 09/17/23 History tryptophan 500 mg capsule 1,500 mg PO HS 05/15/23 09/17/23 History acetaminophen 500 mg tablet 1,000 mg PO Q6H PRN Pain 09/17/23 09/17/23 History empagliflozin 10 mg tablet 10 mg PO QAM 09/17/23 09/17/23 History (Jardiance) levothyroxine 150 mcg tablet 150 mcg PO 5XWK 09/17/23 09/17/23 History levothyroxine 150 mcg tablet 225 mcg PO 2XWK 09/17/23 09/17/23 History sacubitril 97 mg-valsartan 103 mg 1 tab PO AMHS 09/17/23 09/17/23 History tablet (Entresto) tamsulosin 0.4 mg capsule 0.4 mg PO QAM 09/17/23 09/17/23 History terazosin 10 mg capsule 10 mg PO HS 09/17/23 09/17/23 History Patient History Medical History Hypertension Social History Smoking Status: Never smoker Second Hand Exposure: No; Do You Dip or Chew Tobacco: No; Tobacco Cessation Education Requested by Patient: No Hx Alcohol Use: No Hx Substance Use: No Preferred Language: Hungarian Communication Ability: Effective Retail Area Manager Required: No Beliefs That Will Affect Care: None Current Living Situation: Alone Other Information That Helps Us Care for You: No Feels Safe at Home: Yes Safety Concerns: Feels Safe At This Time Assistive Devices: Glasses and Walker Review of Systems Constitutional: + fatigue and + malaise; no fever and no chills Eyes: no worsening vision Ear, Nose, Mouth, Throat: no facial pain and no pain with swallowing Respiratory: no cough and no dyspnea Cardiovascular: no chest pain and no palpitations Gastrointestinal: no abdominal pain, no nausea and no vomiting Genitourinary: + as per Subjective / HPI Musculoskeletal: no back pain Integumentary: no rash and no urticaria Neurologic: no gait abnormality and no unsteadiness Psychiatric: no behavioral changes and no depression Endocrine: no fatigue Physical Exam Constitutional: well developed and well nourished Respiratory: no respiratory distress Cardiovascular: Extremities: no pedal edema Gastrointestinal (Abdomen): Inspection/Auscultation: abdomen normal to inspection Results & Data Vital Signs (Past 12 Hours) Vital Signs Temp Pulse Pulse Resp BP BP Pulse Ox 09/18/23 07:24 36.8 C 56 L 18 122/53 L 94 09/18/23 02:46 36.7 C 55 L 16 145/65 H 95 09/18/23 00:37 63 09/18/23 00:37 09/18/23 00:21 09/18/23 00:21 37.4 C 43 L 18 154/68 H 93 09/17/23 23:33 38 L 17 96 09/17/23 23:27 42 L 19 96 09/17/23 23:01 126/62 09/17/23 23:00 39 L 18 95 O2 Del Method O2 Del Method 09/18/23 07:24 Room Air 09/18/23 02:46 Room Air 09/18/23 00:37 09/18/23 00:37 Room Air 09/18/23 00:21 Room Air 09/18/23 00:21 Room Air 09/17/23 23:33 09/17/23 23:27 09/17/23 23:01 09/17/23 23:00 PG Care Time/CCT Total # of Minutes Spent Total Time Spent with Patient: Total time spent is greater than 50% in coordination of care (as documented) at patient's floor/unit and/or counseling patient: Coding Level of Care Code 19263 IN/OBS CONSULT LVL 4,60M Diagnoses Acute UTI N39.0 Benign prostatic hyperplasia (BPH) with straining on urination N40.1; R39.16
--- NOTE | 2023-09-18 11:06 | Cardiology Consultation ---
Date of Consultation September 18, 2023 Assessment & Plan (1) UTI (urinary tract infection): (2) Bacteremia: (3) Bradycardia: (4) HFrEF (heart failure with reduced ejection fraction): (5) Hypertensive heart disease: (6) Aortic valve sclerosis: (7) Aortic root dilatation: (8) History of pulmonary embolism: Plan Urinary tract infection/bacteremia. As per Hospitalist. Discontinue/avoid Jardiance (SGLT2 inhibitors) hereinafter Bradycardia. Hold metoprolol succinate 12.5 mg/day. Avoid all AV lynn blockers. Maintain telemetry. Permanent pacemaker implantation likely needed at some point though currently contraindicated due to bacteremia. Systolic congestive heart failure, HFrEF. Resting echocardiography on September 05, 2023 with LVEF 50 to 55%. Volume status is compensated. Continue guideline directed medical therapy with the exception of holding evidence-based beta-b locker and discontinuation of Jardiance. Longstanding hypertension, hypertensive heart disease. Blood pressure acceptably controlled. Follow. Supervising Physician Co-Signing Physician Notes I have personally performed a history and physical examination on the patient. I have reviewed the advance practitioner's documentation, and I agree with, and take responsibility for the plan of care. 83-year-old male admitted with urinary tract infection and gram-negative bacteremia. Cardiology consultation requested due to sinus bradycardia. Beta- antonio placed on hold patient without lightheadedness, dizziness, syncope, or near syncope. 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 He will likely require permanent pacemaker implantation at some point in the future. No urgent indication for pacemaker implantation at this time. Continue telemetry monitoring during hospitalization. Discontinue Jardiance due to UTI. Continue other evidence- based heart failure therapies including Entresto and spironolactone. I spent a total of 40 minutes on the date of service in preparation, delivery, and documentation of the care provided to this patient, excluding any time spent in the performance of separately billed services. Rahsid Gage DO, [facility] History of Present Illness Reason for Consultation: Bradycardia Requesting Physician: Dr. Gramajo Attending Physician: Dr. Eugenio MD History of Present Illness Mr. Hector Pastrana is a very pleasant 83 year old male who presented to the [facility] ER on 09/17/2023 with weakness, nausea and vomiting, decreased oral intake, low grade fever. Urinalysis markedly abnormal. Clean catch urine culture and blood culture with gram negative bacilli. Zosyn prescribed. Gentle IV hydration administered in the ER. Jardiance initiated mid July 2023. Cardiology consultation requested due to observed bradycardia with initial EKG revealing sinus bradycardia at 47 bpm with a first degree AV block, LAD, non-specific intraventricular conduction block, LVH, diffuse ST-T wave abnormality. Metoprolol succinate 12.5 mg/day placed on hold. Telemetry with sinus bradycardia into the 30's overnight, currently asymptomatic in the mid 40s. Daughter at bedside. Feeling better today. Denies chest pain, palpitations, or unusual shortness of breath. No orthopnea, PND, or peripheral edema. No dizziness, near syncope, or true syncope. Problem List: Longstanding hypertension, hypertensive heart disease Acute PE with mild RV dilation per echo 03/01/2023, on Eliquis Acute systolic CHF (LVEF 40-44%) in the setting of acute illness with traumatic hemothorax, diaphragmatic rupture, splenic laceration, and PE, 02/2023 Aortic sclerosis without stenosis with associated mild murmur Aortic roto and proximal ascending thoracic aortic dilation History of papillary thyroid carcinoma status post thyroidectomy Prediabetes Pancreatic cyst Anxiety state Social History. Reformed smoker. No alcohol. No illegal drug use. . Lives alone. Daughter lives right behind his home. Family History. Father had CHF. Brother had prostate cancer. Brother had NH. Sister has hypertension. Allergies Allergy/AdvReac Type Severity Reaction Status Date / Time shrimp Allergy Anaphylaxis Verified 09/17/23 21:58 Home Medications Medication Instructions Recorded Confirmed Type escitalopram oxalate 10 mg tablet 10 mg PO QAM 11/27/17 09/17/23 History finasteride 5 mg tablet (Proscar) 5 mg PO QAM 11/18/21 09/17/23 History needle (disp) 18 G 18 gauge x 1 #4 ea 12/05/21 05/15/23 Rx 1/2" (BD Regular Bevel [place]) apixaban 5 mg tablet 5 mg PO BID 05/15/23 09/17/23 History furosemide 20 mg tablet 20 mg PO 3XWK 05/15/23 09/17/23 History metoprolol succinate 25 mg 12.5 mg PO QAM 05/15/23 09/17/23 History tablet,extended release 24 hr spironolactone 25 mg tablet 25 mg PO QAM 05/15/23 09/17/23 History tryptophan 500 mg capsule 1,500 mg PO HS 05/15/23 09/17/23 History acetaminophen 500 mg tablet 1,000 mg PO Q6H PRN Pain 09/17/23 09/17/23 History empagliflozin 10 mg tablet 10 mg PO QAM 09/17/23 09/17/23 History (Jardiance) levothyroxine 150 mcg tablet 150 mcg PO 5XWK 09/17/23 09/17/23 History levothyroxine 150 mcg tablet 225 mcg PO 2XWK 09/17/23 09/17/23 History sacubitril 97 mg-valsartan 103 mg 1 tab PO AMHS 09/17/23 09/17/23 History tablet (Entresto) tamsulosin 0.4 mg capsule 0.4 mg PO QAM 09/17/23 09/17/23 History terazosin 10 mg capsule 10 mg PO HS 09/17/23 09/17/23 History Patient History Medical History Hypertension Social History Smoking Status: Never smoker Second Hand Exposure: No; Do You Dip or Chew Tobacco: No; Tobacco Cessation Education Requested by Patient: No Hx Alcohol Use: No Hx Substance Use: No Preferred Language: Lao Communication Ability: Effective Director Of [employer] Required: No Beliefs That Will Affect Care: None Current Living Situation: Alone Other Information That Helps Us Care for You: No Feels Safe at Home: Yes Safety Concerns: Feels Safe At This Time Assistive Devices: Walker Review of Systems Review of Systems: Complete Review of Systems is as stated above, negative, or noncontributory. Physical Exam Physical Exam: General: A&Ox3. NAD. HENT: Normocephalic. Atraumatic. Eyes: PER. Conjunctiva pink, sclera clear. Neck: No JVD. No HJR. Chest: 6-8 cm left sided cyst Heart: Regular at 50 bpm. Grade II/ systolic ejection murmur. No diastolic murmur. Lungs: Clear to auscultation. Abdomen: +BS. Soft. Nontender. No masses or organomegaly. Extremities: Trivial edema. No clubbing. No cyanosis. Limited neurological examination is without focal deficits. Pulses: radial=2/4, posterior tibial=2/4. Results & Data Vital Signs (Past 12 Hours) Vital Signs Temp Pulse Pulse Resp BP Pulse Ox O2 Del Method 09/18/23 07:24 36.8 C 56 L 18 122/53 L 94 Room Air 09/18/23 02:46 36.7 C 55 L 16 145/65 H 95 Room Air 09/18/23 00:37 63 09/18/23 00:37 Room Air 09/18/23 00:21 09/18/23 00:21 37.4 C 43 L 18 154/68 H 93 Room Air 09/17/23 23:33 38 L 17 96 09/17/23 23:27 42 L 19 96 O2 Del Method 09/18/23 07:24 09/18/23 02:46 09/18/23 00:37 09/18/23 00:37 09/18/23 00:21 Room Air 09/18/23 00:21 09/17/23 23:33 09/17/23 23:27 Laboratory Results Cardiac Enzymes 09/17/23 09/18/23 Range/Units 20:16 06:04 AST 12 L (13-39) U/L Troponin I High Sens 15.6 41.0 H D (0-20) pg/ml Coagulation 09/17/23 Range/Units 20:16 PT 11.4 (9.0-12.0) Seconds CBC 09/17/23 09/18/23 Range/Units 20:16 06:04 WBC 11.20 H 10.70 (4.8-10.8) K/ul RBC 4.20 L 4.05 L (4.70-6.10) M/uL Hgb 13.3 L 12.7 L (14.0-18.0) g/dl Hct 39.4 L 37.8 L (42.0-52.0) % Plt Count 202 174 (130-400) K/uL Neut # (Auto) 9.61 H 8.94 H (1.40-6.50) K/uL Lymph # (Auto) 0.59 L 0.59 L (1.20-3.40) K/uL [place] # (Auto) 0.95 H 1.13 H (0.11-0.59) K/uL Eos # (Auto) 0.00 0.00 (0.00-0.50) K/uL Baso # (Auto) 0.01 0.01 (0.00-0.20) K/uL Comprehensive Metabolic Panel 09/17/23 09/18/23 Range/Units 20:16 06:04 Sodium 138 137 (136-145) mmol/L Potassium 4.4 3.9 (3.5-5.1) mmol/L Chloride 107 109 H (98-107) mmol/L Carbon Dioxide 23 22 (21-32) mmol/L BUN 38 H 38 H (6-23) mg/dl Creatinine 1.08 1.16 (0.6-1.4) mg/dl Glucose 181 H 103 H (70-99(Fasting)) mg/dl Calcium 8.6 7.8 L (8.6-10.3) mg/dl AST 12 L (13-39) U/L ALT 10 (7-52) U/L Alkaline Phosphatase 56 (34-104) U/L Total Protein 6.3 (6.0-8.3) gm/dl Albumin 3.5 (3.4-5.0) gm/dl Intake and Output 09/17/23 09/18/23 09/18/23 22:59 06:59 14:59 Intake Total 370 / 710 340 / 710 100 / 100 Output Total 350 / 350 Balance 370 / 360 -10 / 360 99 / 99 Intake: IV 370 / 470 100 / 470 100 / 100 PANTOprazole 80 mg In Dextrose 120 / 120 5% 100 ml @ 480 mls/hr IV ONE STA Rx#:[id number] Piperacillin/Tazobactam 4.5 gm 100 / 100 In Dextrose 5% Mini-B 100 ml @ 25 mls/hr IV Q8H ASIF Rx#: [id number] Piperacillin/Tazobactam 4.5 gm 100 / 100 In 100 ml @ 200 mls/hr IV NOW ONE Rx#:[id number] Sodium Chloride 0.9% 250 ml @ 250 / 250 999 mls/hr IV .Q16M ONE Rx#: [id number] Oral 240 / 240 Output: Urine 350 / 350 # Bowel Movements Other: Weight 93.1 kg 91.172 kg Weight Measurement Method [facility] in [facility] Diagnostic Findings September 05, 2023 TTE Interpretation Summary (as per Dr. Tan): A small (<5 mm) circumferential pericardial effusion is noted. The qualitative LV ejection fraction is 50-54% (normal). The LV wall thickness is moderately increased (concentric). The left ventricular wall motion is normal. The left atrium is moderately enlarged (42-48 ml/m^2). The left ventricular diastolic function is mildly abnormal (grade I). Mild tricuspid regurgitation is present. There is no evidence of pulmonary hypertension. The aortic root is mildly enlarged, 4.0 cm. The proximal ascending thoracic aorta is mildly enlarged, 4.1 cm.
[2023-09-18] MEDS: CEFEPIME 2,000 MG in SYRINGE 0 ML IV SCH (12:23)
--- NOTE | 2023-09-18 13:07 | Hospitalist Progress Note ---
Date of Service September 18, 2023 Assessment & Plan (1) Acute UTI: Plan: 83-year-old male with past medical history significant for prediabetes, papillary thyroid carcinoma, pancreatic cyst, left hemothorax, acute pulmonary embolism, systolic CHF, hypertension, closed fracture of multiple ribs of left side, anxiety, insomnia, lives alone at home and ambulates with a walker and daughter lives close by was brought in because of fever, dysuria, N,V,weakness for 1-2 days [employer] and in the ER he was found to have bradycardia and also found to have UTI. Pt denied blurry vision, sore throat, difficulty swallowing, chest pain, sob, cough. Patient had black stools but took Pepto-Bismol the day [employer] and Hemoccult was negative in the ER. As per daughter when he had PE he had to be left flighted to Home and is on Eliquis. He is being managed for the following: Acute UTI Bacteremia, gram-negative bacilli Patient presenting with complaints of dysuria and fever for 1 to 2 days [employer] Associated symptoms for weakness, nausea, vomiting. Admitting CTAP reviewed, prostatomegaly noted, enlarged heart noted, left inguinal hernia noted, small hiatal hernia noted. CT head with no acute finding. Follow admitting blood culture and urine culture. Started until seen 09/16, since to cefepime 09/17. DC Jardiance. ID consult, repeat blood culture tomorrow a.m. Advance diet as tolerated, will DC IV fluid after 1 bag. Bradycardia: Lyme screen negative, will hold metoprolol. Continue telemetry. Cardiology evaluated, permanent pacemaker implantation likely needed at some point. Chronic systolic CHF Echo on 09/05/2023 which showed EF of 50 to 54%. Previous echo on 03/29/2023 EF 45%. Echo on 03/01/23 showed EF of 40% Holding metoprolol for bradycardia. Resume Lasix and spironolactone from AM. held due to n,v. c/w Entresto. DC Jardiance. Will monitor for volume overload. Prediabetes: follow HbA1c levels and sliding scale. History of PE: on Eliquis. Continue. Questionable black stools: likely 2/2 peptobismol use [employer]. Hemoccult was negative in the ER. will monitor H&H Other chronic medical conditions: Continue with/resume home meds as and when able Hypertensioncontinue Entresto, terazosin, diuretics. Holding metoprolol BPH: Continue Flomax and terazosin and finasteride. CT abdomen pelvis showing severe prostatomegaly with significant mass effect on the base of bladder and bladder outlet obstruction. discussed with urology, no acute intervention, recommends 14 days of atb therapy for uti. Hypothyroidism: Continue home Synthroid Anxiety: Continue home Lexapro DVT prophylaxis: Patient already on Eliquis Disposition: Continue telemetry monitoring. PT/OT. CM to assist with DC planning. Full code Admission and Anticipated Discharge Date Admission Date: September 17, 2023 Subjective patient was seen and examined at bedside. Patient was lying in bed, on room air, resting comfortably, not in any acute distress. Patient reports improvement in his fever and dysuria, feels much better, reports his strength slowly getting better. Patient reports eating okay, moving bowels okay. Patient's daughter at bedside who was also updated on plan of care and answered all her question. She voiced understanding and was agreeable to plan of care. Physical Exam Physical Exam: General-Not in distress Head- atraumatic Eyes- PERRL. ENT- oropharynx clear Neck- supple, no JVD. Lungs- clear to auscultation no wheezing or crackles. Heart- regular rate and rhythm; no murmur, no gallop. bradycardia Abdomen- normal bowel sounds, soft, nontender, no distension. Extremities- no pretibial edema, no erythema seen. Neuro- alert, oriented PERRL, ; no facial palsy; no dysarthria; moves extremities. Results & Data Results & Data Vital Signs (Past 12 Hours) Vital Signs Temp Pulse Resp BP Pulse Ox O2 Del Method 09/18/23 11:12 36.4 C L 43 L 18 129/67 95 Room Air 09/18/23 07:24 36.8 C 56 L 18 122/53 L 94 Room Air 09/18/23 02:46 36.7 C 55 L 16 145/65 H 95 Room Air
[2023-09-18] MEDS: ONDANSETRON INJ 2 MG/ML 2 ML VIAL IV PRN (18:11)
[2023-09-18] MEDS: FAMOTIDINE 20 MG TAB PO SCH (20:16)
[2023-09-18] MEDS: TERAZOSIN HCL 5 MG CAP PO SCH (20:17)
[2023-09-18] MEDS ORDERED: TRYPTOPHAN 500 MG PO SCH (21:00)
--- NOTE | 2023-09-19 06:30 | Electrocardiogram Report ---
Test Reason : Blood Pressure : / mmHG Vent. Rate : 047 BPM Atrial Rate : 047 BPM P-R Int : 260 ms QRS Dur : 130 ms QT Int : 464 ms P-R-T Axes : 080 -44 109 degrees QTc Int : 410 ms Sinus bradycardia with 1st degree A-V block Left axis deviation Non-specific intra-ventricular conduction block Minimal voltage criteria for LVH, may be normal variant ( Ramiro product ) T wave abnormality, consider lateral ischemia Abnormal ECG When compared with ECG of 28-FEB-2023 11:47, Premature ventricular complexes are no longer Present MI interval has increased Minimal criteria for Septal infarct are no longer Present T wave inversion now evident in Lateral leads Confirmed by Beto Schwartz ([id number]) on 09/19/2023 6:30:29 AM Referred By: Confirmed By:Beto Schwartz
--- NOTE | 2023-09-19 06:45 | Electrocardiogram Report ---
Test Reason : Blood Pressure : / mmHG Vent. Rate : 052 BPM Atrial Rate : 052 BPM P-R Int : 294 ms QRS Dur : 122 ms QT Int : 528 ms P-R-T Axes : 021 -49 -19 degrees QTc Int : 492 ms Sinus bradycardia with 1st degree A-V block Left anterior fascicular block T wave abnormality, consider inferolateral ischemia Non-specific intra-ventricular conduction block Abnormal ECG When compared with ECG of 17-SEP-2023 20:15, T wave inversion now evident in Inferolateral leads T wave inversion less evident in Lateral leads Confirmed by Beto Schwartz ([id number]) on 09/19/2023 6:44:44 AM Referred By: REFERRED SELF Confirmed By:Beto Schwartz
[2023-09-19] MEDS: FUROSEMIDE 20 MG TAB PO SCH (09:15)
[2023-09-19] MEDS: SPIRONOLACTONE 25 MG TAB PO SCH (09:16)
[2023-09-19 09:42] LABS: Hematocrit (blood only) 36.5 % (42.0-52.0); Hemoglobin 12.1 g/dl (14.0-18.0); Mean Corpuscular Hemoglobin 31.4 pg (25.0-34.0); Mean Corpuscular Hgb Conc 33.2 g/dL (32.0-36.0); Mean Corpuscular Volume 94.8 fL (80.0-100.0); Platelet Count 163 K/uL (130-400); RDW Coefficient of Variation 13.2 % (11.5-14.5); RDW Standard Deviation 46.4 fL (36.4-46.3); Red Blood Count 3.85 M/uL (4.70-6.10); White Blood Count 8.79 K/ul (4.8-10.8)
[2023-09-19 09:53] LABS: BUN Creatinine Ratio 33.3 (10-20); Calcium 7.5 mg/dl (8.6-10.3); Creatinine Clr Calc Pharmacy 51.2 ml/min; Est GFR (African American) 59.9 ml/min; Est GFR (Non-African American) 51.7 ml/min; Magnesium 2.1 mg/dl (1.7-2.4); Phosphorus 3.2 mg/dl (2.5-4.9); Potassium 3.7 mmol/L (3.5-5.1)
--- NOTE | 2023-09-19 10:07 | Cardiology Progress Note ---
Date of Service September 19, 2023 Assessment & Plan (1) UTI (urinary tract infection): (2) Bacteremia: (3) Bradycardia: (4) HFrEF (heart failure with reduced ejection fraction): (5) Hypertensive heart disease: (6) Aortic valve sclerosis: (7) Aortic root dilatation: (8) History of pulmonary embolism: Plan Urinary tract infection/bacteremia. As per Hospitalist. Discontinue/avoid Jardiance (SGLT2 inhibitors) hereinafter Bradycardia. Metoprolol succinate 12.5 mg/day held on admission. Continue to avoid all AV lynn blockers. Maintain telemetry. Permanent pacemaker implantation needed though currently contraindicated due to infection. Systolic congestive heart failure, HFrEF. Resting echocardiography on September 05, 2023 with LVEF 50 to 55%. Volume status is compensated. Continue guideline directed medical therapy with the exception of holding evidence-based beta-blo cker and discontinuation of Jardiance. Longstanding hypertension, hypertensive heart disease. Blood pressure mildly elevated. Add low dose hydralazine. Admission and Anticipated Discharge Date Admission Date: September 17, 2023 Supervising Physician Co-Signing Physician Notes I have personally performed a history and physical examination on the patient. I have reviewed the advance practitioner's documentation, and I agree with, and take responsibility for the plan of care. 83-year-old male admitted with urinary tract infection and gram-negative bacteremia. Beta-antonio discontinued on admission. Asymptomatic sinus bradycardia on telemetry. Patient denies lightheadedness, dizziness, or near syncope. Low-dose hydralazine added to improve blood pressure control. Continue other evidence-based heart failure therapies including Entresto and spironolactone. I spent a total of 25 minutes on the date of service in preparation, delivery, and documentation of the care provided to this patient, excluding any time spent in the performance of separately billed services. Rashid Gage DO, [facility] Subjective Patient seen and examined. Chart, medications, and telemetry reviewed. Sitting in bed reading a murder mystery book. Overall, feels much better today. GI upset has improved. No dizziness, lightheadedness, weakness, near syncope, chest pain, or palpitations Telemetry: Bradycardia into the 30s overnight, currently 50 bpm. Occasional PVC. EKG at 05:05:41 with marked sinus bradycardia with a first-degree AV block, 38 bpm. Left axis deviation. Nonspecific interventricular conduction block. Nonspecific T wave abnormality. Review of Systems Review of Systems: Complete Review of Systems is as stated above, negative, or noncontributory. Physical Exam Physical Exam: General: A&Ox3. NAD. HENT: Normocephalic. Atraumatic. Eyes: PER. Conjunctiva pink, sclera clear. Neck: No JVD. No HJR. Chest: + left sided cyst Heart: Regular at 50 bpm. Grade II/ systolic ejection murmur. No diastolic murmur. Lungs: Clear to auscultation. Abdomen: +BS. Soft. Nontender. No masses or organomegaly. Extremities: No edema. No clubbing. No cyanosis. Limited neurological examination is without focal deficits. Pulses: radial=2/4, posterior tibial=2/4. Results & Data Vital Signs (Past 12 Hours) Vital Signs Temp Pulse Pulse Resp BP BP Pulse Ox 09/19/23 07:25 36.6 C 55 L 19 156/67 H 94 09/19/23 03:31 36.4 C L 37 L 16 150/74 H 96 09/18/23 23:12 33 L 09/18/23 22:45 36.5 C 34 L 16 131/64 97 O2 Del Method O2 Flow Rate 09/19/23 07:25 Room Air 09/19/23 03:31 Nasal Cannula 2 09/18/23 23:12 09/18/23 22:45 Nasal Cannula 2 Laboratory Results Cardiac Enzymes 09/18/23 Range/Units 11:09 Troponin I High Sens 41.9 H (0-20) pg/ml CBC 09/19/23 Range/Units 09:12 WBC 8.79 (4.8-10.8) K/ul RBC 3.85 L (4.70-6.10) M/uL Hgb 12.1 L (14.0-18.0) g/dl Hct 36.5 L (42.0-52.0) % Plt Count 163 (130-400) K/uL Comprehensive Metabolic Panel 09/19/23 Range/Units 09:12 Sodium 135 L (136-145) mmol/L Potassium 3.7 (3.5-5.1) mmol/L Chloride 106 (98-107) mmol/L Carbon Dioxide 21 (21-32) mmol/L BUN 42 H (6-23) mg/dl Creatinine 1.26 (0.6-1.4) mg/dl Glucose 179 H (70-99(Fasting)) mg/dl Calcium 7.5 L (8.6-10.3) mg/dl Intake and Output 09/18/23 09/19/23 09/19/23 22:59 06:59 14:59 Intake Total 1340 / 2790 350 / 2790 Output Total 202 / 504 301 / 504 Balance 1138 / 2286 49 / 2286 Intake: Oral 1340 / 1690 350 / 1690 Output: Urine 200 / 200 Urine Amount (Catheter) 300 / 300 External 300 / 300 # Bowel Movements 2 / 4 Other: Weight 92.3 kg Weight Measurement Method Standing Scale
--- NOTE | 2023-09-19 10:51 | Hospitalist Progress Note ---
Date of Service September 19, 2023 Assessment & Plan (1) Acute UTI: Plan: 83-year-old male with past medical history significant for prediabetes, papillary thyroid carcinoma, pancreatic cyst, left hemothorax, acute pulmonary embolism, systolic CHF, hypertension, closed fracture of multiple ribs of left side, anxiety, insomnia, lives alone at home and ambulates with a walker and daughter lives close by was brought in because of fever, dysuria, N,V,weakness for 1-2 days [employer] and in the ER he was found to have bradycardia and also found to have UTI. Pt denied blurry vision, sore throat, difficulty swallowing, chest pain, sob, cough. Patient had black stools but took Pepto-Bismol the day [employer] and Hemoccult was negative in the ER. As per daughter when he had PE he had to be left flighted to [place] and is on Eliquis. He is being managed for the following: Acute UTI Bacteremia, gram-negative bacilli Patient presenting with complaints of dysuria and fever for 1 to 2 days [employer] Associated symptoms for weakness, nausea, vomiting. Admitting CTAP reviewed, prostatomegaly noted, enlarged heart noted, left inguinal hernia noted, small hiatal hernia noted. CT head with no acute finding. Follow admitting blood culture and urine culture. --> Urine c/s reviewed, Bl Cx pending. Started Zosyn 09/16, changed to cefepime 09/17. DC Jardiance. Spoke w/ ID furnace converter over the phone, cipro 500 bid x 7 day at [place]. Bradycardia: Lyme screen negative, will hold metoprolol. Continue telemetry. Cardiology evaluated, permanent pacemaker implantation likely needed at some point. f/u cardio on dc. Chronic systolic CHF Echo on 09/05/2023 which showed EF of 50 to 54%. Previous echo on 03/29/2023 EF 45%. Echo on 03/01/23 showed EF of 40% Holding metoprolol for bradycardia. c/w home Lasix and spironolactone c/w Entresto. DC Jardiance. Monitor for volume overload. Prediabetes: HbA1c -6.4 and c/w sliding scale. History of PE: on Eliquis. Continue. Questionable black stools: likely 2/2 peptobismol use [employer]. Hemoccult was negative in the ER. will monitor H&H Other chronic medical conditions: Continue with/resume home meds as and when able Hypertensioncontinue Entresto, terazosin, diuretics. Holding metoprolol BPH: Continue Flomax and terazosin and finasteride. CT abdomen pelvis showing severe prostatomegaly with significant mass effect on the base of bladder and bladder outlet obstruction. discussed with urology 09/17, no acute intervention. Hypothyroidism: Continue home Synthroid Anxiety: Continue home Lexapro DVT prophylaxis: Patient already on Eliquis Disposition: Continue telemetry monitoring. PT/OT. CM to assist with DC planning. likely will need rehab. Full code Admission and Anticipated Discharge Date Admission Date: September 17, 2023 Subjective Patient was seen and examined at bedside. Patient was lying in bed, on room air, resting comfortably, not in any acute distress. Reading book. Denies nausea and vomiting. Patient reports improvement in his fever and dysuria, feels much better, reports his strength slowly getting better. Patient reports eating okay, moving bowels okay. Physical Exam Physical Exam: General-Not in distress Head- atraumatic Eyes- PERRL. ENT- oropharynx clear Neck- supple, no JVD. Lungs- clear to auscultation no wheezing or crackles. Heart- regular rate and rhythm; no murmur, no gallop. bradycardia Abdomen- normal bowel sounds, soft, nontender, no distension. Extremities- no pretibial edema, no erythema seen. Neuro- alert, oriented PERRL, ; no facial palsy; no dysarthria; moves extremities. Results & Data Results & Data Vital Signs (Past 12 Hours) Vital Signs Temp Pulse Pulse Resp BP BP Pulse Ox 09/19/23 07:25 36.6 C 55 L 19 156/67 H 94 09/19/23 03:31 36.4 C L 37 L 16 150/74 H 96 09/18/23 23:12 33 L 09/18/23 22:45 36.5 C 34 L 16 131/64 97 O2 Del Method O2 Flow Rate 09/19/23 07:25 Room Air 09/19/23 03:31 Nasal Cannula 2 09/18/23 23:12 09/18/23 22:45 Nasal Cannula 2
[2023-09-19] MEDS: POTASSIUM CHLORIDE CRTAB 20 MEQ TABCR PO ONE (11:39)
[2023-09-19] MEDS: hydrALAZINE 10 MG TAB PO SCH (11:39)
[2023-09-20 06:26] LABS: Creatinine Clr Calc Pharmacy 61.5 ml/min; Est GFR (African American) 74.7 ml/min; Est GFR (Non-African American) 64.4 ml/min
--- NOTE | 2023-09-20 07:33 | Electrocardiogram Report ---
Test Reason : Blood Pressure : / mmHG Vent. Rate : 038 BPM Atrial Rate : 038 BPM P-R Int : 258 ms QRS Dur : 126 ms QT Int : 526 ms P-R-T Axes : 018 -44 -41 degrees QTc Int : 418 ms Marked sinus bradycardia with 1st degree A-V block Left axis deviation Non-specific intra-ventricular conduction block Nonspecific T wave abnormality Abnormal ECG When compared with ECG of 18-SEP-2023 05:17, T wave inversion no longer evident in Anterolateral leads Confirmed by Beto Schwartz ([id number]) on 09/20/2023 7:33:20 AM Referred By: REFERRED SELF Confirmed By:Beto Schwartz
--- NOTE | 2023-09-20 08:38 | Cardiology Progress Note ---
Date of Service September 20, 2023 Assessment & Plan (1) UTI (urinary tract infection): (2) Bacteremia: (3) Bradycardia: (4) HFrEF (heart failure with reduced ejection fraction): (5) Hypertensive heart disease: (6) Aortic valve sclerosis: (7) Aortic root dilatation: (8) History of pulmonary embolism: Plan Urinary tract infection/bacteremia. As per Hospitalist. Discontinue/avoid Jardiance (SGLT2 inhibitors) hereinafter Bradycardia. Metoprolol succinate 12.5 mg/day held on admission. Avoid all AV lynn blockers. Maintain telemetry. Permanent pacemaker implantation needed though currently contraindicated due to infection. Systolic congestive heart failure, HFrEF. Resting echocardiography on September 05, 2023 with LVEF 50 to 55%. Compensated. Continue guideline directed medical therapy with the exception of holding evidence-based beta-antonio and discontinuation of Jardiance. Longstanding hypertension, hypertensive heart disease. Hydralazine added 09/18, dosing increased 09/19 Admission and Anticipated Discharge Date Admission Date: September 17, 2023 Supervising Physician Co-Signing Physician Notes I have personally performed a history and physical examination on the patient. I have reviewed the advance practitioner's documentation, and I agree with, and take responsibility for the plan of care. 83-year-old male admitted with urinary tract infection and gram-negative bacteremia. Beta-antonio discontinued on admission. Asymptomatic sinus bradycardia on telemetry. Low-dose hydralazine added to improve blood pressure control. Jardiance discontinued due to urinary tract infection. Continue other evidence-based heart failure therapies including Entresto and spironolactone. No urgent indication for pacemaker implantation at this time. Will arrange outpatient cardiology follow-up. Patient will monitor for any lightheadedness, dizziness, syncope, or near syncope. Cardiology will sign off. Please call with additional concerns/questions. I spent a total of 25 minutes on the date of service in preparation, delivery, and documentation of the care provided to this patient, excluding any time spent in the performance of separately billed services. Rashid Gage DO, [facility] Subjective Patient seen and examined. Chart, medications, and telemetry reviewed. Feeling better today. No chest discomfort, palpitations, shortness of breath, cough, chest congestion, orthopnea, PND, edema, dizziness, lightheadedness, nausea, vomiting, or diarrhea. Telemetry: Currently sinus bradycardia in the 50's. Heart rates down into the 30's overnight. Occasional PVC. Review of Systems Review of Systems: Complete Review of Systems is as stated above, negative, or noncontributory. Physical Exam Physical Exam: General: A&Ox3. NAD. HENT: Normocephalic. Atraumatic. Eyes: PER. Conjunctiva pink, sclera clear. Neck: No JVD. Chest: + left sided cyst Heart: Regular at 56 bpm. Grade II/ systolic ejection murmur. No diastolic murmur. Lungs: Clear to auscultation. Abdomen: +BS. Soft. Nontender. No masses or organomegaly. Extremities: No edema. No clubbing. No cyanosis. Limited neurological examination is without focal deficits. Pulses: radial=2/4, posterior tibial=2/4. Results & Data Vital Signs (Past 12 Hours) Vital Signs Temp Pulse Pulse Resp BP BP Pulse Ox 09/20/23 07:52 40 L 09/20/23 07:17 36.5 C 42 L 22 164/71 H 97 09/20/23 03:17 36.7 C 47 L 16 169/70 H 94 09/20/23 00:00 O2 Del Method O2 Del Method 09/20/23 07:52 09/20/23 07:17 Room Air 09/20/23 03:17 Room Air 09/20/23 00:00 Nasal Cannula Laboratory Results CBC 09/19/23 Range/Units 09:12 WBC 8.79 (4.8-10.8) K/ul RBC 3.85 L (4.70-6.10) M/uL Hgb 12.1 L (14.0-18.0) g/dl Hct 36.5 L (42.0-52.0) % Plt Count 163 (130-400) K/uL Comprehensive Metabolic Panel 09/19/23 09/20/23 Range/Units 09:12 05:18 Sodium 135 L (136-145) mmol/L Potassium 3.7 (3.5-5.1) mmol/L Chloride 106 (98-107) mmol/L Carbon Dioxide 21 (21-32) mmol/L BUN 42 H (6-23) mg/dl Creatinine 1.26 1.05 (0.6-1.4) mg/dl Glucose 179 H (70-99(Fasting)) mg/dl Calcium 7.5 L (8.6-10.3) mg/dl Intake and Output 09/19/23 09/20/23 09/20/23 22:59 06:59 14:59 Intake Total 1950 / 2100 150 / 2100 Output Total 600 / 950 350 / 950 Balance 1350 / 1150 -200 / 1150 Intake: Oral 1950 / 2100 150 / 2100 Output: Urine 600 / 600 Urine Amount (Catheter) 350 / 350 External 350 / 350 Other: Weight 93.1 kg Weight Measurement Method Standing Scale
[2023-09-20] MEDS: hydrALAZINE 10 MG TAB PO ONE (10:20)
[2023-09-20] MEDS: hydrALAZINE HCL 25 MG TAB PO SCH (10:20)
--- NOTE | 2023-09-20 14:50 | Hospitalist Progress Note ---
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 Pt denied blurry vision, sore throat, difficulty swallowing, chest pain, sob, cough. 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 As per daughter when he had PE he had to be left flighted to [place] and is on Eliquis. 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 Admitting CTAP reviewed, prostatomegaly noted, enlarged heart noted, left inguinal hernia noted, small hiatal hernia noted. CT head with no acute finding. Follow admitting blood culture and urine culture. --> Urine c/s reviewed, Bl Cx reviewed. Started Zosyn 09/16, changed to cefepime 09/17. DC Jardiance. Spoke w/ ID ribbon blockmaker over the phone 09/18 , cipro 500 bid x 7 day at [place]. Bradycardia: Lyme screen negative, will hold metoprolol. Continue telemetry. Cardiology evaluated, permanent pacemaker implantation likely needed at some point. f/u cardio on dc. Chronic systolic CHF Echo on 09/05/2023 which showed EF of 50 to 54%. Previous echo on 03/29/2023 EF 45%. Echo on 03/01/23 showed EF of 40% Holding metoprolol for bradycardia. c/w home Lasix and spironolactone c/w Entresto. DC Jardiance. Monitor for volume overload. Prediabetes: HbA1c -6.4 and c/w sliding scale. History of PE: on Eliquis. Continue. 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 Hemoccult was negative in the ER. will monitor H&H Other chronic medical conditions: Continue with/resume home meds as and when able Hypertensioncontinue Entresto, terazosin, diuretics. DC metoprolol.hydralazine added. BPH: Continue Flomax and terazosin and finasteride. CT abdomen pelvis showing severe prostatomegaly with significant mass effect on the base of dee dder and bladder outlet obstruction. discussed with urology 09/17, no acute intervention. Hypothyroidism: Continue home Synthroid Anxiety: Continue home Lexapro DVT prophylaxis: Patient already on Eliquis Disposition: Continue telemetry monitoring. PT/OT. CM to assist with DC planning. likely will need rehab. Full code Admission and Anticipated Discharge Date Admission Date: September 17, 2023 Subjective Patient was seen and examined at bedside. Patient was lying in bed, on room air, resting comfortably, not in any acute distress. Reading book. Denies nausea and vomiting. Patient reports improvement in his fever and dysuria, feels much better, reports his strength slowly getting better. Patient reports eating okay, moving bowels okay. Physical Exam Physical Exam: General-Not in distress Head- atraumatic Eyes- PERRL. ENT- oropharynx clear Neck- supple, no JVD. Lungs- clear to auscultation no wheezing or crackles. Heart- regular rate and rhythm; no murmur, no gallop. bradycardia Abdomen- normal bowel sounds, soft, nontender, no distension. Extremities- no pretibial edema, no erythema seen. Neuro- alert, oriented PERRL, ; no facial palsy; no dysarthria; moves extremities. Results & Data Results & Data Vital Signs (Past 12 Hours) Vital Signs Temp Pulse Pulse Resp BP BP Pulse Ox 09/20/23 10:31 36.5 C 51 L 20 122/75 94 09/20/23 07:52 40 L 09/20/23 07:17 36.5 C 42 L 22 164/71 H 97 09/20/23 03:17 36.7 C 47 L 16 169/70 H 94 O2 Del Method 09/20/23 10:31 Room Air 09/20/23 07:52 09/20/23 07:17 Room Air 09/20/23 03:17 Room Air
[2023-09-21 07:47] LABS: Creatinine Clr Calc Pharmacy 67.2 ml/min; Est GFR (African American) 83.2 ml/min; Est GFR (Non-African American) 71.8 ml/min
--- NOTE | 2023-09-21 13:54 | Hospitalist Progress Note ---
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 Pt denied blurry vision, sore throat, difficulty swallowing, chest pain, sob, cough. Patient had black stools but took Pepto-Bismol the day BELT BRANDER and Hemoccult was negative in the ER. As per daughter when he had PE he had to be left flighted to [place] and is on Eliquis. 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 Admitting CTAP reviewed, prostatomegaly noted, enlarged heart noted, left inguinal hernia noted, small hiatal hernia noted. CT head with no acute finding. Follow admitting blood culture and urine culture. --> Urine c/s reviewed, Bl Cx reviewed. Started Zosyn 09/16, changed to cefepime 09/17. DC Jardiance. Spoke w/ ID paper conservator over the phone 09/18 , 7 day therapy for both uti and bacteremia. D/w pharmacy 09/20, cipro relatively contraindicated give his bradycardia, for ease of regimen if patient were to discharge over the weekend, will put him on ertapenem which is once a day dose [currently on cefepime]. Complete 7 day therapy w/ antibiotic. Bradycardia: Lyme screen negative, DC metoprolol. Continue telemetry. Cardiology evaluated, permanent pacemaker implantation likely needed at some point. f/u cardio on dc. Chronic systolic CHF Echo on 09/05/2023 which showed EF of 50 to 54%. Previous echo on 03/29/2023 EF 45%. Echo on 03/01/23 showed EF of 40% Holding metoprolol for bradycardia. c/w home Lasix and spironolactone c/w Entresto. DC Jardiance. Monitor for volume overload. Prediabetes: HbA1c -6.4 and c/w sliding scale. History of PE: on Eliquis. Continue. 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 Hemoccult was negative in the ER. will monitor H&H Other chronic medical conditions: Continue with/resume home meds as and when able Hypertensioncontinue Entresto, terazosin, diuretics. DC metoprolol.hydralazine added. BPH: Continue Flomax and terazosin and finasteride. CT abdomen pelvis showing severe prostatomegaly with significant mass effect on the base of bladder and bladder outlet obstruction. discussed with urology 09/17, no acute intervention. Hypothyroidism: Continue home Synthroid Anxiety: Continue home Lexapro DVT prophylaxis: Patient already on Eliquis Disposition: Continue telemetry monitoring. PT/OT. CM to assist with DC planning. likely will need rehab. Full code Admission and Anticipated Discharge Date Admission Date: September 17, 2023 Subjective Patient was seen and examined at bedside. Patient was lying in bed, on room air, resting comfortably, not in any acute distress. Reading book. Denies nausea and vomiting. Patient reports improvement in his fever and dysuria, feels much better, reports his strength slowly getting better. Patient reports eating okay, moving bowels okay. Physical Exam Physical Exam: General-Not in distress Head- atraumatic Eyes- PERRL. ENT- oropharynx clear Neck- supple, no JVD. Lungs- clear to auscultation no wheezing or crackles. Heart- regular rate and rhythm; no murmur, no gallop. bradycardia Abdomen- normal bowel sounds, soft, nontender, no distension. Extremities- no pretibial edema, no erythema seen. Neuro- alert, oriented PERRL, ; no facial palsy; no dysarthria; moves extremities. Results & Data Results & Data Vital Signs (Past 12 Hours) Vital Signs Temp Pulse Pulse Resp BP BP Pulse Ox 09/21/23 10:39 36.5 C 81 20 117/75 93 09/21/23 07:41 42 L 09/21/23 07:04 36.5 C 48 L 21 164/84 H 95 09/21/23 02:25 36.8 C 41 L 16 118/66 96 O2 Del Method 09/21/23 10:39 Room Air 09/21/23 07:41 09/21/23 07:04 Room Air 09/21/23 02:25 Room Air
[2023-09-21] MEDS: ERTAPENEM SODIUM 1,000 MG in SYRINGE 0 ML IV SCH (14:25)
[2023-09-22] MEDS: LEVOTHYROXINE SODIUM 75 MCG TABLET PO SCH (06:07)
[2023-09-22 06:13] LABS: Hematocrit (blood only) 37.6 % (42.0-52.0); Hemoglobin 12.6 g/dl (14.0-18.0); Mean Corpuscular Hemoglobin 30.9 pg (25.0-34.0); Mean Corpuscular Hgb Conc 33.5 g/dL (32.0-36.0); Mean Corpuscular Volume 92.2 fL (80.0-100.0); Platelet Count 208 K/uL (130-400); Red Blood Count 4.08 M/uL (4.70-6.10); White Blood Count 7.08 K/ul (4.8-10.8)
[2023-09-22 06:33] LABS: BUN Creatinine Ratio 30.2 (10-20); Calcium 7.5 mg/dl (8.6-10.3); Creatinine Clr Calc Pharmacy 67.2 ml/min; Est GFR (African American) 83.2 ml/min; Est GFR (Non-African American) 71.8 ml/min; Potassium 4.1 mmol/L (3.5-5.1)
--- NOTE | 2023-09-22 12:26 | Hospitalist Progress Note ---
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 Pt denied blurry vision, sore throat, difficulty swallowing, chest pain, sob, cough. Patient had black stools but took Pepto-Bismol the day WARDROBE STYLIST and Hemoccult was negative in the ER. As per daughter when he had PE he had to be left flighted to [place] and is on Eliquis. He is being managed for the following: Acute UTI Enterobacter bacteremia Chronic bladder outlet obstruction --CT ABD:Severe prostatomegaly redemonstrated. Prostate measures 9.9 cm AP, 9.1 cm transverse, and 9.3 cm in height. Significant mass-effect on the base of the urinary bladder. Large mass-effect from the enlarged prostate with small bladder diverticula. There is also abnormal thickening of the anterior aspect of the urinary bladder wall, unchanged. Findings are characteristic for chronic bladder outlet obstruction. Enlarged heart, unchanged. Small pericardial effusion and severe coronary artery calcifications noted as well. Left inguinal hernia containing portion of large bowel again demonstrated, unchanged in appearance. There is no transition point or bowel dilatation to suggest obstruction. Small hiatal hernia. There is a very small fluid at the left aspect of the hiatal hernia, and this may represent an ulcer. -- Blood, urine culture grew Enterobacter --Repeat blood cultures pending --Initially on Zosyn>> transition to cefepime on 09/18/23>> on ertapenem from 09/21/2023 Jardiance discontinued Plan to complete 7-10 day course of antibiotics Bradycardia: Lyme screen negative Metoprolol discontinued Avoid AV lynn blocking agents as able Appreciate cardiology input Will likely need pacemaker placement eventually Needs follow-up with cardiology on discharge Chronic systolic CHF Echo on 09/05/2023 which showed EF of 50 to 54%. Previous echo on 03/29/2023 EF 45%. Metoprolol, Jardiance discontinued Continue Entresto, Lasix, spironolactone Monitor volume status No signs of volume overload currently Prediabetes: HbA1c -6.4 Continue insulin per protocol Monitor BGs H/O PE: Continue Eliquis Questionable black stools: likely due to peptobismol use WARDROBE STYLIST. Hemoccult negative Monitor CBC Other chronic medical conditions: Continue with/resume home meds as and when able Hypertensioncontinue Entresto, terazosin, diuretics. Added hydralazine BPH: Continue Flomax and terazosin and finasteride. Prior hospitalist discussed with urology 09/17, no acute intervention. Hypothyroidism: Continue levothyroxine Anxiety: Continue Lexapro DVT Px: Eliquis CODE STATUS Full code Disposition Rehab as able Admission and Anticipated Discharge Date Admission Date: September 17, 2023 Subjective Patient is seen and examined at bedside Sitting in chair comfortably during my encounter Offers no new complaints today Denies any chest pain, dyspnea, nausea, vomiting, abdominal pain Review of Systems Review of Systems: All systems reviewed & are unremarkable except as noted in Subjective Physical Exam Physical Exam: Physical Exam: Vitals signs as noted above General Appearance:Moderately built and nourished, no apparent distress Head: normocephalic, Atraumatic Eyes: normal inspection, EOMI Neck: supple, Trachea midline Respiratory/Chest: Normal breath sounds, CTA, No accessory muscle use Cardiovascular: S1, S2, + murmur Abdomen/GI:Soft, Non tender, Bowel sounds present Extremities/Musculoskeletal:normal inspection, no edema Neurologic/Psych:AAOX3, grossly no focal neurological deficits Skin: normal color, warm Results & Data Results & Data Vital Signs (Past 12 Hours) Vital Signs Temp Pulse Pulse Resp BP BP Pulse Ox 09/22/23 11:13 36.6 C 62 18 130/84 97 09/22/23 07:32 47 L 09/22/23 06:56 36.5 C 48 L 17 160/85 H 94 09/22/23 03:12 36.8 C 44 L 18 168/81 H 94 O2 Del Method 09/22/23 11:13 Room Air 09/22/23 07:32 09/22/23 06:56 Room Air 09/22/23 03:12 Room Air Laboratory Results Short CBC 09/22/23 Range/Units 05:41 WBC 7.08 (4.8-10.8) K/ul Hgb 12.6 L (14.0-18.0) g/dl Hct 37.6 L (42.0-52.0) % Plt Count 208 (130-400) K/uL [facility] 09/22/23 05:41 Sodium 138 Potassium 4.1 Chloride 110 H Carbon Dioxide 23 BUN 29 H Creatinine 0.96 Glucose 98 Calcium 7.5 L
[2023-09-23 08:50] LABS: BUN Creatinine Ratio 27.8 (10-20); Calcium 7.8 mg/dl (8.6-10.3); Creatinine Clr Calc Pharmacy 71.7 ml/min; Est GFR (African American) 89.9 ml/min; Est GFR (Non-African American) 77.6 ml/min; Potassium 4.1 mmol/L (3.5-5.1)
--- NOTE | 2023-09-23 13:18 | Hospitalist Progress Note ---
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 Pt denied blurry vision, sore throat, difficulty swallowing, chest pain, sob, cough. Patient had black stools but took Pepto-Bismol the day LATHE TENDER and Hemoccult was negative in the ER. As per daughter when he had PE he had to be left flighted to [place] and is on Eliquis. He is being managed for the following: Acute UTI Enterobacter bacteremia Chronic bladder outlet obstruction --CT ABD:Severe prostatomegaly redemonstrated. Prostate measures 9.9 cm AP, 9.1 cm transverse, and 9.3 cm in height. Significant mass-effect on the base of the urinary bladder. Large mass-effect from the enlarged prostate with small bladder diverticula. There is also abnormal thickening of the anterior aspect of the urinary bladder wall, unchanged. Findings are characteristic for chronic bladder outlet obstruction. Enlarged heart, unchanged. Small pericardial effusion and severe coronary artery calcifications noted as well. Left inguinal hernia containing portion of large bowel again demonstrated, unchanged in appearance. There is no transition point or bowel dilatation to suggest obstruction. Small hiatal hernia. There is a very small fluid at the left aspect of the hiatal hernia, and this may represent an ulcer. -- Blood, urine culture grew Enterobacter --Repeat blood cultures: negative to date --Initially on Zosyn>> transition to cefepime on 09/18/23>> on ertapenem from 09/21/2023 Jardiance discontinued Plan to complete 7-10 day course of antibiotics Waiting for rehab placement Bradycardia: Lyme screen negative Metoprolol discontinued Avoid AV lynn blocking agents as able Appreciate cardiology input Will likely need pacemaker placement eventually Needs close follow-up with cardiology on discharge Chronic systolic CHF Echo on 09/05/2023 which showed EF of 50 to 54%. Previous echo on 03/29/2023 EF 45%. Metoprolol, Jardiance discontinued Continue Entresto, Lasix, spironolactone Monitor volume status No signs of volume overload currently Prediabetes: HbA1c -6.4 Continue insulin per protocol Monitor BGs H/O PE: Continue Eliquis Questionable black stools: likely due to Peptobismol use LATHE TENDER. Hemoccult negative Monitor CBC No recurrence of black stools Other chronic medical conditions: Continue with/resume home meds as and when ab le Hypertensioncontinue Entresto, terazosin, diuretics. Added hydralazine BPH: Continue Flomax and terazosin and finasteride. Prior hospitalist discussed with urology 09/17, no acute intervention. Hypothyroidism: Continue levothyroxine Anxiety: Continue Lexapro DVT Px: Eliquis CODE STATUS Full code Disposition Rehab when accepted Admission and Anticipated Discharge Date Admission Date: September 17, 2023 Subjective Patient is seen and examined at bedside Had transient tachycardia on exertion yesterday No recurrence overnight Discussed with cardiology today Patient subjectively feels well today Denies any chest pain, dyspnea, nausea, vomiting, abdominal pain Waiting for rehab placement Review of Systems Review of Systems: All systems reviewed & are unremarkable except as noted in Subjective Physical Exam Physical Exam: Physical Exam: Vitals signs as noted above General Appearance:Moderately built and nourished, no apparent distress Head: normocephalic, Atraumatic Eyes: normal inspection, EOMI Neck: supple, Trachea midline Respiratory/Chest: Normal breath sounds, CTA, No accessory muscle use Cardiovascular: S1, S2, + murmur, bradycardia Abdomen/GI:Soft, Non tender, Bowel sounds present Extremities/Musculoskeletal:normal inspection, no edema Neurologic/Psych:AAOX3, grossly no focal neurological deficits Skin: normal color, warm Results & Data Results & Data Vital Signs (Past 12 Hours) Vital Signs Temp Pulse Pulse Resp BP BP Pulse Ox 09/23/23 11:12 36.5 C 61 20 117/80 96 09/23/23 08:05 52 L 09/23/23 07:26 36.7 C 50 L 19 170/83 H 96 09/23/23 02:40 36.5 C 53 L 16 142/89 H 95 O2 Del Method 09/23/23 11:12 Room Air 09/23/23 08:05 09/23/23 07:26 Room Air 09/23/23 02:40 Room Air Laboratory Results BMP 09/23/23 08:00 Sodium 138 Potassium 4.1 Chloride 108 H Carbon Dioxide 25 BUN 25 H Creatinine 0.90 Glucose 151 H Calcium 7.8 L
[2023-09-24 08:39] LABS: Hematocrit (blood only) 39.6 % (42.0-52.0); Hemoglobin 13.3 g/dl (14.0-18.0); Mean Corpuscular Hgb Conc 33.6 g/dL (32.0-36.0); Mean Corpuscular Volume 92.3 fL (80.0-100.0); Mean Platelet Volume 10.6 fL (9.4-12.4); Platelet Count 269 K/uL (130-400); RDW Standard Deviation 43.8 fL (36.4-46.3); Red Blood Count 4.29 M/uL (4.70-6.10); White Blood Count 7.48 K/ul (4.8-10.8)
[2023-09-24 09:00] LABS: BUN Creatinine Ratio 26.7 (10-20); Calcium 8.1 mg/dl (8.6-10.3); Creatinine Clr Calc Pharmacy 75.1 ml/min; Est GFR (African American) 91.6 ml/min; Est GFR (Non-African American) 79.1 ml/min; Magnesium 2.1 mg/dl (1.7-2.4); Potassium 4.2 mmol/L (3.5-5.1)
--- NOTE | 2023-09-24 13:42 | Hospitalist Progress Note ---
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 He is being managed for the following: Acute UTI Enterobacter bacteremia Chronic bladder outlet obstruction --CT ABD:Severe prostatomegaly redemonstrated. Prostate measures 9.9 cm AP, 9.1 cm transverse, and 9.3 cm in height. Significant mass-effect on the base of the urinary bladder. Large mass-effect from the enlarged prostate with small bladder diverticula. There is also abnormal thickening of the anterior aspect of the urinary bladder wall, unchanged. Findings are characteristic for chronic bladder outlet obstruction. Enlarged heart, unchanged. Small pericardial effusion and severe coronary artery calcifications noted as well. Left inguinal hernia containing portion of large bowel again demonstrated, unchanged in appearance. There is no transition point or bowel dilatation to suggest obstruction. Small hiatal hernia. There is a very small fluid at the left aspect of the hiatal hernia, and this may represent an ulcer. -- Blood, urine culture grew Enterobacter --Repeat blood cultures: negative to date --Initially on Zosyn>> transition to cefepime on 09/18/23>> on ertapenem from 09/21/2023 Jardiance discontinued Plan to complete 7-10 day course of antibiotics Waiting for rehab placement Bradycardia: Lyme screen negative Metoprolol discontinued Avoid AV lnyn blocking agents as able Appreciate cardiology input Will likely need pacemaker placement eventually Needs close follow-up with cardiology on discharge Chronic systolic CHF Echo on 09/05/2023 which showed EF of 50 to 54%. Previous echo on 03/29/2023 EF 45%. 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 Hemoccult negative Monitor CBC No recurrence of black stools Other chronic medical conditions: Continue with/resume home meds as and when able Hypertensioncontinue Entresto, terazosin, diuretics. Added hydralazine BPH: Continue Flomax and terazosin and finasteride. Prior hospitalist discussed with urology 09/17, no acute intervention. Hypothyroidism: Continue levothyroxine Anxiety: Continue Lexapro DVT Px: Eliquis CODE STATUS Full code Disposition Rehab when accepted Please note the above document was generated using voice recognition software. It may contain grammatical, syntax or spelling errors. Any formal questions or concerns about the content, text or information contained within the body of this dictation should be directly addressed to the provider for clarification Admission and Anticipated Discharge Date Admission Date: September 17, 2023 Subjective Patient is seen and examined at bedside He is comfortably sitting up on the chair; not in distress He reports generalized fatigue and tiredness Review of Systems Review of Systems: All systems reviewed & are unremarkable except as noted in Subjective Physical Exam Physical Exam: Physical Exam: Vitals signs as noted above General Appearance:Moderately built and nourished, no apparent distress Head: normocephalic, Atraumatic Eyes: normal inspection, EOMI Neck: supple, Trachea midline Respiratory/Chest: Normal breath sounds, CTA, No accessory muscle use Cardiovascular: S1, S2, + murmur, bradycardia Abdomen/GI:Soft, Non tender, Bowel sounds present Extremities/Musculoskeletal:normal inspection, no edema Neurologic/Psych:AAOX3, grossly no focal neurological deficits Skin: normal color, warm Results & Data Results & Data Vital Signs (Past 12 Hours) Vital Signs Temp Pulse Resp BP Pulse Ox O2 Del Method 09/24/23 10:44 36.3 C L 82 18 125/88 94 Room Air 09/24/23 07:34 36.5 C 53 L 18 154/77 H 92 Room Air 09/24/23 02:37 36.6 C 50 L 16 156/91 H 96 Room Air
--- NOTE | 2023-09-25 14:13 | Hospitalist Progress Note ---
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 He is being managed for the following: Acute UTI Enterobacter bacteremia Chronic bladder outlet obstruction --CT ABD:Severe prostatomegaly redemonstrated. Prostate measures 9.9 cm AP, 9.1 cm transverse, and 9.3 cm in height. Significant mass-effect on the base of the urinary bladder. Large mass-effect from the enlarged prostate with small bladder diverticula. There is also abnormal thickening of the anterior aspect of the urinary bladder wall, unchanged. Findings are characteristic for chronic bladder outlet obstruction. Enlarged heart, unchanged. Small pericardial effusion and severe coronary artery calcifications noted as well. Left inguinal hernia containing portion of large bowel again demonstrated, unchanged in appearance. There is no transition point or bowel dilatation to suggest obstruction. Small hiatal hernia. There is a very small fluid at the left aspect of the hiatal hernia, and this may represent an ulcer. -- Blood, urine culture grew Enterobacter --Repeat blood cultures: negative to date --Initially on Zosyn>> transition to cefepime on 09/18/23>> on ertapenem from 09/21/2023 Jardiance discontinued Completed 7-day antibiotic course Waiting for rehab placement Bradycardia: Lyme screen negative Metoprolol discontinued Avoid AV lynn blocking agents as able Appreciate cardiology input Will likely need pacemaker placement eventually Needs close follow-up with cardiology on discharge Chronic systolic CHF Echo on 09/05/2023 which showed EF of 50 to 54%. Previous echo on 03/29/2023 EF 45%. 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 Hemoccult negative Monitor CBC No recurrence of black stools Other chronic medical conditions: Continue with/resume home meds as and when able Hypertensioncontinue Entresto, terazosin, diuretics. Added hydralazine BPH: Continue Flomax and terazosin and finasteride. Prior hospitalist discussed with urology 09/17, no acute intervention. Hypothyroidism: Continue levothyroxine Anxiety: Continue Lexapro DVT Px: Eliquis CODE STATUS Full code Disposition Peer to peer done on September 25, 2023 for acute rehab. Rejected. Discussed with patient's daughter. Family appeal in progress Please note the above document was generated using voice recognition software. It may contain grammatical, syntax or spelling errors. Any formal questions or concerns about the content, text or information contained within the body of this dictation should be directly addressed to the provider for clarification Admission and Anticipated Discharge Date Admission Date: September 17, 2023 Subjective Patient seen and examined at bedside. He is comfortable; not in distress. He is sitting up on the chair; reports slight weakness. No significant events overnight Review of Systems Review of Systems: All systems reviewed & are unremarkable except as noted in Subjective Physical Exam Physical Exam: Physical Exam: Vitals signs as noted above General Appearance:Moderately built and nourished, no apparent distress Respiratory/Chest: Normal breath sounds, CTA, No accessory muscle use Cardiovascular: S1, S2, + murmur, bradycardia Abdomen/GI:Soft, Non tender, Bowel sounds present Extremities/Musculoskeletal:normal inspection, no edema Neurologic/Psych:AAOX3, grossly no focal neurological deficits Skin: normal color, warm Results & Data Results & Data Vital Signs (Past 12 Hours) Vital Signs Temp Pulse Pulse Resp BP BP Pulse Ox 09/25/23 11:01 36.6 C 61 17 133/78 96 09/25/23 08:07 51 L 09/25/23 07:41 37.3 C 52 L 17 161/77 H 93 09/25/23 02:43 36.6 C 52 L 17 148/77 H 95 O2 Del Method 09/25/23 11:01 Room Air 09/25/23 08:07 09/25/23 07:41 Room Air 09/25/23 02:43 Room Air
--- NOTE | 2023-09-26 15:16 | Hospitalist Progress Note ---
Date of Service September 26, 2023 Assessment & Plan (1) HFrEF (heart failure with reduced ejection fraction): (2) Benign prostatic hyperplasia (BPH) with straining on urination: (3) UTI (urinary tract infection): Plan: Completed antibiotic treatment (4) Bacteremia: Plan: Completed antibiotics, surveillance culture sterile (5) Bradycardia, drug induced: (6) Diabetes mellitus: Plan: Diet control (7) Hypothyroid: Plan Patient with Enterococcus UTI and bacteremia completed course of antibiotics here in the hospital. His bradycardia has improved with holding the metoprolol and his heart failure seems stabilized on his goal-directed medical therapy. Continue to hold metoprolol due to significant bradycardia. Patient continue to work with therapies. Phone conversation with patient's daughter, updated her on his current medical status. She is waiting to hear back on I family appeal to insurance company for rehab Discussed that if they do not approve rehab probably home with home health care. Daughter is also attempting to line up additional care at home Continue other current medications Continue working with therapy Antonietta Ochoa Admission and Anticipated Discharge Date Admission Date: September 17, 2023 Subjective Patient feels well. Ambulating halls. Really would like to get home. Physical Exam Physical Exam: Constitutional: Alert HEENT: Mucous membranes moist. Lungs: Clear to auscultation, decreased, no wheezes rales or rhonchi CV: S1-S2, regular Abdomen: Soft, nontender, nondistended Extremities: No significant edema Neuro: No focal deficits Psych: Cooperative, normal mood Results & Data Results & Data Vital Signs (Past 12 Hours) Vital Signs Temp Pulse Pulse Resp BP BP Pulse Ox 09/26/23 13:56 36.5 C 72 16 131/80 94 09/26/23 11:38 36.7 C 85 18 114/74 96 09/26/23 10:12 09/26/23 07:26 36.4 C L 52 L 18 159/78 H 95 09/26/23 07:11 50 L 09/26/23 03:34 36.6 C 53 L 18 157/80 H 95 O2 Del Method 09/26/23 13:56 Room Air 09/26/23 11:38 Room Air 09/26/23 10:12 Room Air 09/26/23 07:26 Room Air 09/26/23 07:11 09/26/23 03:34 Room Air Diagnostic Findings Reviewed imaging, laboratory and diagnostic studies. Pertinent findings as below. Glucose 131 Reviewed most recent EKG Reviewed most recent cardiology recommendations
[2023-09-27 07:55] LABS: BUN Creatinine Ratio 25.8 (10-20); Calcium 8.3 mg/dl (8.6-10.3); Creatinine Clr Calc Pharmacy 66.5 ml/min; Est GFR (African American) 82.2 ml/min; Est GFR (Non-African American) 70.9 ml/min; Potassium 4.8 mmol/L (3.5-5.1)
--- NOTE | 2023-09-27 09:04 | Discharge Summary ---
Date of Service September 27, 2023 Admission HPI Per Admitting Provider 83-year-old male with past medical history significant for prediabetes, history of papillary thyroid carcinoma, pancreatic cyst, history of left hemothorax, history of acute pulmonary embolism, history of systolic CHF, hypertension, closed fracture of multiple ribs of left side, history of anxiety state, insomnia, lives alone at home and ambulates with a walker and daughter lives close by was brought in because of weakness and also nausea vomiting and in the ER he was found to have bradycardia and also found to have UTI. As per daughter yesterday patient was feeling very weak having difficulty getting up from the bed and last night he had nausea vomiting but today when he woke up was doing okay. But later in the evening again he developed nausea and in the bathroom he felt like falling down and he was holding on the sink and called his daughter. When daughter came he seemed very stiff and weak and brought him to the ER. Resting comfortably. Bradycardia on monitor. Family is in the room. Today had a fever as per daughter. Denies any headache. When he was in the bathroom when he felt like falling down felt dizzy at that time. No blurred vision. No headache. No runny nose. No sore throat. No cough. No difficulty swallowing. Denies any chest pain or shortness of breath. Earlier complained of some left lower quad abdominal pain as per daughter but currently patient denies any pain. No burning micturition. No hematuria. Patient had black stools but took Pepto-Bismol yesterday and Hemoccult was negative in the ER. As per daughter when he had PE he had to be left flighted to [place] and is on Eliquis. Past medical history. As mentioned above past surgical history. Anesthesia for bladder surgery. Removal of thyroid tumor. Bilateral cataracts. Social history. . Lives alone. Daughter lives close by. Quit smoking 1965. No alcohol use. No drug use. Family history. Father had CHF. Brother had prostate cancer. Brother had NE. Sister has hypertension. Admission Exam Per Admitting Provider See H&P Principal Diagnosis UTI with bacteremia Discharge Exam Constitutional: Alert HEENT: Mucous membranes moist. Lungs: Clear to auscultation, decreased, no wheezes rales or rhonchi CV: S1-S2, regular Abdomen: Soft, nontender, nondistended Extremities: No significant edema Neuro: No focal deficits, some generalized weakness Psych: Cooperative, normal mood Discharge Data Allergies Allergy/AdvReac Type Severity Reaction Status Date / Time shrimp Allergy Anaphylaxis Verified 09/17/23 21:58 Consultations 09/17/23 21:58 ED Decision to Admit Stat 09/18/23 00:21 Consult Cardiology Routine 09/18/23 08:24 Consult Urology Routine Ordered Studies 09/17/23 20:41 CT abd pelvis IV con only Stat CT head/brain wo con Stat Reviewed imaging, laboratory and diagnostic studies. Pertinent findings as below. Initial urine and blood culture grew out Enterobacter, surveillance blood cultures sterile Hospital Course (1) HFrEF (heart failure with reduced ejection fraction): (2) Benign prostatic hyperplasia (BPH) with straining on urination: (3) UTI (urinary tract infection): Completed antibiotic treatment (4) Bacteremia: Completed antibiotics, surveillance culture sterile (5) Bradycardia, drug induced: (6) Diabetes mellitus: Diet control (7) Hypothyroid: Plan Patient was cared for in the hospital. Placed on broad-spectrum antibiotics. Antibiotics were narrowed once the Enterobacter was identified. Patient also had significant heart failure. Was given some diuresis. Also noted to be quite bradycardic. Cardiology consultation was obtained. They recommended discontinuing his beta-antonio. With the discontinuation of the metoprolol his heart rate improved and remained controlled. With holding his metoprolol his heart rate significantly improved. During his hospitalization urology was also consulted. They recommended treating his urinary tract infection and discontinuing the Jardiance. They will follow-up with him outpatient. Jardiance was also discontinued due to the fact that he was having some hypoglycemic episodes. Through the course of his hospitalization his strength started to improve. He completed a course of antibiotics for his infection and bacteremia. Surveillance blood cultures remain sterile. Care management was involved and attempted to get him to rehabilitation center for some ongoing rehabilitation however this cannot be arranged. Family has subsequently arra nged for him to have home health care and home care providers. On the day of discharge his vital signs are stable. Heart rate was stable. Lungs were clear. Heart was rate was controlled. He was up and ambulating with his walker. He will be discharged home to follow-up with his outpatient providers. Home Health Attestation I certify that this patient is under my care and that I, or a physicians business banking sales assistant working with me, had a face to-face encounter that meets the home health [id number] encounter requirements with this patient. The encounter with the patient was in whole, or in part, for the following medical condition, which is the primary reason for home health care (list medical condition): I certify that, based on my findings, the following services are medically necessary home health services: My clinical findings support the need for the above services because: Further, I certify that my clinical findings support that this patient is homebound (i.e. absences from home require considerable and taxing effort and are for medical reasons or [facility]eterian services or infrequently or of short duration when for other reasons) because: Certification for Home Health Services: Based on the above findings, I certify that this patient is confined to the home and needs intermittent long term care, physical therapy and/or speech therapy or continues to need occupational therapy. The patient is under my care, and I have initiated the establishment of the plan of care. This patient will be followed by a physician who will periodically review the plan of care. Total Time Total Time Spent Total Time Spent (In Minutes): 28 Discharge Plan Discharge Items Patient Disposition: Home - Home Health Services Reason For Visit: WEAKNESS, UTI, BRADYCARDIA Discharge Diagnosis: Urinary tract infection Heart failure Activity: As commented below Activity Comment: Gradually increase activity as tolerated, recommend using assistive device Non-emergency contact: Primary Care Provider and Intravenous Therapy Nurse Call non-emergency contact if: you have any medication questions and your symptoms worsen Follow-up/Referrals: Maxim Ward [Physician Senior Ui Ux Designer] - Linda Rendon DO [Primary Care Provider] - Diet: Heart Healthy Fluids: 1800ml (7 cups) Addtl Attending Provider Instructions: Walk with assistive device Pending Studies at Discharge: No Stand-Alone Forms: My [employer], Smoking Cessation Medications and DC Order Prescriptions: New hydralazine 25 mg Tablet 25 mg PO TID 30 Days Qty: 90 0RF Continued (DME) BD Regular Bevel Kermit 18 gauge x 1 1/2" needle See Rx Instructions .Route Qty: 4 0RF Rx Instructions: As directed finasteride [Proscar] 5 mg tablet 5 mg PO QAM tryptophan 500 mg capsule 1,500 mg PO HS Rx Instructions: administer with or after a low-protein/high carbohydrate snack. furosemide 20 mg tablet 20 mg PO 3XWK Rx Instructions: TAKE THIS MED EVERY SUNDAY/SUNDAY & SUNDAY IN THE AM. apixaban 5 mg tablet 5 mg PO BID spironolactone 25 mg tablet 25 mg PO QAM escitalopram oxalate 10 mg tablet 10 mg PO QAM levothyroxine 150 mcg tablet 150 mcg PO 5XWK Rx Instructions: 150MCG SUNDAY THRU SUNDAY IN THE MORNING, AT LEAST 30 MINUTES PRIOR TO BREAKFAST OR OTHER MEDS. levothyroxine 150 mcg Tablet 225 mcg PO 2XWK Rx Instructions: TAKE 1.5 TABLET( 225MCG) EVERY SUNDAY AND SUNDAY, AT LEAST 30 MINUTES PRIOR TO BREAKFAST OR OTHER MEDS. acetaminophen 500 mg Tablet 1,000 mg PO Q6H PRN (Reason: Pain) Entresto 97-103 mg tablet 1 tab PO AMHS tamsulosin 0.4 mg capsule 0.4 mg PO QAM terazosin 10 mg capsule 10 mg PO HS Discontinued metoprolol succinate 25 mg tablet extended release 24 hr 12.5 mg PO QAM Jardiance 10 mg tablet 10 mg PO QAM Discharge Orders: Discharge Order (Routine); Ordered 09/27/23 Ordered By: Krunal Mcqueen/Other Patient Handouts: A1C Admission Data Admit Date/Time: 09/17/23 23:05 Attending Provider: Krunal Pan Admit Provider: Pepe Gramajo Primary Care Provider: Linda Rendon Other Providers: [facility]; Pepe Gramajo; Conor Kaba; Isauro Meyer; Von Robles; Shazia Schlute; Lamont Phillips; Felisha Jha; Dawn Perez; Enrique Cui; Megha Ray; Rashid Odom; Melquiades William; Neeraj Chau
== END 2023-09-27 11:33 | disposition home health service (06) | DRG 690 ==
LOC: ED 20:11 → SUATTDRO 23:05 → 2S 23:05 → 3N 09-26 17:48

== ENCOUNTER 2023-10-03 14:27 | Inpatient (IN) ==
[2023-10-03] MEDS: SODIUM CHLORIDE 0.9% 1,000 ML IV ONE (15:13)
[2023-10-03 15:16] LABS: Basophils # (auto) 0.02 K/uL (0.00-0.20); Basophils % (auto) 0.2 %; Eosinophils # (auto) 0.06 K/uL (0.00-0.50); Eosinophils % (auto) 0.6 %; Hematocrit (blood only) 36.5 % (42.0-52.0); Hemoglobin 12.2 g/dl (14.0-18.0); Immature Granulocytes # (auto) 0.04 K/uL (0.01-0.20); Immature Granulocytes % (auto) 0.4 %; Lymphocytes % (auto) 11.1 %; Mean Corpuscular Hemoglobin 30.9 pg (25.0-34.0); Mean Corpuscular Hgb Conc 33.4 g/dL (32.0-36.0); Mean Corpuscular Volume 92.4 fL (80.0-100.0); Mean Platelet Volume 11.2 fL (9.4-12.4); Monocytes # (auto) 0.87 K/uL (0.11-0.59); Monocytes % (auto) 8.8 %; Neutrophils # (auto) 7.85 K/uL (1.40-6.50); Neutrophils % (auto) 78.9 %; Platelet Count 297 K/uL (130-400); RDW Coefficient of Variation 13.2 % (11.5-14.5); RDW Standard Deviation 45.1 fL (36.4-46.3); Red Blood Count 3.95 M/uL (4.70-6.10); White Blood Count 9.94 K/ul (4.8-10.8)
[2023-10-03 15:17] LABS: Base Excess VBG -2.6 mEq/L; HCO3 VBG 20 mmol/L; Oxygen Saturation VBG 98.5 %; PCO2 VBG 28 mmHg (38-50); PO2 VBG 86 mmHg; pH VBG 7.46 (7.36-7.41)
--- NOTE | 2023-10-03 15:22 | XRay Report ---
XR chest 1V portable CLINICAL HISTORY: Sepsis TECHNIQUE: Single frontal radiograph of the chest was obtained. Comparison: Comparison is made to chest radiographs 01/18/[address] abdomen pelvis 09/17/2023 FINDINGS: No lines and tubes are seen. Cardiomegaly is noted. The lungs are clear. Blunting of the left costoph renic angle is seen compatible with previously noted subpleural fat. IMPRESSION: No evidence of pneumonia. ACT 112: Negative or not required by law. Electronically signed by: Matthieu Kelley M.D. 10/03/2023 3:21 PM
[2023-10-03 15:28] LABS: Albumin Level 3.4 gm/dl (3.4-5.0); Bilirubin Direct 0.2 mg/dl (0-0.2); Bilirubin,Total 0.6 mg/dl (0.2-1.0); Calcium 8.9 mg/dl (8.6-10.3); Creatinine Clr Calc Pharmacy 64.5 ml/min; Est GFR (African American) 79.2 ml/min; Est GFR (Non-African American) 68.3 ml/min; Magnesium 1.9 mg/dl (1.7-2.4); Potassium 4.4 mmol/L (3.5-5.1); Total Protein 6.1 gm/dl (6.0-8.3)
--- NOTE | 2023-10-03 15:28 | Emergency Department Note ---
Impression & Plan Syncope and collapse ED Provider Note HISTORY OF PRESENT ILLNESS: Patient is an 83-year-old male presenting after an unresponsive episode. Patient's daughter provides most of history. Reports that she was getting the patient out of the car into a wheelchair to go to a follow-up hospital discharge appointment, when the patient had his eyes rolled back into the back of his head, his head fall backwards and he became unresponsive. The episode lasted for about 15 seconds. She wheeled him into the clinic and he was evaluated by staff at the clinic. She states that he came to and was slightly confused. He has never had anything like this before. Patient did have a mechanical fall from standing 48 hours ago. Patient reports he went to waste picker a piece of scrap paper on the ground when he leaned over and tripped over his walker. He reports that he landed on his arms. Denies striking his head or loss of consciousness. He was able to get up on his own and get back to a recliner. He is on Eliquis. He states that he feels slightly nauseous currently. He did feel slightly lightheaded earlier today. Denies any chest pain or shortness of breath. Denies any abdominal pain, nausea or vomiting. He does report that 72 hours ago he had about 24 hours of diarrhea. He is not currently on any antibiotics. He was previously admitted to the hospital about 1 week ago for sepsis and UTI. ROS: as above PHYSICAL EXAM: Constitutional: Patient appears in no acute distress. HENT: Head: Normocephalic and atraumatic. Eyes: EOMI, PERRL Mouth/Throat: Mucous membranes moist. Neck: Trachea midline. Neck supple. Cardiovascular: RRR, No murmurs, rubs or gallops. Intact distal pulses. Pulmonary/Chest: No respiratory distress. Breath sounds clear and equal bilaterally. No wheezes or rales. Abdominal: Abdomen soft, no tenderness, rebound or guarding. Musculoskeletal: No edema, tenderness or deformity noted. Skin: Warm and dry. No rash, erythema, pallor or cyanosis Psychiatric: Appropriate mood and affect for situation. Neurological: Alert and keenly responsive. CN II-XII grossly intact, moving all extremities equally and fully. MDM: - Vitals signs showed hypotension. - History obtained via patient. History as above. - Chronic conditions affecting care: HFrEF; HTN; PE - Differential diagnoses include, but are not limited to: ACS; dysrhythmia; seizure; CVA; intracranial hemorrhage; electrolyte abnormality; UTI - Order placed for continuous cardiac monitoring. At this time, monitor showed rate of 87 bpm with normal sinus rhythm, per my interpretation. - External medical records reviewed. Discharge summary dated 09/27/2023 was reviewed. Patient was admitted at that time for UTI with bacteremia. - EKG interpreted by myself showed normal sinus rhythm. Rate 91 bpm. QT 396. No acute ischemic changes. - Laboratory workup interpreted by myself showed normal WBC; stable electrolytes; elevated BUN (29); normal troponin; elevated BNP; normal procalcitonin; normal lactate - VBG negative for acute hypercarbia - CT head wo contrast negative for acute abnormality - CXR negative for pneumonia, per my interpretation - Patient given 1L NS in ER. - UA ordered. - Blood cultures obtained. - Unclear etiology for patient's syncopal episode. However, story does sound concerning for true syncopal episode and given his age and risk factors, will admit to hospital service for further workup. - Discussion was had with outpatient case manager about patient's case and need for admission - Hospitalist consulted for admission - [facility] ASSESSMENT AND PLAN: Diagnosis: Syncope and collapse Plan: Admit Past Med/Surg History Problem List (Updated 10/03/23 @ 18:47 by Mireya Baptiste MD) Syncope and collapse (Acute) Hypothyroid Diabetes mellitus Bradycardia, drug induced History of pulmonary embolism Aortic root dilatation Aortic valve sclerosis Hypertensive heart disease HFrEF (heart failure with reduced ejection fraction) Bradycardia Bacteremia UTI (urinary tract infection) Benign prostatic hyperplasia (BPH) with straining on urination Weakness (Acute) Nausea & vomiting (Acute) Acute UTI (Acute) Vitamin D deficiency Fatigue Hyperthyroidism Fracture Post-surgical hypothyroidism Papillary thyroid carcinoma COVID-19 (Acute) Medical History Hypertension Social History Smoking Status: Never smoker Second Hand Exposure: No; Do You Dip or Chew Tobacco: No; Hx Alcohol Use: No Hx Substance Use: No Preferred Language: French Communication Ability: Effective Infrastructure Architect Required: No Beliefs That Will Affect Care: None Current Living Situation: Alone Feels Safe at Home: Yes Assistive Devices: Walker Allergies Allergies Allergy/AdvReac Type Severity Reaction Status Date / Time shrimp Allergy Severe Anaphylaxis Verified 10/03/23 17:08 Home Meds Home Medications Medication Instructions Recorded Confirmed escitalopram oxalate 10 mg tablet 10 mg PO QAM 11/27/17 10/03/23 finasteride 5 mg tablet (Proscar) 5 mg PO QAM 11/18/21 10/03/23 apixaban 5 mg tablet 5 mg PO BID 05/15/23 10/03/23 furosemide 20 mg tablet 20 mg PO 3XWK 05/15/23 10/03/23 spironolactone 25 mg tablet 25 mg PO QAM 05/15/23 10/03/23 tryptophan 500 mg capsule 1,500 mg PO HS 05/15/23 10/03/23 acetaminophen 500 mg tablet 1,000 mg PO Q6H PRN Pain 09/17/23 10/03/23 levothyroxine 150 mcg tablet 150 mcg PO 5XWK 09/17/23 10/03/23 levothyroxine 150 mcg tablet 225 mcg PO 2XWK 09/17/23 10/03/23 sacubitril 97 mg-valsartan 103 mg 1 tab PO AMHS 09/17/23 10/03/23 tablet (Entresto) tamsulosin 0.4 mg capsule 0.4 mg PO QAM 09/17/23 10/03/23 terazosin 10 mg capsule 10 mg PO HS 09/17/23 10/03/23 Previous Rx's Medication Instructions Recorded needle (disp) 18 G 18 gauge x 1 #4 ea 12/05/21 1/2" (BD Regular Bevel [place]) hydralazine 25 mg tablet 25 mg PO TID 30 days #90 tabs 09/27/23 Results & Data (ED) Vital Signs Vital Signs - 24 hr 10/03/23 14:31 10/03/23 16:30 10/03/23 18:03 Temperature 36.9 C Temperature Source Oral Pulse Rate - Lying 54 L Pulse Rate - Sitting 74 Pulse Rate - Standing 72 Pulse Rate 82 Pulse Rate [Finger] 87 Pulse Rhythm Regular Pulse Strength Normal Respiratory Rate 18 20 Respiratory Effort / Characteristics Non-Labored Respiratory Depth Normal Respiratory Pattern Regular Blood Pressure - Lying 189/100 H Blood Pressure - Sitting 153/88 H Blood Pressure- Standing 153/82 H Blood Pressure 97/63 L Blood Pressure [Right Arm] 154/92 H Blood Pressure Mean 74 Blood Pressure Mean [Right Arm] 112 Blood Pressure Position Sitting Pulse Oximetry 98 100 Oxygen Delivery Method Room Air Room Air Sepsis Recent Fever Within 48 Hours No Sepsis New/Unexplained Change in Mental Status No Sepsis Action Taken by Nursing No Action Required Laboratory Data 10/03/23 14:45 10/03/23 14:45 Lab Results 10/03/23 10/03/23 Range/Units 14:45 15:08 WBC 9.94 (4.8-10.8) K/ul RBC 3.95 L (4.70-6.10) M/uL Hgb 12.2 L (14.0-18.0) g/dl Hct 36.5 L (42.0-52.0) % MCV 92.4 (80.0-100.0) fL MCH 30.9 (25.0-34.0) pg MCHC 33.4 (32.0-36.0) g/dL RDW Std Deviation 45.1 (36.4-46.3) fL RDW Coeff of [place] 13.2 (11.5-14.5) % Plt Count 297 (130-400) K/uL MPV 11.2 (9.4-12.4) fL Immature Gran % (Auto) 0.4 % Neut % (Auto) 78.9 % Lymph % (Auto) 11.1 % Noble % (Auto) 8.8 % Eos % (Auto) 0.6 % Baso % (Auto) 0.2 % Neut # (Auto) 7.85 H (1.40-6.50) K/uL Lymph # (Auto) 1.10 L (1.20-3.40) K/uL Noble # (Auto) 0.87 H (0.11-0.59) K/uL Eos # (Auto) 0.06 (0.00-0.50) K/uL Baso # (Auto) 0.02 (0.00-0.20) K/uL Immature Gran # (Auto) 0.04 (0.01-0.20) K/uL PT 10.9 (9.0-12.0) Seconds INR 1.0 (0.9-1.1) VBG pH 7.46 H (7.36-7.41) VBG pCO2 28 L (38-50) mmHg VBG pO2 86 mmHg VBG HCO3 20 mmol/L VBG O2 Saturation 98.5 % VBG Base Excess -2.6 mEq/L Sodium 138 (136-145) mmol/L Potassium 4.4 (3.5-5.1) mmol/L Chloride 109 H (98-107) mmol/L Carbon Dioxide 20 L (21-32) mmol/L Anion Gap 9 (3-11) BUN 29 H (6-23) mg/dl Creatinine 1.00 (0.6-1.4) mg/dl Est Cr Clr Drug Dosing 64.5 ml/min Est GFR ( Amer) 79.2 ml/min Est GFR (Non-Af Amer) 68.3 ml/min BUN/Creatinine Ratio 29.0 H (10-20) Glucose 148 H (70-99(Fasting)) mg/dl Lactate 1.1 (0.4-2.0) mmol/L Calcium 8.9 (8.6-10.3) mg/dl Magnesium 1.9 (1.7-2.4) mg/dl Total Bilirubin 0.6 (0.2-1.0) mg/dl Direct Bilirubin 0.2 (0-0.2) mg/dl AST 13 (13-39) U/L ALT 11 (7-52) U/L Alkaline Phosphatase 57 (34-104) U/L Troponin I High Sens 10.9 (0-20) pg/ml B-Natriuretic Peptide 282 H (0-100) pg/ml Total Protein 6.1 (6.0-8.3) gm/dl Albumin 3.4 (3.4-5.0) gm/dl Procalcitonin 0.03 (0-0.5) ng/ml Administered Medications Discontinued Medications Sodium Chloride (Nss) 1,000 mls @ 999 mls/hr IV .Q1H1M ONE Stop: 10/03/23 15:42 Last Infusion: 10/03/23 16:49 Dose: Infused Documented By: Admin: 10/03/23 15:13 Dose: 999 mls/hr Documented By: BRUNA Imaging Data Radiologist's Impression: Chest X-Ray 10/03/23 14:42 XR chest 1V portable CLINICAL HISTORY: Sepsis TECHNIQUE: Single frontal radiograph of the chest was obtained. Comparison: Comparison is made to chest radiographs 01/18/[address] abdomen pelvis 09/17/2023 FINDINGS: No lines and tubes are seen. Cardiomegaly is noted. The lungs are clear. Blunting of the left costophrenic angle is seen compatible with previously noted subpleural fat. IMPRESSION: No evidence of pneumonia. ACT 112: Negative or not required by law. Electronically signed by: Matthieu Kelley M.D. 10/03/2023 3:[address] 10/03/23 15:24 CT OF THE HEAD WITHOUT CONTRAST CLINICAL HISTORY: unresponsive episode COMPARISON STUDY: Head CT September 17, 2023. CT DOSE: 625.8 mGy.cm TECHNIQUE: Helical axial images of the head were obtained without IV contrast. Automated exposure control was utilized for the study. A dose lowering technique was utilized adhering to the principles of ALARA. FINDINGS: No acute intracranial hemorrhage, midline shift or mass effect is present. The ventricular system is unremarkable. The basal cisterns are patent. No extra-axial collections are present. There are no findings to suggest acute dural sinus thrombosis or acute territorial infarct. White matter hypodensities are unchanged and favor small vessel disease. There are no calvarial fractures. Mild ethmoid sinus mucosal thickening is unchanged. IMPRESSION: No acute intracranial findings. No change in appearance of the brain. ACT 112: Negative or not required by law. Electronically signed by: Jovanny Pérez M.D. 10/03/2023 4:28 PM Discharge Plan Visit Data Chief Complaint: Syncope (Near Syncope) ED Provider: Mireya Baptiste Discharge Problem: Syncope and collapse Forms Stand Alone Forms: [facility] Prescriptions Prescriptions: No Action (DME) BD Regular Bevel [place] 18 gauge x 1 1/2" needle See Rx Instructions .Route Qty: 4 0RF Rx Instructions: As directed finasteride [Proscar] 5 mg tablet 5 mg PO QAM tryptophan 500 mg capsule 1,500 mg PO HS Rx Instructions: administer with or after a low-protein/high carbohydrate snack. furosemide 20 mg tablet 20 mg PO 3XWK Rx Instructions: TAKE THIS MED EVERY SUNDAY/SUNDAY & SUNDAY IN THE AM. apixaban 5 mg tablet 5 mg PO BID spironolactone 25 mg tablet 25 mg PO QAM escitalopram oxalate 10 mg tablet 10 mg PO QAM levothyroxine 150 mcg tablet 150 mcg PO 5XWK Rx Instructions: 150MCG SUNDAY THRU SUNDAY IN THE MORNING, AT LEAST 30 MINUTES PRIOR TO BREAKFAST OR OTHER MEDS. levothyroxine 150 mcg Tablet 225 mcg PO 2XWK Rx Instructions: TAKE 1.5 TABLET( 225MCG) EVERY SUNDAY AND SUNDAY, AT LEAST 30 MINUTES PRIOR TO BREAKFAST OR OTHER MEDS. acetaminophen 500 mg Tablet 1,000 mg PO Q6H PRN (Reason: Pain) Entresto 97-103 mg tablet 1 tab PO AMHS tamsulosin 0.4 mg capsule 0.4 mg PO QAM terazosin 10 mg capsule 10 mg PO HS hydralazine 25 mg Tablet 25 mg PO TID 30 Days Qty: 90 0RF Referrals Referrals: Linda Rendon DO [Primary Care Provider] -
[2023-10-03 15:34] LABS: Troponin I High Sensitivity 10.9 pg/ml (0-20)
[2023-10-03 15:37] LABS: Prothrombin Time 10.9 Seconds (9.0-12.0)
--- NOTE | 2023-10-03 16:30 | CT Scan Report ---
CT OF THE HEAD WITHOUT CONTRAST CLINICAL HISTORY: unresponsive episode COMPARISON STUDY: Head CT September 17, 2023. CT DOSE: 625.8 mGy.cm TECHNIQUE: Helical axial images of the head were obtained without IV contrast. Automated exposure con trol was utilized for the study. A dose lowering technique was utilized adhering to the principles o f ALARA. FINDINGS: No acute intracranial hemorrhage, midline shift or mass effect is present. The ventricular system is unremarkable. The basal cisterns are patent. No extra-axial collections are present. There are no findings to suggest acute dural sinus thrombosis or acute territorial infarct. White matter hy podensities are unchanged and favor small vessel disease. There are no calvarial fractures. Mild ethm oid sinus mucosal thickening is unchanged. IMPRESSION: No acute intracranial findings. No change in appearance of the brain. ACT 112: Negative or not required by law. Electronically signed by: Jovanny Pérez M.D. 10/03/2023 4:28 PM
--- NOTE | 2023-10-03 18:52 | History & Physical Report ---
Date of Service October 03, 2023 Assessment & Plan (1) Syncope and collapse: (2) Bradycardia: (3) HFrEF (heart failure with reduced ejection fraction): (4) Hypertensive heart disease: (5) Diabetes mellitus: Plan: Syncope and collapse Episode of unresponsiveness -Admit to telemetry -Obtain echo -Consult cardiology: Previously metoprolol had been held due to bradycardia, concerned that the patient may need pacemaker sooner rather than later, defer to cardiology for recs - Will hold zachary biggs for possibility that the pt can have pacemaker tomorrow, resume in AM if no plans for pacer -Check MRI of brain with double vision, neuro checks -Orthostatics -Fall precautions -PT/OT consults -Aspiration precautions History of HFrEF -Echo as above, chronic, stable DM type II -ISS with Accu-Cheks ACHS Hypothyroidism -Continue levothyroxine -Chronic, stable BPH Hx UTI - Appears to be resolved at this time, finished IV abx with ertapenem x 7 days DVT ppx: teds, scds Lines: PIV x 1 FEN/GI: HH/DM diet CODE:Full Dispo: From home, likely to remain in the hospital x 1-2 days A total of 78 minutes were spent with greater than 50% of that time face to face with the patient, personally reviewing all current laboratories, imaging studies, past medication reconciliation, outpatient chart review, and discussion with specialists to collaborate care for the patient with attending. Please see attending documentation for corrections and/or additions. (6) Hypothyroid: History of Present Illness Chief Complaint: Syncopal event Primary Care Provider: Linda Rendon, This is an 83 yo M with PMHx of prediabetes, history of papillary thyroid carcinoma, pancreatic cyst, history of left hemothorax, history of acute pulmonary embolism, history of systolic CHF, hypertension, closed fracture of multiple ribs of left side, history of anxiety state, insomnia, lives alone at home and ambulates with a walker. Recently admitted here at this facility from 09/16 to 09/26 where he was treated for bacteremia and UTI due to Enterobacter and completed course of IV antibiotics x 7 days while inpatient. During most recent hospital stay he was noted to be bradycardic throughout where metoprolol was discontinued, it was mentioned by cardiology that possible needs for pacemaker would be required in the near future. Jardiance was also discontinued due to hypoglycemic episodes. Family took the patient home with home health services as inpatient rehab could not be arranged. Today, patient went to outpatient PCP for follow-up appointment today and was noted by daughter that when he sat down in his walker after getting out of the vehicle that he had 15 seconds of "unresponsiveness", she wheeled him into the clinic and 911 was called. He was not responding to verbal stimuli, eyes rolled back into his head, face went white. Pt came to and remembered where he was and was answering appropriately. He does not recall the event where daughter was yelling his name. Patient c/o of numbness and tingling in the left hand that lasted about 10-15 minutes after the event. There is no more numbness at this point. Daughter notes the BP was down to 80s/50s once in the clinic and slowly improved. His HR was in the 90s at the clinic, and was in the 70s in the past week. Currently his HR is in the 50s in the ER. Pt had eaten and drank this morning, does not recall if glucose was checked. Family reports that he sustained a fall 48 hours ago where he fell forward over his walker, did not strike his head or sustain any other injuries. CT of the head today is completed and negative. He also notes having double vision with leftward gaze. Pt has caregivers in the house several hours per day at home. Pt has been off metoprolol due to bradycardia, and was placed on hydralazine TID for BP control. He denies having any lightheadedness of dizziness from this. Notes fairly well controlled BPs at home on previous medication regimen before hospital stay, does not know if he's had good BP control since discharge a week ago. Family notes pt has intermitted diarrhea, belching, but pt denies any blood/dark tarry stools. Denies any urinary complaints today. Past surgical hx: Anesthesia for bladder surgery Removal of thyroid tumor Bilateral cataracts Social Hx: . Lives alone. Daughter lives close by. Quit smoking 1965. No alcohol use. No drug use. Family Hx: Father had CHF. Brother had prostate cancer. Brother had KS. Sister has hypertension. Allergies Allergy/AdvReac Type Severity Reaction Status Date / Time shrimp Allergy Severe Anaphylaxis Verified 10/03/23 17:08 Home Medications Medication Instructions Recorded Confirmed Type escitalopram oxalate 10 mg tablet 10 mg PO QAM 11/27/17 10/03/23 History finasteride 5 mg tablet (Proscar) 5 mg PO QAM 11/18/21 10/03/23 History needle (disp) 18 G 18 gauge x 1 #4 ea 12/05/21 10/03/23 Rx 1/2" (BD Regular Bevel Noxon) apixaban 5 mg tablet 5 mg PO BID 05/15/23 10/03/23 History furosemide 20 mg tablet 20 mg PO 3XWK 05/15/23 10/03/23 History spironolactone 25 mg tablet 25 mg PO QAM 05/15/23 10/03/23 History tryptophan 500 mg capsule 1,500 mg PO HS 05/15/23 10/03/23 History acetaminophen 500 mg tablet 1,000 mg PO Q6H PRN Pain 09/17/23 10/03/23 History levothyroxine 150 mcg tablet 150 mcg PO 5XWK 09/17/23 10/03/23 History levothyroxine 150 mcg tablet 225 mcg PO 2XWK 09/17/23 10/03/23 History sacubitril 97 mg-valsartan 103 mg 1 tab PO AMHS 09/17/23 10/03/23 History tablet (Entresto) tamsulosin 0.4 mg capsule 0.4 mg PO QAM 09/17/23 10/03/23 History terazosin 10 mg capsule 10 mg PO HS 09/17/23 10/03/23 History hydralazine 25 mg tablet 25 mg PO TID 30 days #90 tabs 09/27/23 10/03/23 Rx Past Med/Surg History Problem List Syncope and collapse (Acute) Hypothyroid Diabetes mellitus Bradycardia, drug induced History of pulmonary embolism Aortic root dilatation Aortic valve sclerosis Hypertensive heart disease HFrEF (heart failure with reduced ejection fraction) Bradycardia Bacteremia UTI (urinary tract infection) Benign prostatic hyperplasia (BPH) with straining on urination Weakness (Acute) Nausea & vomiting (Acute) Acute UTI (Acute) Vitamin D deficiency Fatigue Hyperthyroidism Fracture Post-surgical hypothyroidism Papillary thyroid carcinoma COVID-19 (Acute) Medical History Hypertension Social History Smoking Status: Never smoker Second Hand Exposure: No; Do You Dip or Chew Tobacco: No; Hx Alcohol Use: No Hx Substance Use: No Preferred Language: Cook Islander Communication Ability: Effective Dairy Technologist Required: No Beliefs That Will Affect Care: None Current Living Situation: Alone Feels Safe at Home: Yes Assistive Devices: Walker Review of Systems Review of Systems: Constitutional: No fever, sweats or chills Eyes: No diplopia, no worsening or blurred vision ENT: normal hearing, no trouble swallowing Respiratory: No cough, sputum, dyspnea at rest or on exertion Cardiovascular: No chest pain, tightness or palpitations Abdomen: No pain, nausea, vomiting, diarrhea or constipation, no changes in bowels, no blood seen with BMs. : no urinary complaints, no blood in urine Musculoskeletal: No joint pain, calf pain, swelling Neurologic:+ double vision as per HPI, numbness of face now resolved, No weakness, numbness/tingling, or balance problems Psychiatric: No anxiety or depression Skin: No rash or itch Physical Exam Physical Exam: General: awake, alert, no apparent distress Head: Normocephalic, atraumatic ENT: PERRL, EOMI, no pharyngeal exudate, mucous membranes moist Chest: Clear to auscultation, on room air, no adventitious breath sounds Cardiac: sinus bradycardia with HR in 50s, no murmur, no JVD, normal peripheral pulses, good capillary refill Abdominal: NABS x 4 quadrants, soft, nondistended, nontender to palpation, no rebound or guarding Extremities: Normal inspection, no peripheral edema or erythema, calfs nontender to palpation Psych: Normal mood and affect Neuro: AAO x 3, strength intact bilaterally and rated 5/5, no obvious neurological deficits, follows finger to nose testing, intact peripheral field testing, no motor deficits, speech is clear, no peripheral sensory deficits Results & Data Results & Data Vital Signs (Past 12 Hours) Vital Signs Temp Pulse Pulse Resp BP BP Pulse Ox 10/03/23 16:30 87 20 154/92 H 100 10/03/23 14:31 36.9 C 82 18 97/63 L 98 O2 Del Method 10/03/23 16:30 Room Air 10/03/23 14:31 Room Air Laboratory Results 10/03/23 16:01 Aerobic Blood Culture - Pending Blood Anaerobic Blood Culture - Pending 10/03/23 15:08 Aerobic Blood Culture - Pending Blood Anaerobic Blood Culture - Pending 10/03/23 10/03/23 15:08 14:45 WBC 9.94 RBC 3.95 L Hgb 12.2 L Hct 36.5 L MCV 92.4 MCH 30.9 MCHC 33.4 RDW Std Deviation 45.1 RDW Coeff of [place] 13.2 Plt Count 297 MPV 11.2 Immature Gran % (Auto) 0.4 Neut % (Auto) 78.9 Lymph % (Auto) 11.1 [place] % (Auto) 8.8 Eos % (Auto) 0.6 Baso % (Auto) 0.2 Neut # (Auto) 7.85 H Lymph # (Auto) 1.10 L [place] # (Auto) 0.87 H Eos # (Auto) 0.06 Baso # (Auto) 0.02 Immature Gran # (Auto) 0.04 PT 10.9 INR 1.0 VBG pH 7.46 H VBG pCO2 28 L VBG pO2 86 VBG HCO3 20 VBG O2 Saturation 98.5 VBG Base Excess -2.6 Sodium 138 Potassium 4.4 Chloride 109 H Carbon Dioxide 20 L Anion Gap 9 BUN 29 H Creatinine 1.00 Est Cr Clr Drug Dosing 64.5 Est GFR ( Amer) 79.2 Est GFR (Non-Af Amer) 68.3 BUN/Creatinine Ratio 29.0 H Glucose 148 H Lactate 1.1 Calcium 8.9 Magnesium 1.9 Total Bilirubin 0.6 Direct Bilirubin 0.2 AST 13 ALT 11 Alkaline Phosphatase 57 Troponin I High Sens 10.9 B-Natriuretic Peptide 282 H Total Protein 6.1 Albumin 3.4 Procalcitonin 0.03 Diagnostic Findings Chest X-Ray 10/03/23 14:42 XR chest 1V portable CLINICAL HISTORY: Sepsis TECHNIQUE: Single frontal radiograph of the chest was obtained. Comparison: Comparison is made to chest radiographs 01/18/[address] abdomen pelvis 09/17/2023 FINDINGS: No lines and tubes are seen. Cardiomegaly is noted. The lungs are clear. Blunting of the left costophrenic angle is seen compatible with previously noted subpleural fat. IMPRESSION: No evidence of pneumonia. ACT 112: Negative or not required by law. Electronically signed by: Matthieu Kelley M.D. 10/03/2023 3:[address] 10/03/23 15:24 CT OF THE HEAD WITHOUT CONTRAST CLINICAL HISTORY: unresponsive episode COMPARISON STUDY: Head CT September 17, 2023. CT DOSE: 625.8 mGy.cm TECHNIQUE: Helical axial images of the head were obtained without IV contrast. Automated exposure control was utilized for the study. A dose lowering technique was utilized adhering to the principles of ALARA. FINDINGS: No acute intracranial hemorrhage, midline shift or mass effect is present. The ventricular system is unremarkable. The basal cisterns are patent. No extra-axial collections are present. There are no findings to suggest acute dural sinus thrombosis or acute territorial infarct. White matter hypodensities are unchanged and favor small vessel disease. There are no calvarial fractures. Mild ethmoid sinus mucosal thickening is unchanged. IMPRESSION: No acute intracranial findings. No change in appearance of the brain. ACT 112: Negative or not required by law. Electronically signed by: Jovanny Pérez M.D. 10/03/2023 4:28 PM Code Status & VTE Plan Code Status Full code Supervising Physician Co-Signing Physician Notes Patient is an 83-year-old male with history of thyroid carcinoma, pulmonary embolism on chronic anticoagulation with Eliquis, CHF and other medical problems who was recently admitted for Enterobacter urinary tract infection/bacteremia and was also noted for bradycardia at the time, presents with history of a syncopal episode. Patient was evaluated by cardiology last admission, and was discontinued on metoprolol due to bradycardia and was thought to need pacemaker eventually at the time. Patient had a very brief syncopal episode while visiting his PCP today. He also complained of left upper extremity numbness and tingling lasting for about 15 minutes. He was noted to have low blood pressure while in PCPs office. He was sent to ED for further evaluation. Family reports that he had diarrhea 2 weeks ago. He is oriented while in ED. He did complain of double vision while in ED with left lateral gaze only . Denies any focal weakness, seizure-like activity, chest pain, dyspnea, fever, chills. Please review HPI for complete details of presentation. I personally reviewed blood work and imaging studies. MRI brain currently pending. Urinalysis currently pending. Physical Exam: Vitals signs as noted above General Appearance:Moderately built and nourished, no apparent distress Head: normocephalic, Atraumatic Eyes: normal inspection, EOMI, + double vision with lateral gaze Neck: supple, Trachea midline Respiratory/Chest: Normal breath sounds, CTA, No accessory muscle use Cardiovascular: S1, S2, + murmur Abdomen/GI:Soft, Non tender, Bowel sounds present Extremities/Musculoskeletal:normal inspection, +1 edema Neurologic/Psych:AAOX3, grossly no focal neurological deficits Skin: normal color, warm Strokelike symptoms Syncope Sinus bradycardia Diarrhea CT head showed no acute findings. Will obtain MRI to rule out CVA Neurochecks, PT OT, fall precautions Consider neurology evaluation if needed Will hold Eliquis for possible pacemaker placement Cardiology consulted Agree with orthostatics, resting echo Will give him aspirin 81 mg Check lipid panel Further management based on MRI results. I personally interviewed and examined at bedside. Patient's care is coordinated with Lakisha Chavez PA-C. I have reviewed the advanced practitioner's documentation, and I agree with plan of care. Please refer to the documentation above for details of patient's presentation and for discussion of other issues. I spent a total [id number] coordinating, documenting, and providing care for this patient excluding time spent in the performance of separately billed services.
[2023-10-03] MEDS ORDERED: ALUMINUM/MAGNESIUM/SIMETH (MAALOX MAX) 30 ML UDC PO PRN ×2 (20:45)
[2023-10-03] MEDS ORDERED: POLYETHYLENE (MIRALAX) 17 GM PACK PO PRN (20:45)
[2023-10-03] MEDS ORDERED: TRYPTOPHAN 500 MG PO SCH (21:00)
[2023-10-03] MEDS: LACTATED RINGER'S 1,000 ML IV SCH (21:50)
[2023-10-03] MEDS: VALSARTAN/SACUBITRIL 103/97MG TAB PO SCH (21:52)
[2023-10-03] MEDS: ASPIRIN 81 MG ECTAB PO ONE (21:52)
[2023-10-03] MEDS: ADVANCED PROBIOTIC 625 MG CAPSULE PO SCH (21:52)
[2023-10-03] MEDS: TERAZOSIN HCL 5 MG CAP PO SCH (21:52)
[2023-10-03] MEDS: hydrALAZINE HCL 25 MG TAB PO SCH (21:53)
[2023-10-03] MEDS: HEPARIN SOD 5,000 UNIT/0.5 ML VIAL SQ SCH (22:06)
[2023-10-03] MEDS: MELATONIN 3 MG TAB PO PRN (22:06)
--- NOTE | 2023-10-03 23:36 | Magnetic Resonance Report ---
Exam(s): MRI HEAD Without Contrast EXAM: MR Head Without Intravenous Contrast CLINICAL HISTORY: Reason for exam: Double vision. TECHNIQUE: Magnetic resonance images of the head/brain without intravenous contrast in multiple planes. COMPARISON: Comparison made to prior head CT from October 03, 2023. FINDINGS: Brain: Moderate nonspecific white matter changes. No mass. No hemorrhage. No acute infarct. The flow voids at the base of the brain are intact. Dilated perivascular spaces throughout the basal ganglia and capsules. Ventricles: Mild ventriculomegaly. Bones/joints: Unremarkable. No acute fracture. Sinuses: Chronic ethmoid sinusitis. No acute sinusitis. Mastoid air cells: Unremarkable as visualized. No mastoid effusion. Orbits: Bilateral lens replacements. IMPRESSION: No evidence of acute intracranial pathology. Electronically signed by: Anny Pathak MD 10/03/23 23:35 PM
[2023-10-04 00:08] LABS: Appearance Urine Turbid (Clear); Bacteria Urine Automated 4+ (None Seen); Bilirubin Urine Negative (Negative); Blood Urine 3+ (Negative); Color Urine Yellow; Epithelial Cell Urine Auto 0-2 /hpf (0-2); Glucose Urine UA Negative (Negative); Ketones Urine Negative (Negative); Leukocyte Esterase Urine 3+ (Negative); Nitrite Urine Positive (Negative); Protein Urine 2+ (Negative); Specific Gravity Urine 1.016 (1.000-1.030); Urobilinogen Urine Negative (Negative); WBC Urine Automated >50 /hpf (0-5); pH Urine 5.5 (4.5-7.5)
--- OUTSIDE RECORDS SUMMARY | 2023-10-04 03:39 | External Medical Summary | Summary of Care ---
Author Name Unknown Organization [facility] Address [address] [place] [address] Phone [phone] Care Team Providers Care Editorial Clerk Name Role Phone Linda Rendon DO Primary Care Provider [phone] Reason for Visit * Reason Onset Date Comments Hospital Follow-Up 09/28/2023 [facility] for [facility] Encounter Details Date Type Department Care Team (Late st Contact Info) Description 09/28/2023 Telephone Ancillary [facility] [place] [address] [facility] [address] Tamia Del Castillo, OSWALDO Hospital Follow-Up (Danette for [facility]) Allergies Active Allergy Reactions Criticality Noted Date Comments Nitroglycerin 09/01/1999 Family is unsure of this being a true allergy Shellfish-Derived Products Anaphylaxis High 03/01/20 23 Shrimp per [facility] anaphylaxis verified 09/17/23 on admission documented as of this encounter (statuses as of 09/28/2023) Medications Medication Sig Dispensed Refills Start Date [...] the morning. 90 Tablet 3 04/25/2023 Active Furosemide 20 MG Oral Tablet (Lasix)Indications: HFrEF (heart failure with reduced ejection fraction) (HCC),NSVT [...] maintenance therapy. 90 Tablet 2 07/17/2023 Active hydrALAZINE HCl 25 MG Oral Tablet (Apresoline) Take 1 Tablet by mouth in the morning and 1 Tablet at noon and 1 Tablet before bedtime. 09/27/2023 Active Melatonin 3 MG Oral Tablet Disintegrating Take by mouth. Active Metoprolol Succinate ER 25 MG Oral Tablet Extended Release 24 Hour (toPROL XL)Indications:HFrE F (heart failure with reduced ejection fraction) (HCC),NSVT (nonsustained ventricular tachycardia) (HCC) Take 0.5 Tablets by mouth in the morning. 45 Tablet 3 04/27/2023 4 Discontinu ed(Medicat ion List Clean Up) documented as of this encounter (statuses as of 09/28/2023) Active Problems Problem Noted Date Diagnosed Date [...] as of this encounter (statuses as of 09/28/2023) Resolved Problems Problem Noted Date Diagnosed Date Resolved Date Elevated prostate specific antigen (PSA) 10/04/2015 documented as of this encounter (statuses as of 09/28/2023) Immunizations Name Administration Dates Next Due Seasonal [...] encounter Miscellaneous Notes * Telephone Encounter - Tamia Del Castillo RN - 09/28/2023 12:06 PM EDT Transitions of Care Note Reason for Referral:Recent Admission Phone visit for follow up: danette Admitted to: [facility], Date: 09.17.23 Discharged to: home, Date: 09.27.23 Diagnosis driving hospitalization: UTI with bacteremia Source/Contact: Other daughter isha SUBJECTIVE Consent: Verbal consent for review of hospital discharge: Yes REVIEW OF SYSTEMS Patient/Other Reports: Current patient/caregiver problems or concerns: discussed the message from Cardiology under myG, Keyana will respond to them CV: Denies problems Pulmonary: Denies problems Chills/Sweats/Fever:Denies chills/sweats Denies fever Appetite:Denies problems such as nausea, vomiting, burning, decreased appetite Current diet: heart healthy Bowel: denies problems Bladder: denies problems Wound (If applicable): N/A Pain:Denies Sleep:Denies problems FUNCTIONAL STATUS: ADL'S: Needs Assistance With:Bathing, Eating, and Dressing IADL'S: Needs Assistance With:Grocery Shopping, Cooking food, Routine Housework, and Attending to safety Cognitive and Mental Health: denies problems, alert and oriented x 3, and able to communicate, understand instructions, process information. MEDICATION RECONCILIATION Medications: Changed medication(s) since hospitalization New hydralazine 25 mg Tablet 25 mg PO TID 30 Days Qty: 90 0RF Patient daughter was not aware prescription sent [facility], they will get prescription today Discontinued metoprolol succinate 25 mg tablet extended release 24 hr 12.5 mg PO QAM Jardiance 10 mg tablet 10 mg PO QAM OBJECTIVE ASSESSMENT Medication Risk Assessment: daughter will get prescription today Did patient fail outpatient treatment? No Discharge instructions available for review? Yes PLAN Symptom Monitoring Interventions:Member/caregiver education - signs and symptoms to contact PrimaryCare (DO NOT DELETE-Three perales symptoms patient is to report to PCP) 1. fever 2. Any pain with urination 3. Low pulse Associate Professor Of ChemistryPr Internship of Care interventions/Action Plan: 5 - 7 day follow-up with PCP in place - Date: 10.03.23 Educated on role of DANETTE completed with patient/caregiver. Educated patient/caregiver on patient right to have input on DANETTE plan of care. Verification of Home Health/DME if indicated: YES patient does have HH and PHYSICAL THERAPY and OT coming in next week. The family also has care aids with him during the day, Sarah lives next door toher dad. Identified Care Gaps: Yes Care Gaps closed this call: Transition of Care follow-up communication Re-evaluation of Plan of Care and progress towards goals achievement: Patient education this visit: Gradually increase activity as tolerated, recommend using assistive device, patient to stay hydrated and follow up with cardiology myG message. Plan to follow-up as previously scheduled, instructed to call Primary Care Provider with change in symptoms or as needed before next follow-up, verbalizes understanding and agrees with plan. Tamia Del Castillo RN documented in this encounter Plan of Treatment Upcoming Encounters Date Type Department Care Team (Late st Contact Info) Description 10/03/2023 1:40 PM EDT Office Visit Family [facility] [address] [place] [address] Linda Rendon, DO [address] [place] [address] 12/25/2023 10:15 AM EDT Office Visit Urology, [facility] [address] [place] [address] Jean Marie Mix MD [address] [place] [address] 08/26/2024 1:00 PM EDT Office Visit Family Practice [facility] [address] [place] [address] Linda Rendon, DO [address] [place] [id number] Scheduled Procedures Name Priority Associated Diagnoses Date/Ti me ESOPHAGOGASTRODUODENOSCOPY ( EGD), FLEXIBLE, TRANSORAL, ENDOSCOPIC ULTRASOUND Recall Abnormal CT scan Health Maintenance Due Date Last Done Comments Pneumococcal Vaccine: 65+ Years (1 of 2 - PCV) 1946 DTaP,Tdap,and Td Vaccines (1 - Tdap) 1957 Zoster Vaccines (1 of 2) 1988 COVID-19 Vaccine (1 - 2022- season) 2022 Influenza Vaccine (FLU shot) (#1) 2023 01/21/2019 TSH 03/22/2024 03/22/2023, 02/16, 06/07/2022, Additional history exists HbA1c 06/12/2024 06/13/2023, 06/0 05/2021, 02/20/2019, Additional history exists Depression Screening 08/20/2024 08/21/2023 Albumin/Creatinine Ratio 06/12/2026 06/13/2023, 05/18 HPV (Gardasil) Vaccine Aged Out No lo nger eligible based on patient's age to complete this topic Hepatitis B Vaccine Aged Out No longe r eligible based on patient's age to complete this topic MENINGOCOCCAL (MENACTRA/MENVEO) Aged Out No longer eligible based on patient's age to complete this topic documented as of this encounter Medical Devices Implanted Type Area Orchid Worker Device Identifier Shelf Expiration Date Model / Serial / Lot Lens Intraoc 18.5 - [id number] - [id number] Implanted:Qty: 1 on 06/01/2022 by Jonny Foster MD at OR [facility] Right: Eye [employer] 01/16/2027 [id number] / [id number] / [id number] Lens Intraoc 18.5 - [id number] - [id number] Implanted:Qty: 1 on 06/13/2022 by Jonny Foster MD at OR [facility] Left: Eye [employer] 01/16/2027 [id number] / [id number] / [id number] documented as of this encounter Advance Directives [...] Directives occurred with: Not Discussed Care Teams Editorial Clerk Relationship Specialty Start Date End Date Linda Rendon DO [address] [place] [address] PCP - General Family Medicine 03/07/16 documented as of this encounter
[2023-10-04] MEDS: LEVOTHYROXINE SODIUM 150 MCG TABLET PO SCH (06:16)
[2023-10-04 06:41] LABS: Hematocrit (blood only) 32.1 % (42.0-52.0); Hemoglobin 10.7 g/dl (14.0-18.0); Mean Corpuscular Hemoglobin 31.2 pg (25.0-34.0); Mean Corpuscular Hgb Conc 33.3 g/dL (32.0-36.0); Mean Corpuscular Volume 93.6 fL (80.0-100.0); Mean Platelet Volume 10.9 fL (9.4-12.4); Platelet Count 253 K/uL (130-400); RDW Coefficient of Variation 13.2 % (11.5-14.5); Red Blood Count 3.43 M/uL (4.70-6.10); White Blood Count 7.23 K/ul (4.8-10.8)
[2023-10-04 07:03] LABS: BUN Creatinine Ratio 31.3 (10-20); Chol HDL Ratio 2.8 (0-5); Creatinine Clr Calc Pharmacy 77.8 ml/min; Est GFR (Non-African American) 80.2 ml/min
[2023-10-04 07:28] LABS: Adenovirus F 40/41 PCR Not Detected (NotDetected); Astrovirus PCR Not Detected (NotDetected); Campylobacter PCR Not Detected (NotDetected); Cryptosporidium PCR Not Detected (NotDetected); Cyclospora cayetanensis PCR Not Detected (NotDetected); Entamoeba histolytica PCR Not Detected (NotDetected); Enteroaggregative E.coli(EAEC) Not Detected (NotDetected); Enteropathogenic E.coli (EPEC) Not Detected (NotDetected); Enterotoxigenic E.coli (ETEC) Not Detected (NotDetected); Giardia lamblia PCR Not Detected (NotDetected); Norovirus GI/GII PCR Not Detected (NotDetected); Plesiomonas shigelloides PCR Not Detected (NotDetected); Rotavirus A PCR Not Detected (NotDetected); Salmonella PCR Not Detected (NotDetected); Sapovirus PCR Not Detected (NotDetected); Shiga-like Toxin E.coli (STEC) Not Detected (NotDetected); Shigella/Enteroinvasive E.coli Not Detected (NotDetected); Vibrio cholerae PCR Not Detected (NotDetected); Vibrio species PCR Not Detected (NotDetected); Yersinia enterocolitica PCR Not Detected (NotDetected)
[2023-10-04 07:56] LABS: Cdiff Antigen Negative; Cdiff Toxin A+B Negative Cdiff Toxin (Negative); Cdiff Toxin B Gene (2yr or >) Positive Cdiff Gene (Neg)
--- NOTE | 2023-10-04 09:38 | Electrocardiogram Report ---
Test Reason : Blood Pressure : / mmHG Vent. Rate : 055 BPM Atrial Rate : 055 BPM P-R Int : 266 ms QRS Dur : 130 ms QT Int : 468 ms P-R-T Axes : 031 -42 068 degrees QTc Int : 447 ms Sinus bradycardia with 1st degree A-V block Left axis deviation Non-specific intra-ventricular conduction block Cannot rule out Septal infarct (cited on or before 03-OCT-2023) Abnormal ECG When compared with ECG of 03-OCT-2023 14:33, Vent. rate has decreased BY 36 BPM Questionable change in QRS duration Confirmed by Cornelius Sky ([id number]) on 10/04/2023 9:38:30 AM Referred By: Linda Rendon Confirmed By:Cornelius Sky
[2023-10-04] MEDS: TAMSULOSIN HCL 0.4 MG CAP PO SCH (10:38)
[2023-10-04] MEDS: FINASTERIDE 5 MG TAB PO SCH (10:38)
[2023-10-04] MEDS: ESCITALOPRAM OXALATE 10 MG TAB PO SCH (10:38)
[2023-10-04] MEDS: SPIRONOLACTONE 25 MG TAB PO SCH (10:39)
--- NOTE | 2023-10-04 10:48 | Cardiology Consultation ---
Date of Consultation October 04, 2023 Assessment & Plan (1) Syncope and collapse: (2) Sinus bradycardia: Patient reportedly hypotensive with systolic blood pressure in the 80s at that time of rapid response at the outpatient clinic yesterday. Most recent blood pressure measured on 09/27/2023 prior to his recent discharge was 169/73. Presenting with blood pressure in the emergency room on 10/03/2023 was 97/63. Blood pressure has rebounded to being elevated overnight last night, with highest reading 171/94 at 1830 and 147/69 this morning. Patient was sinus bradycardia on telemetry, no profound bradycardia or pauses. It is difficult to determine if his loss of consciousness spell yesterday was due to bradycardia but it is certainly a consideration. Patient is on multiple antihypertensive agents and is on 2 alpha blockers including terazosin and tamsulosin on a chronic basis. Hydralazine also recently added, but it does appear that his blood pressure tends to run high. There has also been recent excessive eating humidity although was a little bit cooler yesterday when he would have been out to the doctor's office. Patient has a Jones catheter that was placed overnight last night. He recently had bacteremia related to a complicated urinary tract infection. Repeat blood cultures obtained on arrival last night and will be followed. No acute indication for temporary pacemaker or permanent pacemaker at present time, therefore permanent pacemaker could be reconsidered, we will need to ensure that his blood cultures are negative. The patient's prior to hospital treatment including furosemide, hydralazine, Entresto, spironolactone, tamsulosin, terazosin have all been ordered. Metoprolol remains on hold as directed during last admission. Continue monitor the patient on telemetry. Plan discussed at length with patient's daughter at the bedside. I spent a total of 55 minutes on the date of service in preparation, delivery, and documentation of the care provided to this patient, excluding any time spent in the performance of separately billed services. History of Present Illness Attending Physician: Torrey Mane MD History of Present Illness Mr Pastrana is an 83 year old male seen in cardiology consultation per the request of Dr Stephen for the evaluation of syncope. Patient seen in room 232-1. His daughter , Sarah, accompanies him. Patient recently hospitalized having presented on 09/17/2023 with complaint of generalized weakness, nauseousness and vomiting. He was found to have a urinary tract infection with Enterobacter cloacae noted on urine culture and a single blood culture obtained on 09/17/23. Subsequent blood cultures drawn on . After addition of antibiotics with no growth. On arrival to the hospital at that time, sinus bradycardia was noted with initial heart rate as low as 38 bpm and then in the 40s overnight on the initial first night in the hospital. The patient was seen by cardiology service. Prior to hospital treatment with metoprolol succinate 12.5 mg daily was discontinued. Shortly before presenting with urinary tract infection, the patient had been started on Jardiance and that medication had been discontinued as well. Hydralazine utilized for additional blood pressure control during hospital stay and he was discharged on hydralazine 25 mg 3 times daily as well as his previous medications that include furosemide 20 mg by mouth 3 times per week, spironolactone 25 mg daily, Entresto 97/103 mg twice daily, tamsulosin 0.4 mg daily and terazosin 10 mg at bedtime. Patient describes recovering well in the interim since discharge on 09/27/2023. He presented to his primary care provider yesterday for a posthospital follow-up appointment. The patient's daughter describes having him in a wheelchair and while wheeling him into the clinic he was witnessed to have a 15-second loss of consciousness and postural tone. He woke up spontaneously, and complained of numbness and tingling the left hand lasted 10 to 15 minutes after the loss of consciousness event. Blood pressure was reportedly in the 80s over 50s when measured in the clinic and his heart rate was in the 90s in the clinic. Heart rate reportedly in the 70s and this past week at home. He was transferred by ambulance to the emergency department. He was noted to have a fall 3 days ago while walking with his walker. Past Medical History: Longstanding hypertension, hypertensive heart disease Acute PE with mild RV dilation per echo 03/01/2023 for which patient is treated with Eliquis Presented 02/18/2023 with a fall and multiple left-sided rib fractures, left hemothorax Acute systolic CHF (LVEF 40-44%) in the setting of acute illness with traumatic hemothorax, diaphragmatic rupture, splenic laceration, and PE, 02/2023 Aortic sclerosis without stenosis with associated mild murmur Aortic root and proximal ascending thoracic aortic dilation History of papillary thyroid carcinoma status post thyroidectomy Prediabetes Pancreatic cyst Anxiety state Social History. Reformed smoker. No alcohol. No illegal drug use. . Lives alone. Daughter, Sarah, lives right behind his home. Family History. Father had CHF. Brother had prostate cancer. Brother had AR. Sister has hypertension. Allergies Allergy/AdvReac Type Severity Reaction Status Date / Time shrimp Allergy Severe Anaphylaxis Verified 10/03/23 17:08 Home Medications Medication Instructions Recorded Confirmed Type escitalopram oxalate 10 mg tablet 10 mg PO QAM 11/27/17 10/03/23 History finasteride 5 mg tablet (Proscar) 5 mg PO QAM 11/18/21 10/03/23 History needle (disp) 18 G 18 gauge x 1 #4 ea 12/05/21 10/03/23 Rx 1/2" (BD Regular Bevel Edmonson) apixaban 5 mg tablet 5 mg PO BID 05/15/23 10/03/23 History furosemide 20 mg tablet 20 mg PO 3XWK 05/15/23 10/03/23 History spironolactone 25 mg tablet 25 mg PO QAM 05/15/23 10/03/23 History tryptophan 500 mg capsule 1,500 mg PO HS 05/15/23 10/03/23 History acetaminophen 500 mg tablet 1,000 mg PO Q6H PRN Pain 09/17/23 10/03/23 History levothyroxine 150 mcg tablet 150 mcg PO 5XWK 09/17/23 10/03/23 History levothyroxine 150 mcg tablet 225 mcg PO 2XWK 09/17/23 10/03/23 History sacubitril 97 mg-valsartan 103 mg 1 tab PO AMHS 09/17/23 10/03/23 History tablet (Entresto) tamsulosin 0.4 mg capsule 0.4 mg PO QAM 09/17/23 10/03/23 History terazosin 10 mg capsule 10 mg PO HS 09/17/23 10/03/23 History hydralazine 25 mg tablet 25 mg PO TID 30 days #90 tabs 09/27/23 10/03/23 Rx Patient History Medical History Hypertension Social History (Reviewed 10/03/23 @ 19:25 by SANDRA Kaplan Smoking Status: Never smoker Second Hand Exposure: No; Do You Dip or Chew Tobacco: No; Tobacco Cessation Education Requested by Patient: No Hx Alcohol Use: No Hx Substance Use: No Preferred Language: Malawian Communication Ability: Effective Senior Cost Estimator Required: No Beliefs That Will Affect Care: None Current Living Situation: Alone Other Information That Helps Us Care for You: No Feels Safe at Home: Yes Safety Concerns: Feels Safe At This Time Assistive Devices: Glasses and Walker Review of Systems Review of Systems: All systems reviewed & are unremarkable except as noted in HPI & below Physical Exam Physical Exam: General: no acute distress and stated age Eyes: conjunctiva are pink and non-injected, sclera clear Neck: normal jugular venous pulse, no hepatojugular reflux Chest: normal shape and normal respiratory effort Lungs: clear to auscultation and percussion Cardiac Exam: -Regular rhythm, 1/6 systolic murmur Abdomen: abdomen soft, non-tender, no abnormal masses and no hepatosplenomegaly Musculoskeletal: no gait disturbance, no weakness Extremities: no edema and no cyanosis Neuro:awake, conversant, follows commands, no focal motor deficits Psych: appropriate affect and insight. : Jones catheter in place draining clear yellow urine Results & Data Vital Signs (Past 12 Hours) Vital Signs Temp Pulse Resp BP Pulse Ox O2 Del Method 10/04/23 09:00 Room Air 10/04/23 08:25 36.4 C L 54 L 16 147/69 H 93 Room Air 10/04/23 03:04 36.5 C 50 L 18 152/74 H 95 Room Air 10/03/23 23:11 36.4 C L 56 L 16 133/67 97 Room Air Laboratory Results Cardiac Enzymes 10/03/23 Range/Units 14:45 AST 13 (13-39) U/L Troponin I High Sens 10.9 (0-20) pg/ml B-Natriuretic Peptide 282 H (0-100) pg/ml Coagulation 10/03/23 Range/Units 14:45 PT 10.9 (9.0-12.0) Seconds B-Natriuretic Peptide 282 H (0-100) pg/ml Lipids 10/04/23 Range/Units 06:06 Triglycerides 56 (0-150) mg/dl Cholesterol 100 (0-200) mg/dl HDL Cholesterol 36 mg/dl Cholesterol/HDL Ratio 2.8 (0-5) CBC 10/03/23 10/04/23 Range/Units 14:45 06:06 WBC 9.94 7.23 (4.8-10.8) K/ul RBC 3.95 L 3.43 L (4.70-6.10) M/uL Hgb 12.2 L 10.7 L (14.0-18.0) g/dl Hct 36.5 L 32.1 L (42.0-52.0) % Plt Count 297 253 (130-400) K/uL Neut # (Auto) 7.85 H (1.40-6.50) K/uL Lymph # (Auto) 1.10 L (1.20-3.40) K/uL [place] # (Auto) 0.87 H (0.11-0.59) K/uL Eos # (Auto) 0.06 (0.00-0.50) K/uL Baso # (Auto) 0.02 (0.00-0.20) K/uL Comprehensive Metabolic Panel 10/03/23 10/04/23 Range/Units 14:45 06:06 Sodium 138 142 (136-145) mmol/L Potassium 4.4 4.0 (3.5-5.1) mmol/L Chloride 109 H 113 H (98-107) mmol/L Carbon Dioxide 20 L 23 (21-32) mmol/L BUN 29 H 26 H (6-23) mg/dl Creatinine 1.00 0.83 (0.6-1.4) mg/dl Glucose 148 H 105 H (70-99(Fasting)) mg/dl Calcium 8.9 8.0 L (8.6-10.3) mg/dl Direct Bilirubin 0.2 (0-0.2) mg/dl AST 13 (13-39) U/L ALT 11 (7-52) U/L Alkaline Phosphatase 57 (34-104) U/L Total Protein 6.1 (6.0-8.3) gm/dl Albumin 3.4 (3.4-5.0) gm/dl Intake and Output 10/03/23 10/04/23 10/04/23 22:59 06:59 14:59 Intake Total 1000 / 1000 1000 / 1000 Output Total 681 / 681 Balance 1000 / 319 -681 / 319 1000 / 1000 Intake: IV 1000 / 1000 1000 / 1000 Lactated Ringer's 1,000 ml @ 80 1000 / 1000 mls/hr IV .[id number] FOR[facility]LY [facility] Rx#: [id number] Sodium Chloride 0.9% 1,000 ml @ 1000 / 1000 999 mls/hr IV .Q1H1M ONE Rx#: [id number] Output: Urine Amount (Catheter) 680 / 680 External 680 / 680 # Bowel Movements Other: Other Intake Source NPO Weight 92.2 kg 92.2 kg Weight Measurement Method Standing Scale Standing Scale Diagnostic Findings EKG performed 10/03/2023 at 1433: Sinus rhythm at 91 bpm, first-degree AV block, CT interval 242 ms, intraventricular conduction late, QRS duration 116 ms, poor R wave progression, compared to 09/19/2023 ventricular rate has increased by 53 bpm. EKG performed 10/04/2023 at 5:26 AM and interpreted independently: Sinus bradycardia 55 bpm, first-degree AV block, CT interval 206 6 ms, nonspecific intraventricular conduction delay, poor R wave progression.
--- NOTE | 2023-10-04 16:49 | Hospitalist Progress Note ---
Date of Service October 04, 2023 Assessment & Plan (1) Syncope and collapse: (2) Bradycardia: (3) HFrEF (heart failure with reduced ejection fraction): (4) Hypertensive heart disease: (5) Diabetes mellitus: Plan: Syncope and collapse Episode of unresponsiveness likely secondary to bradycardia arrhythmia and could be due to postural hypotension orthostatic vitals were unremarkable no evidence of severe bradycardia arrhythmia on monitor appreciate cardiology input and recommendation- not for immediate pacemaker for now echo of the heart showed- mild concentric LVH, with normal wall motion and normal systolic function with EF 55 to 60%, aortic valve sclerosis without significant stenosis, mild mitral regurgitation, there is mild tricuspid regurgitation, and grade 1 diastolic dysfunction doubt any neurological symptoms of stroke and/or TIA MRI of the brain is unremarkable did very well with PT and OT clinically much better following admission- likely be discharged in a day or 2 History of HFrEF -Echo as above, chronic, stable - we will continue current medications DM type II -ISS with Accu-Cheks ACHS - blood sugar remains stable Hypothyroidism -Continue levothyroxine -Chronic, stable BPH Hx UTI - Appears to be resolved at this time, finished IV abx with ertapenem x 7 days DVT ppx: teds, scds Lines: PIV x 1 FEN/GI: HH/DM diet CODE:Full Dispo: From home, likely to remain in the hospital x 1-2 days (6) Hypothyroid: Admission and Anticipated Discharge Date Admission Date: October 03, 2023 Subjective 10/04/2023 the patient was seen and examined in telemetry unit in presence of the son he was admitted with syncopal episode without any warning does not have any symptoms of chest pain, shortness of breath or palpitation has been complaining of occasional dizziness with standing and ambulating no significant bradyarrhythmia noted Review of Systems Review of Systems: all systems reviewed and are unremarkable except as noted below Physical Exam Physical Exam: lying in bed comfortably Constitutional: well developed, well nourished and average body habitus; not ill appearing Eyes: PERRL, conjunctivae normal, anicteric sclerae ENMT: external ear and nose normal, oropharynx normal Neck: trachea midline, no thyromegaly Respiratory: no respiratory distress Auscultation: lungs clear to auscultation bilaterally Cardiovascular: Rate/Rhythm: regular rate, regular rhythm and + bradycardic Heart Sounds: normal S1 and normal S2; no murmur Extremities: no edema Gastrointestinal (Abdomen): Inspection/Auscultation: normal bowel sounds; abdomen not distended Percussion/Palpation: abdomen soft; abdomen nontender Musculoskeletal: no acute arthritis involving any of the joint Neurologic: normal touch/pain/proprioception and moves all extremities; no focal motor deficits Lymphatic: no cervical or axillary lymphadenopathy Results & Data Results & Data Vital Signs (Past 12 Hours) Vital Signs Temp Pulse Pulse Resp BP Pulse Ox O2 Del Method 10/04/23 15:01 36.9 C 60 18 124/70 93 Room Air 10/04/23 15:00 57 L 10/04/23 11:17 36.5 C 64 18 119/55 L 94 Room Air 10/04/23 09:00 Room Air 10/04/23 08:25 36.4 C L 54 L 16 147/69 H 93 Room Air Laboratory Results Short CBC 10/04/23 Range/Units 06:06 WBC 7.23 (4.8-10.8) K/ul Hgb 10.7 L (14.0-18.0) g/dl Hct 32.1 L (42.0-52.0) % Plt Count 253 (130-400) K/uL BMP 10/04/23 06:06 Sodium 142 Potassium 4.0 Chloride 113 H Carbon Dioxide 23 BUN 26 H Creatinine 0.83 Glucose 105 H Calcium 8.0 L Urine 10/03/23 Range/Units 23:05 Urine Color Yellow Urine Appearance Turbid A (Clear) Urine pH 5.5 (4.5-7.5) Ur Specific [place] 1.016 (1.000-1.030) Urine Protein 2+ H (Negative) Urine Glucose (UA) Negative (Negative) Medications Administered Current Inpatient Medications Acetaminophen (Acetaminophen 325 Mg Tab) 650 mg PO Q4H PRN PRN Reason: Pain or Fever Stop: 11/02/23 20:44 Al Hydrox/Mg Hydrox/Simethicone (Aluminum/Magnesium/Simeth (Maalox Max) 30 Ml Udc) 15 ml PO Q6H PRN PRN Reason: Indigestion Stop: 11/02/23 20:44 Escitalopram Oxalate (Escitalopram Oxalate 10 Mg Tab) 10 mg PO QAM ASIF Stop: 11/03/23 08:59 Last Admin: 10/04/23 10:38 Dose: 10 mg Finasteride (Finasteride 5 Mg Tab) 5 mg PO QAM [facility] Stop: 11/03/23 08:59 Last Admin: 10/04/23 10:38 Dose: 5 mg Furosemide (Furosemide 20 Mg Tab) 20 mg PO MoWeFr@0900 [facility] Stop: 11/04/23 08:59 Heparin Sodium (Porcine) (Heparin Sod 5,000 Unit/0.5 Ml Vial) 5,000 units SQ Q12 ASIF Stop: 11/02/23 20:59 Last Admin: 10/04/23 10:39 Dose: 5,000 units Hydralazine HCl (Hydralazine Hcl 25 Mg Tab) 25 mg PO TID [facility] Stop: 11/02/23 20:59 Last Admin: 10/04/23 13:50 Dose: 25 mg Lactobacillus Acidophilus (Advanced Probiotic 625 Mg Capsule) 1,250 mg PO DAILY [facility] Stop: 11/02/23 20:44 Last Admin: 10/04/23 10:38 Dose: 1,250 mg Levothyroxine Sodium (Levothyroxine Sodium 150 Mcg Tablet) 150 mcg PO MoTuWeThFr@0630 [facility] Stop: 11/03/23 06:29 Last Admin: 10/04/23 06:16 Dose: 150 mcg Levothyroxine Sodium (Levothyroxine Sodium 75 Mcg Tablet) 225 mcg PO SuSa@0630 [facility] Stop: 11/05/23 06:29 Melatonin (Melatonin 3 Mg Tab) 3 mg PO HS PRN PRN Reason: Sleep Stop: 11/02/23 21:42 Last Admin: 10/03/23 22:06 Dose: 3 mg Polyethylene Glycol (Polyethylene (Miralax) 17 Gm Pack) 17 gm PO DAILY PRN PRN Reason: Constipation Stop: 11/02/23 20:44 Sacubitril/Valsartan (Valsartan/Sacubitril 103/97mg Tab) 1 tab PO AMHS [facility] Stop: 11/02/23 20:59 Last Admin: 10/04/23 10:39 Dose: 1 tab Spironolactone (Spironolactone 25 Mg Tab) 25 mg PO QAM [facility] Stop: 11/03/23 08:59 Last Admin: 10/04/23 10:39 Dose: 25 mg Tamsulosin HCl (Tamsulosin Hcl 0.4 Mg Cap) 0.4 mg PO QAM [facility] Stop: 11/03/23 08:59 Last Admin: 10/04/23 10:38 Dose: 0.4 mg Terazosin HCl (Terazosin Hcl 5 Mg Cap) 10 mg PO HS [facility] Stop: 11/02/23 20:59 Last Admin: 10/03/23 21:52 Dose: 10 mg
[2023-10-05] MEDS: FUROSEMIDE 20 MG TAB PO SCH (09:00)
--- NOTE | 2023-10-05 15:35 | Cardiology Progress Note ---
Date of Service October 05, 2023 Assessment & Plan (1) Syncope and collapse: (2) Sinus bradycardia: Plan: 83-year-old female readmitted following a syncopal episode at the outpatient clinic while in a wheelchair. Event concerning for a Perdomo Maher event. Marked bradycardia with sinus node dysfunction and Tachy-Keshawn Syndrome noted during recent hospitalization with urinary tract infection/bacteremia which occurred shortly after initiation of Jardiance. History of systolic congestive heart failure, HFrEF. Volume status is normovolemic. Resting echocardiography in October 04, 2023 revealed normal LV systolic function, EF 55 to 60%, with normal LV wall motion, mild concentric LVH. There was moderate aortic valve sclerosis without significant stenosis. There was mild mitral and tricuspid regurgitation. Estimated pulmonary artery systolic pressures were estimated to be 38 mmHg which is mildly elevated. Grade 1 diastolic dysfunction observed. Avoid Jardiance and the like hereinafter. Longstanding hypertension, hypertensive heart disease. Blood pressures currently well controlled. Recommendations: 1. Continue to avoid all AV lynn blockers. 2. Maintain telemetry. 3. Refer for permanent pacemaker implantation once sterility is confirmed 4. NPO after midnight on 10/13 for possible permanent pacemaker implantation on Sunday, October 15, 2023 5. Resume metoprolol succinate AFTER permanent pacemaker implantation. I spent a total of 40 minutes on the date of service in preparation, delivery, and documentation of the care provided to this patient excluding any time spent in the performance of separately billed services. This visit was a split-shared visit with the substantive portion of the medical decision making performed by the supervising curriculum coordinator/billing provider. Admission and Anticipated Discharge Date Admission Date: October 03, 2023 Supervising Physician Co-Signing Physician Notes Attending attestation: Case reviewed with the advanced practitioner. I have personally performed a history and physical examination on the patient. I have reviewed the advanced practitioner's documentation on the date of service referenced in note, and I agree with, and take responsibility for the plan of care. I spent a total of 20 minutes coordinating, documenting, and providing care for this patient excluding time spent in the performance of separately billed services or time spent by another provider. jAay Mon, Subjective This is late entry documentation after global outage/No EMR. Initial progress note written on the paper chart. Voice recognition unable. Patient seen and examined. Chart, medications, and telemetry reviewed. I also spoke with the daughter via telephone when I evaluated the patient this morning. No complaints. No chest pain, palpitations, unusual shortness of breath, orthopnea, PND, edema, weakness, dizziness, near syncope, or further syncope. No fevers or chills. Telemetry: Bradycardia into the 40's overnight, currently 56-60 bpm. Review of Systems Review of Systems: Complete Review of Systems is as stated above, negative, or noncontributory. Physical Exam Physical Exam: General: A&Ox3. NAD. HENT: Normocephalic. Atraumatic. Eyes: PER. Conjunctiva pink, sclera clear. Neck: No JVD. No HJR. Chest: + left sided cyst Heart: Regular at 60 bpm. Grade II/ systolic ejection murmur. No diastolic murmur. Lungs: Clear to auscultation. Abdomen: +BS. Soft. Nontender. No masses or organomegaly. Extremities: No edema. No clubbing. No cyanosis. Limited neurological examination is without focal deficits. Pulses: radial=2/4, posterior tibial=2/4. Results & Data Vital Signs (Past 12 Hours) Vital Signs Temp Pulse Resp BP Pulse Ox O2 Del Method 10/05/23 15:12 36.4 C L 60 16 123/69 96 Room Air Laboratory Results See paper chart.
[2023-10-06] MEDS: LEVOTHYROXINE SODIUM 75 MCG TABLET PO SCH (06:48)
[2023-10-06 07:01] LABS: Basophils # (auto) 0.02 K/uL (0.00-0.20); Basophils % (auto) 0.4 %; Eosinophils # (auto) 0.23 K/uL (0.00-0.50); Eosinophils % (auto) 4.3 %; Hemoglobin 11.2 g/dl (14.0-18.0); Immature Granulocytes # (auto) 0.02 K/uL (0.01-0.20); Immature Granulocytes % (auto) 0.4 %; Lymphocytes # (auto) 1.76 K/uL (1.20-3.40); Lymphocytes % (auto) 33.2 %; Mean Corpuscular Hemoglobin 30.6 pg (25.0-34.0); Mean Corpuscular Hgb Conc 32.9 g/dL (32.0-36.0); Mean Corpuscular Volume 92.9 fL (80.0-100.0); Mean Platelet Volume 10.7 fL (9.4-12.4); Monocytes # (auto) 0.61 K/uL (0.11-0.59); Monocytes % (auto) 11.5 %; Neutrophils # (auto) 2.66 K/uL (1.40-6.50); Neutrophils % (auto) 50.2 %; Platelet Count 230 K/uL (130-400); RDW Coefficient of Variation 12.8 % (11.5-14.5); RDW Standard Deviation 43.8 fL (36.4-46.3); Red Blood Count 3.66 M/uL (4.70-6.10)
[2023-10-06 11:47] LABS: Calcium 7.9 mg/dl (8.6-10.3); Potassium 4.3 mmol/L (3.5-5.1)
[2023-10-06 11:53] LABS: BUN Creatinine Ratio 32.9 (10-20); Creatinine Clr Calc Pharmacy 78.7 ml/min; Est GFR (African American) 93.5 ml/min; Est GFR (Non-African American) 80.6 ml/min
--- NOTE | 2023-10-06 14:37 | Hospitalist Progress Note ---
Date of Service October 06, 2023 Assessment & Plan (1) Syncope and collapse: (2) Bradycardia: (3) HFrEF (heart failure with reduced ejection fraction): (4) Hypertensive heart disease: (5) Diabetes mellitus: Plan: Syncope and collapse Episode of unresponsiveness likely secondary to bradycardia arrhythmia and could be due to postural hypotension orthostatic vitals were unremarkable no evidence of severe bradycardia arrhythmia on monitor appreciate cardiology input and recommendation- not for immediate pacemaker for now echo of the heart showed- mild concentric LVH, with normal wall motion and normal systolic function with EF 55 to 60%, aortic valve sclerosis without significant stenosis, mild mitral regurgitation, there is mild tricuspid regurgitation, and grade 1 diastolic dysfunction doubt any neurological symptoms of stroke and/or TIA MRI of the brain is unremarkable did very well with PT and OT clinically much better following admission- likely be discharged in a day or 2 No significant bradycardia arrhythmias noted and the patient remains asymptomatic Likely to have PPM placement on Sunday History of HFrEF -Echo as above, chronic, stable - we will continue current medications DM type II -ISS with Accu-Cheks ACHS - blood sugar remains stable Hypothyroidism -Continue levothyroxine -Chronic, stable BPH Hx UTI - Appears to be resolved at this time, finished IV abx with ertapenem x 7 days DVT ppx: teds, scds Lines: PIV x 1 FEN/GI: HH/DM diet CODE:Full Dispo: From home, likely to remain in the hospital x 1-2 days (6) Hypothyroid: Admission and Anticipated Discharge Date Admission Date: October 03, 2023 Subjective 10/04/2023 the patient was seen and examined in telemetry unit in presence of the son he was admitted with syncopal episode without any warning does not have any symptoms of chest pain, shortness of breath or palpitation has been complaining of occasional dizziness with standing and ambulating no significant bradyarrhythmia noted 10/05/2023 The patient was seen and examined and the notes are in the paper chart 10/06/2023 The patient was seen and examined in telemetry unit He has been stable and denies any significant symptoms The monitor did not show any significant bradycardia arrhythmias Review of Systems Review of Systems: all systems reviewed and are unremarkable except as noted below Physical Exam Physical Exam: lying in bed comfortably Constitutional: well developed, well nourished and average body habitus; not ill appearing Eyes: PERRL, conjunctivae normal, anicteric sclerae ENMT: external ear and nose normal, oropharynx normal Neck: trachea midline, no thyromegaly Respiratory: no respiratory distress Auscultation: lungs clear to auscultation bilaterally Cardiovascular: Rate/Rhythm: regular rate, regular rhythm and + bradycardic Heart Sounds: normal S1 and normal S2; no murmur Extremities: no edema Gastrointestinal (Abdomen): Inspection/Auscultation: normal bowel sounds; abdomen not distended Percussion/Palpation: abdomen soft; abdomen nontender Neurologic: normal touch/pain/proprioception and moves all extremities; no focal motor deficits Lymphatic: no cervical or axillary lymphadenopathy Results & Data Results & Data Vital Signs (Past 12 Hours) Vital Signs Temp Pulse Pulse Resp BP Pulse Ox O2 Del Method 10/06/23 11:46 36.6 C 61 20 118/63 97 Room Air 10/06/23 08:00 49 L 10/06/23 08:00 36.5 C 55 L 16 137/66 97 Room Air 10/06/23 03:36 36.4 C L 49 L 18 142/69 H 95 Room Air Laboratory Results Short CBC 10/06/23 Range/Units 06:30 WBC 5.30 (4.8-10.8) K/ul Hgb 11.2 L (14.0-18.0) g/dl Hct 34.0 L (42.0-52.0) % Plt Count 230 (130-400) K/uL BMP 10/06/23 06:30 Sodium 140 Potassium 4.3 Chloride 111 H Carbon Dioxide 20 L BUN 27 H Creatinine 0.82 Glucose 101 H Calcium 7.9 L Medications Administered Current Inpatient Medications Acetaminophen (Acetaminophen 325 Mg Tab) 650 mg PO Q4H PRN PRN Reason: Pain or Fever Stop: 11/02/23 20:44 Al Hydrox/Mg Hydrox/Simethicone (Aluminum/Magnesium/Simeth (Maalox Max) 30 Ml Udc) 15 ml PO Q6H PRN PRN Reason: Indigestion Stop: 11/02/23 20:44 Escitalopram Oxalate (Escitalopram Oxalate 10 Mg Tab) 10 mg PO QAM ASIF Stop: 11/03/23 08:59 Last Admin: 10/06/23 08:02 Dose: 10 mg Finasteride (Finasteride 5 Mg Tab) 5 mg PO QAM ASIF Stop: 11/03/23 08:59 Last Admin: 10/06/23 08:01 Dose: 5 mg Furosemide (Furosemide 20 Mg Tab) 20 mg PO MoWeFr@0900 [facility] Stop: 11/04/23 08:59 Last Admin: 10/05/23 09:00 Dose: Not Given Heparin Sodium (Porcine) (Heparin Sod 5,000 Unit/0.5 Ml Vial) 5,000 units SQ Q12 [facility] Stop: 11/02/23 20:59 Last Admin: 10/06/23 08:01 Dose: 5,000 units Hydralazine HCl (Hydralazine Hcl 25 Mg Tab) 25 mg PO TID [facility] Stop: 11/02/23 20:59 Last Admin: 10/06/23 08:00 Dose: 25 mg Lactobacillus Acidophilus (Advanced Probiotic 625 Mg Capsule) 1,250 mg PO DAILY [facility] Stop: 11/02/23 20:44 Last Admin: 10/06/23 08:02 Dose: 1,250 mg Levothyroxine Sodium (Levothyroxine Sodium 150 Mcg Tablet) 150 mcg PO MoTuWeThFr@0630 [facility] Stop: 11/03/23 06:29 Last Admin: 10/05/23 06:30 Dose: Not Given Levothyroxine Sodium (Levothyroxine Sodium 75 Mcg Tablet) 225 mcg PO SuSa@0630 [facility] Stop: 11/05/23 06:29 Last Admin: 10/06/23 06:48 Dose: 225 mcg Melatonin (Melatonin 3 Mg Tab) 3 mg PO HS PRN PRN Reason: Sleep Stop: 11/02/23 21:42 Last Admin: 10/05/23 20:57 Dose: 3 mg Polyethylene Glycol (Polyethylene (Miralax) 17 Gm Pack) 17 gm PO DAILY PRN PRN Reason: Constipation Stop: 11/02/23 20:44 Sacubitril/Valsartan (Valsartan/Sacubitril 103/97mg Tab) 1 tab PO AMHS [facility] Stop: 11/02/23 20:59 Last Admin: 10/06/23 08:00 Dose: 1 tab Spironolactone (Spironolactone 25 Mg Tab) 25 mg PO QAM [facility] Stop: 11/03/23 08:59 Last Admin: 10/06/23 08:02 Dose: 25 mg Tamsulosin HCl (Tamsulosin Hcl 0.4 Mg Cap) 0.4 mg PO QAM [facility] Stop: 11/03/23 08:59 Last Admin: 10/06/23 08:02 Dose: 0.4 mg Terazosin HCl (Terazosin Hcl 5 Mg Cap) 10 mg PO [facility] Stop: 11/02/23 20:59 Last Admin: 10/05/23 20:57 Dose: 10 mg
--- NOTE | 2023-10-06 19:54 | Cardiology Progress Note ---
Date of Service October 06, 2023 Assessment & Plan (1) Syncope and collapse: (2) Sinus bradycardia: Plan: 83-year-old female readmitted following a syncopal episode at the outpatient clinic while in a wheelchair. Event concerning for a Perdomo Maher event. Marked bradycardia with sinus node dysfunction and Tachy-Keshawn Syndrome noted during recent hospitalization with urinary tract infection/bacteremia which occurred shortly after initiation of Jardiance. History of systolic congestive heart failure, HFrEF. Volume status is normovolemic. Resting echocardiography in October 04, 2023 revealed normal LV systolic function, EF 55 to 60%, with normal LV wall motion, mild concentric LVH. There was moderate aortic valve sclerosis without significant stenosis. There was mild mitral and tricuspid regurgitation. Estimated pulmonary artery systolic pressures were estimated to be 38 mmHg which is mildly elevated. Grade 1 diastolic dysfunction observed. Avoid Jardiance and the like hereinafter. Longstanding hypertension, hypertensive heart disease. Blood pressures currently well controlled. Recommendations: 1. Continue to avoid all AV lynn blockers. 2. Maintain telemetry. 3. Refer for permanent pacemaker implantation once sterility is confirmed -C. difficile gene positive however C. difficile toxin is negative. Blood cultures obtained x 2 on 10/03/2023 without growth thus far, however the results are still preliminary. Urine culture has yielded positive for Enterobacter cloacae , which is the same pathogen as noted on the previous hospital stay. Will review case with hospitalist service tomorrow with regards to abnormal urine culture. It is difficult to determine if his unresponsive episode is related to bradycardia or not. He was noted to have asymptomatic bradycardia during his previous hospital stay while ill and still on low-dose metoprolol, but no bradycardia has been observed this hospital stay. Blood pressures been stable. Continue monitor on telemetry. Admission and Anticipated Discharge Date Admission Date: October 03, 2023 Subjective Patient seen cardiology follow-up. Feeling well. Reading a book. Telemetry reveals sinus rhythm in the 60s, no bradycardia. Physical Exam Physical Exam: General: no acute distress and stated age Eyes: conjunctiva are pink and non-injected, sclera clear Neck: normal jugular venous pulse, no hepatojugular reflux Chest: normal shape and normal respiratory effort Lungs: clear to auscultation and percussion Cardiac Exam: -Regular rhythm, 1/6 systolic murmur Abdomen: abdomen soft, non-tender, no abnormal masses and no hepatosplenomegaly Musculoskeletal: no gait disturbance, no weakness Extremities: no edema and no cyanosis Neuro:awake, conversant, follows commands, no focal motor deficits Psych: appropriate affect and insight. Results & Data Vital Signs (Past 12 Hours) Vital Signs Temp Pulse Pulse Resp BP Pulse Ox O2 Del Method 10/06/23 19:18 36.7 C 68 17 123/68 95 Room Air 10/06/23 16:00 36.7 C 63 18 124/63 99 Room Air 10/06/23 15:51 49 L 10/06/23 11:46 36.6 C 61 20 118/63 97 Room Air 10/06/23 08:00 49 L 10/06/23 08:00 36.5 C 55 L 16 137/66 97 Room Air
[2023-10-07] MEDS: ERTAPENEM SODIUM 1,000 MG in SYRINGE 0 ML IV SCH (11:43)
--- NOTE | 2023-10-07 15:10 | Hospitalist Progress Note ---
Date of Service October 07, 2023 Assessment & Plan (1) Syncope and collapse: (2) Bradycardia: (3) HFrEF (heart failure with reduced ejection fraction): (4) Hypertensive heart disease: (5) Diabetes mellitus: Plan: Syncope and collapse Episode of unresponsiveness likely secondary to bradycardia arrhythmia and could be due to postural hypotension orthostatic vitals were unremarkable no evidence of severe bradycardia arrhythmia on monitor appreciate cardiology input and recommendation- not for immediate pacemaker for now echo of the heart showed- mild concentric LVH, with normal wall motion and normal systolic function with EF 55 to 60%, aortic valve sclerosis without significant stenosis, mild mitral regurgitation, there is mild tricuspid regurgitation, and grade 1 diastolic dysfunction doubt any neurological symptoms of stroke and/or TIA MRI of the brain is unremarkable did very well with PT and OT clinically much better following admission- likely be discharged in a day or 2 No significant bradycardia arrhythmias noted and the patient remains asymptomatic Remains medically stable and denies any significant symptoms No significant bradycardia arrhythmia on monitor Given finding of UTI not sure if he will have pacemaker tomorrow Will keep him n.p.o. after midnight Discussed with the daughter UTIrecurrent Urine culture is growing Enterobacter cloacae Has had Enterobacter cloacae UTI with bacteremia during his recent admission to the hospital Started on intravenous ertapenem Plan to use oral Cipro on discharge History of HFrEF -Echo as above, chronic, stable - we will continue current medications DM type II -ISS with Accu-Cheks ACHS - blood sugar remains stable Hypothyroidism -Continue levothyroxine -Chronic, stable BPH Hx UTI - Appears to be resolved at this time, finished IV abx with ertapenem x 7 days DVT ppx: teds, scds Lines: PIV x 1 FEN/GI: HH/DM diet CODE:Full Dispo: From home, likely to remain in the hospital x 1-2 days (6) Hypothyroid: Admission and Anticipated Discharge Date Admission Date: October 03, 2023 Subjective 10/04/2023 the patient was seen and examined in telemetry unit in presence of the son he was admitted with syncopal episode without any warning does not have any symptoms of chest pain, shortness of breath or palpitation has been complaining of occasional dizziness with standing and ambulating no significant bradyarrhythmia noted 10/05/2023 The patient was seen and examined and the notes are in the paper chart 10/06/2023 The patient was seen and examined in telemetry unit He has been stable and denies any significant symptoms The monitor did not show any significant bradycardia arrhythmias 10/07/2023 The patient was seen and examined in telemetry unit He remains stable and ready no significant bradycardia arrhythmia noted on monitor His urine is growing Enterococcus and he does not do any self-catheterization at home He denies any urinary symptoms He will be kept n.p.o. after midnight today for possible PPM tomorrow Review of Systems Review of Systems: all systems reviewed and are unremarkable except as noted below Physical Exam Physical Exam: lying in bed comfortably Constitutional: well developed, well nourished and average body habitus; not ill appearing Eyes: PERRL, conjunctivae normal, anicteric sclerae ENMT: external ear and nose normal, oropharynx normal Neck: trachea midline, no thyromegaly Respiratory: no respiratory distress Auscultation: lungs clear to auscultation bilaterally Cardiovascular: Rate/Rhythm: regular rate, regular rhythm and + bradycardic Heart Sounds: normal S1 and normal S2; no murmur Extremities: no edema Gastrointestinal (Abdomen): Inspection/Auscultation: normal bowel sounds; abdomen not distended Percussion/Palpation: abdomen soft; abdomen nontender Neurologic: normal touch/pain/proprioception and moves all extremities; no focal motor deficits Lymphatic: no cervical or axillary lymphadenopathy Results & Data Results & Data Vital Signs (Past 12 Hours) Vital Signs Temp Pulse Pulse Resp BP Pulse Ox O2 Del Method 10/07/23 14:45 54 L 10/07/23 12:15 36.6 C 60 20 118/72 98 Room Air 10/07/23 08:00 51 L 10/07/23 07:41 36.6 C 53 L 18 144/71 H 96 Room Air 10/07/23 03:39 36.9 C 52 L 20 124/66 96 Room Air Medications Administered Current Inpatient Medications Acetaminophen (Acetaminophen 325 Mg Tab) 650 mg PO Q4H PRN PRN Reason: Pain or Fever Stop: 11/02/23 20:44 Al Hydrox/Mg Hydrox/Simethicone (Aluminum/Magnesium/Simeth (Maalox Max) 30 Ml Udc) 15 ml PO Q6H PRN PRN Reason: Indigestion Stop: 11/02/23 20:44 Escitalopram Oxalate (Escitalopram Oxalate 10 Mg Tab) 10 mg PO QAM ASIF Stop: 11/03/23 08:59 Last Admin: 10/07/23 08:06 Dose: 10 mg Finasteride (Finasteride 5 Mg Tab) 5 mg PO QAM [facility] Stop: 11/03/23 08:59 Last Admin: 10/07/23 08:05 Dose: 5 mg Furosemide (Furosemide 20 Mg Tab) 20 mg PO MoWeFr@0900 [facility] Stop: 11/04/23 08:59 Last Admin: 10/05/23 09:00 Dose: Not Given Heparin Sodium (Porcine) (Heparin Sod 5,000 Unit/0.5 Ml Vial) 5,000 units SQ Q12 [facility] Stop: 11/02/23 20:59 Last Admin: 10/07/23 08:06 Dose: 5,000 units Hydralazine HCl (Hydralazine Hcl 25 Mg Tab) 25 mg PO TID [facility] Stop: 11/02/23 20:59 Last Admin: 10/07/23 15:01 Dose: 25 mg Ertapenem 1,000 mg/ Syringe 10 mls @ 2 mls/min IV Q24H [facility] Stop: 10/17/23 09:59 Last Admin: 10/07/23 11:43 Dose: 2 mls/min Lactobacillus Acidophilus (Advanced Probiotic 625 Mg Capsule) 1,250 mg PO DAILY [facility] Stop: 11/02/23 20:44 Last Admin: 10/07/23 08:06 Dose: 1,250 mg Levothyroxine Sodium (Levothyroxine Sodium 150 Mcg Tablet) 150 mcg PO MoTuWeThFr@0630 [facility] Stop: 11/03/23 06:29 Last Admin: 10/05/23 06:30 Dose: Not Given Levothyroxine Sodium (Levothyroxine Sodium 75 Mcg Tablet) 225 mcg PO SuSa@0630 [facility] Stop: 11/05/23 06:29 Last Admin: 10/07/23 06:23 Dose: 225 mcg Melatonin (Melatonin 3 Mg Tab) 3 mg PO HS PRN PRN Reason: Sleep Stop: 11/02/23 21:42 Last Admin: 10/06/23 20:48 Dose: 3 mg Polyethylene Glycol (Polyethylene (Miralax) 17 Gm Pack) 17 gm PO DAILY PRN PRN Reason: Constipation Stop: 11/02/23 20:44 Sacubitril/Valsartan (Valsartan/Sacubitril 103/97mg Tab) 1 tab PO AMHS [facility] Stop: 11/02/23 20:59 Last Admin: 10/07/23 08:05 Dose: 1 tab Spironolactone (Spironolactone 25 Mg Tab) 25 mg PO QAM [facility] Stop: 11/03/23 08:59 Last Admin: 10/07/23 08:06 Dose: 25 mg Tamsulosin HCl (Tamsulosin Hcl 0.4 Mg Cap) 0.4 mg PO QAM [facility] Stop: 11/03/23 08:59 Last Admin: 10/07/23 08:05 Dose: 0.4 mg Terazosin HCl (Terazosin Hcl 5 Mg Cap) 10 mg PO HS [facility] Stop: 11/02/23 20:59 Last Admin: 10/06/23 20:50 Dose: 10 mg
--- NOTE | 2023-10-07 16:46 | Cardiology Progress Note ---
Date of Service October 07, 2023 Assessment & Plan (1) Syncope and collapse: (2) Sinus bradycardia: Plan: 83-year-old male readmitted following a syncopal episode at the outpatient clinic while in a wheelchair. Marked bradycardia with sinus node dysfunction and Tachy-Keshawn Syndrome noted during recent hospitalization with urinary tract infection/bacteremia which occurred shortly after initiation of Jardiance. History of systolic congestive heart failure, HFrEF. Volume status is normovolemic. Resting echocardiography in October 04, 2023 revealed normal LV systolic function, EF 55 to 60%, with normal LV wall motion, mild concentric LVH. There was moderate aortic valve sclerosis without significant stenosis. There was mild mitral and tricuspid regurgitation. Estimated pulmonary artery systolic pressures were estimated to be 38 mmHg which is mildly elevated. Grade 1 diastolic dysfunction observed. Avoid Jardiance and the like hereinafter. Longstanding hypertension, hypertensive heart disease. Blood pressures currently well controlled. Recommendations: 1. Continue to avoid all AV lynn blockers. 2. Maintain telemetry. -C. difficile gene positive however C. difficile toxin is negative. Blood cultures obtained x 2 on 10/03/2023 without growth thus far, however the results are still preliminary. Urine culture from 10/03/23 has yielded positive for Enterobacter cloacae , which is the same pathogen as noted on the previous hospital stay. -Patient now back on antibiotics, ertapenem. Continue to observe on antibiotics. Holding off on pacemaker for now. Patient considerations include pacemaker, or outpatient Zio patch AT or loop recorder. Continue monitor on telemetry. Recommend PT. Increase activity , deconditioning noted. Admission and Anticipated Discharge Date Admission Date: October 03, 2023 Subjective Patient seen in cardiology follow-up. He is sitting in bed reading a book. His daughter, Sarah, participated in today's visit by speaker phone. Denies lightheadedness or dizziness. Denies subjective dysuria. Telemetry reveals sinus bradycardia and sinus rhythm in the range of 50s to 60s. During sleep, lowest heart rates in the upper 40s to 50s. No pauses. Blood pressure normal to high on some measurements. Physical Exam Physical Exam: General: no acute distress and stated age Eyes: conjunctiva are pink and non-injected, sclera clear Neck: normal jugular venous pulse, no hepatojugular reflux Chest: normal shape and normal respiratory effort Lungs: clear to auscultation and percussion Cardiac Exam: -Regular rhythm, 1/6 systolic murmur Abdomen: abdomen soft, non-tender, no abnormal masses and no hepatosplenomegaly Musculoskeletal: no gait disturbance, no weakness Extremities: no edema and no cyanosis Neuro:awake, conversant, follows commands, no focal motor deficits Psych: appropriate affect and insight. Results & Data Vital Signs (Past 12 Hours) Vital Signs Temp Pulse Pulse Resp BP Pulse Ox O2 Del Method 10/07/23 15:45 36.5 C 58 L 18 171/82 H 93 Room Air 10/07/23 14:45 54 L 10/07/23 12:15 36.6 C 60 20 118/72 98 Room Air 10/07/23 08:00 51 L 10/07/23 07:41 36.6 C 53 L 18 144/71 H 96 Room Air
[2023-10-07] MEDS: SODIUM CHLORIDE 0.9% 500 ML IV SCH (19:56)
[2023-10-08 06:18] LABS: Basophils # (auto) 0.02 K/uL (0.00-0.20); Basophils % (auto) 0.4 %; Eosinophils # (auto) 0.24 K/uL (0.00-0.50); Eosinophils % (auto) 4.6 %; Hematocrit (blood only) 33.8 % (42.0-52.0); Hemoglobin 11.2 g/dl (14.0-18.0); Immature Granulocytes # (auto) 0.01 K/uL (0.01-0.20); Immature Granulocytes % (auto) 0.2 %; Lymphocytes # (auto) 1.66 K/uL (1.20-3.40); Lymphocytes % (auto) 31.6 %; Mean Corpuscular Hemoglobin 31.2 pg (25.0-34.0); Mean Corpuscular Hgb Conc 33.1 g/dL (32.0-36.0); Mean Corpuscular Volume 94.2 fL (80.0-100.0); Mean Platelet Volume 10.8 fL (9.4-12.4); Monocytes # (auto) 0.68 K/uL (0.11-0.59); Neutrophils # (auto) 2.64 K/uL (1.40-6.50); Neutrophils % (auto) 50.2 %; Platelet Count 221 K/uL (130-400); RDW Coefficient of Variation 13.1 % (11.5-14.5); RDW Standard Deviation 45.1 fL (36.4-46.3); Red Blood Count 3.59 M/uL (4.70-6.10); White Blood Count 5.25 K/ul (4.8-10.8)
[2023-10-08 06:46] LABS: BUN Creatinine Ratio 31.3 (10-20); Calcium 7.9 mg/dl (8.6-10.3); Creatinine Clr Calc Pharmacy 65.2 ml/min; Est GFR (African American) 80.2 ml/min; Est GFR (Non-African American) 69.2 ml/min; Magnesium 2.2 mg/dl (1.7-2.4); Potassium 4.3 mmol/L (3.5-5.1)
--- NOTE | 2023-10-08 10:39 | Cardiology Progress Note ---
Date of Service October 08, 2023 Assessment & Plan (1) Syncope and collapse: (2) Sinus bradycardia: (3) Tachycardia-bradycardia syndrome: (4) PSVT (paroxysmal supraventricular tachycardia): Plan Permanent pacemaker implantation recommended, however, deferred currently due to urinary tract infection. Patient will require treatment of urinary tract infection and sebaceous cyst prior to pacemaker implantation. General surgery consultation recommended. Beta-antonio on hold until pacemaker implantation. Continue spironolactone, Entresto, Hytrin, hydralazine, and furosemide as ordered. Patient chronically treated with Eliquis (currently on hold) due to history of pulmonary embolus. I spent a total of 45 minutes on the date of service in preparation, delivery, and documentation of the care provided to this patient, excluding any time spent in the performance of separately billed services. Admission and Anticipated Discharge Date Admission Date: October 03, 2023 Subjective 83-year-old male seen and examined at the bedside. Admitted with syncopal episode at outpatient clinic while in wheelchair. Reports episode of palpitations and lightheadedness yesterday. Telemetry revealed paroxysmal supraventricular tachycardia at heart rate of approximate 170 bpm at 7:30 PM. Otherwise, sinus bradycardia in the 50s and 60s overnight. Possible atypical atrial flutter following episode of PSVT noted on telemetry. Daughter present at bedside. Offers no additional concerns/complaints. Patient has a large sebaceous cyst on his left anterior chest below the clavicle. 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 Review of Systems Review of Systems: All systems reviewed & are unremarkable except as noted in Subjective Physical Exam Constitutional: no acute distress Respiratory: no respiratory distress, no labored breathing and no retractions Auscultation: no crackles, no rales, no rhonchi and no wheezes Cardiovascular: Rate/Rhythm: regular rate and regular rhythm Heart Sounds: normal S1 and normal S2; no murmur Vessels: no JVD Extremities: no edema Infraclavicular sebaceous cyst of left anterior chest wall. Gastrointestinal (Abdomen): Inspection/Auscultation: normal bowel sounds; abdomen not distended Percussion/Palpation: abdomen soft; abdomen nontender, no guarding and abdomen not rigid Neurologic: CN's II-XI intact bilaterally and moves all extremities; no focal motor deficits Results & Data Vital Signs (Past 12 Hours) Vital Signs Temp Pulse Resp BP Pulse Ox O2 Del Method 10/08/23 08:28 36.5 C 61 16 151/68 H 94 Room Air 10/08/23 02:38 36.6 C 59 L 16 122/65 96 Room Air 10/07/23 22:55 36.9 C 66 16 116/66 95 Room Air Laboratory Results CBC 10/08/23 Range/Units 05:37 WBC 5.25 (4.8-10.8) K/ul RBC 3.59 L (4.70-6.10) M/uL Hgb 11.2 L (14.0-18.0) g/dl Hct 33.8 L (42.0-52.0) % Plt Count 221 (130-400) K/uL Neut # (Auto) 2.64 (1.40-6.50) K/uL Lymph # (Auto) 1.66 (1.20-3.40) K/uL [place] # (Auto) 0.68 H (0.11-0.59) K/uL Eos # (Auto) 0.24 (0.00-0.50) K/uL Baso # (Auto) 0.02 (0.00-0.20) K/uL Comprehensive Metabolic Panel 10/08/23 Range/Units 05:37 Sodium 140 (136-145) mmol/L Potassium 4.3 (3.5-5.1) mmol/L Chloride 112 H (98-107) mmol/L Carbon Dioxide 24 (21-32) mmol/L BUN 31 H (6-23) mg/dl Creatinine 0.99 (0.6-1.4) mg/dl Glucose 105 H (70-99(Fasting)) mg/dl Calcium 7.9 L (8.6-10.3) mg/dl Intake and Output 10/07/23 10/08/23 10/08/23 22:59 06:59 14:59 Intake Total 850 / 1050 200 / 1050 Output Total 1 401 400 / 401 Balance 849 / 649 -200 / 649 Intake: IV 500 / 500 Sodium Chloride 0.9% 500 ml @ 500 / 500 500 mls/hr IV .Q1H ASIF Rx#: [id number] Oral 350 / 550 200 / 550 Output: Urine Amount (Catheter) 400 / 400 External 400 / 400 # Bowel Movements Other: # Unmeasured Voids 1 Weight 90.8 kg Weight Measurement Method Built in [facility]
--- NOTE | 2023-10-08 10:53 | Electrocardiogram Report ---
Test Reason : Blood Pressure : / mmHG Vent. Rate : 051 BPM Atrial Rate : 051 BPM P-R Int : 222 ms QRS Dur : 126 ms QT Int : 450 ms P-R-T Axes : 020 -49 051 degrees QTc Int : 414 ms Sinus bradycardia with 1st degree A-V block Left axis deviation Non-specific intra-ventricular conduction block Nonspecific T wave abnormality Abnormal ECG When compared with ECG of 04-OCT-2023 05:26, T wave inversion now evident in Lateral leads Confirmed by Conor Fenton ([id number]) on 10/08/2023 10:52:52 AM Referred By: Linda Rendon Confirmed By:Conor Fenton
--- NOTE | 2023-10-08 12:24 | Surgery Consultation ---
Date of Consultation October 08, 2023 Assessment & Plan (1) Tachycardia-bradycardia syndrome: (2) Sebaceous cyst: Plan 83 yo male with syncopal episode with tachy-shanel syndrome and waiting for pacemaker placement after UTI treatment. Has chronic noninfected sebaceous cyst of the left chest wall. No signs of infection or drainage on examination. Question of need for removal prior to placement of pacemaker. Would recommend against surgical excision of cyst in short term to avoid delaying placement of pacemaker given size as he has increased risk of postop seroma/hematoma formation and likely would need complete healing prior to pacemaker placement. Could consider close outpatient excision once pacemaker placed to avoid future infection given close proximity to a pacemaker location. Discussed with Dr. Mane. Dr. Mix has seen and examined patient, see addendum for further recommendations/plan. History of Present Illness Reason for Consultation: sebaceous cyst Requesting Physician: Torrey Mane MD Attending Physician: Torrey Mane MD History of Present Illness Mr. Pastrana is a 83 yo male with history of diabetes mellitus, pulmonary embolism on eliquis (currently on hold), bradycardia, BPH, vitamin d deficiency, and recent UTI and bacteremia presented to hospital due to syncope at outpatient clinic. He is waiting for placement of pacemaker but currently being treated for UTI. OUr services consulted for left chest sebaceous cyst and as to whether this needs excised prior to pacemaker insertion. Plan for 10 days of antibiotics for UTI. Allergies Allergy/AdvReac Type Severity Reaction Status Date / Time shrimp Allergy Severe Anaphylaxis Verified 10/03/23 17:08 Home Medications Medication Instructions Recorded Confirmed Type escitalopram oxalate 10 mg tablet 10 mg PO QAM 11/27/17 10/03/23 History finasteride 5 mg tablet (Proscar) 5 mg PO QAM 11/18/21 10/03/23 History needle (disp) 18 G 18 gauge x 1 #4 ea 12/05/21 10/03/23 Rx 1/2" (BD Regular [place]vel [place]) apixaban 5 mg tablet 5 mg PO BID 05/15/23 10/03/23 History furosemide 20 mg tablet 20 mg PO 3XWK 05/15/23 10/03/23 History spironolactone 25 mg tablet 25 mg PO QAM 05/15/23 10/03/23 History tryptophan 500 mg capsule 1,500 mg PO HS 05/15/23 10/03/23 History acetaminophen 500 mg tablet 1,000 mg PO Q6H PRN Pain 09/17/23 10/03/23 History levothyroxine 150 mcg tablet 150 mcg PO 5XWK 09/17/23 10/03/23 History levothyroxine 150 mcg tablet 225 mcg PO 2XWK 09/17/23 10/03/23 History sacubitril 97 mg-valsartan 103 mg 1 tab PO AMHS 09/17/23 10/03/23 History tablet (Entresto) tamsulosin 0.4 mg capsule 0.4 mg PO QAM 09/17/23 10/03/23 History terazosin 10 mg capsule 10 mg PO HS 09/17/23 10/03/23 History hydralazine 25 mg tablet 25 mg PO TID 30 days #90 tabs 09/27/23 10/03/23 Rx Patient History Medical History Hypertension Social History Smoking Status: Never smoker Second Hand Exposure: No; Do You Dip or Chew Tobacco: No; Tobacco Cessation Education Requested by Patient: No Hx Alcohol Use: No Hx Substance Use: No Preferred Language: Faroese Communication Ability: Effective Asphalt Tamper Required: No Beliefs That Will Affect Care: None Current Living Situation: Alone Other Information That Helps Us Care for You: No Feels Safe at Home: Yes Safety Concerns: Feels Safe At This Time Assistive Devices: Glasses and Walker Review of Systems Review of Systems: All systems reviewed & are unremarkable except as noted in HPI & below Physical Exam Constitutional: cooperative and comfortable; no acute distress and not ill appearing Chest (Breasts): Additional Comments: Left chest wall there is a 4 cm sebaceous cyst without induration, fluctuance, erythema, or pain on palpation. Skin: no rashes, warm and dry Psychiatric: A+Ox3, euthymic affect Results & Data Vital Signs (Past 12 Hours) Vital Signs Temp Pulse Pulse Resp BP Pulse Ox O2 Del Method 10/08/23 11:18 36.7 C 60 18 133/78 94 Room Air 10/08/23 08:28 36.5 C 61 16 151/68 H 94 Room Air 10/08/23 07:00 54 L 10/08/23 02:38 36.6 C 59 L 16 122/65 96 Room Air Laboratory Results 10/08/23 Range/Units 05:37 WBC 5.25 (4.8-10.8) K/ul RBC 3.59 L (4.70-6.10) M/uL Hgb 11.2 L (14.0-18.0) g/dl Hct 33.8 L (42.0-52.0) % MCV 94.2 (80.0-100.0) fL MCH 31.2 (25.0-34.0) pg MCHC 33.1 (32.0-36.0) g/dL RDW Std Deviation 45.1 (36.4-46.3) fL RDW Coeff of [place] 13.1 (11.5-14.5) % Plt Count 221 (130-400) K/uL MPV 10.8 (9.4-12.4) fL Immature Gran % (Auto) 0.2 % Neut % (Auto) 50.2 % Lymph % (Auto) 31.6 % [place] % (Auto) 13.0 % Eos % (Auto) 4.6 % Baso % (Auto) 0.4 % Neut # (Auto) 2.64 (1.40-6.50) K/uL Lymph # (Auto) 1.66 (1.20-3.40) K/uL [place] # (Auto) 0.68 H (0.11-0.59) K/uL Eos # (Auto) 0.24 (0.00-0.50) K/uL Baso # (Auto) 0.02 (0.00-0.20) K/uL Immature Gran # (Auto) 0.01 (0.01-0.20) K/uL Sodium 140 (136-145) mmol/L Potassium 4.3 (3.5-5.1) mmol/L Chloride 112 H (98-107) mmol/L Carbon Dioxide 24 (21-32) mmol/L Anion Gap 4 (3-11) BUN 31 H (6-23) mg/dl Creatinine 0.99 (0.6-1.4) mg/dl Est Cr Clr Drug Dosing 65.2 ml/min Est GFR ( Amer) 80.2 ml/min Est GFR (Non-Af Amer) 69.2 ml/min BUN/Creatinine Ratio 31.3 H (10-20) Glucose 105 H (70-99(Fasting)) mg/dl Calcium 7.9 L (8.6-10.3) mg/dl Magnesium 2.2 (1.7-2.4) mg/dl
--- NOTE | 2023-10-08 16:25 | Hospitalist Progress Note ---
Date of Service October 08, 2023 Assessment & Plan (1) Syncope and collapse: (2) Bradycardia: (3) HFrEF (heart failure with reduced ejection fraction): (4) Hypertensive heart disease: (5) Diabetes mellitus: Plan: Syncope and collapse Episode of unresponsiveness likely secondary to bradycardia arrhythmia and could be due to postural hypotension orthostatic vitals were unremarkable no evidence of severe bradycardia arrhythmia on monitor appreciate cardiology input and recommendation- not for immediate pacemaker for now echo of the heart showed- mild concentric LVH, with normal wall motion and normal systolic function with EF 55 to 60%, aortic valve sclerosis without significant stenosis, mild mitral regurgitation, there is mild tricuspid regurgitation, and grade 1 diastolic dysfunction doubt any neurological symptoms of stroke and/or TIA MRI of the brain is unremarkable did very well with PT and OT clinically much better following admission- likely be discharged in a day or 2 No significant bradycardia arrhythmias noted and the patient remains asymptomatic Remains medically stable and denies any significant symptoms No significant bradycardia arrhythmia on monitor Given finding of UTI not sure if he will have pacemaker tomorrow Will keep him n.p.o. after midnight Discussed with the daughter Will need pacemaker placement following treatment of acute UTI Sebaceous cyst over upper side of the precordium Complications of pacemaker insertion behind the same area Appreciate surgery input and recommendation-advised removal of the cyst after the pacemaker is inserted Will discuss with the ell tutor UTIrecurrent Urine culture is growing Enterobacter cloacae Has had Enterobacter cloacae UTI with bacteremia during his recent admission to the hospital Started on intravenous ertapenem Plan to use oral Cipro on discharge Discussed with the pharmacist and decided to continue the current antibiotic and send him home on Bactrim for a total of 10 days of antibiotic History of HFrEF -Echo as above, chronic, stable - we will continue current medications DM type II -ISS with Accu-Cheks ACHS - blood sugar remains stable Hypothyroidism -Continue levothyroxine -Chronic, stable BPH Hx UTI - Appears to be resolved at this time, finished IV abx with ertapenem x 7 days DVT ppx: teds, scds Lines: PIV x 1 FEN/GI: HH/DM diet CODE:Full Dispo: From home, likely to remain in the hospital x 1-2 days (6) Hypothyroid: Admission and Anticipated Discharge Date Admission Date: October 03, 2023 Subjective 10/04/2023 the patient was seen and examined in telemetry unit in presence of the son he was admitted with syncopal episode without any warning does not have any symptoms of chest pain, shortness of breath or palpitation has been complaining of occasional dizziness with standing and ambulating no significant bradyarrhythmia noted 10/05/2023 The patient was seen and examined and the notes are in the paper chart 10/06/2023 The patient was seen and examined in telemetry unit He has been stable and denies any significant symptoms The monitor did not show any significant bradycardia arrhythmias 10/07/2023 The patient was seen and examined in telemetry unit He remains stable and ready no significant bradycardia arrhythmia noted on monitor His urine is growing Enterococcus and he does not do any self-catheterization at home He denies any urinary symptoms He will be kept n.p.o. after midnight today for possible PPM tomorrow 10/08/2023 The patient was seen and examined in telemetry unit in presence of the daughter He has had episodes of tachycardia with SVT at a rate of more than 160/min last evening No significant bradycardia noted He remains asymptomatic this morning Review of Systems Review of Systems: all systems reviewed and are unremarkable except as noted below Physical Exam Physical Exam: lying in bed comfortably Constitutional: well developed, well nourished and average body habitus; not ill appearing Eyes: PERRL, conjunctivae normal, anicteric sclerae ENMT: external ear and nose normal, oropharynx normal Neck: trachea midline, no thyromegaly Respiratory: no respiratory distress Auscultation: lungs clear to auscultation bilaterally Cardiovascular: Rate/Rhythm: regular rate, regular rhythm and + bradycardic Heart Sounds: normal S1 and normal S2; no murmur Extremities: no edema Gastrointestinal (Abdomen): Inspection/Auscultation: normal bowel sounds; abdomen not distended Percussion/Palpation: abdomen soft; abdomen nontender Neurologic: normal touch/pain/proprioception and moves all extremities; no focal motor deficits Lymphatic: no cervical or axillary lymphadenopathy Results & Data Results & Data Vital Signs (Past 12 Hours) Vital Signs Temp Pulse Pulse Resp BP Pulse Ox O2 Del Method 10/08/23 15:24 37.1 C 55 L 17 133/70 Room Air 10/08/23 13:59 60 10/08/23 11:18 36.7 C 60 18 133/78 94 Room Air 10/08/23 08:28 36.5 C 61 16 151/68 H 94 Room Air 10/08/23 07:00 54 L Laboratory Results Short CBC 10/08/23 Range/Units 05:37 WBC 5.25 (4.8-10.8) K/ul Hgb 11.2 L (14.0-18.0) g/dl Hct 33.8 L (42.0-52.0) % Plt Count 221 (130-400) K/uL BMP 10/08/23 05:37 Sodium 140 Potassium 4.3 Chloride 112 H Carbon Dioxide 24 BUN 31 H Creatinine 0.99 Glucose 105 H Calcium 7.9 L Medications Administered Current Inpatient Medications Acetaminophen (Acetaminophen 325 Mg Tab) 650 mg PO Q4H PRN PRN Reason: Pain or Fever Stop: 11/02/23 20:44 Al Hydrox/Mg Hydrox/Simethicone (Aluminum/Magnesium/Simeth (Maalox Max) 30 Ml Udc) 15 ml PO Q6H PRN PRN Reason: Indigestion Stop: 11/02/23 20:44 Escitalopram Oxalate (Escitalopram Oxalate 10 Mg Tab) 10 mg PO QAM [facility] Stop: 11/03/23 08:59 Last Admin: 10/08/23 08:27 Dose: 10 mg Finasteride (Finasteride 5 Mg Tab) 5 mg PO QAM [facility] Stop: 11/03/23 08:59 Last Admin: 10/08/23 08:27 Dose: 5 mg Furosemide (Furosemide 20 Mg Tab) 20 mg PO MoWeFr@0900 [facility] Stop: 11/04/23 08:59 Last Admin: 10/08/23 08:26 Dose: 20 mg Heparin Sodium (Porcine) (Heparin Sod 5,000 Unit/0.5 Ml Vial) 5,000 units SQ Q12 [facility] Stop: 11/02/23 20:59 Last Admin: 10/08/23 08:27 Dose: 5,000 units Hydralazine HCl (Hydralazine Hcl 25 Mg Tab) 25 mg PO TID [facility] Stop: 11/02/23 20:59 Last Admin: 10/08/23 13:42 Dose: 25 mg Ertapenem 1,000 mg/ Syringe 10 mls @ 2 mls/min IV Q24H [facility] Stop: 10/17/23 09:59 Last Admin: 10/08/23 12:05 Dose: 2 mls/min Lactobacillus Acidophilus (Advanced Probiotic 625 Mg Capsule) 1,250 mg PO DAILY [facility] Stop: 11/02/23 20:44 Last Admin: 10/08/23 08:27 Dose: 1,250 mg Levothyroxine Sodium (Levothyroxine Sodium 150 Mcg Tablet) 150 mcg PO MoTuWeThFr@0630 [facility] Stop: 11/03/23 06:29 Last Admin: 10/08/23 06:07 Dose: 150 mcg Levothyroxine Sodium (Levothyroxine Sodium 75 Mcg Tablet) 225 mcg PO SuSa@0630 [facility] Stop: 11/05/23 06:29 Last Admin: 10/07/23 06:23 Dose: 225 mcg Melatonin (Melatonin 3 Mg Tab) 3 mg PO HS PRN PRN Reason: Sleep Stop: 11/02/23 21:42 Last Admin: 10/07/23 20:45 Dose: 3 mg Polyethylene Glycol (Polyethylene (Miralax) 17 Gm Pack) 17 gm PO DAILY PRN PRN Reason: Constipation Stop: 11/02/23 20:44 Sacubitril/Valsartan (Valsartan/Sacubitril 103/97mg Tab) 1 tab PO AMHS [facility] Stop: 11/02/23 20:59 Last Admin: 10/08/23 08:27 Dose: 1 tab Spironolactone (Spironolactone 25 Mg Tab) 25 mg PO QAM [facility] Stop: 11/03/23 08:59 Last Admin: 10/08/23 08:27 Dose: 25 mg Tamsulosin HCl (Tamsulosin Hcl 0.4 Mg Cap) 0.4 mg PO QAM [facility] Stop: 11/03/23 08:59 Last Admin: 10/08/23 08:27 Dose: 0.4 mg Terazosin HCl (Terazosin Hcl 5 Mg Cap) 10 mg PO HS [facility] Stop: 11/02/23 20:59 Last Admin: 10/07/23 20:34 Dose: 10 mg
--- NOTE | 2023-10-09 06:50 | Electrocardiogram Report ---
Test Reason : Blood Pressure : / mmHG Vent. Rate : 092 BPM Atrial Rate : 092 BPM P-R Int : 226 ms QRS Dur : 118 ms QT Int : 378 ms P-R-T Axes : 048 -74 045 degrees QTc Int : 467 ms Sinus rhythm with 1st degree A-V block with occasional Premature ventricular complexes Left anterior fascicular block Abnormal ECG When compared with ECG of 05-OCT-2023 05:40, (unconfirmed) Premature ventricular complexes are now Present Vent. rate has increased BY 41 BPM Nonspecific T wave abnormality has replaced inverted T waves in Lateral leads Confirmed by Conor Fenton ([id number]) on 10/09/2023 6:50:16 AM Referred By: Linda Rendon Confirmed By:Conor Fenton
[2023-10-09 06:54] LABS: Hematocrit (blood only) 34.7 % (42.0-52.0); Hemoglobin 11.3 g/dl (14.0-18.0); Mean Corpuscular Hemoglobin 30.6 pg (25.0-34.0); Mean Corpuscular Hgb Conc 32.6 g/dL (32.0-36.0); Mean Platelet Volume 10.9 fL (9.4-12.4); Platelet Count 229 K/uL (130-400); RDW Coefficient of Variation 13.3 % (11.5-14.5); Red Blood Count 3.69 M/uL (4.70-6.10); White Blood Count 5.12 K/ul (4.8-10.8)
--- NOTE | 2023-10-09 12:42 | Cardiology Progress Note ---
Date of Service October 09, 2023 Assessment & Plan (1) Syncope and collapse: (2) Sinus bradycardia: (3) Tachycardia-bradycardia syndrome: (4) PSVT (paroxysmal supraventricular tachycardia): Plan Permanent pacemaker implantation in AM 10/10/2023. Npo except meds after midnight. Beta-antonio on hold until pacemaker implantation. Continue spironolactone, Entresto, Hytrin, hydralazine, and furosemide as ordered. Patient chronically treated with Eliquis (currently on hold) due to history of pulmonary embolus. I spent a total of 45 minutes on the date of service in preparation, delivery, and documentation of the care provided to this patient, excluding any time spent in the performance of separately billed services. Admission and Anticipated Discharge Date Admission Date: October 03, 2023 Subjective 83-year-old patient seen and examined at the bedside. No recurrent atrial tachycardia/SVT overnight. Denies chest pain, palpitations, shortness of breath, lightheadedness, or dizziness. Daughter present at bedside. Has questions regarding pacemaker implantation. Patient offers no concerns/complaints. Review of Systems Review of Systems: All systems reviewed & are unremarkable except as noted in Subjective Physical Exam Constitutional: no acute distress Respiratory: no respiratory distress, no labored breathing and no retractions Auscultation: no crackles, no rales, no rhonchi and no wheezes Cardiovascular: Rate/Rhythm: regular rate and regular rhythm Heart Sounds: normal S1 and normal S2; no murmur Vessels: no JVD Extremities: no edema Gastrointestinal (Abdomen): Inspection/Auscultation: normal bowel sounds; abdomen not distended Percussion/Palpation: abdomen soft; abdomen nontender, no guarding and abdomen not rigid Neurologic: CN's II-XI intact bilaterally and moves all extremities; no focal motor deficits Results & Data Vital Signs (Past 12 Hours) Vital Signs Temp Pulse Pulse Resp BP Pulse Ox O2 Del Method 10/09/23 10:39 36.4 C L 75 18 133/72 94 Room Air 10/09/23 10:04 53 L 10/09/23 07:02 36.4 C L 52 L 17 139/72 95 Room Air 10/09/23 03:06 36.6 C 57 L 16 125/72 95 Room Air
--- NOTE | 2023-10-09 17:22 | Hospitalist Progress Note ---
Date of Service October 09, 2023 Assessment & Plan (1) Syncope and collapse: (2) Bradycardia: (3) HFrEF (heart failure with reduced ejection fraction): (4) Hypertensive heart disease: (5) Diabetes mellitus: Plan: Syncope and collapse Episode of unresponsiveness likely secondary to bradycardia arrhythmia and could be due to postural hypotension orthostatic vitals were unremarkable no evidence of severe bradycardia arrhythmia on monitor appreciate cardiology input and recommendation- not for immediate pacemaker for now echo of the heart showed- mild concentric LVH, with normal wall motion and normal systolic function with EF 55 to 60%, aortic valve sclerosis without significant stenosis, mild mitral regurgitation, there is mild tricuspid regurgitation, and grade 1 diastolic dysfunction doubt any neurological symptoms of stroke and/or TIA MRI of the brain is unremarkable did very well with PT and OT clinically much better following admission- likely be discharged in a day or 2 No significant bradycardia arrhythmias noted and the patient remains asymptomatic Remains medically stable and denies any significant symptoms No significant bradycardia arrhythmia on monitor Given finding of UTI not sure if he will have pacemaker tomorrow Will keep him n.p.o. after midnight Discussed with the daughter Will need pacemaker placement following treatment of acute UTI Will have permanent pacemaker placement tomorrow Sebaceous cyst over upper side of the precordium Complications of pacemaker insertion behind the same area Appreciate surgery input and recommendation-advised removal of the cyst after the pacemaker is inserted Will discuss with the integrated marketing manager Sebaceous cyst can be removed as an outpatient as per the surgeon UTIrecurrent Urine culture is growing Enterobacter cloacae Has had Enterobacter cloacae UTI with bacteremia during his recent admission to the hospital Started on intravenous ertapenem Plan to use oral Cipro on discharge Discussed with the pharmacist and decided to continue the current antibiotic and send him home on Bactrim for a total of 10 days of antibiotic Will continue intravenous antibiotic while in hospital been on discharge will add Bactrim DS twice daily for a total of 10 days of antibiotic History of HFrEF -Echo as above, chronic, stable - we will continue current medications DM type II -ISS with Accu-Cheks ACHS - blood sugar remains stable Hypothyroidism -Continue levothyroxine -Chronic, stable BPH Hx UTI - Appears to be resolved at this time, finished IV abx with ertapenem x 7 days DVT ppx: teds, scds Lines: PIV x 1 FEN/GI: HH/DM diet CODE:Full Dispo: From home, (6) Hypothyroid: Admission and Anticipated Discharge Date Admission Date: October 03, 2023 Subjective 10/04/2023 the patient was seen and examined in telemetry unit in presence of the son he was admitted with syncopal episode without any warning does not have any symptoms of chest pain, shortness of breath or palpitation has been complaining of occasional dizziness with standing and ambulating no significant bradyarrhythmia noted 10/05/2023 The patient was seen and examined and the notes are in the paper chart 10/06/2023 The patient was seen and examined in telemetry unit He has been stable and denies any significant symptoms The monitor did not show any significant bradycardia arrhythmias 10/07/2023 The patient was seen and examined in telemetry unit He remains stable and ready no significant bradycardia arrhythmia noted on monitor His urine is growing Enterococcus and he does not do any self-catheterization at home He denies any urinary symptoms He will be kept n.p.o. after midnight today for possible PPM tomorrow 10/08/2023 The patient was seen and examined in telemetry unit in presence of the daughter He has had episodes of tachycardia with SVT at a rate of more than 160/min last evening No significant bradycardia noted He remains asymptomatic this morning 10/09/2023 The patient was seen and examined in telemetry unit in presence of the daughter He remains stable and no more episodes of SVT or bradycardia arrhythmia He will have pacemaker placement tomorrow Review of Systems Review of Systems: all systems reviewed and are unremarkable except as noted below Physical Exam Physical Exam: lying in bed comfortably Constitutional: well developed, well nourished and average body habitus; not ill appearing Eyes: PERRL, conjunctivae normal, anicteric sclerae ENMT: external ear and nose normal, oropharynx normal Neck: trachea midline, no thyromegaly Respiratory: no respiratory distress Auscultation: lungs clear to auscultation bilaterally Cardiovascular: Rate/Rhythm: regular rate, regular rhythm and + bradycardic Heart Sounds: normal S1 and normal S2; no murmur Extremities: no edema Gastrointestinal (Abdomen): Inspection/Auscultation: normal bowel sounds; abdomen not distended Percussion/Palpation: abdomen soft; abdomen nontender Neurologic: normal touch/pain/proprioception and moves all extremities; no focal motor deficits Lymphatic: no cervical or axillary lymphadenopathy Results & Data Results & Data Vital Signs (Past 12 Hours) Vital Signs Temp Pulse Pulse Resp BP Pulse Ox O2 Del Method 10/09/23 15:13 36.7 C 61 18 138/70 96 Room Air 10/09/23 14:54 78 10/09/23 10:39 36.4 C L 75 18 133/72 94 Room Air 10/09/23 10:04 53 L 10/09/23 07:02 36.4 C L 52 L 17 139/72 95 Room Air Laboratory Results Short CBC 10/09/23 Range/Units 05:49 WBC 5.12 (4.8-10.8) K/ul Hgb 11.3 L (14.0-18.0) g/dl Hct 34.7 L (42.0-52.0) % Plt Count 229 (130-400) K/uL Medications Administered Current Inpatient Medications Acetaminophen (Acetaminophen 325 Mg Tab) 650 mg PO Q4H PRN PRN Reason: Pain or Fever Stop: 11/02/23 20:44 Al Hydrox/Mg Hydrox/Simethicone (Aluminum/Magnesium/Simeth (Maalox Max) 30 Ml Udc) 15 ml PO Q6H PRN PRN Reason: Indigestion Stop: 11/02/23 20:44 Escitalopram Oxalate (Escitalopram Oxalate 10 Mg Tab) 10 mg PO QAM [facility] Stop: 11/03/23 08:59 Last Admin: 10/09/23 09:25 Dose: 10 mg Finasteride (Finasteride 5 Mg Tab) 5 mg PO QAM [facility] Stop: 11/03/23 08:59 Last Admin: 10/09/23 09:26 Dose: 5 mg Furosemide (Furosemide 20 Mg Tab) 20 mg PO MoWeFr@0900 [facility] Stop: 11/04/23 08:59 Last Admin: 10/08/23 08:26 Dose: 20 mg Heparin Sodium (Porcine) (Heparin Sod 5,000 Unit/0.5 Ml Vial) 5,000 units SQ Q12 [facility] Stop: 11/02/23 20:59 Last Admin: 10/09/23 09:25 Dose: 5,000 units Hydralazine HCl (Hydralazine Hcl 25 Mg Tab) 25 mg PO TID [facility] Stop: 11/02/23 20:59 Last Admin: 10/09/23 13:23 Dose: 25 mg Ertapenem 1,000 mg/ Syringe 10 mls @ 2 mls/min IV Q24H [facility] Stop: 10/17/23 09:59 Last Admin: 10/09/23 10:20 Dose: 2 mls/min Lactobacillus Acidophilus (Advanced Probiotic 625 Mg Capsule) 1,250 mg PO DAILY [facility] Stop: 11/02/23 20:44 Last Admin: 10/09/23 09:26 Dose: 1,250 mg Levothyroxine Sodium (Levothyroxine Sodium 150 Mcg Tablet) 150 mcg PO MoTuWeThFr@0630 [facility] Stop: 11/03/23 06:29 Last Admin: 10/09/23 06:09 Dose: 150 mcg Levothyroxine Sodium (Levothyroxine Sodium 75 Mcg Tablet) 225 mcg PO SuSa@0630 [facility] Stop: 11/05/23 06:29 Last Admin: 10/07/23 06:23 Dose: 225 mcg Melatonin (Melatonin 3 Mg Tab) 3 mg PO HS PRN PRN Reason: Sleep Stop: 11/02/23 21:42 Last Admin: 10/08/23 21:31 Dose: 3 mg Polyethylene Glycol (Polyethylene (Miralax) 17 Gm Pack) 17 gm PO DAILY PRN PRN Reason: Constipation Stop: 11/02/23 20:44 Sacubitril/Valsartan (Valsartan/Sacubitril 103/97mg Tab) 1 tab PO AMHS [facility] Stop: 11/02/23 20:59 Last Admin: 10/09/23 09:23 Dose: 1 tab Spironolactone (Spironolactone 25 Mg Tab) 25 mg PO QAM [facility] Stop: 11/03/23 08:59 Last Admin: 10/09/23 09:25 Dose: 25 mg Tamsulosin HCl (Tamsulosin Hcl 0.4 Mg Cap) 0.4 mg PO QAM [facility] Stop: 11/03/23 08:59 Last Admin: 10/09/23 09:26 Dose: 0.4 mg Terazosin HCl (Terazosin Hcl 5 Mg Cap) 10 mg PO HS [facility] Stop: 11/02/23 20:59 Last Admin: 10/08/23 21:32 Dose: 10 mg
[2023-10-10] MEDS ORDERED: INSULIN ASPART PER UNIT CHARGE SC SCH (06:00)
[2023-10-10 07:12] LABS: Basophils # (auto) 0.01 K/uL (0.00-0.20); Basophils % (auto) 0.2 %; Eosinophils # (auto) 0.31 K/uL (0.00-0.50); Hematocrit (blood only) 34.5 % (42.0-52.0); Hemoglobin 11.4 g/dl (14.0-18.0); Immature Granulocytes # (auto) 0.02 K/uL (0.01-0.20); Immature Granulocytes % (auto) 0.4 %; Lymphocytes % (auto) 29.1 %; Mean Corpuscular Hemoglobin 30.9 pg (25.0-34.0); Mean Corpuscular Volume 93.5 fL (80.0-100.0); Mean Platelet Volume 10.7 fL (9.4-12.4); Monocytes % (auto) 13.6 %; Neutrophils # (auto) 2.62 K/uL (1.40-6.50); Neutrophils % (auto) 50.7 %; Platelet Count 209 K/uL (130-400); RDW Standard Deviation 44.5 fL (36.4-46.3); Red Blood Count 3.69 M/uL (4.70-6.10); White Blood Count 5.16 K/ul (4.8-10.8)
[2023-10-10 07:25] LABS: BUN Creatinine Ratio 29.1 (10-20); Calcium 8.1 mg/dl (8.6-10.3); Creatinine Clr Calc Pharmacy 75.1 ml/min; Est GFR (African American) 91.6 ml/min; Est GFR (Non-African American) 79.1 ml/min; Magnesium 2.1 mg/dl (1.7-2.4); Potassium 4.5 mmol/L (3.5-5.1)
--- NOTE | 2023-10-10 14:42 | History & Physical Bridge Note ---
Date of Service October 10, 2023 History & Physical Bridge Note I have examined the patient, reviewed the History & Physical and in the interval since the performance of the History & Physical I have noted the following changes of clinical significance: pt with TBS and his UTI seems well controlled- no fevers, blood cultures negative; recommended dual chamber pacemaker prior to discharge due to the TBS and recurrent syncope; i discussed the procedure and potential risks with the patient he expressed an understanding and consents signed.
--- NOTE | 2023-10-10 14:42 | Pre Anesthesia Assessment ---
Date of Service October 10, 2023 Pre Sedation Assessment Vital Signs Temp Pulse Pulse Resp BP Pulse Ox O2 Del Method 10/10/23 14:10 36.6 C 58 L 18 161/84 H 94 Room Air 10/10/23 14:00 53 L 10/10/23 10:41 36.7 C 56 L 16 136/72 93 Room Air 10/10/23 08:00 Room Air 10/10/23 07:31 36.4 C 52 L 18 156/79 H 96 Room Air 10/10/23 03:15 36.8 C 94 H 16 129/74 94 Room Air 10/09/23 22:54 59 L 10/09/23 22:45 36.4 C L 56 L 18 115/63 96 Room Air 10/09/23 19:24 36.4 C L 57 L 18 152/73 H 95 Room Air 10/09/23 15:13 36.7 C 61 18 138/70 96 Room Air 10/09/23 14:54 78 Cardiovascular + bradycardic Respiratory normal respiratory effort, lungs clear to auscultation Pre-Sedation Airway Assessment Smoking Status: Never smoker Hx Sleep Apnea: No Hx Difficult Intubation: No Short, Thick Neck: No Thyromental Distance: > or= 3.5 Finger Breadths Oral Cavity: + WNL Mallampati Class: II ASA: ASA2 NPO Status Date of Last Intake of Fluids: 10/09/23 Time of Last Intake of Fluids: 21:00 Date of Last Intake of Solid Food: 10/09/23 Time of Last Intake of Solid Foods: 21:00 Procedure Planning Contraindications for Sedation: none Current Medications Reviewed: Yes Notes The planned sedation has been discussed with the patient. Informed Consent was obtained. I have identified the patient, determined the appropriateness of sedation and have assessed the patient immediately prior to the procedure. All medicine(s) and interventions are by my order.
[2023-10-10] MEDS: BUPIVACAINE 0.25% PF 30 ML VIAL ONE ×2 (15:29→16:20)
[2023-10-10] MEDS: VANCOMYCIN HCL 1000MG/20ML VIAL ONE ×2 (15:30→16:20)
[2023-10-10] MEDS: LIDOCAINE 1% LOCAL 20 ML VIAL ONE (15:30)
[2023-10-10] MEDS: WATER, STERILE FOR INJ 10 ML VIAL ONE ×2 (15:30→16:20)
[2023-10-10] MEDS: ceFAZolin 330 MG/ML 1 GM VIAL ONE (15:31)
[2023-10-10] MEDS: AMIODARONE 150MG / 100ML D5W IV ONE (16:18)
[2023-10-10] MEDS: MIDAZOLAM HCL 5 MG/ML 1 ML VIAL ONE (16:18)
[2023-10-10] MEDS: fentaNYL citrate PF 100 MCG/2 ML VIAL ONE (16:18)
--- NOTE | 2023-10-10 16:26 | Post Anesthesia Assessment ---
Date of Service October 10, 2023 Post Sedation Assessment Vital Signs Temp Pulse Pulse Resp BP Pulse Ox O2 Del Method 10/10/23 14:10 36.6 C 58 L 18 161/84 H 94 Room Air 10/10/23 14:00 53 L 10/10/23 13:30 55 L 10/10/23 10:41 36.7 C 56 L 16 136/72 93 Room Air 10/10/23 08:00 Room Air 10/10/23 07:31 36.4 C 52 L 18 156/79 H 96 Room Air 10/10/23 03:15 36.8 C 94 H 16 129/74 94 Room Air 10/09/23 22:54 59 L 10/09/23 22:45 36.4 C L 56 L 18 115/63 96 Room Air 10/09/23 19:24 36.4 C L 57 L 18 152/73 H 95 Room Air Recovery Score Activity: Moves 4 extremities Respiration: Deep Breath/Cough Circulation: +/-20% PreAnes Value Consciousness: Fully Awake Oxygen Saturation: > 92% On Room Air Discharge Sedation Level of Care: Fast Track Phase II Post Sedation Plan On clinical assessment, the patient appears to have tolerated the sedation without complications. Patient is recovering as anticipated. Patient will continue to be monitored by nursing and may be discharged when sedation discharge criteria are met per below protocol. Upon Completions of procedure up to 15 minutes continue every 5 minute vital signs and the P.A.R. score; then discharge to a Phase I or Fast Track to Phase II per the following guidelines: * Discharge Patient to appropriate Phase II area if PAR is 8 or greater or return to pre- procedure baseline. The post - procedure orders will be as directed. * If PAR score is less than 8 or not return to pre-procedure baseline then patient will follow Phase I monitoring till PAR is reached for Phase II. The Phase I may be done in procedure room or may call to secure a Phase I area. * If naloxone or flumazenil are used for reversal, hold in Phase I for continued monitoring from when last reversal dose was given for a minimum of 60 minutes or longer pending the nurse and/or physician discretion of patient condition before discharge to Phase II. Please call the Sedation Physician to re-evaluate and complete post-note for discharge to Phase II area. Do NOT discharge from procedure sedation or Phase 1 until post- sedation evaluation note is complete by procedure /sedation MD Sedation Discharge Instructions to be given to the patient at discharge to home.
--- NOTE | 2023-10-10 17:23 | Hospitalist Progress Note ---
Date of Service October 10, 2023 Assessment & Plan (1) Syncope and collapse: (2) Bradycardia: (3) HFrEF (heart failure with reduced ejection fraction): (4) Hypertensive heart disease: (5) Diabetes mellitus: Plan: Syncope and collapse Episode of unresponsiveness likely secondary to bradycardia arrhythmia and postural hypotension --MRI Brain:No evidence of acute intracranial pathology. Hold beta-antonio until pacemaker implantation Pacemaker placement by Dr. Baez on 10/10/23 Appreciate cardiology input Plan to resume metoprolol as able Sebaceous cyst over upper side of the precordium Appreciate surgery input and recommendation-advised removal of the cyst after the pacemaker is inserted Sebaceous cyst can be removed as an outpatient as per the surgeon UTIrecurrent Urine culture is growing Enterobacter cloacae Has had Enterobacter cloacae UTI with bacteremia during his recent admission Continue IV ertapenem for now Prior hospitalist discussed with the pharmacist/ ID connect--continue IV antibiotic for now, plan to discharge on Bactrim for a total of 10 day course History of HFrEF -Echo as above, chronic, stable - continue current medications DM type II -ISS with Accu-Cheks ACHS - blood sugar remains stable Hypothyroidism -Continue levothyroxine -Chronic, stable BPH Hx UTI Monitor for retention Continue home meds H/O PE Resume Eliquis as able DVT Px: Heparin SQ Resume Eliquis as able CODE STATUS Full code (6) Hypothyroid: Admission and Anticipated Discharge Date Admission Date: October 03, 2023 Subjective Patient is seen and examined at bedside States feeling well this morning Offers no new complaints today Plan for pacemaker placement today Denies any chest pain, dyspnea, dizziness, nausea, vomiting, abdominal pain No other complaints Review of Systems Review of Systems: All systems reviewed & are unremarkable except as noted in Subjective Physical Exam Physical Exam: Physical Exam: Vitals signs as noted above General Appearance:Moderately built and nourished, no apparent distress Head: normocephalic, Atraumatic Eyes: normal inspection, EOMI Neck: supple, Trachea midline Respiratory/Chest: Normal breath sounds, CTA, No accessory muscle use Cardiovascular: S1, S2, + murmur Abdomen/GI:Soft, Non tender, Bowel sounds present Extremities/Musculoskeletal:normal inspection, no edema Neurologic/Psych:AAOX3, grossly no focal neurological deficits Skin: normal color, warm Results & Data Results & Data Vital Signs (Past 12 Hours) Vital Signs Temp Pulse Pulse Resp BP BP Pulse Ox 10/10/23 16:59 36.4 C L 72 18 89/62 L 91 10/10/23 16:41 70 14 108/78 96 10/10/23 14:10 36.6 C 58 L 18 161/84 H 94 10/10/23 14:00 53 L 10/10/23 13:30 55 L 10/10/23 10:41 36.7 C 56 L 16 136/72 93 10/10/23 08:00 10/10/23 07:31 36.4 C 52 L 18 156/79 H 96 O2 Del Method 10/10/23 16:59 Room Air 10/10/23 16:41 Room Air 10/10/23 14:10 Room Air 10/10/23 14:00 10/10/23 13:30 10/10/23 10:41 Room Air 10/10/23 08:00 Room Air 10/10/23 07:31 Room Air Laboratory Results Short CBC 10/10/23 Range/Units 06:44 WBC 5.16 (4.8-10.8) K/ul Hgb 11.4 L (14.0-18.0) g/dl Hct 34.5 L (42.0-52.0) % Plt Count 209 (130-400) K/uL BMP 10/10/23 06:44 Sodium 140 Potassium 4.5 Chloride 111 H Carbon Dioxide 25 BUN 25 H Creatinine 0.86 Glucose 109 H Calcium 8.1 L
--- NOTE | 2023-10-10 17:40 | Operative Report ---
Post Operative Report DICTATED BY:Latia Baez D.O. DATE OF PROCEDURE: 10/10/2023 PREOPERATIVE DIAGNOSES: TBS POSTOPERATIVE DIAGNOSIS: Same PROCEDURE: A dual-chamber rate responsive permanent pacemaker and intracardiac electrogram His bundle recordings, along with a peripheral venogram under fluoroscopic guidance. SURGEON: Latia Baez DO ASSISTANTS: None. ANESTHESIA: Monitored conscious sedation administered under my supervision by Ilan Maharaj. Start time 15:03, end time 16:22, a total of 2 mg of Versed and 50 mcg of fentanyl. INTRAVENOUS FLUIDS: 200 mL. CONTRAST: 14 mL. ANTIBIOTICS: 2 grams of Ancef. ADDITIONAL MEDICATIONS: 1050mg amiodarone BLOOD LOSS: 200 mL. URINE OUTPUT: Not applicable. SPECIMENS: None. FINDINGS: See below. DRAINS: None. COMPLICATIONS: None. CONDITION: Stable. INDICATIONS: This is a 83-year-old gentleman who has a past medical history recent admission for sepsis due to complex UTI, Recurrent syncope, pSVT, hypothyroidism, DM, h/o PE, Chronic heart failure with preserved EF-NYHA Class II, BPH, papillary thyroids carcinoma.. Pt has been admitted due to recurrent syncope and recommended a pacemaker prior to discharge. CONSENT: Consent was obtained prior to the patient going into the electrophysiology lab. The patient was informed of the risks, benefits, and alternatives to the procedure. Risks include, but not limited to, sudden cardiac , cardiac arrhythmias, cerebrovascular accident, myocardial infarction, injury to his blood vessels, chamber of the heart and lung, bleeding and infection. The patient understood these risks and agreed to the procedure as planned. Informed consent was obtained. DESCRIPTION OF PROCEDURE: The patient was brought into electrophysiology lab in a fasting state. He was connected to continuous cardiac monitoring. A timeout was performed to ensure the patient's identity and procedure correctly. He was prepped and draped in the left infraclavicular space in normal surgical standard fashion. Monitored conscious sedation was given throughout the procedure for the patient's comfort level. [place] precautions were maintained throughout the procedure. Prophylactic antibiotics were given prior to incision. A 20 mL of 1% lidocaine and bupivacaine mixture were given in the left deltopectoral groove. An incision was made in the left deltopectoral groove. Blunt dissection was performed down to the pectoralis muscle. Then, using blunt dissection over the pectoralis muscle within the pectoral fascia, a pacemaker pocket was created. Then, a peripheral venogram was performed to identify the axillary vein. Venous axillary access was obtained through a needlestick without any problems. A guidewire was inserted without any resistance. A 6- Andorran sheath was inserted over the guidewire without any resistance. Dilator was removed and a second guidewire was inserted through the sheath to allow for retained venous access. Then the 6 Andorran sheath was flushed and reinserted over one of the guidewires. Then the right atrial lead was advanced into the RV and positioned into the RV apex to have back up pacing while positioning the left bundle lead. Then a 9 Andorran sheath was inserted over the retained guidewire. The guidewire and dilator were removed. Then, the CPS Test Analyst 3D medium sheath was inserted through the 9-Andorran sheath over a Glidewire into the right ventricle. The Glidewire and dilator were removed. Then, the left bundle lead was advanced through the sheath and intracardiac electrogram His bundle recordings were performed when the camera was in WHITE 10. Once I found where the His bundle is, see below for results, I then moved the camera to WHITE 30 and marked where the His bundle was on my fluoroscopy screen. I came down about 2 cm from this in a line that would extend out to the apex and then started coming on pacing. Once I found an area where I had a nice W formed pace complex in my lead V1, I then moved the camera to MACANESE 30. Then the helix was extended into the septum. Then the helix locking tool was placed. Then the lead was screwed further into the septum while pacing by giving slow clockwise turns. Of note I had to reposition it a number of times and did try the 3D rn licensed practical large curve, but ultimately the medium curved. The paced complex changed to a nice R' in V1 and the pacing stim to peak QRS in V6 was good. I then gave contrast through the sheath to see how far the lead was into the septum and then I slit the CPS Test Analyst 3D medium sheath under fluoroscopic guidance and left the 9-Andorran sheath in while I positioned the right atrial lead. Then the right atrial lead screw was retracted and the lead was pulled back to the RA and positioned into right atrium and positioned into right atrial appendage under fluoroscopic guidance. There was adequate pacing and sensing thresholds and no diaphragmatic stimulation with high output pacing. The 6- Andorran sheath was peeled away and the lead was fixated to the pectoralis muscle using 0 silk suture. The 9-Andorran sheath around the left bundle lead was peeled away and the lead was fixated to pectoralis muscle using 0 silk suture. Of note pt did go into brief VT during the procedure it was slow at a HR of 130bpm so he was given an amio bolus. The pocket was flushed with copious amounts of vancomycin and saline wash and inspected for hemostasis. The leads were then attached to the pulse generator making sure the pins were in appropriate position, passed set screws, and set screws were all tightened. Pulse generator was then placed in the pocket, making sure the leads were lying flat beneath the device. The incision was closed in a 3-layer fashion using 2-0 Vicryl interrupted suture, followed by 3-0 Vicryl interrupted suture, followed by 4-0 Monocryl running stitch. Then a primaseal dressing was placed EQUIPMENT: 1. Pulse generator is a [employer] MRI Model Number [id number] SN: [id number]. 2. Right atrial lead, Omgili SJM Tendril STS [id number] SN: [id number] 3. Left bundle lead, Haines SJM Tendril STS [id number] SN: [id number] INTRAPROCEDURAL FINDINGS: 1. Intracardiac electrogram His bundle recordings, AH is 116 milliseconds, HV is 37 milliseconds. 2. Right atrial lead, P waves 1.7 millivolts, impedance 380 ohms, threshold 0.9 volts at 0.4 milliseconds. 3. Left bundle lead, R waves 12 millivolts, impedance 570 ohms, threshold 1.6 volts at 0.4 milliseconds. FINAL MEASUREMENTS THROUGH THE DEVICE: 1. Right atrial lead, P waves 2.7millivolts, impedance 440 ohms, threshold 0.75 volt at 0.4 milliseconds. 2. Left bundle lead, R waves 5.7 millivolts, impedance 540 ohms, threshold 1.25 volts at 0.4 milliseconds. FINAL PARAMETERS: DDD 60/120, right atrial amplitude 3.5 volts, pulse width 0.4 milliseconds, sensitivity 0.5 millivolts. Left bundle lead amplitude 3.5 volts, pulse width 0.4 milliseconds, sensitivity 2 millivolts. IMPRESSION: Successful dual chamber rate responsive permanent pacemaker under fluoroscopic guidance along with peripheral venogram and intracardiac electrogram His bundle recordings, all under fluoroscopic guidance secondary to TBS PLAN: Monitor the patient post-procedure. A 12-lead ECG, chest x-ray. He is not to lift the left elbow or left shoulder for 1 month. He cannot lift more than 10 pounds with the left arm for 2 weeks. He is to keep the dressing on and dry until his wound check next week.
--- NOTE | 2023-10-10 18:44 | XRay Report ---
XR chest 1V portable HISTORY: s/p ppm ensure no ptx COMPARISON: Chest 10/03/2023. FINDINGS: There is a left-sided dual-chamber pacemaker. The visualized leads appear intact. No pneumo thorax. Stable blunting of the left lateral costophrenic sulcus and left basilar linear densities. Th is favors subsegmental atelectasis. No new focal lung consolidations. The heart remains enlarged. No evidence for pulmonary edema. No acute fractures. IMPRESSION: Interval placement of a left-sided dual-chamber pacemaker. No pneumothorax. ACT 112: Negative or not required by law. Electronically signed by: Prakash Cutler M.D. 10/10/2023 6:42 PM
[2023-10-10] MEDS: ACETAMINOPHEN 325 MG TAB PO PRN (20:02)
[2023-10-10] MEDS: METOPROLOL SUCC 25MG EXT REL TAB PO SCH (20:03)
[2023-10-11 06:49] LABS: Hematocrit (blood only) 36.9 % (42.0-52.0); Hemoglobin 12.1 g/dl (14.0-18.0); Mean Corpuscular Hemoglobin 30.8 pg (25.0-34.0); Mean Corpuscular Hgb Conc 32.8 g/dL (32.0-36.0); Mean Corpuscular Volume 93.9 fL (80.0-100.0); Mean Platelet Volume 10.6 fL (9.4-12.4); Platelet Count 205 K/uL (130-400); RDW Coefficient of Variation 13.1 % (11.5-14.5); Red Blood Count 3.93 M/uL (4.70-6.10); White Blood Count 6.17 K/ul (4.8-10.8)
[2023-10-11 07:04] LABS: BUN Creatinine Ratio 26.4 (10-20); Calcium 8.2 mg/dl (8.6-10.3); Creatinine Clr Calc Pharmacy 70.9 ml/min; Est GFR (African American) 88.8 ml/min; Est GFR (Non-African American) 76.6 ml/min; Magnesium 2.1 mg/dl (1.7-2.4); Potassium 4.4 mmol/L (3.5-5.1)
--- NOTE | 2023-10-11 08:22 | Electrocardiogram Report ---
Test Reason : Blood Pressure : / mmHG Vent. Rate : 070 BPM Atrial Rate : 070 BPM P-R Int : 230 ms QRS Dur : 118 ms QT Int : 450 ms P-R-T Axes : 015 -62 058 degrees QTc Int : 486 ms Sinus rhythm with 1st degree A-V block Left axis deviation Incomplete left bundle block Prolonged QT Abnormal ECG When compared with ECG of 07-OCT-2023 19:51, Premature ventricular complexes are no longer Present Confirmed by Medardo Boss ([id number] on 10/11/2023 8:22:07 AM Referred By: Linda Rendon Confirmed By:Medardo Boss
--- NOTE | 2023-10-11 14:31 | Cardiology Progress Note ---
Date of Service October 11, 2023 Assessment & Plan (1) Syncope and collapse: (2) Sinus bradycardia: (3) Tachycardia-bradycardia syndrome: (4) PSVT (paroxysmal supraventricular tachycardia): Plan Permanent pacemaker implantation in AM 10/10/2023. Post procedural activity restrictions reviewed. Monitor for recurrent atrial tachycardia, atypical atrial flutter via pacemaker interrogations. Continue Toprol-XL 25 mg twice daily. Discontinue subcutaneous heparin. Restart Eliquis 5 mg twice daily. Continue spironolactone, Entresto, Hytrin, hydralazine, and furosemide as ordered. Outpatient pacemaker wound check in 1 week. Routine cardiology follow-up in 2 to 4 weeks. I spent a total of 40 minutes on the date of service in preparation, delivery, and documentation of the care provided to this patient, excluding any time spent in the performance of separately billed services. Admission and Anticipated Discharge Date Admission Date: October 03, 2023 Subjective Patient seen examined the bedside. Pacemaker implantation performed without complication 10/10/2023. No recurrent atrial tachycardia on telemetry. Metoprolol added last evening. Patient tolerating well. Offers no concerns/complaints. Daughter present for bedside evaluation via mobile phone. Has questions regarding follow-up appointments. Review of Systems Review of Systems: All systems reviewed & are unremarkable except as noted in Subjective Physical Exam Constitutional: no acute distress Respiratory: no respiratory distress, no labored breathing and no retractions Auscultation: no crackles, no rales, no rhonchi and no wheezes Cardiovascular: Rate/Rhythm: regular rate and regular rhythm Heart Sounds: normal S1 and normal S2; no murmur Vessels: no JVD Extremities: no edema Gastrointestinal (Abdomen): Inspection/Auscultation: normal bowel sounds; abdomen not distended Percussion/Palpation: abdomen soft; abdomen nontender, no guarding and abdomen not rigid Neurologic: CN's II-XI intact bilaterally and moves all extremities; no focal motor deficits Results & Data Vital Signs (Past 12 Hours) Vital Signs Temp Pulse Resp BP Pulse Ox O2 Del Method 10/11/23 10:56 36.6 C 60 18 156/78 H 97 Room Air 10/11/23 07:30 36.7 C 18 162/76 H 94 Room Air 10/11/23 02:45 36.5 C 60 19 130/77 96 Room Air Laboratory Results CBC 10/11/23 Range/Units 06:13 WBC 6.17 (4.8-10.8) K/ul RBC 3.93 L (4.70-6.10) M/uL Hgb 12.1 L (14.0-18.0) g/dl Hct 36.9 L (42.0-52.0) % Plt Count 205 (130-400) K/uL Comprehensive Metabolic Panel 10/11/23 Range/Units 06:13 Sodium 140 (136-145) mmol/L Potassium 4.4 (3.5-5.1) mmol/L Chloride 110 H (98-107) mmol/L Carbon Dioxide 26 (21-32) mmol/L BUN 24 H (6-23) mg/dl Creatinine 0.91 (0.6-1.4) mg/dl Glucose 107 H (70-99(Fasting)) mg/dl Calcium 8.2 L (8.6-10.3) mg/dl Intake and Output 10/10/23 10/11/23 10/11/23 22:59 06:59 14:59 Intake Total 250 / 250 Output Total 200 / 725 275 / 725 Balance -200 / -725 -275 / -725 250 / 250 Intake: Oral 250 / 250 Output: Urine Amount (Catheter) 200 / 575 275 / 575 External 200 / 575 275 / 575 Other: # Unmeasured Voids 1 Weight 91.2 kg Weight Measurement Method Built in [facility]
--- NOTE | 2023-10-11 14:40 | Hospitalist Progress Note ---
Date of Service October 11, 2023 Assessment & Plan (1) Syncope and collapse: (2) Bradycardia: (3) HFrEF (heart failure with reduced ejection fraction): (4) Hypertensive heart disease: (5) Diabetes mellitus: Plan: Syncope and collapse Episode of unresponsiveness Tachycardia-bradycardia syndrome likely secondary to arrhythmia and postural hypotension --MRI Brain:No evidence of acute intracranial pathology. Hold beta-antonio until pacemaker implantation Pacemaker placement by Dr. Baez on 10/10/23 Appreciate cardiology input Started on metoprolol succinate 25 mg twice a day Resume Eliquis for anticoagulation Needs follow-up with cardiology on discharge Sebaceous cyst over upper side of the precordium Appreciate surgery input and recommendation-advised removal of the cyst after the pacemaker is inserted Sebaceous cyst can be removed as an outpatient as per the surgeon Needs follow-up with surgery on discharge UTIrecurrent Urine culture is growing Enterobacter cloacae Has had Enterobacter cloacae UTI with bacteremia during his recent admission Continue IV ertapenem for now Prior hospitalist discussed with the pharmacist/ ID connect--continue IV antibiotic for now, plan to discharge on Bactrim to complete 10 day course History of HFrEF -Echo as above, chronic, stable - continue current medications DM type II -ISS with Accu-Cheks ACHS - blood sugar remains stable Hypothyroidism -Continue levothyroxine -Chronic, stable BPH Hx UTI Monitor for retention Continue home meds H/O PE Resume Eliquis as able DVT Px: Eliquis CODE STATUS Full code Disposition Home (6) Hypothyroid: Admission and Anticipated Discharge Date Admission Date: October 03, 2023 Subjective Patient is seen and examined at bedside Admits to have some soreness at the site of pacemaker Otherwise no new complaints today Denies any chest pain, dyspnea, dizziness, nausea, vomiting, abdominal pain Prefers to be discharged home today Review of Systems Review of Systems: All systems reviewed & are unremarkable except as noted in Subjective Physical Exam Physical Exam: Physical Exam: Vitals signs as noted above General Appearance:Moderately built and nourished, no apparent distress Head: normocephalic, Atraumatic Eyes: normal inspection, EOMI Neck: supple, Trachea midline Respiratory/Chest: Normal breath sounds, CTA, No accessory muscle use Cardiovascular: S1, S2, + murmur Abdomen/GI:Soft, Non tender, Bowel sounds present Extremities/Musculoskeletal:normal inspection, no edema Neurologic/Psych:AAOX3, grossly no focal neurological deficits Skin: normal color, warm Results & Data Results & Data Vital Signs (Past 12 Hours) Vital Signs Temp Pulse Resp BP Pulse Ox O2 Del Method 10/11/23 10:56 36.6 C 60 18 156/78 H 97 Room Air 10/11/23 07:30 36.7 C 18 162/76 H 94 Room Air 10/11/23 02:45 36.5 C 60 19 130/77 96 Room Air Laboratory Results Short CBC 10/11/23 Range/Units 06:13 WBC 6.17 (4.8-10.8) K/ul Hgb 12.1 L (14.0-18.0) g/dl Hct 36.9 L (42.0-52.0) % Plt Count 205 (130-400) K/uL BMP 10/11/23 06:13 Sodium 140 Potassium 4.4 Chloride 110 H Carbon Dioxide 26 BUN 24 H Creatinine 0.91 Glucose 107 H Calcium 8.2 L
--- NOTE | 2023-10-11 14:59 | Discharge Summary ---
Date of Service October 11, 2023 Admission HPI Per Admitting Provider This is an 83 yo M with PMHx of prediabetes, history of papillary thyroid carcinoma, pancreatic cyst, history of left hemothorax, history of acute pulmonary embolism, history of systolic CHF, hypertension, closed fracture of multiple ribs of left side, history of anxiety state, insomnia, lives alone at home and ambulates with a walker. Recently admitted here at this facility from 09/16 to 09/26 where he was treated for bacteremia and UTI due to Enterobacter and completed course of IV antibiotics x 7 days while inpatient. During most recent hospital stay he was noted to be bradycardic throughout where metoprolol was discontinued, it was mentioned by cardiology that possible needs for pacemaker would be required in the near future. Jardiance was also discontinued due to hypoglycemic episodes. Family took the patient home with home health services as inpatient rehab could not be arranged. Today, patient went to outpatient PCP for follow-up appointment today and was noted by daughter that when he sat down in his walker after getting out of the vehicle that he had 15 seconds of "unresponsiveness", she wheeled him into the clinic and 911 was called. He was not responding to verbal stimuli, eyes rolled back into his head, face went white. Pt came to and remembered where he was and was answering appropriately. He does not recall the event where daughter was yelling his name. Patient c/o of numbness and tingling in the left hand that lasted about 10-15 minutes after the event. There is no more numbness at this point. Daughter notes the BP was down to 80s/50s once in the clinic and slowly improved. His HR was in the 90s at the clinic, and was in the 70s in the past week. Currently his HR is in the 50s in the ER. Pt had eaten and drank this morning, does not recall if glucose was checked. Family reports that he sustained a fall 48 hours ago where he fell forward over his walker, did not strike his head or sustain any other injuries. CT of the head today is completed and negative. He also notes having double vision with leftward gaze. Pt has caregivers in the house several hours per day at home. Pt has been off metoprolol due to bradycardia, and was placed on hydralazine TID for BP control. He denies having any lightheadedness of dizziness from this. Notes fairly well controlled BPs at home on previous medication regimen before hospital stay, does not know if he's had good BP control since discharge a week ago. Family notes pt has intermitted diarrhea, belching, but pt denies any blood/dark tarry stools. Denies any urinary complaints today. Past surgical hx: Anesthesia for bladder surgery Removal of thyroid tumor Bilateral cataracts Social Hx: . Lives alone. Daughter lives close by. Quit smoking 1965. No alcohol use. No drug use. Family Hx: Father had CHF. Brother had prostate cancer. Brother had SD. Sister has hypertension. Admission Exam Per Admitting Provider General: awake, alert, no apparent distress Head: Normocephalic, atraumatic ENT: PERRL, EOMI, no pharyngeal exudate, mucous membranes moist Chest: Clear to auscultation, on room air, no adventitious breath sounds Cardiac: sinus bradycardia with HR in 50s, no murmur, no JVD, normal peripheral pulses, good capillary refill Abdominal: NABS x 4 quadrants, soft, nondistended, nontender to palpation, no rebound or guarding Extremities: Normal inspection, no peripheral edema or erythema, calfs nontender to palpation Psych: Normal mood and affect Neuro: AAO x 3, strength intact bilaterally and rated 5/5, no obvious neurological deficits, follows finger to nose testing, intact peripheral field testing, no motor deficits, speech is clear, no peripheral sensory deficits Principal Diagnosis Syncope and collapse Tachycardia-bradycardia syndrome Sebaceous cyst Urinary tract infection Discharge Data Allergies Allergy/AdvReac Type Severity Reaction Status Date / Time shrimp Allergy Severe Anaphylaxis Verified 10/10/23 14:15 Consultations 10/03/23 18:35 ED Decision to Admit Stat 10/03/23 20:45 Consult Cardiology Routine 10/08/23 09:38 Consult General Surgery Routine Procedures Performed Operation Date: 10/10/23 14:00 Actual Procedures p Pacer with A/V Leads (Dual) - Latia Baez, Laboratory Results WBC 6.17 K/ul (4.8-10.8) 10/11/23 06:13 RBC 3.93 M/uL (4.70-6.10) L 10/11/23 06:13 Hgb 12.1 g/dl (14.0-18.0) L 10/11/23 06:13 Hct 36.9 % (42.0-52.0) L 10/11/23 06:13 MCV 93.9 fL (80.0-100.0) 10/11/23 06:13 MCH 30.8 pg (25.0-34.0) 10/11/23 06:13 MCHC 32.8 g/dL (32.0-36.0) 10/11/23 06:13 RDW Std Deviation 45.0 fL (36.4-46.3) 10/11/23 06:13 RDW Coeff of [place] 13.1 % (11.5-14.5) 10/11/23 06:13 Plt Count 205 K/uL (130-400) 10/11/23 06:13 MPV 10.6 fL (9.4-12.4) 10/11/23 06:13 Immature Gran % (Auto) 0.4 % 10/10/23 06:44 Neut % (Auto) 50.7 % 10/10/23 06:44 Lymph % (Auto) 29.1 % 10/10/23 06:44 [place] % (Auto) 13.6 % 10/10/23 06:44 Eos % (Auto) 6.0 % 10/10/23 06:44 Baso % (Auto) 0.2 % 10/10/23 06:44 Neut # (Auto) 2.62 K/uL (1.40-6.50) 10/10/23 06:44 Lymph # (Auto) 1.50 K/uL (1.20-3.40) 10/10/23 06:44 [place] # (Auto) 0.70 K/uL (0.11-0.59) H 10/10/23 06:44 Eos # (Auto) 0.31 K/uL (0.00-0.50) 10/10/23 06:44 Baso # (Auto) 0.01 K/uL (0.00-0.20) 10/10/23 06:44 Immature Gran # (Auto) 0.02 K/uL (0.01-0.20) 10/10/23 06:44 PT 10.9 Seconds (9.0-12.0) 10/03/23 14:45 INR 1.0 (0.9-1.1) 10/03/23 14:45 VBG pH 7.46 (7.36-7.41) H 10/03/23 15:08 VBG pCO2 28 mmHg (38-50) L 10/03/23 15:08 VBG pO2 86 mmHg 10/03/23 15:08 VBG HCO3 20 mmol/L 10/03/23 15:08 VBG O2 Saturation 98.5 % 10/03/23 15:08 VBG Base Excess -2.6 mEq/L 10/03/23 15:08 Sodium 140 mmol/L (136-145) 10/11/23 06:13 Potassium 4.4 mmol/L (3.5-5.1) 10/11/23 06:13 Chloride 110 mmol/L (98-107) H 10/11/23 06:13 Carbon Dioxide 26 mmol/L (21-32) 10/11/23 06:13 Anion Gap 4 (3-11) 10/11/23 06:13 BUN 24 mg/dl (6-23) H 10/11/23 06:13 Creatinine 0.91 mg/dl (0.6-1.4) 10/11/23 06:13 Est Cr Clr Drug Dosing 70.9 ml/min 10/11/23 06:13 Est GFR ( Amer) 88.8 ml/min 10/11/23 06:13 Est GFR (Non-Af Amer) 76.6 ml/min 10/11/23 06:13 BUN/Creatinine Ratio 26.4 (10-20) H 10/11/23 06:13 Glucose 107 mg/dl (70-99(Fasting)) H 10/11/23 06:13 POC Glucose 159 mg/dl (70-99) H 10/11/23 10:49 Lactate 1.1 mmol/L (0.4-2.0) 10/03/23 15:08 Calcium 8.2 mg/dl (8.6-10.3) L 10/11/23 06:13 Magnesium 2.1 mg/dl (1.7-2.4) 10/11/23 06:13 Total Bilirubin 0.6 mg/dl (0.2-1.0) 10/03/23 14:45 Direct Bilirubin 0.2 mg/dl (0-0.2) 10/03/23 14:45 AST 13 U/L (13-39) 10/03/23 14:45 ALT 11 U/L (7-52) 10/03/23 14:45 Alkaline Phosphatase 57 U/L (34-104) 10/03/23 14:45 Troponin I High Sens 10.9 pg/ml (0-20) 10/03/23 14:45 B-Natriuretic Peptide 282 pg/ml (0-100) H 10/03/23 14:45 Total Protein 6.1 gm/dl (6.0-8.3) 10/03/23 14:45 Albumin 3.4 gm/dl (3.4-5.0) 10/03/23 14:45 Triglycerides 56 mg/dl (0-150) 10/04/23 06:06 Cholesterol 100 mg/dl (0-200) 10/04/23 06:06 LDL Cholesterol, Calc 53 mg/dl 10/04/23 06:06 VLDL Cholesterol, Calc 11 mg/dl (0-30) 10/04/23 06:06 HDL Cholesterol 36 mg/dl 10/04/23 06:06 Cholesterol/HDL Ratio 2.8 (0-5) 10/04/23 06:06 Procalcitonin 0.03 ng/ml (0-0.5) 10/03/23 14:45 Urine Color Yellow 10/03/23 23:05 Urine Appearance Turbid (Clear) A 10/03/23 23:05 Urine pH 5.5 (4.5-7.5) 10/03/23 23:05 Ur Specific [place] 1.016 (1.000-1.030) 10/03/23 23:05 Urine Protein 2+ (Negative) H 10/03/23 23:05 Urine Glucose (UA) Negative (Negative) 10/03/23 23:05 Urine Ketones Negative (Negative) 10/03/23 23:05 Urine Blood 3+ (Negative) H 10/03/23 23:05 Urine Nitrite Positive (Negative) A 10/03/23 23:05 Urine Bilirubin Negative (Negative) 10/03/23 23:05 Urine Urobilinogen Negative (Negative) 10/03/23 23:05 Ur Leukocyte Esterase 3+ (Negative) H 10/03/23 23:05 Urine WBC (Auto) >50 /hpf (0-5) H 10/03/23 23:05 Urine RBC (Auto) 6-10 /hpf (0-2) H 10/03/23 23:05 U Hyaline Cast (Auto) 6-10 /lpf (0-2) H 10/03/23 23:05 U Epithel Cells (Auto) 0-2 /hpf (0-2) 10/03/23 23:05 Urine Bacteria (Auto) 4+ (None Seen) H 10/03/23 23:05 Stl C. cayetanensis PCR Not Detected (NotDetected) 10/04/23 05:15 Stool Rotavirus A PCR Not Detected (NotDetected) 10/04/23 05:15 Stl Adenov F 40/41 PCR Not Detected (NotDetected) 10/04/23 05:15 Stool Astrovirus (PCR) Not Detected (NotDetected) 10/04/23 05:15 Stool Campylobacter PCR Not Detected (NotDetected) 10/04/23 05:15 Stl C. diff Tox B Gene Positive Cdiff Gene (Neg) H 10/04/23 05:15 Stl C.difficile Tox A&B Negative Cdiff Toxin (Negative) 10/04/23 05:15 Stool Cryptosporidium PCR Not Detected (NotDetected) 10/04/23 05:15 Stl E.coli Shiga Tox PCR Not Detected (NotDetected) 10/04/23 05:15 Stl Enterotoxigenic E PCR Not Detected (NotDetected) 10/04/23 05:15 Stool EPEC (PCR) Not Detected (NotDetected) 10/04/23 05:15 Stool EAEC (PCR) Not Detected (NotDetected) 10/04/23 05:15 Stl E. histolytica PCR Not Detected (NotDetected) 10/04/23 05:15 Stool Giardia Lamblia PCR Not Detected (NotDetected) 10/04/23 05:15 Stool Salmonella PCR Not Detected (NotDetected) 10/04/23 05:15 Stool Sapovirus (PCR) Not Detected (NotDetected) 10/04/23 05:15 Stl P. shigelloides PCR Not Detected (NotDetected) 10/04/23 05:15 Stl Shigella/EIEC PCR Not Detected (NotDetected) 10/04/23 05:15 St Y.enterocolitica PCR Not Detected (NotDetected) 10/04/23 05:15 Stool Vibrio (PCR) Not Detected (NotDetected) 10/04/23 05:15 Stl Vibrio cholerae PCR Not Detected (NotDetected) 10/04/23 05:15 Stl Norovirus GI/GII PCR Not Detected (NotDetected) 10/04/23 05:[address] 10/03/23 15:24 CT OF THE HEAD WITHOUT CONTRAST CLINICAL HISTORY: unresponsive episode COMPARISON STUDY: Head CT September 17, 2023. CT DOSE: 625.8 mGy.cm TECHNIQUE: Helical axial images of the head were obtained without IV contrast. Automated exposure control was utilized for the study. A dose lowering technique was utilized adhering to the principles of ALARA. FINDINGS: No acute intracranial hemorrhage, midline shift or mass effect is present. The ventricular system is unremarkable. The basal cisterns are patent. No extra-axial collections are present. There are no findings to suggest acute dural sinus thrombosis or acute territorial infarct. White matter hypodensities are unchanged and favor small vessel disease. There are no calvarial fractures. Mild ethmoid sinus mucosal thickening is unchanged. IMPRESSION: No acute intracranial findings. No change in appearance of the brain. ACT 112: Negative or not required by law. Electronically signed by: Jovanny Pérez M.D. 10/03/2023 4:28 PM Brain MRI 10/03/23 19:27 Exam(s): MRI HEAD Without Contrast EXAM: MR Head Without Intravenous Contrast CLINICAL HISTORY: Reason for exam: Double vision. TECHNIQUE: Magnetic resonance images of the head/brain without intravenous contrast in multiple planes. COMPARISON: Comparison made to prior head CT from October 03, 2023. FINDINGS: Brain: Moderate nonspecific white matter changes. No mass. No hemorrhage. No acute infarct. The flow voids at the base of the brain are intact. Dilated perivascular spaces throughout the basal ganglia and capsules. Ventricles: Mild ventriculomegaly. Bones/joints: Unremarkable. No acute fracture. Sinuses: Chronic ethmoid sinusitis. No acute sinusitis. Mastoid air cells: Unremarkable as visualized. No mastoid effusion. Orbits: Bilateral lens replacements. IMPRESSION: No evidence of acute intracranial pathology. Electronically signed by: Anny Pathak MD 10/03/23 23:35 PM Chest X-Ray 10/10/23 18:30 XR chest 1V portable HISTORY: s/p ppm ensure no ptx COMPARISON: Chest 10/03/2023. FINDINGS: There is a left-sided dual-chamber pacemaker. The visualized leads appear intact. No pneumothorax. Stable blunting of the left lateral costophrenic sulcus and left basilar linear densities. This favors subsegmental atelectasis. No new focal lung consolidations. The heart remains enlarged. No evidence for pulmonary edema. No acute fractures. IMPRESSION: Interval placement of a left-sided dual-chamber pacemaker. No pneumothorax. ACT 112: Negative or not required by law. Electronically signed by: Prakash Cutler M.D. 10/10/2023 6:42 PM Ordered Studies 10/03/23 15:24 CT head/brain wo con Stat 10/03/23 19:27 MRI Brain [MR brain wo con] Stat 10/10/23 07:00 EP Lab Images for PACS ONCE Hospital Course (1) Syncope and collapse: (2) Bradycardia: (3) HFrEF (heart failure with reduced ejection fraction): (4) Hypertensive heart disease: (5) Diabetes mellitus: Syncope and collapse Episode of unresponsiveness Tachycardia-bradycardia syndrome likely secondary to arrhythmia and postural hypotension --MRI Brain:No evidence of acute intracranial pathology. Hold beta-antonio until pacemaker implantation Pacemaker placement by Dr. Baez on 10/10/23 Appreciate cardiology input Started on metoprolol succinate 25 mg twice a day Resume Eliquis for anticoagulation Needs follow-up with cardiology on discharge Sebaceous cyst over upper side of the precordium Appreciate surgery input and recommendation-advised removal of the cyst after the pacemaker is inserted Sebaceous cyst can be removed as an outpatient as per the surgeon Needs follow-up with surgery on discharge UTIrecurrent Urine culture is growing Enterobacter cloacae Has had Enterobacter cloacae UTI with bacteremia during his recent admission Continue IV ertapenem for now Prior hospitalist discussed with the pharmacist/ ID connect--continue IV antibiotic for now, plan to discharge on Bactrim to complete 10 day course History of HFrEF -Echo as above, chronic, stable - continue current medications DM type II -ISS with Accu-Cheks ACHS - blood sugar remains stable Hypothyroidism -Continue levothyroxine -Chronic, stable BPH Hx UTI Monitor for retention Continue home meds H/O PE Resume Eliquis as able DVT Px: Eliquis CODE STATUS Full code Disposition Home (6) Hypothyroid: Total Time Total Time Spent Total Time Spent (In Minutes): 54 minutes Discharge Plan Discharge Items Patient Disposition: Home - Self-Care Reason For Visit: SYNCOPE Discharge Diagnosis: Syncope and collapse Tachycardia-bradycardia syndrome Sebaceous cyst Urinary tract infection Activity: As commented below Activity Comment: do not raise the left elbow over the left shoulder for 1 month Lifting: No more than 10 pounds Lifting Comment: do not lift more than 10 pounds with left arm for 2 weeks Bathing: Keep incision dry Bathing Comment: keep dressing on and dry until wound check next week Non-emergency contact: Primary Care Provider, Surgeon and [place] [employer] Call non-emergency contact if: you have any medication questions, your symptoms worsen, your pain is concerning for you, you have a fever, your temperature is above 101.5, your wound has increased redness, your wound has increased drainage and your wound pain has increased Follow-up/Referrals: [facility] [Provider Group] (The Cardiology office will contact you for a follow up appointment for a device + wound check.) Linda Rendon DO [Primary Care Provider] - (Date & Time 10/17/2023 6:00 PM Provider Linda Rendon DO Department [facility] ) Diet: Heart Healthy [facility] Attending Provider Instructions: Follow-up with your primary care physician on 10/17/2023 6:00 PM Follow-up with your lens matcher as advised. Cardiology office will call you with appointment Follow-up with your surgeon for further management of sebaceous cyst Get device and wound check at [facility] next week as recommended by your lens matcher --Complete the antibiotic course Bactrim for 5 more days as prescribed. Start taking from 10/12/2023 Seek immediate medical attention if your symptoms reoccur or worsen Please take all medications as instructed on discharge list below. Please call if you have any questions or problems. You can reach a [facility] hospitalist on duty at [facility] 24 hours a day by calling [phone] [facility] Etiologist Provider Instructions: ACTIVITY RECOMMENDATIONS: * Do not raise affected arm over head for 2 weeks. SPECIAL CARE INSTRUCTIONS: * If bleeding occurs, apply direct pressure to area for 5 minutes. * Call your doctor if you have severe pain, fever, drainage or bleeding at site. * Keep dressing on and dry for 48 hours then remove. * Keep any scheduled doctor's appointment. * Implant Card - hand held device with website information given. SKIN IRRITATION: * You may experience some redness and/or swelling in the area where radiation was administered. If any skin irritation occurs, please contact your family physician. FOLLOW UP VISIT: Keep any scheduled doctor appointments. Pending Studies at Discharge: No Stand-Alone Forms: My [facility] [employer], Smoking Cessation Medications and DC Order Prescriptions: New metoprolol succinate 25 mg Tablet Extended Release 24 Hr 25 mg PO BID Qty: 60 1RF Advanced Probiotic 625 mg (10 billion cell) Capsule 1 cap PO DAILY Qty: 10 0RF sulfamethoxazole-trimethoprim [Bactrim DS] 800-160 mg tablet 1 tab PO BID Qty: 10 0RF Rx Instructions: Start taking from 10/12/2023 Continued (DME) BD Regular Bevel [place] 18 gauge x 1 1/2" needle See Rx Instructions .Route Qty: 4 0RF Rx Instructions: As directed finasteride [Proscar] 5 mg tablet 5 mg PO QAM tryptophan 500 mg capsule 1,500 mg PO HS Rx Instructions: administer with or after a low-protein/high carbohydrate snack. furosemide 20 mg tablet 20 mg PO 3XWK Rx Instructions: TAKE THIS MED EVERY SUNDAY/SUNDAY & SUNDAY IN THE AM. apixaban 5 mg tablet 5 mg PO BID spironolactone 25 mg tablet 25 mg PO QAM escitalopram oxalate 10 mg tablet 10 mg PO QAM levothyroxine 150 mcg tablet 150 mcg PO 5XWK Rx Instructions: 150MCG SUNDAY THRU SUNDAY IN THE MORNING, AT LEAST 30 MINUTES PRIOR TO BREAKFAST OR OTHER MEDS. levothyroxine 150 mcg Tablet 225 mcg PO 2XWK Rx Instructions: TAKE 1.5 TABLET( 225MCG) EVERY SUNDAY AND SUNDAY, AT LEAST 30 MINUTES PRIOR TO BREAKFAST OR OTHER MEDS. acetaminophen 500 mg Tablet 1,000 mg PO Q6H PRN (Reason: Pain) Entresto 97-103 mg tablet 1 tab PO AMHS tamsulosin 0.4 mg capsule 0.4 mg PO QAM terazosin 10 mg capsule 10 mg PO HS hydralazine 25 mg Tablet 25 mg PO TID 30 Days Qty: 90 0RF Discharge Orders: Discharge Order (Routine); Ordered 10/11/23 Ordered By: Christiano Sawyer Admission Data Admit Date/Time: 10/03/23 18:50 Attending Provider: Christiano Sawyer Admit Provider: Christiano Sawyer Primary Care Provider: Linda Rendon Other Providers: Christiano Sawyer; Preeti Tucker; Ajay Mon; Giovani Shannon; Rashid Gage; Bryan Tan; Maxim Ward; Sindhu Vazquez; Latia Baez; Macey Bennett; Preeti Calix; Sai Acharya; Castro Lewis; Lelia Huang; Bridgette Portillo; Deya Echeverria; David Harding; Migue Ferrer; Sowmya Gomez; Lamont Mix; Maxim Hobson; Anjana Núñez; Quang Calles; Bryan Thomas; Ame Escalera; Ernestina Calle; Jeremy Griffiths Jr; Shaniqua Davalos; Sam Olsen; Denise Kelly
[2023-10-11] MEDS ORDERED: APIXABAN 5 MG TABLET PO SCH (21:00)
== END 2023-10-11 16:11 | disposition home or self-care (01) | DRG 243 ==
LOC: ED 14:27 → SUATTDRO 18:50 → 2S 18:50

== ENCOUNTER 2023-10-11 20:33 | Inpatient (IN) ==
--- NOTE | 2023-10-11 20:52 | Emergency Department Note ---
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 He is unable to get around. Family does not feel he is safe at home. They also note that he checked his pulse ox and it was low in the 80s. He denies any headache or change in vision. No chest pain or shortness of breath. No nausea vomiting or diarrhea. No dysuria urgency or frequency. No other exacerbating or remitting factors. ADDITIONAL HISTORY OBTAINED: Additional history is obtained from daughter who notes that he is having trouble getting around. Chronic Medical/Social Conditions Affecting Care: Per HPI PAST MEDICAL HISTORY:See Below PAST SURGICAL HISTORY:See Below FAMILY HISTORY:See Below SOCIAL HISTORY:See Below HOME MEDICATIONS:See Below ALLERGIES:See Below VITALS:See Below PHYSICAL EXAMINATION: GENERAL: Sitting up in bed, alert, chronically ill appearing EYE EXAM: normal conjunctiva. PERRL and EOM's grossly intact. OROPHARYNX: no exudate, no erythema, lips, buccal mucosa, and tongue normal and mucous membranes are moist NECK: supple, no nuchal rigidity, no adenopathy, non-tender LUNGS: Clear to auscultation. Normal chest wall mechanics HEART: no murmurs, S1 normal and S2 normal ABDOMEN: abdomen soft, non-tender, normo-active bowel sounds, no masses, no rebound or guarding. BACK: Back is symmetrical on inspection and there is no deformity, no midline tenderness, no CVA tenderness. SKIN: no rashes and no bruising UPPER EXTREMITIES: upper extremities are grossly normal. LOWER EXTREMITIES: No pitting edema. NEURO EXAM: Oriented to person, place and year, cranial nerves II-XII grossly intact, normal speech, no gross weakness of arms, no gross weakness of legs. No drift. Finger to nose intact. Gross sensation intact. MEDICAL DECISION MAKING: Patient is an 83-year-old male who presents the ER brought in by EMS. IV was established blood work was obtained. Labs show no significant leukocytosis. Mild anemia at 12.3. BMP was fairly unremarkable with the exception of a slightly elevated BUN. Glucose at 175. Troponin elevated at 256 although likely secondary to recent ICD/pacer placement. This was interrogated by [facility] and they noted no arrhythmias. Per family they believe he was discharged too soon and consequently discussed case with the hospitalist for further evaluation management treatment. Chest x-ray with small pleural effusion and some cephalization slightly worse than previous. Do not feel the elevated troponin is consistent with ACS. Never had any chest pain or shortness of breath. Consults/Care Managements Discussions: Per [facility] Triage Nursing notes reviewed. Limited review of prior medical records performed Vital Signs: reviewed and remarkable for no significant abnormalities Differential diagnosis: Infection, dehydration, metabolic abnormality, hypo/hyperglycemia, electrolyte disturbance, anemia, hypoxia, cardiac sources, intracerebral event, toxicologic, neurologic, as well as other pathologies. ER treatment provided: See below Diagnostics interpreted by me include EKG and cardiac monitoring as listed below: -Cardiac Monitoring: An order was placed for continuous cardiac monitoring. The monitor shows a rate of 62 with paced rhythm. -ECG: Paced rate of 60 Left axis Septal Q waves QTc 436 Left axis -Laboratory studies:Interpreted by me as stated above in MDM and shown below. Imaging studies: Xrays: As interpreted by me: Portable AP upright 1 view of the chest shows small pleural effusion CTs show: none Procedures:none Critical Care: None Past Med/Surg History Problem List (Updated 10/11/23 @ 23:11 by Curt Billingsley DO) Acute hyperglycemia (Acute) Elevated troponin (Acute) Weakness (Acute) Sebaceous cyst PSVT (paroxysmal supraventricular tachycardia) Tachycardia-bradycardia syndrome Sinus bradycardia Syncope and collapse (Acute) Hypothyroid Diabetes mellitus Bradycardia, drug induced History of pulmonary embolism Aortic root dilatation Aortic valve sclerosis Hypertensive heart disease HFrEF (heart failure with reduced ejection fraction) Bradycardia Bacteremia UTI (urinary tract infection) Benign prostatic hyperplasia (BPH) with straining on urination Weakness (Acute) Nausea & vomiting (Acute) Acute UTI (Acute) Vitamin D deficiency Fatigue Hyperthyroidism Fracture Post-surgical hypothyroidism Papillary thyroid carcinoma COVID-19 (Acute) Medical History Hypertension Social History Smoking Status: Never smoker Second Hand Exposure: No; Do You Dip or Chew Tobacco: No; Hx Alcohol Use: No Hx Substance Use: No Preferred Language: Moroccan Communication Ability: Effective Clinical Fellow Required: No Beliefs That Will Affect Care: None Current Living Situation: Alone Feels Safe at Home: Yes Assistive Devices: Glasses and Walker Allergies Allergies Allergy/AdvReac Type Severity Reaction Status Date / Time shrimp Allergy Severe Anaphylaxis Verified 10/11/23 21:36 Home Meds Home Medications Medication Instructions Recorded Confirmed escitalopram oxalate 10 mg tablet 10 mg PO QAM 11/27/17 10/11/23 finasteride 5 mg tablet (Proscar) 5 mg PO QAM 11/18/21 10/11/23 apixaban 5 mg tablet 5 mg PO BID 05/15/23 10/11/23 furosemide 20 mg tablet 20 mg PO 3XWK 05/15/23 10/11/23 spironolactone 25 mg tablet 25 mg PO QAM 05/15/23 10/11/23 tryptophan 500 mg capsule 1,500 mg PO HS 05/15/23 10/11/23 acetaminophen 500 mg tablet 1,000 mg PO Q6H PRN Pain 09/17/23 10/11/23 levothyroxine 150 mcg tablet 150 mcg PO 5XWK 09/17/23 10/11/23 levothyroxine 150 mcg tablet 225 mcg PO 2XWK 09/17/23 10/11/23 sacubitril 97 mg-valsartan 103 mg 1 tab PO AMHS 09/17/23 10/11/23 tablet (Entresto) tamsulosin 0.4 mg capsule 0.4 mg PO QAM 09/17/23 10/11/23 terazosin 10 mg capsule 10 mg PO HS 09/17/23 10/11/23 Previous Rx's Medication Instructions Recorded needle (disp) 18 G 18 gauge x 1 #4 ea 12/05/21 1/2" (BD Regular Bevel [place]) hydralazine 25 mg tablet 25 mg PO TID 30 days #90 tabs 09/27/23 L.acidop,casei,lactis,rham-B.lact,gely 1 cap PO DAILY #10 caps 10/11/23 625 mg (10 billion cell) capsule (Advanced Probiotic) metoprolol succinate 25 mg 25 mg PO BID #60 tabs 10/11/23 tablet,extended release 24 hr sulfamethoxazole 800 1 tab PO BID #10 tabs 10/11/23 mg-trimethoprim 160 mg tablet (Bactrim DS) Results & Data (ED) Vital Signs Vital Signs - 24 hr 10/11/23 20:43 10/11/23 20:44 10/11/23 20:48 Temperature 36.9 C Temperature Source Oral Pulse Rate 64 62 60 Pulse Rate from SpO2 Sensor 58 L Respiratory Rate 18 17 Respiratory Effort / Characteristics Non-Labored Respiratory Depth Normal Blood Pressure 114/67 Blood Pressure Mean 82 Pulse Oximetry 93 93 Oxygen Delivery Method Room Air Sepsis Recent Fever Within 48 Hours No Sepsis New/Unexplained Change in Mental Status No Sepsis Action Taken by Nursing No Action Required 10/11/23 20:51 10/11/23 20:51 10/11/23 20:51 Temperature Temperature Source Pulse Rate Pulse Rate from SpO2 Sensor Respiratory Rate Respiratory Effort / Characteristics Respiratory Depth Blood Pressure 114/67 114/67 Blood Pressure Mean 82 82 Pulse Oximetry 94 Oxygen Delivery Method Room Air Sepsis Recent Fever Within 48 Hours Sepsis New/Unexplained Change in Mental Status Sepsis Action Taken by Nursing 10/11/23 20:57 10/11/23 21:06 10/11/23 21:30 Temperature Temperature Source Pulse Rate 60 60 Pulse Rate from SpO2 Sensor 57 L Respiratory Rate 23 18 Respiratory Effort / Characteristics Respiratory Depth Blood Pressure 107/67 Blood Pressure Mean 77 Pulse Oximetry 93 94 Oxygen Delivery Method Room Air Sepsis Recent Fever Within 48 Hours Sepsis New/Unexplained Change in Mental Status Sepsis Action Taken by Nursing 10/11/23 21:30 10/11/23 21:30 10/11/23 21:30 Temperature Temperature Source Pulse Rate 60 Pulse Rate from SpO2 Sensor 60 Respiratory Rate 25 H Respiratory Effort / Characteristics Respiratory Depth Blood Pressure 107/67 107/67 Blood Pressure Mean 77 77 Pulse Oximetry 92 Oxygen Delivery Method Sepsis Recent Fever Within 48 Hours Sepsis New/Unexplained Change in Mental Status Sepsis Action Taken by Nursing 10/11/23 21:39 10/11/23 22:00 10/11/23 22:06 Temperature Temperature Source Pulse Rate 60 60 Pulse Rate from SpO2 Sensor 60 61 Respiratory Rate 22 21 Respiratory Effort / Characteristics Respiratory Depth Blood Pressure 109/66 Blood Pressure Mean 90 Pulse Oximetry 94 92 Oxygen Delivery Method Sepsis Recent Fever Within 48 Hours Sepsis New/Unexplained Change in Mental Status Sepsis Action Taken by Nursing 10/11/23 22:30 10/11/23 22:30 10/11/23 22:30 Temperature Temperature Source Pulse Rate 60 Pulse Rate from SpO2 Sensor 60 Respiratory Rate 19 Respiratory Effort / Characteristics Respiratory Depth Blood Pressure 114/68 114/68 Blood Pressure Mean 91 91 Pulse Oximetry 96 Oxygen Delivery Method Sepsis Recent Fever Within 48 Hours Sepsis New/Unexplained Change in Mental Status Sepsis Action Taken by Nursing 10/11/23 22:30 10/11/23 22:30 Temperature Temperature Source Pulse Rate Pulse Rate from SpO2 Sensor Respiratory Rate Respiratory Effort / Characteristics Respiratory Depth Blood Pressure 114/68 114/68 Blood Pressure Mean 91 91 Pulse Oximetry Oxygen Delivery Method Sepsis Recent Fever Within 48 Hours Sepsis New/Unexplained Change in Mental Status Sepsis Action Taken by Nursing Laboratory Data 10/11/23 20:56 10/11/23 20:56 Lab Results 10/11/23 10/11/23 Range/Units 20:56 21:00 WBC 7.35 (4.8-10.8) K/ul RBC 3.95 L (4.70-6.10) M/uL Hgb 12.3 L (14.0-18.0) g/dl POC Hgb 11.9 L (14.0-18.0) g/dl Hct 36.8 L (42.0-52.0) % POC Hct 35 L (42-52) % MCV 93.2 (80.0-100.0) fL MCH 31.1 (25.0-34.0) pg MCHC 33.4 (32.0-36.0) g/dL RDW Std Deviation 44.2 (36.4-46.3) fL RDW Coeff of [place] 13.0 (11.5-14.5) % Plt Count 191 (130-400) K/uL MPV 10.6 (9.4-12.4) fL Immature Gran % (Auto) 0.3 % Neut % (Auto) 70.8 % Lymph % (Auto) 17.0 % [place] % (Auto) 9.8 % Eos % (Auto) 1.8 % Baso % (Auto) 0.3 % Neut # (Auto) 5.21 (1.40-6.50) K/uL Lymph # (Auto) 1.25 (1.20-3.40) K/uL [place] # (Auto) 0.72 H (0.11-0.59) K/uL Eos # (Auto) 0.13 (0.00-0.50) K/uL Baso # (Auto) 0.02 (0.00-0.20) K/uL Immature Gran # (Auto) 0.02 (0.01-0.20) K/uL APTT 28 (21-31) Seconds PTT Ratio 1.0 POC Sodium 139 (135-144) mmol/L Sodium 139 (136-145) mmol/L POC Potassium 4.4 (3.3-5.0) mmol/L Potassium 4.5 (3.5-5.1) mmol/L POC Chloride 104 (101-112) mmol/L Chloride 107 (98-107) mmol/L Carbon Dioxide 27 (21-32) mmol/L POC Total CO2 26 (24-31) mmol/L Anion Gap 5 (3-11) POC Anion Gap 15.0 L (16-25) mmol/L POC BUN 30 H (7-18) mg/dl BUN 30 H (6-23) mg/dl Creatinine 0.97 (0.6-1.4) mg/dl POC Creatinine 0.9 (0.6-1.3) mg/dl Est Cr Clr Drug Dosing 66.5 ml/min Est GFR ( Amer) 82.2 ml/min Est GFR (Non-Af Amer) 70.9 ml/min BUN/Creatinine Ratio 30.9 H (10-20) Glucose 175 H (70-99(Fasting)) mg/dl POC Glucose (other) 169 H (70-99) mg/dl Calcium 8.7 (8.6-10.3) mg/dl POC Ioniz Calcium Arvind 1.18 (1.12-1.32) mmol/l Magnesium 2.2 (1.7-2.4) mg/dl Total Bilirubin 0.4 (0.2-1.0) mg/dl AST 14 (13-39) U/L ALT 9 (7-52) U/L Alkaline Phosphatase 63 (34-104) U/L Troponin I High Sens 256.2 H* (0-20) pg/ml Total Protein 5.7 L (6.0-8.3) gm/dl Albumin 3.2 L (3.4-5.0) gm/dl Globulin 2.5 (2.5-4.0) gm/dl Albumin/Globulin Ratio 1.3 (0.9-2) Lipase 12 (11-82) U/L Administered Medications Discontinued Medications Albuterol (Albut/Ipratrop 3mg/0.5mg Neb 3 Ml Vial) 3 ml NEB NOW STA; Protocol Stop: 10/11/23 21:57 Last Admin: 10/11/23 22:08 Dose: 3 ml Documented By: KYLER Discharge Plan Visit Data Chief Complaint: Cardiac Assessment Stated Complaint: Pacemaker, Weakness, Low O2 ED Provider: Curt Billingsley Discharge Problem: Weakness, Elevated troponin, Acute hyperglycemia Forms Stand Alone Forms: [facility] [employer] Prescriptions Prescriptions: No Action (DME) BD Regular Bevel [place] 18 gauge x 1 1/2" needle See Rx Instructions .Route Qty: 4 0RF Rx Instructions: As directed finasteride [Proscar] 5 mg tablet 5 mg PO QAM tryptophan 500 mg capsule 1,500 mg PO HS Rx Instructions: administer with or after a low-protein/high carbohydrate snack. furosemide 20 mg tablet 20 mg PO 3XWK Rx Instructions: TAKE THIS MED EVERY SUNDAY/SUNDAY & SUNDAY IN THE AM. apixaban 5 mg tablet 5 mg PO BID spironolactone 25 mg tablet 25 mg PO QAM escitalopram oxalate 10 mg tablet 10 mg PO QAM metoprolol succinate 25 mg Tablet Extended Release 24 Hr 25 mg PO BID Qty: 60 1RF Advanced Probiotic 625 mg (10 billion cell) Capsule 1 cap PO DAILY Qty: 10 0RF sulfamethoxazole-trimethoprim [Bactrim DS] 800-160 mg tablet 1 tab PO BID Qty: 10 0RF Rx Instructions: Start taking from 10/12/2023 levothyroxine 150 mcg tablet 150 mcg PO 5XWK Rx Instructions: 150MCG SUNDAY THRU SUNDAY IN THE MORNING, AT LEAST 30 MINUTES PRIOR TO BREAKFAST OR OTHER MEDS. levothyroxine 150 mcg Tablet 225 mcg PO 2XWK Rx Instructions: TAKE 1.5 TABLET( 225MCG) EVERY SUNDAY AND SUNDAY, AT LEAST 30 MINUTES PRIOR TO BREAKFAST OR OTHER MEDS. acetaminophen 500 mg Tablet 1,000 mg PO Q6H PRN (Reason: Pain) Entresto 97-103 mg tablet 1 tab PO AMHS tamsulosin 0.4 mg capsule 0.4 mg PO QAM terazosin 10 mg capsule 10 mg PO HS hydralazine 25 mg Tablet 25 mg PO TID 30 Days Qty: 90 0RF Referrals Referrals: Linda Rendon DO [Primary Care Provider] -
[2023-10-11 21:10] LABS: Basophils # (auto) 0.02 K/uL (0.00-0.20); Basophils % (auto) 0.3 %; Eosinophils # (auto) 0.13 K/uL (0.00-0.50); Eosinophils % (auto) 1.8 %; Hematocrit (blood only) 36.8 % (42.0-52.0); Hemoglobin 12.3 g/dl (14.0-18.0); Immature Granulocytes # (auto) 0.02 K/uL (0.01-0.20); Immature Granulocytes % (auto) 0.3 %; Lymphocytes # (auto) 1.25 K/uL (1.20-3.40); Mean Corpuscular Hemoglobin 31.1 pg (25.0-34.0); Mean Corpuscular Hgb Conc 33.4 g/dL (32.0-36.0); Mean Corpuscular Volume 93.2 fL (80.0-100.0); Mean Platelet Volume 10.6 fL (9.4-12.4); Monocytes # (auto) 0.72 K/uL (0.11-0.59); Monocytes % (auto) 9.8 %; Neutrophils # (auto) 5.21 K/uL (1.40-6.50); Neutrophils % (auto) 70.8 %; Platelet Count 191 K/uL (130-400); RDW Standard Deviation 44.2 fL (36.4-46.3); Red Blood Count 3.95 M/uL (4.70-6.10); White Blood Count 7.35 K/ul (4.8-10.8)
[2023-10-11 21:12] LABS: iSTAT Creatinine 0.9 mg/dl (0.6-1.3); iSTAT Hemoglobin 11.9 g/dl (14.0-18.0); iSTAT Ionized Calcium 1.18 mmol/l (1.12-1.32); iSTAT Potassium 4.4 mmol/L (3.3-5.0)
[2023-10-11 21:27] LABS: Albumin Globulin Ratio 1.3 (0.9-2); Albumin Level 3.2 gm/dl (3.4-5.0); BUN Creatinine Ratio 30.9 (10-20); Bilirubin,Total 0.4 mg/dl (0.2-1.0); Calcium 8.7 mg/dl (8.6-10.3); Creatinine Clr Calc Pharmacy 66.5 ml/min; Est GFR (African American) 82.2 ml/min; Est GFR (Non-African American) 70.9 ml/min; Globulin 2.5 gm/dl (2.5-4.0); Potassium 4.5 mmol/L (3.5-5.1); Total Protein 5.7 gm/dl (6.0-8.3)
[2023-10-11 21:42] LABS: Troponin I High Sensitivity 256.2 pg/ml (0-20)
[2023-10-11] MEDS: ALBUT/IPRATROP 3MG/0.5MG NEB 3 ML VIAL NEB STA (22:08)
[2023-10-11 22:13] LABS: Partial Thromboplastin Time 28 Seconds (21-31)
[2023-10-11 22:20] LABS: Magnesium 2.2 mg/dl (1.7-2.4)
[2023-10-11 23:15] LABS: Base Excess VBG 2.8 mEq/L; HCO3 VBG 27 mmol/L; Oxygen Saturation VBG 95.3 %; PCO2 VBG 40 mmHg (38-50); PO2 VBG 63 mmHg; pH VBG 7.44 (7.36-7.41)
--- NOTE | 2023-10-11 23:40 | History & Physical Report ---
Date of Service October 11, 2023 History of Present Illness Primary Care Provider: Linda Rendon DO Allergies Allergy/AdvReac Type Severity Reaction Status Date / Time shrimp Allergy Severe Anaphylaxis Verified 10/11/23 21:36 Home Medications Medication Instructions Recorded Confirmed Type escitalopram oxalate 10 mg tablet 10 mg PO QAM 11/27/17 10/11/23 History finasteride 5 mg tablet (Proscar) 5 mg PO QAM 11/18/21 10/11/23 History needle (disp) 18 G 18 gauge x 1 #4 ea 12/05/21 10/03/23 Rx 1/2" (BD Regular Bevel [place]) apixaban 5 mg tablet 5 mg PO BID 05/15/23 10/11/23 History furosemide 20 mg tablet 20 mg PO 3XWK 05/15/23 10/11/23 History spironolactone 25 mg tablet 25 mg PO QAM 05/15/23 10/11/23 History tryptophan 500 mg capsule 1,500 mg PO HS 05/15/23 10/11/23 History acetaminophen 500 mg tablet 1,000 mg PO Q6H PRN Pain 09/17/23 10/11/23 History levothyroxine 150 mcg tablet 150 mcg PO 5XWK 09/17/23 10/11/23 History levothyroxine 150 mcg tablet 225 mcg PO 2XWK 09/17/23 10/11/23 History sacubitril 97 mg-valsartan 103 mg 1 tab PO AMHS 09/17/23 10/11/23 History tablet (Entresto) tamsulosin 0.4 mg capsule 0.4 mg PO QAM 09/17/23 10/11/23 History terazosin 10 mg capsule 10 mg PO HS 09/17/23 10/11/23 History hydralazine 25 mg tablet 25 mg PO TID 30 days #90 tabs 09/27/23 10/11/23 Rx L.acidop,casei,lactis,rham-B.lact,gely 1 cap PO DAILY #10 caps 10/11/23 10/11/23 Rx 625 mg (10 billion cell) capsule (Advanced Probiotic) metoprolol succinate 25 mg 25 mg PO BID #60 tabs 10/11/23 10/11/23 Rx tablet,extended release 24 hr sulfamethoxazole 800 1 tab PO BID #10 tabs 10/11/23 10/11/23 Rx mg-trimethoprim 160 mg tablet (Bactrim DS) Past Med/Surg History Problem List (Updated 10/11/23 @ 23:11 by Curt Billingsley DO) Acute hyperglycemia (Acute) Elevated troponin (Acute) Weakness (Acute) Sebaceous cyst PSVT (paroxysmal supraventricular tachycardia) Tachycardia-bradycardia syndrome Sinus bradycardia Syncope and collapse (Acute) Hypothyroid Diabetes mellitus Bradycardia, drug induced History of pulmonary embolism Aortic root dilatation Aortic valve sclerosis Hypertensive heart disease HFrEF (heart failure with reduced ejection fraction) Bradycardia Bacteremia UTI (urinary tract infection) Benign prostatic hyperplasia (BPH) with straining on urination Weakness (Acute) Nausea & vomiting (Acute) Acute UTI (Acute) Vitamin D deficiency Fatigue Hyperthyroidism Fracture Post-surgical hypothyroidism Papillary thyroid carcinoma COVID-19 (Acute) Medical History Hypertension Social History Smoking Status: Never smoker Second Hand Exposure: No; Do You Dip or Chew Tobacco: No; Hx Alcohol Use: No Hx Substance Use: No Preferred Language: Kyrgyz Communication Ability: Effective Identity Management Developer Required: No Beliefs That Will Affect Care: None Current Living Situation: Alone Feels Safe at Home: Yes Assistive Devices: Glasses and Walker Results & Data Results & Data Vital Signs (Past 12 Hours) Vital Signs Temp Pulse Resp BP Pulse Ox O2 Del Method 10/11/23 22:30 114/10/11/23 22:30 11410/11/23 22:30 114/10/11/23 22:30 114/10/11/23 22:30 60 19 96 10/11/23 22:06 60 21 92 10/11/23 22:00 109/66 10/11/23 21:39 60 22 94 10/11/23 21:30 60 25 H 92 10/11/23 21:30 107/10/11/23 21:30 107/10/11/23 21:30 60 18 107/67 94 10/11/23 21:06 60 23 93 10/11/23 20:57 Room Air 10/11/23 20:51 114/10/11/23 20:51 114/67 10/11/23 20:51 94 Room Air 10/11/23 20:48 60 17 93 10/11/23 20:44 62 10/11/23 20:43 36.9 C 64 18 114/67 93 Room Air Laboratory Results Laboratory Results WBC 7.35 K/ul (4.8-10.8) 10/11/23 20:56 RBC 3.95 M/uL (4.70-6.10) L 10/11/23 20:56 Hgb 12.3 g/dl (14.0-18.0) L 10/11/23 20:56 POC Hgb 11.9 g/dl (14.0-18.0) L 10/11/23 21:00 Hct 36.8 % (42.0-52.0) L 10/11/23 20:56 POC Hct 35 % (42-52) L 10/11/23 21:00 MCV 93.2 fL (80.0-100.0) 10/11/23 20:56 MCH 31.1 pg (25.0-34.0) 10/11/23 20:56 MCHC 33.4 g/dL (32.0-36.0) 10/11/23 20:56 RDW Std Deviation 44.2 fL (36.4-46.3) 10/11/23 20:56 RDW Coeff of [place] 13.0 % (11.5-14.5) 10/11/23 20:56 Plt Count 191 K/uL (130-400) 10/11/23 20:56 MPV 10.6 fL (9.4-12.4) 10/11/23 20:56 Immature Gran % (Auto) 0.3 % 10/11/23 20:56 Neut % (Auto) 70.8 % 10/11/23 20:56 Lymph % (Auto) 17.0 % 10/11/23 20:56 [place] % (Auto) 9.8 % 10/11/23 20:56 Eos % (Auto) 1.8 % 10/11/23 20:56 Baso % (Auto) 0.3 % 10/11/23 20:56 Neut # (Auto) 5.21 K/uL (1.40-6.50) 10/11/23 20:56 Lymph # (Auto) 1.25 K/uL (1.20-3.40) 10/11/23 20:56 [place] # (Auto) 0.72 K/uL (0.11-0.59) H 10/11/23 20:56 Eos # (Auto) 0.13 K/uL (0.00-0.50) 10/11/23 20:56 Baso # (Auto) 0.02 K/uL (0.00-0.20) 10/11/23 20:56 Immature Gran # (Auto) 0.02 K/uL (0.01-0.20) 10/11/23 20:56 APTT 28 Seconds (21-31) 10/11/23 20:56 PTT Ratio 1.0 10/11/23 20:56 VBG pH 7.44 (7.36-7.41) H 10/11/23 23:05 VBG pCO2 40 mmHg (38-50) 10/11/23 23:05 VBG pO2 63 mmHg 10/11/23 23:05 VBG HCO3 27 mmol/L 10/11/23 23:05 VBG O2 Saturation 95.3 % 10/11/23 23:05 VBG Base Excess 2.8 mEq/L 10/11/23 23:05 POC Sodium 139 mmol/L (135-144) 10/11/23 21:00 Sodium 139 mmol/L (136-145) 10/11/23 20:56 POC Potassium 4.4 mmol/L (3.3-5.0) 10/11/23 21:00 Potassium 4.5 mmol/L (3.5-5.1) 10/11/23 20:56 POC Chloride 104 mmol/L (101-112) 10/11/23 21:00 Chloride 107 mmol/L (98-107) 10/11/23 20:56 Carbon Dioxide 27 mmol/L (21-32) 10/11/23 20:56 POC Total CO2 26 mmol/L (24-31) 10/11/23 21:00 Anion Gap 5 (3-11) 10/11/23 20:56 POC Anion Gap 15.0 mmol/L (16-25) L 10/11/23 21:00 POC BUN 30 mg/dl (7-18) H 10/11/23 21:00 BUN 30 mg/dl (6-23) H 10/11/23 20:56 Creatinine 0.97 mg/dl (0.6-1.4) 10/11/23 20:56 POC Creatinine 0.9 mg/dl (0.6-1.3) 10/11/23 21:00 Est Cr Clr Drug Dosing 66.5 ml/min 10/11/23 20:56 Est GFR ( Amer) 82.2 ml/min 10/11/23 20:56 Est GFR (Non-Af Amer) 70.9 ml/min 10/11/23 20:56 BUN/Creatinine Ratio 30.9 (10-20) H 10/11/23 20:56 Glucose 175 mg/dl (70-99(Fasting)) H 10/11/23 20:56 POC Glucose (other) 169 mg/dl (70-99) H 10/11/23 21:00 Calcium 8.7 mg/dl (8.6-10.3) 10/11/23 20:56 POC Ioniz Calcium Arvind 1.18 mmol/l (1.12-1.32) 10/11/23 21:00 Magnesium 2.2 mg/dl (1.7-2.4) 10/11/23 20:56 Total Bilirubin 0.4 mg/dl (0.2-1.0) 10/11/23 20:56 AST 14 U/L (13-39) 10/11/23 20:56 ALT 9 U/L (7-52) 10/11/23 20:56 Alkaline Phosphatase 63 U/L (34-104) 10/11/23 20:56 Troponin I High Sens 256.2 pg/ml (0-20) H* 10/11/23 20:56 Total Protein 5.7 gm/dl (6.0-8.3) L 10/11/23 20:56 Albumin 3.2 gm/dl (3.4-5.0) L 10/11/23 20:56 Globulin 2.5 gm/dl (2.5-4.0) 10/11/23 20:56 Albumin/Globulin Ratio 1.3 (0.9-2) 10/11/23 20:56 Lipase 12 U/L (11-82) 10/11/23 20:56
--- NOTE | 2023-10-12 00:08 | History & Physical Report ---
Date of Service October 12, 2023 Assessment & Plan (1) Hypoxemia: Plan: Transient hypoxemia at home Likely mild CHF given clinical neck vein distention, pleural effusion on CT, and BNP elevation History diastolic dysfunction Underlying pulmonary hypertension Trace pericardial effusion on CT Recent PPM for tachybradycardia syndrome Troponin elevation secondary above hx valvular heart disease (mild MR/TR) hypertension, stable PE on Eliquis chronic anemia, hemoglobin at baseline DM2 on oral medications, well-controlled as of recent hemoglobin A1c of 6.4 this month thyroid cancer status post surgery postsurgical hypothyroidism, TSH this month noted to be low with normal free T4 recurrent UTI ongoing Bactrim Rx past tobacco abuse Possible deconditioning Admit to PCU Stat nebs, Lasix 1 dose now TTE Re: Pericardial effusion, recent PPM Cardiology consult Re: Postprocedure pericardial effusion Hold Eliquis until patient seen by cardiology Follow troponin Basal bolus insulin, ISS BG goal 1 10-1 40, carb count coverage Recheck TFTs PT OT eval DVT prophylaxis. SCDs while Eliquis on hold Full code Patient daughter requesting for updates from providers. Sarah Stacey contact #[phone]. Text document was generated using [employer] voice recognition software. It may contain grammatical or spelling errors. Kindly contact undersigned for clarification of any documentation item in question. History of Present Illness Chief Complaint: Shortness of breath, low oxygen as per records Primary Care Provider: Linda Rendon, History obtained from patient, family, and records. 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 2 admissions this month at [facility]. Recent confinement October 02 to 2023 for SSS status post PPM. No concerns post PPM yesterday. At home, patient more SOB especially on exertion. No chest pain or unusual cough symptoms. No fluid retention. Patient felt weak all over. Denies headache or abdominal pain. O2 sats on pulse ox noted to be 80s. Patient brought to hospital by EMS. 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 Allergies Allergy/AdvReac Type Severity Reaction Status Date / Time shrimp Allergy Severe Anaphylaxis Verified 10/11/23 21:36 Home Medications Medication Instructions Recorded Confirmed Type escitalopram oxalate 10 mg tablet 10 mg PO QAM 11/27/17 10/11/23 History finasteride 5 mg tablet (Proscar) 5 mg PO QAM 11/18/21 10/11/23 History needle (disp) 18 G 18 gauge x 1 #4 ea 12/05/21 10/03/23 Rx 1/2" (BD Regular Bevel [place]) apixaban 5 mg tablet 5 mg PO BID 05/15/23 10/11/23 History furosemide 20 mg tablet 20 mg PO 3XWK 05/15/23 10/11/23 History spironolactone 25 mg tablet 25 mg PO QAM 05/15/23 10/11/23 History tryptophan 500 mg capsule 1,500 mg PO HS 05/15/23 10/11/23 History acetaminophen 500 mg tablet 1,000 mg PO Q6H PRN Pain 09/17/23 10/11/23 History levothyroxine 150 mcg tablet 150 mcg PO 5XWK 09/17/23 10/11/23 History levothyroxine 150 mcg tablet 225 mcg PO 2XWK 09/17/23 10/11/23 History sacubitril 97 mg-valsartan 103 mg 1 tab PO AMHS 09/17/23 10/11/23 History tablet (Entresto) tamsulosin 0.4 mg capsule 0.4 mg PO QAM 09/17/23 10/11/23 History terazosin 10 mg capsule 10 mg PO HS 09/17/23 10/11/23 History hydralazine 25 mg tablet 25 mg PO TID 30 days #90 tabs 09/27/23 10/11/23 Rx L.acidop,casei,lactis,rham-B.lact,gely 1 cap PO DAILY #10 caps 10/11/23 10/11/23 Rx 625 mg (10 billion cell) capsule (Advanced Probiotic) metoprolol succinate 25 mg 25 mg PO BID #60 tabs 10/11/23 10/11/23 Rx tablet,extended release 24 hr sulfamethoxazole 800 1 tab PO BID #10 tabs 10/11/23 10/11/23 Rx mg-trimethoprim 160 mg tablet (Bactrim DS) Past Med/Surg History Problem List (Updated 10/12/23 @ 02:55 by Sloan Varghese MD) Hypoxemia Acute hyperglycemia (Acute) Elevated troponin (Acute) Weakness (Acute) Sebaceous cyst PSVT (paroxysmal supraventricular tachycardia) Tachycardia-bradycardia syndrome Sinus bradycardia Syncope and collapse (Acute) Hypothyroid Diabetes mellitus Bradycardia, drug induced History of pulmonary embolism Aortic root dilatation Aortic valve sclerosis Hypertensive heart disease HFrEF (heart failure with reduced ejection fraction) Bradycardia Bacteremia UTI (urinary tract infection) Benign prostatic hyperplasia (BPH) with straining on urination Weakness (Acute) Nausea & vomiting (Acute) Acute UTI (Acute) Vitamin D deficiency Fatigue Hyperthyroidism Fracture Post-surgical hypothyroidism Papillary thyroid carcinoma COVID-19 (Acute) Medical History Hypertension Social History Smoking Status: Never smoker Second Hand Exposure: No; Do You Dip or Chew Tobacco: No; Tobacco Cessation Education Requested by Patient: No Hx Alcohol Use: No Hx Substance Use: No Preferred Language: [place] Communication Ability: Effective 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 has sling from pacemaker insertion surgery on 10/10/23 Review of Systems Review of Systems: As per HPI, all other systems reviewed and negative Physical Exam Physical Exam: GENERAL: Comfortable, pleasant, episodic tachypnea, no respiratory distress SKIN: Pallor, warm HEENT: Partial alopecia, pale palpebral conjunctivae, no ptosis, dry buccal mucosa NECK : Supple, no tenderness CHEST : Decreased breath sounds, no tenderness HEART : RRR, no obvious murmurs ABDOMEN: Some distention, nontender EXTREMITIES : No LE swelling/tenderness, no other conspicuous deformities noted NEUROLOGIC : Coherent, no facial asymmetry, no other gross focality Results & Data Results & Data Vital Signs (Past 12 Hours) Vital Signs Temp Pulse Resp BP Pulse Ox O2 Del Method 07/26/24 00:00 60 17 96 10/12/23 00:00 123/71 10/11/23 23:30 60 27 H 95 10/11/23 23:30 130/76 10/11/23 23:30 130/76 10/11/23 23:30 130/76 10/11/23 23:30 130/76 10/11/23 23:30 130/76 10/11/23 23:03 66 26 H 94 10/11/23 23:00 117/66 10/11/23 22:45 60 18 94 10/11/23 22:30 114/68 10/11/23 22:30 114/68 10/11/23 22:30 114/68 10/11/23 22:30 114/68 10/11/23 22:30 114/68 10/11/23 22:30 114/68 10/11/23 22:30 114/68 10/11/23 22:30 60 19 96 10/11/23 22:06 60 21 92 10/11/23 22:00 109/66 10/11/23 21:39 60 22 94 10/11/23 21:30 60 25 H 92 10/11/23 21:30 107/67 10/11/23 21:30 107/67 10/11/23 21:30 60 18 107/67 94 10/11/23 21:06 60 23 93 10/11/23 20:57 Room Air 10/11/23 20:51 114/67 10/11/23 20:51 114/67 10/11/23 20:51 94 Room Air 10/11/23 20:48 60 17 93 10/11/23 20:44 62 10/11/23 20:43 36.9 C 64 18 114/67 93 Room Air Laboratory Results Laboratory Results WBC 7.35 K/ul (4.8-10.8) 10/11/23 20:56 RBC 3.95 M/uL (4.70-6.10) L 10/11/23 20:56 Hgb 12.3 g/dl (14.0-18.0) L 10/11/23 20:56 POC Hgb 11.9 g/dl (14.0-18.0) L 10/11/23 21:00 Hct 36.8 % (42.0-52.0) L 10/11/23 20:56 POC Hct 35 % (42-52) L 10/11/23 21:00 MCV 93.2 fL (80.0-100.0) 10/11/23 20:56 MCH 31.1 pg (25.0-34.0) 10/11/23 20:56 MCHC 33.4 g/dL (32.0-36.0) 10/11/23 20:56 RDW Std Deviation 44.2 fL (36.4-46.3) 10/11/23 20:56 RDW Coeff of [place] 13.0 % (11.5-14.5) 10/11/23 20:56 Plt Count 191 K/uL (130-400) 10/11/23 20:56 MPV 10.6 fL (9.4-12.4) 10/11/23 20:56 Immature Gran % (Auto) 0.3 % 10/11/23 20:56 Neut % (Auto) 70.8 % 10/11/23 20:56 Lymph % (Auto) 17.0 % 10/11/23 20:56 [place] % (Auto) 9.8 % 10/11/23 20:56 Eos % (Auto) 1.8 % 10/11/23 20:56 Baso % (Auto) 0.3 % 10/11/23 20:56 Neut # (Auto) 5.21 K/uL (1.40-6.50) 10/11/23 20:56 Lymph # (Auto) 1.25 K/uL (1.20-3.40) 10/11/23 20:56 [place] # (Auto) 0.72 K/uL (0.11-0.59) H 10/11/23 20:56 Eos # (Auto) 0.13 K/uL (0.00-0.50) 10/11/23 20:56 Baso # (Auto) 0.02 K/uL (0.00-0.20) 10/11/23 20:56 Immature Gran # (Auto) 0.02 K/uL (0.01-0.20) 10/11/23 20:56 APTT 28 Seconds (21-31) 10/11/23 20:56 PTT Ratio 1.0 10/11/23 20:56 VBG pH 7.44 (7.36-7.41) H 10/11/23 23:05 VBG pCO2 40 mmHg (38-50) 10/11/23 23:05 VBG pO2 63 mmHg 10/11/23 23:05 VBG HCO3 27 mmol/L 10/11/23 23:05 VBG O2 Saturation 95.3 % 10/11/23 23:05 VBG Base Excess 2.8 mEq/L 10/11/23 23:05 POC Sodium 139 mmol/L (135-144) 10/11/23 21:00 Sodium 139 mmol/L (136-145) 10/11/23 20:56 POC Potassium 4.4 mmol/L (3.3-5.0) 10/11/23 21:00 Potassium 4.5 mmol/L (3.5-5.1) 10/11/23 20:56 POC Chloride 104 mmol/L (101-112) 10/11/23 21:00 Chloride 107 mmol/L (98-107) 10/11/23 20:56 Carbon Dioxide 27 mmol/L (21-32) 10/11/23 20:56 POC Total CO2 26 mmol/L (24-31) 10/11/23 21:00 Anion Gap 5 (3-11) 10/11/23 20:56 POC Anion Gap 15.0 mmol/L (16-25) L 10/11/23 21:00 POC BUN 30 mg/dl (7-18) H 10/11/23 21:00 BUN 30 mg/dl (6-23) H 10/11/23 20:56 Creatinine 0.97 mg/dl (0.6-1.4) 10/11/23 20:56 POC Creatinine 0.9 mg/dl (0.6-1.3) 10/11/23 21:00 Est Cr Clr Drug Dosing 66.5 ml/min 10/11/23 20:56 Est GFR ( Amer) 82.2 ml/min 10/11/23 20:56 Est GFR (Non-Af Amer) 70.9 ml/min 10/11/23 20:56 BUN/Creatinine Ratio 30.9 (10-20) H 10/11/23 20:56 Glucose 175 mg/dl (70-99(Fasting)) H 10/11/23 20:56 POC Glucose (other) 169 mg/dl (70-99) H 10/11/23 21:00 Calcium 8.7 mg/dl (8.6-10.3) 10/11/23 20:56 POC Ioniz Calcium Arvind 1.18 mmol/l (1.12-1.32) 10/11/23 21:00 Magnesium 2.2 mg/dl (1.7-2.4) 10/11/23 20:56 Total Bilirubin 0.4 mg/dl (0.2-1.0) 10/11/23 20:56 AST 14 U/L (13-39) 10/11/23 20:56 ALT 9 U/L (7-52) 10/11/23 20:56 Alkaline Phosphatase 63 U/L (34-104) 10/11/23 20:56 Troponin I High Sens 245.9 pg/ml (0-20) H* 10/11/23 23:05 Total Protein 5.7 gm/dl (6.0-8.3) L 10/11/23 20:56 Albumin 3.2 gm/dl (3.4-5.0) L 10/11/23 20:56 Globulin 2.5 gm/dl (2.5-4.0) 10/11/23 20:56 Albumin/Globulin Ratio 1.3 (0.9-2) 10/11/23 20:56 Lipase 12 U/L (11-82) 10/11/23 20:56 CT chest: 1. Trace pericardial effusion. 2. Trace LEFT pleural effusion. Diagnostic Findings EKG as per my interpretation : Rate 60, paced rhythm Code Status & VTE Plan VTE Prophylaxis Plan VTE Prophylaxis will be ordered: Yes
[2023-10-12] MEDS ORDERED: PROMETHAZINE HCL 6.25 MG in SODIUM CHLORIDE 0.9% 50 ML IV PRN (00:11)
[2023-10-12] MEDS ORDERED: ACETAMINOPHEN 325 MG TAB PO PRN (00:11)
[2023-10-12] MEDS: INSULIN ASPART PER UNIT CHARGE SC SCH (01:04)
[2023-10-12 01:13] LABS: Influenza A virus by PCR Negative (Neg); Influenza B virus by PCR Negative (Neg); RSV by PCR Negative (Neg); SARS CoV2 RNA(COVID-19) Ceph NEGATIVE (Negative)
[2023-10-12] MEDS: MELATONIN 3 MG TAB PO PRN (01:38)
--- NOTE | 2023-10-12 02:13 | CT Scan Report ---
Exam(s): CT CHEST Without Contrast EXAM: CT Chest Without Intravenous Contrast CLINICAL HISTORY: Reason for exam: sob. TECHNIQUE: Axial computed tomography images of the chest without intravenous contrast. CTDI is 18.43 mGy and DLP is 660.21 mGy-cm. Automated exposure control was utilized for the study. A dose lowering technique was utilized adhering to the principles of ALARA. COMPARISON: No relevant prior studies available. FINDINGS: Lungs: Unremarkable. No mass. No consolidation. Pleural space: Trace LEFT pleural effusion. No pneumothorax. Heart: Trace pericardial effusion. Cardiomegaly. No significant coronary artery calcifications. Bones/joints: Degenerative changes of the spine. No acute fracture. No dislocation. Soft tissues: Unremarkable. Vasculature: Atherosclerotic changes of the aorta. No thoracic aortic aneurysm. Lymph nodes: Unremarkable. No enlarged lymph nodes. Kidneys and ureters: RIGHT upper pole renal cyst measures 5.6 cm. Tubes, lines and devices: Pacemaker leads. IMPRESSION: 1. Trace pericardial effusion. 2. Trace LEFT pleural effusion. Electronically signed by: Ankush Fox MD 10/12/23 02:12 AM
[2023-10-12] MEDS: FUROSEMIDE INJ 20 MG/2 ML VIAL IV ONE (02:27)
[2023-10-12] MEDS: LEVOTHYROXINE SODIUM 150 MCG TABLET PO SCH (06:33)
[2023-10-12 06:34] LABS: Basophils # (auto) 0.02 K/uL (0.00-0.20); Basophils % (auto) 0.3 %; Eosinophils # (auto) 0.35 K/uL (0.00-0.50); Eosinophils % (auto) 5.4 %; Hematocrit (blood only) 34.8 % (42.0-52.0); Hemoglobin 11.5 g/dl (14.0-18.0); Immature Granulocytes # (auto) 0.02 K/uL (0.01-0.20); Immature Granulocytes % (auto) 0.3 %; Lymphocytes # (auto) 1.93 K/uL (1.20-3.40); Lymphocytes % (auto) 29.6 %; Mean Corpuscular Hemoglobin 30.3 pg (25.0-34.0); Mean Corpuscular Volume 91.8 fL (80.0-100.0); Mean Platelet Volume 10.8 fL (9.4-12.4); Monocytes % (auto) 15.3 %; Neutrophils % (auto) 49.1 %; Platelet Count 187 K/uL (130-400); RDW Coefficient of Variation 13.1 % (11.5-14.5); Red Blood Count 3.79 M/uL (4.70-6.10); White Blood Count 6.52 K/ul (4.8-10.8)
[2023-10-12 06:39] LABS: BUN Creatinine Ratio 32.6 (10-20); Calcium 8.5 mg/dl (8.6-10.3); Creatinine Clr Calc Pharmacy 72.5 ml/min; Est GFR (African American) 90.4 ml/min
--- NOTE | 2023-10-12 07:51 | XRay Report ---
XR chest 1V portable HISTORY: 83 years-old Male Chest pain, nonspecific COMPARISON: Chest CT 10/12/2023, 02/28/2023. TECHNIQUE: AP view of the chest FINDINGS: Cardiac silhouette is enlarged. Dual-lead left subclavian pacer. Small left pleural effusion with mil d left basilar consolidation, decreased from the 2022 study. Bones appear grossly intact. Chronic ravinder earing left-sided rib fractures. IMPRESSION: 1. Cardiomegaly without overt pulmonary edema. 2. Decreased size of the chronic small left pleural effusion with mild left basilar atelectasis. ACT 112: Negative or not required by law. The above report was generated using voice recognition software. It may contain grammatical, syntax o r spelling errors. Electronically signed by: Silvino Baer M.D. 10/12/2023 7:49 AM
[2023-10-12] MEDS ORDERED: APIXABAN 5 MG TABLET PO SCH (09:00)
[2023-10-12] MEDS: hydrALAZINE HCL 25 MG TAB PO SCH (09:21)
[2023-10-12] MEDS: VALSARTAN/SACUBITRIL 103/97MG TAB PO SCH (09:22)
[2023-10-12] MEDS: TAMSULOSIN HCL 0.4 MG CAP PO SCH (09:22)
[2023-10-12] MEDS: SPIRONOLACTONE 25 MG TAB PO SCH (09:23)
[2023-10-12] MEDS: SULFAMETHOXAZOLE/TRIMETHOPRIM DS 800/160MG TAB PO SCH (09:23)
[2023-10-12] MEDS: METOPROLOL SUCC 25MG EXT REL TAB PO SCH (09:23)
[2023-10-12] MEDS: ADVANCED PROBIOTIC 625 MG CAPSULE PO SCH (09:24)
[2023-10-12] MEDS: ESCITALOPRAM OXALATE 10 MG TAB PO SCH (09:24)
[2023-10-12] MEDS: FINASTERIDE 5 MG TAB PO SCH (09:24)
[2023-10-12] MEDS ORDERED: ALUMINUM/MAGNESIUM/SIMETH (MAALOX MAX) 30 ML UDC PO PRN (10:19)
--- NOTE | 2023-10-12 15:31 | Cardiology Consultation ---
Date of Consultation October 12, 2023 Assessment & Plan (1) Weakness: (2) Pericardial effusion: (3) Tachycardia-bradycardia syndrome: (4) Pacemaker: Plan 83-year-old male with recent pacemaker implantation due to tachybradycardia syndrome return to the ER due to profound weakness, shortness of breath, and hypoxia. CT with evidence of trivial circumferential pericardial effusion. Bedside echocardiogram confirms presence of trivial pericardial effusion unchanged when compared to echocardiogram dated 10/04/2023 (prior to pacemaker implantation). The pericardial fusion is not hemodynamically significant. There is no evidence of tamponade. Continue current cardiovascular medications including hydralazine, metoprolol succinate, Entresto, spironolactone, and Hytrin as ordered. Repeat resting 2D transthoracic echocardiogram in 2 weeks as outpatient for surveillance of pericardial effusion. No contraindication to Eliquis at this time. No further inpatient cardiac testing or intervention recommended. Consider placement in rehab facility. I spent a total of 60 minutes on the date of service in preparation, delivery, and documentation of the care provided to this patient, excluding any time spent in the performance of separately billed services. History of Present Illness Reason for Consultation: Pericardial effusion on CT, recent pacemaker implantation Requesting Physician: Dr. Sloan Varghese Attending Physician: Christiano Sawyer MD History of Present Illness 83-year-old male discharge from [facility] yesterday 10/11/2023 after hospitalization regarding urinary tract infection, tachybradycardia syndrome, and pacemaker implantation. Pacemaker implanted 10/10/2023 without complication. He returned home 10/11/2023 however profound weakness and shortness of breath reported by both the patient and his family members. They brought him back to the ER for further evaluation and treatment. CT performed on admission demonstrating a trivial circumferential pericardial effusion. Cardiology consultation requested for further assessment. Echocardiogram reviewed dated 10/04/2023. There is a trivial circumferential pericardial effusion, however, not reported. Patient denies chest pain or shortness of breath currently at rest. No orthopnea, PND, or lower extremity edema. Tolerating beta-antonio therapy. No evidence of recurrent tacky dysrhythmia on telemetry. Pacemaker interrogation performed yesterday 10/11/2023 demonstrates normal function. Allergies Allergy/AdvReac Type Severity Reaction Status Date / Time shrimp Allergy Severe Anaphylaxis Verified 10/11/23 21:36 Home Medications Medication Instructions Recorded Confirmed Type escitalopram oxalate 10 mg tablet 10 mg PO QAM 11/27/17 10/11/23 History finasteride 5 mg tablet (Proscar) 5 mg PO QAM 11/18/21 10/11/23 History needle (disp) 18 G 18 gauge x 1 #4 ea 12/05/21 10/03/23 Rx 1/2" (BD Regular Bevel [place]) apixaban 5 mg tablet 5 mg PO BID 05/15/23 10/11/23 History furosemide 20 mg tablet 20 mg PO 3XWK 05/15/23 10/11/23 History spironolactone 25 mg tablet 25 mg PO QAM 05/15/23 10/11/23 History tryptophan 500 mg capsule 1,500 mg PO HS 05/15/23 10/11/23 History acetaminophen 500 mg tablet 1,000 mg PO Q6H PRN Pain 09/17/23 10/11/23 History levothyroxine 150 mcg tablet 150 mcg PO 5XWK 09/17/23 10/11/23 History levothyroxine 150 mcg tablet 225 mcg PO 2XWK 09/17/23 10/11/23 History sacubitril 97 mg-valsartan 103 mg 1 tab PO AMHS 09/17/23 10/11/23 History tablet (Entresto) tamsulosin 0.4 mg capsule 0.4 mg PO QAM 09/17/23 10/11/23 History terazosin 10 mg capsule 10 mg PO HS 09/17/23 10/11/23 History hydralazine 25 mg tablet 25 mg PO TID 30 days #90 tabs 09/27/23 10/11/23 Rx L.acidop,casei,lactis,rham-B.lact,gely 1 cap PO DAILY #10 caps 10/11/23 10/11/23 Rx 625 mg (10 billion cell) capsule (Advanced Probiotic) metoprolol succinate 25 mg 25 mg PO BID #60 tabs 10/11/23 10/11/23 Rx tablet,extended release 24 hr sulfamethoxazole 800 1 tab PO BID #10 tabs 10/11/23 10/11/23 Rx mg-trimethoprim 160 mg tablet (Bactrim DS) Patient History Medical History Hypertension Social History Smoking Status: Never smoker Second Hand Exposure: No; Do You Dip or Chew Tobacco: No; Tobacco Cessation Education Requested by Patient: No Hx Alcohol Use: No Hx Substance Use: No Preferred Language: Romanian Communication Ability: Effective Progress Man Required: No Beliefs That Will Affect Care: None Current Living Situation: Alone Feels Safe at Home: Yes Safety Concerns: Feels Safe At This Time Assistive Devices: Brace/Splint/Immobilizer and Walker Assistive Devices Comment: Pt. has sling from pacemaker insertion surgery on 10/10/23 Review of Systems Review of Systems: All systems reviewed & are unremarkable except as noted in Subjective Physical Exam Constitutional: well nourished; no acute distress Respiratory: no respiratory distress and no retractions Auscultation: no crackles, no rales, no rhonchi and no wheezes Cardiovascular: Rate/Rhythm: regular rate and regular rhythm Heart Sounds: normal S1, normal S2 and + murmur (2/6 low pitched systolic ejection murmur.) Vessels: no JVD and no carotid bruit Extremities: no edema Gastrointestinal (Abdomen): Inspection/Auscultation: abdomen normal to inspection and normal bowel sounds; abdomen not distended Percussion/Palpation: abdomen soft; abdomen nontender, no guarding and abdomen not rigid Neurologic: CN's II-XI intact bilaterally and moves all extremities; no focal motor deficits Results & Data Vital Signs (Past 12 Hours) Vital Signs Temp Pulse Pulse Resp BP Pulse Ox O2 Del Method 10/12/23 14:42 60 10/12/23 11:13 36.4 C L 62 18 116/71 95 Room Air 10/12/23 07:25 36.3 C L 60 18 161/82 H 92 Room Air 10/12/23 07:18 65 Laboratory Results Cardiac Enzymes 10/11/23 10/11/23 Range/Units 20:56 23:05 AST 14 (13-39) U/L Troponin I High Sens 256.2 H* 245.9 H* (0-20) pg/ml B-Natriuretic Peptide 120 H (0-100) pg/ml Coagulation 10/11/23 Range/Units 20:56 APTT 28 (21-31) Seconds B-Natriuretic Peptide 120 H (0-100) pg/ml CBC 10/11/23 10/12/23 Range/Units 20:56 05:41 WBC 7.35 6.52 (4.8-10.8) K/ul RBC 3.95 L 3.79 L (4.70-6.10) M/uL Hgb 12.3 L 11.5 L (14.0-18.0) g/dl Hct 36.8 L 34.8 L (42.0-52.0) % Plt Count 191 187 (130-400) K/uL Neut # (Auto) 5.21 3.20 (1.40-6.50) K/uL Lymph # (Auto) 1.25 1.93 (1.20-3.40) K/uL [place] # (Auto) 0.72 H 1.00 H (0.11-0.59) K/uL Eos # (Auto) 0.13 0.35 (0.00-0.50) K/uL Baso # (Auto) 0.02 0.02 (0.00-0.20) K/uL Comprehensive Metabolic Panel 10/11/23 10/12/23 Range/Units 20:56 05:41 Sodium 139 141 (136-145) mmol/L Potassium 4.5 4.0 (3.5-5.1) mmol/L Chloride 107 108 H (98-107) mmol/L Carbon Dioxide 27 27 (21-32) mmol/L BUN 30 H 29 H (6-23) mg/dl Creatinine 0.97 0.89 (0.6-1.4) mg/dl Glucose 175 H 107 H (70-99(Fasting)) mg/dl Calcium 8.7 8.5 L (8.6-10.3) mg/dl AST 14 (13-39) U/L ALT 9 (7-52) U/L Alkaline Phosphatase 63 (34-104) U/L Total Protein 5.7 L (6.0-8.3) gm/dl Albumin 3.2 L (3.4-5.0) gm/dl Intake and Output 10/12/23 10/12/23 10/12/23 06:59 14:59 22:59 Intake Total 100 / 100 Output Total 1400 / 1400 Balance -1300 / -1300 Intake: Oral 100 / 100 Output: Urine Amount (Catheter) 1400 / 1400 External 1400 / 1400 Other: Weight 91 kg Weight Measurement Method Built in [facility]
--- NOTE | 2023-10-12 16:43 | Hospitalist Progress Note ---
Date of Service October 12, 2023 Assessment & Plan (1) Hypoxemia: Plan: Transient hypoxemia Unclear etiology Likely hypoventilation due to inability to take deep breaths from soreness at pacemaker site No documented hypoxia since hospitalization --CT Chest:Trace pericardial effusion. Trace LEFT pleural effusion. --Repeat ECHO: EF 50 to 55%. Trivial circumferential pericardial effusion, unchanged from prior imaging, no signs of pericardial tamponade Saturating well on room air Incentive spirometry Troponin elevation Likely due to pacemaker placement Trivial pericardial effusion Echo showed septal, apical wall motion consistent with pacemaker activation. Appreciate cardiology input Needs follow-up with cardiology as outpatient with repeat echo Generalized weakness Likely deconditioning due to comorbidities Fall precautions PT OT Tachycardia-bradycardia syndrome S/P Pacemaker placement by Dr. Baez on 10/10/23 Appreciate cardiology input Continue metoprolol succinate 25 mg twice a day Sebaceous cyst over upper side of the precordium Sebaceous cyst can be removed as an outpatient as per the surgeon from recent hospitalization Needs follow-up with surgery on discharge UTIrecurrent Urine culture is growing Enterobacter cloacae--last admission Was on IV ertapenem Continue Bactrim to complete the antibiotic course History of HFpEF -Echo as above, chronic, stable -continue home diuretics Monitor volume status DM type II -ISS with Accu-Cheks ACHS Monitor BGs Hypothyroidism -Continue levothyroxine -Chronic, stable BPH Hx UTI Monitor for retention Continue home meds H/O PE Eliquis DVT Px: Eliquis CODE STATUS Full code Disposition PT OT prior to discharge Admission and Anticipated Discharge Date Admission Date: October 12, 2023 Subjective Patient is seen and examined at bedside Reports having some indigestion today Dyspnea resolved Saturating well on room air Admits to have mild soreness at pacemaker site Discussed with family at bedside Offers no other complaints Review of Systems Review of Systems: All systems reviewed & are unremarkable except as noted in Subjective Physical Exam Physical Exam: Physical Exam: Vitals signs as noted above General Appearance:Moderately built and nourished, no apparent distress Head: normocephalic, Atraumatic Eyes: normal inspection, EOMI Neck: supple, Trachea midline Respiratory/Chest: Normal breath sounds, CTA, +Pacer, No accessory muscle use Cardiovascular: S1, S2, + murmur Abdomen/GI:Soft, Non tender, Bowel sounds present Extremities/Musculoskeletal:normal inspection, no edema Neurologic/Psych:AAOX3, grossly no focal neurological deficits Skin: normal color, warm Results & Data Results & Data Vital Signs (Past 12 Hours) Vital Signs Temp Pulse Pulse Resp BP Pulse Ox O2 Del Method 10/12/23 15:42 36.6 C 60 18 148/83 H 94 Room Air 10/12/23 14:42 60 10/12/23 11:13 36.4 C L 62 18 116/71 95 Room Air 10/12/23 07:25 36.3 C L 60 18 161/82 H 92 Room Air 10/12/23 07:18 65 Laboratory Results Short CBC 10/11/23 10/12/23 Range/Units 20:56 05:41 WBC 7.35 6.52 (4.8-10.8) K/ul Hgb 12.3 L 11.5 L (14.0-18.0) g/dl Hct 36.8 L 34.8 L (42.0-52.0) % Plt Count 191 187 (130-400) K/uL BMP 10/11/23 10/12/23 20:56 05:41 Sodium 139 141 Potassium 4.5 4.0 Chloride 107 108 H Carbon Dioxide 27 27 BUN 30 H 29 H Creatinine 0.97 0.89 Glucose 175 H 107 H Calcium 8.7 8.5 L Liver Function 10/11/23 Range/Units 20:56 Total Bilirubin 0.4 (0.2-1.0) mg/dl AST 14 (13-39) U/L ALT 9 (7-52) U/L Alkaline Phosphatase 63 (34-104) U/L Albumin 3.2 L (3.4-5.0) gm/dl
[2023-10-12] MEDS: TERAZOSIN HCL 5 MG CAP PO SCH (20:15)
[2023-10-12] MEDS: APIXABAN 5 MG TABLET PO SCH (20:16)
--- NOTE | 2023-10-12 20:58 | Electrocardiogram Report ---
Test Reason : Blood Pressure : / mmHG Vent. Rate : 060 BPM Atrial Rate : 060 BPM P-R Int : 270 ms QRS Dur : 124 ms QT Int : 436 ms P-R-T Axes : 073 -63 082 degrees QTc Int : 436 ms Atrial-paced rhythm with prolonged AV conduction Left anterior fascicular block Minimal voltage criteria for LVH, may be normal variant ( Ramiro product ) Cannot rule out Anterior infarct , age undetermined Abnormal ECG When compared with ECG of 10-OCT-2023 17:07, Electronic atrial pacemaker has replaced Sinus rhythm Confirmed by Conor Fenton ([id number]) on 10/12/2023 8:57:51 PM Referred By: REFERRED SELF Confirmed By:Conor Fenton
[2023-10-13] MEDS: LEVOTHYROXINE SODIUM 75 MCG TABLET PO SCH (05:38)
[2023-10-13 06:00] LABS: Hematocrit (blood only) 35.4 % (42.0-52.0); Hemoglobin 11.7 g/dl (14.0-18.0); Mean Corpuscular Hemoglobin 30.8 pg (25.0-34.0); Mean Corpuscular Hgb Conc 33.1 g/dL (32.0-36.0); Mean Corpuscular Volume 93.2 fL (80.0-100.0); Mean Platelet Volume 10.5 fL (9.4-12.4); Platelet Count 192 K/uL (130-400); RDW Coefficient of Variation 13.2 % (11.5-14.5); RDW Standard Deviation 45.1 fL (36.4-46.3); White Blood Count 6.48 K/ul (4.8-10.8)
[2023-10-13 06:10] LABS: BUN Creatinine Ratio 28.1 (10-20); Calcium 8.3 mg/dl (8.6-10.3); Creatinine Clr Calc Pharmacy 67.2 ml/min; Est GFR (African American) 83.2 ml/min; Est GFR (Non-African American) 71.8 ml/min; Potassium 4.3 mmol/L (3.5-5.1)
--- NOTE | 2023-10-13 16:03 | Hospitalist Progress Note ---
Date of Service October 13, 2023 Assessment & Plan (1) Hypoxemia: Plan: Transient hypoxemia Unclear etiology Likely hypoventilation due to inability to take deep breaths from soreness at pacemaker site No documented hypoxia since hospitalization --CT Chest:Trace pericardial effusion. Trace LEFT pleural effusion. --Repeat ECHO: EF 50 to 55%. Trivial circumferential pericardial effusion, unchanged from prior imaging, no signs of pericardial tamponade Saturating well on room air Incentive spirometry No recurrence of hypoxia while hospitalized Troponin elevation Likely due to pacemaker placement Trivial pericardial effusion Echo showed septal, apical wall motion consistent with pacemaker activation. 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 Appreciate cardiology input Continue metoprolol succinate 25 mg twice a day Sebaceous cyst over upper side of the precordium Sebaceous cyst can be removed as an outpatient as per the surgeon from recent hospitalization Needs follow-up with surgery on discharge UTIrecurrent Urine culture is growing Enterobacter cloacae--last admission Was on IV ertapenem Continue Bactrim to complete the antibiotic course History of HFpEF -Echo as above, chronic, stable -continue home diuretics Monitor volume status DM type II -ISS with Accu-Cheks ACHS Monitor BGs Hypothyroidism -Continue levothyroxine -Chronic, stable BPH Hx UTI Monitor for retention Continue home meds H/O PE Eliquis DVT Px: Eliquis CODE STATUS Full code Disposition Rehab when accepted Admission and Anticipated Discharge Date Admission Date: October 12, 2023 Subjective Patient is seen and examined at bedside States feeling better today No new complaints Family at bedside Waiting for rehab placement Review of Systems 2 Review of Systems: All systems reviewed & are unremarkable except as noted in Subjective Physical Exam Physical Exam: Physical Exam: Vitals signs as noted above General Appearance:Moderately built and nourished, no apparent distress Head: normocephalic, Atraumatic Eyes: normal inspection, EOMI Neck: supple, Trachea midline Respiratory/Chest: Normal breath sounds, CTA, +Pacer, No accessory muscle use Cardiovascular: S1, S2, + murmur Abdomen/GI:Soft, Non tender, Bowel sounds present Extremities/Musculoskeletal:normal inspection, no edema Neurologic/Psych:AAOX3, grossly no focal neurological deficits Skin: normal color, warm Results & Data Results & Data Vital Signs (Past 12 Hours) Vital Signs Temp Pulse Pulse Resp BP BP Pulse Ox 10/13/23 15:36 36.4 C L 59 L 18 151/73 H 95 10/13/23 11:00 36.4 C L 55 L 18 128/71 95 10/13/23 09:45 60 10/13/23 07:04 36.5 C 60 18 151/81 H 94 O2 Del Method 10/13/23 15:36 Room Air 10/13/23 11:00 Room Air 10/13/23 09:45 10/13/23 07:04 Room Air Laboratory Results Short CBC 10/13/23 Range/Units 05:32 WBC 6.48 (4.8-10.8) K/ul Hgb 11.7 L (14.0-18.0) g/dl Hct 35.4 L (42.0-52.0) % Plt Count 192 (130-400) K/uL BMP 10/13/23 05:32 Sodium 139 Potassium 4.3 Chloride 109 H Carbon Dioxide 26 BUN 27 H Creatinine 0.96 Glucose 109 H Calcium 8.3 L
[2023-10-14 06:59] LABS: BUN Creatinine Ratio 25.7 (10-20); Calcium 8.1 mg/dl (8.6-10.3); Creatinine Clr Calc Pharmacy 57.1 ml/min; Est GFR (African American) 68.3 ml/min; Est GFR (Non-African American) 58.9 ml/min; Potassium 4.5 mmol/L (3.5-5.1)
--- NOTE | 2023-10-14 16:00 | Hospitalist Progress Note ---
Date of Service October 14, 2023 Assessment & Plan (1) Hypoxemia: Plan: Transient hypoxemia Unclear etiology Likely hypoventilation due to inability to take deep breaths from soreness at pacemaker site No documented hypoxia since hospitalization --CT Chest:Trace pericardial effusion. Trace LEFT pleural effusion. --Repeat ECHO: EF 50 to 55%. Trivial circumferential pericardial effusion, unchanged from prior imaging, no signs of pericardial tamponade Saturating well on room air Incentive spirometry No recurrence of hypoxia while hospitalized Waiting for rehab placement Case management to help with discharge planning Troponin elevation Likely due to pacemaker placement Trivial pericardial effusion Echo showed septal, apical wall motion consistent with pacemaker activation. 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 Appreciate cardiology input Continue metoprolol succinate 25 mg twice a day Sebaceous cyst over upper side of the precordium Sebaceous cyst can be removed as an outpatient as per the surgeon from recent hospitalization Needs follow-up with surgery on discharge UTIrecurrent Urine culture is growing Enterobacter cloacae--last admission Was on IV ertapenem Continue Bactrim to complete the course History of HFpEF -Echo as above, chronic, stable -continue home diuretics Monitor volume status DM type II -ISS with Accu-Cheks ACHS Monitor BGs Hypothyroidism -Continue levothyroxine -Chronic, stable BPH Hx UTI Monitor for retention Continue home meds H/O PE Eliquis DVT Px: Eliquis CODE STATUS Full code Disposition Rehab when accepted Admission and Anticipated Discharge Date Admission Date: October 12, 2023 Subjective Patient is seen and examined at bedside Doing well today Saturating well on room air Family at bedside Offers no new complaints Waiting for rehab placement Denies any chest pain, dyspnea, nausea, vomiting, abdominal pain Review of Systems Review of Systems: All systems reviewed & are unremarkable except as noted in Subjective Physical Exam Physical Exam: Physical Exam: Vitals signs as noted above General Appearance:Moderately built and nourished, no apparent distress Head: normocephalic, Atraumatic Eyes: normal inspection, EOMI Neck: supple, Trachea midline Respiratory/Chest: Normal breath sounds, CTA, +Pacer, No accessory muscle use Cardiovascular: S1, S2, + murmur Abdomen/GI:Soft, Non tender, Bowel sounds present Extremities/Musculoskeletal:normal inspection, no edema Neurologic/Psych:AAOX3, grossly no focal neurological deficits Skin: normal color, warm Results & Data Results & Data Vital Signs (Past 12 Hours) Vital Signs Temp Pulse Pulse Resp BP Pulse Ox O2 Del Method 10/14/23 15:44 36.6 C 68 18 145/76 H 93 Room Air 10/14/23 11:43 36.3 C L 60 20 106/63 94 Room Air 10/14/23 09:37 60 10/14/23 07:48 36.5 C 60 18 145/81 H 93 Room Air Laboratory Results [facility] 10/14/23 06:11 Sodium 139 Potassium 4.5 Chloride 108 H Carbon Dioxide 27 BUN 29 H Creatinine 1.13 Glucose 105 H Calcium 8.1 L
[2023-10-15] MEDS: FUROSEMIDE 20 MG TAB PO SCH (08:27)
--- NOTE | 2023-10-15 17:37 | Hospitalist Progress Note ---
Date of Service October 15, 2023 Assessment & Plan (1) Hypoxemia: Plan: Transient hypoxemia Unclear etiology Likely hypoventilation due to inability to take deep breaths from soreness at pacemaker site No documented hypoxia since hospitalization --CT Chest:Trace pericardial effusion. Trace LEFT pleural effusion. --Repeat ECHO: EF 50 to 55%. Trivial circumferential pericardial effusion, unchanged from prior imaging, no signs of pericardial tamponade Saturating well on room air Incentive spirometry No recurrence of hypoxia while hospitalized Stable for discharge Waiting for rehab placement Troponin elevation Likely due to pacemaker placement Trivial pericardial effusion Echo showed septal, apical wall motion consistent with pacemaker activation. 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 Appreciate cardiology input Continue metoprolol succinate 25 mg twice a day Sebaceous cyst over upper side of the precordium Sebaceous cyst can be removed as an outpatient as per the surgeon from recent hospitalization Needs follow-up with surgery on discharge UTIrecurrent Urine culture is growing Enterobacter cloacae--last admission Was on IV ertapenem Continue Bactrim to complete the course--3 more doses left History of HFpEF -Echo as above, chronic, stable -continue home diuretics Monitor volume status DM type II -ISS with Accu-Cheks ACHS Monitor BGs Hypothyroidism -Continue levothyroxine -Chronic, stable BPH Hx UTI Monitor for retention Continue home meds H/O PE Eliquis DVT Px: Eliquis CODE STATUS Full code Disposition Rehab when accepted Admission and Anticipated Discharge Date Admission Date: October 12, 2023 Subjective Patient is seen and examined at bedside No new complaints Denies any chest pain, dyspnea, nausea, vomiting, abdominal pain Team for rehab placement Review of Systems Review of Systems: All systems reviewed & are unremarkable except as noted in Subjective Physical Exam Physical Exam: Physical Exam: Vitals signs as noted above General Appearance:Moderately built and nourished, no apparent distress Head: normocephalic, Atraumatic Eyes: normal inspection, EOMI Neck: supple, Trachea midline Respiratory/Chest: Normal breath sounds, CTA, +Pacer, No accessory muscle use Cardiovascular: S1, S2, + murmur Abdomen/GI:Soft, Non tender, Bowel sounds present Extremities/Musculoskeletal:normal inspection, no edema Neurologic/Psych:AAOX3, grossly no focal neurological deficits Skin: normal color, warm Results & Data Results & Data Vital Signs (Past 12 Hours) Vital Signs Temp Pulse Pulse Resp BP BP Pulse Ox 10/15/23 14:03 36.4 C L 60 18 100/60 95 10/15/23 08:32 64 120/67 10/15/23 08:27 36.3 C L 60 14 147/67 H 94 O2 Del Method 10/15/23 14:03 Room Air 10/15/23 08:32 10/15/23 08:27 Room Air
[2023-10-16 07:31] LABS: Hematocrit (blood only) 34.7 % (42.0-52.0); Hemoglobin 11.3 g/dl (14.0-18.0); Mean Corpuscular Hemoglobin 30.5 pg (25.0-34.0); Mean Corpuscular Hgb Conc 32.6 g/dL (32.0-36.0); Mean Corpuscular Volume 93.8 fL (80.0-100.0); Mean Platelet Volume 10.5 fL (9.4-12.4); Platelet Count 198 K/uL (130-400); RDW Coefficient of Variation 13.4 % (11.5-14.5); RDW Standard Deviation 45.9 fL (36.4-46.3); White Blood Count 13.35 K/ul (4.8-10.8)
[2023-10-16 07:45] LABS: BUN Creatinine Ratio 24.4 (10-20); Calcium 8.1 mg/dl (8.6-10.3); Creatinine Clr Calc Pharmacy 38.4 ml/min; Est GFR (African American) 42.3 ml/min; Est GFR (Non-African American) 36.5 ml/min; Potassium 4.6 mmol/L (3.5-5.1)
--- NOTE | 2023-10-16 18:48 | Hospitalist Progress Note ---
Date of Service October 16, 2023 Assessment & Plan (1) Hypoxemia: Plan: Transient hypoxemia Unclear etiology Likely hypoventilation due to inability to take deep breaths from soreness at pacemaker site No documented hypoxia since hospitalization --CT Chest:Trace pericardial effusion. Trace LEFT pleural effusion. --Repeat ECHO: EF 50 to 55%. Trivial circumferential pericardial effusion, unchanged from prior imaging, no signs of pericardial tamponade Saturating well on room air Incentive spirometry No recurrence of hypoxia while hospitalized Stable for discharge Waiting for rehab placement Clinically stable and denies any significant symptoms She was denied to go to [facility] Troponin elevation-doubt any ACS Likely due to pacemaker placement Trivial pericardial effusion Echo showed septal, apical wall motion consistent with pacemaker activation. 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 Appreciate cardiology input Continue metoprolol succinate 25 mg twice a day His hydralazine has been discontinued due to low blood pressure and he does not want to take it Sebaceous cyst over upper side of the precordium Sebaceous cyst can be removed as an outpatient as per the surgeon from recent hospitalization Needs follow-up with surgery on discharge UTIrecurrent Urine culture is growing Enterobacter cloacae--last admission Was on IV ertapenem Continue Bactrim to complete the course--3 more doses left No more symptoms of UTI History of HFpEF -Echo as above, chronic, stable -continue home diuretics Monitor volume status DM type II -ISS with Accu-Cheks ACHS Monitor BGs Hypothyroidism -Continue levothyroxine -Chronic, stable BPH Hx UTI Monitor for retention Continue home meds H/O PE Eliquis DVT Px: Eliquis CODE STATUS Full code Disposition Rehab when accepted Admission and Anticipated Discharge Date Admission Date: October 12, 2023 Subjective 10/16/2023 The patient was seen and examined in medical floor He has been feeling much better and denies any symptoms Has been getting physical therapy and recommended to go to rehab Review of Systems Review of Systems: All systems reviewed and are unremarkable except as noted below Physical Exam Physical Exam: Lying in bed without any acute distress Constitutional: well developed, well nourished and + ill appearing Eyes: PERRL, conjunctivae normal, anicteric sclerae ENMT: external ear and nose normal, oropharynx normal Neck: trachea midline, no thyromegaly Respiratory: no respiratory distress Auscultation: lungs clear to auscultation bilaterally Cardiovascular: Rate/Rhythm: regular rate and regular rhythm; not tachycardic Heart Sounds: normal S1 and normal S2; no murmur Extremities: no edema Gastrointestinal (Abdomen): Inspection/Auscultation: normal bowel sounds; abdomen not distended Percussion/Palpation: abdomen soft; abdomen nontender Musculoskeletal: No acute arthritis involving any of the joint Neurologic: normal touch/pain/proprioception and moves all extremities; no focal motor deficits Psychiatric: A+Ox3, euthymic affect Lymphatic: no cervical or axillary lymphadenopathy Results & Data Results & Data Vital Signs (Past 12 Hours) Vital Signs Temp Pulse Resp BP BP Pulse Ox O2 Del Method 10/16/23 14:52 36.6 C 60 16 139/69 95 Room Air 10/16/23 13:49 60 113/58 L 10/16/23 08:15 58 L 108/68 10/16/23 06:54 36.5 C 60 16 133/66 96 Room Air Laboratory Results Short CBC 10/16/23 Range/Units 07:10 WBC 13.35 H (4.8-10.8) K/ul Hgb 11.3 L (14.0-18.0) g/dl Hct 34.7 L (42.0-52.0) % Plt Count 198 (130-400) K/uL BMP 10/16/23 07:10 Sodium 140 Potassium 4.6 Chloride 111 H Carbon Dioxide 24 BUN 41 H Creatinine 1.68 H Glucose 112 H Calcium 8.1 L Medications Administered Current Inpatient Medications Acetaminophen (Acetaminophen 325 Mg Tab) 650 mg PO QID PRN PRN Reason: pain/fever Stop: 11/11/23 00:10 Al Hydrox/Mg Hydrox/Simethicone (Aluminum/Magnesium/Simeth (Maalox Max) 30 Ml Udc) 15 ml PO Q6H PRN PRN Reason: Dyspepsia Stop: 11/11/23 10:18 Apixaban (Apixaban 5 Mg Tablet) 5 mg PO BID [facility] Stop: 11/11/23 20:59 Last Admin: 10/16/23 08:19 Dose: 5 mg Escitalopram Oxalate (Escitalopram Oxalate 10 Mg Tab) 10 mg PO QAM [facility] Stop: 11/11/23 08:59 Last Admin: 10/16/23 08:17 Dose: 10 mg Finasteride (Finasteride 5 Mg Tab) 5 mg PO QAM [facility] Stop: 11/11/23 08:59 Last Admin: 10/16/23 08:19 Dose: 5 mg Furosemide (Furosemide 20 Mg Tab) 20 mg PO MoWeFr@0900 [facility] Stop: 11/14/23 08:59 Last Admin: 10/15/23 08:27 Dose: 20 mg Hydralazine HCl (Hydralazine Hcl 25 Mg Tab) 25 mg PO TID [facility] Stop: 11/11/23 08:59 Last Admin: 10/16/23 13:50 Dose: Not Given Promethazine HCl 6.25 mg/ (Sodium Chloride) 50.25 mls @ 201 mls/hr IV Q6H PRN PRN Reason: Nausea And Vomiting Stop: 11/11/23 00:10 Insulin Aspart (Insulin Aspart Per Unit Charge) 0 units SC ACHS [facility] Stop: 11/11/23 01:00 Last Admin: 10/16/23 17:10 Dose: Not Given Lactobacillus Acidophilus (Advanced Probiotic 625 Mg Capsule) 1,250 mg PO DAILY [facility] Stop: 11/11/23 08:59 Last Admin: 10/16/23 08:16 Dose: 1,250 mg Levothyroxine Sodium (Levothyroxine Sodium 150 Mcg Tablet) 150 mcg PO MoTuWeThF r@0630 [facility] Stop: 11/11/23 06:29 Last Admin: 10/16/23 05:55 Dose: 150 mcg Levothyroxine Sodium (Levothyroxine Sodium 75 Mcg Tablet) 225 mcg PO SuSa@0630 [facility] Stop: 11/12/23 06:29 Last Admin: 10/14/23 06:19 Dose: 225 mcg Melatonin (Melatonin 3 Mg Tab) 3 mg PO HS PRN PRN Reason: Sleep Stop: 11/11/23 00:10 Last Admin: 10/15/23 21:39 Dose: 3 mg Metoprolol Succinate (Metoprolol Succ 25mg Ext Rel Tab) 25 mg PO BID [facility] Stop: 11/11/23 08:59 Last Admin: 10/16/23 08:19 Dose: Not Given Sacubitril/Valsartan (Valsartan/Sacubitril 103/97mg Tab) 1 tab PO [facility] Stop: 11/11/23 08:59 Last Admin: 10/16/23 08:17 Dose: 1 tab Spironolactone (Spironolactone 25 Mg Tab) 25 mg PO QAM [facility] Stop: 11/11/23 08:59 Last Admin: 10/16/23 08:19 Dose: 25 mg Tamsulosin HCl (Tamsulosin Hcl 0.4 Mg Cap) 0.4 mg PO QAM [facility] Stop: 11/11/23 08:59 Last Admin: 10/16/23 08:17 Dose: 0.4 mg Terazosin HCl (Terazosin Hcl 5 Mg Cap) 10 mg PO HS [facility] Stop: 11/11/23 20:59 Last Admin: 10/15/23 20:11 Dose: 10 mg Trimethoprim/Sulfamethoxazole (Sulfamethoxazole/Trimethoprim Ds 800/160mg Tab) 1 tab PO BID [facility] Stop: 10/16/23 21:01 Last Admin: 10/16/23 08:22 Dose: 1 tab
[2023-10-17 07:53] LABS: Basophils # (auto) 0.04 K/uL (0.00-0.20); Basophils % (auto) 0.4 %; Eosinophils # (auto) 0.28 K/uL (0.00-0.50); Hemoglobin 10.9 g/dl (14.0-18.0); Immature Granulocytes # (auto) 0.05 K/uL (0.01-0.20); Immature Granulocytes % (auto) 0.5 %; Lymphocytes # (auto) 1.94 K/uL (1.20-3.40); Lymphocytes % (auto) 20.5 %; Mean Corpuscular Hemoglobin 30.5 pg (25.0-34.0); Mean Corpuscular Volume 92.4 fL (80.0-100.0); Mean Platelet Volume 10.5 fL (9.4-12.4); Monocytes # (auto) 0.88 K/uL (0.11-0.59); Monocytes % (auto) 9.3 %; Neutrophils # (auto) 6.27 K/uL (1.40-6.50); Neutrophils % (auto) 66.3 %; Platelet Count 207 K/uL (130-400); RDW Coefficient of Variation 13.4 % (11.5-14.5); RDW Standard Deviation 45.9 fL (36.4-46.3); Red Blood Count 3.57 M/uL (4.70-6.10); White Blood Count 9.46 K/ul (4.8-10.8)
[2023-10-17 08:39] LABS: Calcium 8.1 mg/dl (8.6-10.3); Est GFR (African American) 58.2 ml/min; Est GFR (Non-African American) 50.2 ml/min; Magnesium 2.1 mg/dl (1.7-2.4); Potassium 4.3 mmol/L (3.5-5.1)
--- NOTE | 2023-10-17 12:14 | Hospitalist Progress Note ---
Date of Service October 17, 2023 Assessment & Plan (1) Hypoxemia: Plan: Transient hypoxemia Unclear etiology Likely hypoventilation due to inability to take deep breaths from soreness at pacemaker site No documented hypoxia since hospitalization --CT Chest:Trace pericardial effusion. Trace LEFT pleural effusion. --Repeat ECHO: EF 50 to 55%. Trivial circumferential pericardial effusion, unchanged from prior imaging, no signs of pericardial tamponade Saturating well on room air Incentive spirometry No recurrence of hypoxia while hospitalized Stable for discharge Waiting for rehab placement Clinically stable and denies any significant symptoms Has appeared to pare and [facility] and OT He has been stable and [facility] Troponin elevation-doubt any ACS Likely due to pacemaker placement Trivial pericardial effusion Echo showed septal, apical wall motion consistent with pacemaker activation. 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 Appreciate cardiology input Continue metoprolol succinate 25 mg twice a day His hydralazine has been discontinued due to low blood pressure and he does not want to take it Refusing hydralazine and will not be giving any more on discharge Sebaceous cyst over upper side of the precordium Sebaceous cyst can be removed as an outpatient as per the surgeon from recent hospitalization Needs follow-up with surgery on discharge UTIrecurrent Urine culture is growing Enterobacter cloacae--last admission Was on IV ertapenem Continue Bactrim to complete the course--3 more doses left No more symptoms of UTI He was strongly advised to drink more fluid to avoid an attack of UTI History of HFpEF -Echo as above, chronic, stable -continue home diuretics Monitor volume status DM type II -ISS with Accu-Cheks ACHS Monitor BGs Hypothyroidism -Continue levothyroxine -Chronic, stable BPH Hx UTI Monitor for retention Continue home meds H/O PE Eliquis DVT Px: Eliquis CODE STATUS Full code Disposition Rehab when accepted [facility] Admission and Anticipated Discharge Date Admission Date: October 12, 2023 Subjective 10/16/2023 The patient was seen and examined in medical floor He has been feeling much better and denies any symptoms Has been getting physical therapy and recommended to go to rehab 10/17/2023 The patient was seen and examined in medical floor He has been feeling much better and denies any significant symptoms Has had 1 loose stool which will be sent for C. difficile toxin test He has been ambulating and getting physical therapy [facility] daughter Review of Systems Review of Systems: All systems reviewed and are unremarkable except as noted below Physical Exam Physical Exam: Lying in bed without any acute distress Constitutional: well developed, well nourished and + ill appearing Eyes: PERRL, conjunctivae normal, anicteric sclerae ENMT: external ear and nose normal, oropharynx normal Neck: trachea midline, no thyromegaly Respiratory: no respiratory distress Auscultation: lungs clear to auscultation bilaterally Cardiovascular: Rate/Rhythm: regular rate and regular rhythm; not tachycardic Heart Sounds: normal S1 and normal S2; no murmur Extremities: no edema Gastrointestinal (Abdomen): Inspection/Auscultation: normal bowel sounds; abdomen not distended Percussion/Palpation: abdomen soft; abdomen nontender Neurologic: normal touch/pain/proprioception and moves all extremities; no focal motor deficits Psychiatric: A+Ox3, euthymic affect Lymphatic: no cervical or axillary lymphadenopathy Results & Data Results & Data Vital Signs (Past 12 Hours) Vital Signs Temp Pulse Pulse Resp BP Pulse Ox O2 Del Method 10/17/23 08:35 62 119/62 10/17/23 08:32 35.9 C L 60 16 136/68 97 Room Air Laboratory Results Short CBC 10/17/23 Range/Units 07:25 WBC 9.46 (4.8-10.8) K/ul Hgb 10.9 L (14.0-18.0) g/dl Hct 33.0 L (42.0-52.0) % Plt Count 207 (130-400) K/uL BMP 10/17/23 07:25 Sodium 139 Potassium 4.3 Chloride 110 H Carbon Dioxide 24 BUN 40 H Creatinine 1.29 D Glucose 109 H Calcium 8.1 L Medications Administered Current Inpatient Medications Acetaminophen (Acetaminophen 325 Mg Tab) 650 mg PO QID PRN PRN Reason: pain/fever Stop: 11/11/23 00:10 Al Hydrox/Mg Hydrox/Simethicone (Aluminum/Magnesium/Simeth (Maalox Max) 30 Ml Udc) 15 ml PO Q6H PRN PRN Reason: Dyspepsia Stop: 11/11/23 10:18 Apixaban (Apixaban 5 Mg Tablet) 5 mg PO BID [facility] Stop: 11/11/23 20:59 Last Admin: 10/17/23 08:37 Dose: 5 mg Escitalopram Oxalate (Escitalopram Oxalate 10 Mg Tab) 10 mg PO QAM [facility] Stop: 11/11/23 08:59 Last Admin: 10/17/23 08:39 Dose: 10 mg Finasteride (Finasteride 5 Mg Tab) 5 mg PO QAM [facility] Stop: 11/11/23 08:59 Last Admin: 10/17/23 08:39 Dose: 5 mg Furosemide (Furosemide 20 Mg Tab) 20 mg PO MoWeFr@0900 [facility] Stop: 11/14/23 08:59 Last Admin: 10/17/23 08:38 Dose: 20 mg Hydralazine HCl (Hydralazine Hcl 25 Mg Tab) 25 mg PO TID [facility] Stop: 11/11/23 08:59 Last Admin: 10/16/23 13:50 Dose: Not Given Promethazine HCl 6.25 mg/ (Sodium Chloride) 50.25 mls @ 201 mls/hr IV Q6H PRN PRN Reason: Nausea And Vomiting Stop: 11/11/23 00:10 Insulin Aspart (Insulin Aspart Per Unit Charge) 0 units SC ACHS [facility] Stop: 11/11/23 01:00 Last Admin: 10/17/23 08:33 Dose: Not Given Lactobacillus Acidophilus (Advanced Probiotic 625 Mg Capsule) 1,250 mg PO DAILY [facility] Stop: 11/11/23 08:59 Last Admin: 10/17/23 08:39 Dose: 1,250 mg Levothyroxine Sodium (Levothyroxine Sodium 150 Mcg Tablet) 150 mcg PO MoTuWeThFr@0630 [facility] Stop: 11/11/23 06:29 Last Admin: 10/17/23 05:20 Dose: 150 mcg Levothyroxine Sodium (Levothyroxine Sodium 75 Mcg Tablet) 225 mcg PO SuSa@0630 [facility] Stop: 11/12/23 06:29 Last Admin: 10/14/23 06:19 Dose: 225 mcg Melatonin (Melatonin 3 Mg Tab) 3 mg PO HS PRN PRN Reason: Sleep Stop: 11/11/23 00:10 Last Admin: 10/16/23 21:34 Dose: 3 mg Metoprolol Succinate (Metoprolol Succ 25mg Ext Rel Tab) 25 mg PO BID [facility] Stop: 11/11/23 08:59 Last Admin: 10/17/23 08:37 Dose: 25 mg Sacubitril/Valsartan (Valsartan/Sacubitril 103/97mg Tab) 1 tab PO [facility] Stop: 11/11/23 08:59 Last Admin: 10/17/23 08:37 Dose: 1 tab Spironolactone (Spironolactone 25 Mg Tab) 25 mg PO QAM [facility] Stop: 11/11/23 08:59 Last Admin: 10/17/23 08:38 Dose: 25 mg Tamsulosin HCl (Tamsulosin Hcl 0.4 Mg Cap) 0.4 mg PO QAM [facility] Stop: 11/11/23 08:59 Last Admin: 10/17/23 08:39 Dose: 0.4 mg Terazosin HCl (Terazosin Hcl 5 Mg Cap) 10 mg PO HS [facility] Stop: 11/11/23 20:59 Last Admin: 10/16/23 20:36 Dose: 10 mg
[2023-10-17 12:44] LABS: Cdiff Antigen Positive; Cdiff Toxin B Gene (2yr or >) Positive Cdiff Gene (Neg)
[2023-10-17 12:45] LABS: Cdiff Toxin A+B Positive Cdiff Toxin (Negative)
[2023-10-17] MEDS: CHERRY SYRUP 5 ML UDP PO SCH (17:42)
[2023-10-17] MEDS: VANCOMYCIN HCL 125 MG/2.5ML SOLN PO SCH (17:42)
--- NOTE | 2023-10-18 07:43 | Discharge Summary ---
Date of Service October 18, 2023 Admission HPI Per Admitting Provider History obtained from patient, family, and records. 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 [address] [facility]. Recent confinement October 02 to 2023 for SSS status post PPM. No concerns post PPM yesterday. At home, patient more SOB especially on exertion. No chest pain or unusual cough symptoms. No fluid retention. Patient felt weak all over. Denies headache or abdominal pain. O2 sats on pulse ox noted to be 80s. Patient brought to hospital by EMS. 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 Admission Exam Per Admitting Provider Physical Exam: GENERAL: Comfortable, pleasant, episodic tachypnea, no respiratory distress SKIN: Pallor, warm HEENT: Partial alopecia, pale palpebral conjunctivae, no ptosis, dry buccal mucosa NECK : Supple, no tenderness CHEST : Decreased breath sounds, no tenderness HEART : RRR, no obvious murmurs ABDOMEN: Some distention, nontender EXTREMITIES : No LE swelling/tenderness, no other conspicuous deformities noted NEUROLOGIC : Coherent, no facial asymmetry, no other gross focality Principal Diagnosis Generalized weakness Transient hypoxemia Tachycardia-bradycardia syndrome UTI C. difficile colitis Discharge Exam Lying in bed without any acute distress Constitutional well developed, well nourished and + ill appearing Eyes PERRL, conjunctivae normal, anicteric sclerae ENMT external ear and nose normal, oropharynx normal Neck trachea midline, no thyromegaly Respiratory no respiratory distress Auscultation: lungs clear to auscultation bilaterally Cardiovascular Rate/Rhythm: regular rate and regular rhythm; not tachycardic Heart Sounds: normal S1 and normal S2; no murmur Extremities: no edema Gastrointestinal (Abdomen) Inspection/Auscultation: normal bowel sounds; abdomen not distended Percussion/Palpation: abdomen soft; abdomen nontender Neurologic normal touch/pain/proprioception and moves all extremities; no focal motor deficits Psychiatric A+Ox3, euthymic affect Lymphatic no cervical or axillary lymphadenopathy Discharge Data Allergies Allergy/AdvReac Type Severity Reaction Status Date / Time shrimp Allergy Severe Anaphylaxis Verified 10/11/23 21:36 Consultations 10/11/23 21:49 ED Decision to Admit Stat 10/12/23 02:42 Consult Cardiology Routine Ordered Studies 10/12/23 00:11 CT chest diagnostic wo con Stat Hospital Course (1) Hypoxemia: Transient hypoxemia Unclear etiology Likely hypoventilation due to inability to take deep breaths from soreness at pacemaker site No documented hypoxia since hospitalization --CT Chest:Trace pericardial effusion. Trace LEFT pleural effusion. --Repeat ECHO: EF 50 to 55%. Trivial circumferential pericardial effusion, unchanged from prior imaging, no signs of pericardial tamponade Saturating well on room air Incentive spirometry No recurrence of hypoxia while hospitalized Stable for discharge Waiting for rehab placement Clinically stable and denies any significant symptoms Has appeared to pare and he was denied to go to [facility] Family is going to take him to [facility] for continued care and PT and OT He has been stable and will be discharged to [facility] this afternoon Troponin elevation-doubt any ACS Likely due to pacemaker placement Trivial pericardial effusion Echo showed septal, apical wall motion consistent with pacemaker activation. 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 Appreciate cardiology input Continue metoprolol succinate 25 mg twice a day His hydralazine has been discontinued due to low blood pressure and he does not want to take it Refusing hydralazine and will not be giving any more on discharge Sebaceous cyst over upper side of the precordium Sebaceous cyst can be removed as an outpatient as per the surgeon from recent hospitalization Needs follow-up with surgery on discharge UTIrecurrent Urine culture is growing Enterobacter cloacae--last admission Was on IV ertapenem Continue Bactrim to complete the course--3 more doses left No more symptoms of UTI He was strongly advised to drink more fluid to avoid an attack of UTI History of HFpEF -Echo as above, chronic, stable -continue home diuretics Monitor volume status DM type II -ISS with Accu-Cheks ACHS Monitor BGs Hypothyroidism -Continue levothyroxine -Chronic, stable BPH Hx UTI Monitor for retention Continue home meds H/O PE Eliquis DVT Px: Eliquis CODE STATUS Full code Disposition Rehab when accepted Will be discharged to [facility] this afternoon Total Time Total Time Spent Total Time Spent (In Minutes): 40 minutes Discharge Plan Discharge Items Patient Disposition: Transfer Inpatient Rehab Fac Reason For Visit: SOB, TROP ELEV, TRANSIENT HYPOXEMIA Discharge Diagnosis: Generalized weakness Transient hypoxemia Tachycardia-bradycardia syndrome UTI C. difficile colitis Activity: As commented below Activity Comment: Continue PT and OT Exercise/Sports: Gradually increase as tolerated Non-emergency contact: Primary Care Provider and Network Systems Engineer Call non-emergency contact if: you have any medication questions, your symptoms worsen, your pain is concerning for you, you have a fever, your temperature is above 101.5, your wound has increased redness, your wound has increased drainage and your wound pain has increased Follow-up/Referrals: Linda Rendon, [Primary Care Provider] - (Please make an appointment with your PCP within 7 days following discharge from the facility) Diet: Carb Consistent or DM2 and Heart Healthy Add Attending Provider Instructions: Follow-up with your primary care physician in 1 week upon discharge from rehab facility Follow-up with your assisted living coordinator as advised. Cardiology office will call you with appointment Follow-up with your surgeon for further management of sebaceous cyst Get device and wound check at [facility] cardiology next week as recommended by your assisted living coordinator --Complete the antibiotic course Bactrim as prescribed until 10/16/2023 Seek immediate medical attention if your symptoms reoccur or worsen Please take all medications as instructed on discharge list below. Please call if you have any questions or problems. You can reach a 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 SPECIAL CARE INSTRUCTIONS: * If bleeding occurs, apply direct pressure to area for 5 minutes. * Call your doctor if you have severe pain, fever, drainage or bleeding at site. * Keep dressing on and dry for 48 hours then remove. * Keep any scheduled doctor's appointment. * Implant Card - hand held device with website information given. SKIN IRRITATION: * You may experience some redness and/or swelling in the area where radiation was administered. If any skin irritation occurs, please contact your family physician. FOLLOW UP VISIT: Keep any scheduled doctor appointments. Pending Studies at Discharge: No Stand-Alone Forms: My [facility] Skilled Items Patient informed of condition?: Yes DNR: No Discharge Level of Care: Acute rehab Communicable Disease: No Discharge Prognosis: Stable Lines: None Urinary Catheter: No Medications and DC Order Prescriptions: New vancomycin 1,000 mg Recon Soln 125 mg PO Q6 Qty: 40 0RF Continued (DME) BD Regular Bevel [place] 18 gauge x 1 1/2" needle See Rx Instructions .Route Qty: 4 0RF Rx Instructions: As directed finasteride [Proscar] 5 mg tablet 5 mg PO QAM tryptophan 500 mg capsule 1,500 mg PO HS Rx Instructions: administer with or after a low-protein/high carbohydrate snack. furosemide 20 mg tablet 20 mg PO 3XWK Rx Instructions: TAKE THIS MED EVERY SUNDAY/SUNDAY & SUNDAY IN THE AM. apixaban 5 mg tablet 5 mg PO BID spironolactone 25 mg tablet 25 mg PO QAM escitalopram oxalate 10 mg tablet 10 mg PO QAM metoprolol succinate 25 mg Tablet Extended Release 24 Hr 25 mg PO BID Qty: 60 1RF Advanced Probiotic 625 mg (10 billion cell) Capsule 1 cap PO DAILY Qty: 10 0RF levothyroxine 150 mcg tablet 150 mcg PO 5XWK Rx Instructions: 150MCG SUNDAY THRU SUNDAY IN THE MORNING, AT LEAST 30 MINUTES PRIOR TO BREAKFAST OR OTHER MEDS. levothyroxine 150 mcg Tablet 225 mcg PO 2XWK Rx Instructions: TAKE 1.5 TABLET( 225MCG) EVERY SUNDAY AND SUNDAY, AT LEAST 30 MINUTES PRIOR TO BREAKFAST OR OTHER MEDS. acetaminophen 500 mg Tablet 1,000 mg PO Q6H PRN (Reason: Pain) Entresto 97-103 mg tablet 1 tab PO AMHS tamsulosin 0.4 mg capsule 0.4 mg PO QAM terazosin 10 mg capsule 10 mg PO HS Discontinued sulfamethoxazole-trimethoprim [Bactrim DS] 800-160 mg tablet 1 tab PO BID Qty: 10 0RF Rx Instructions: Start taking from 10/12/2023 hydralazine 25 mg Tablet 25 mg PO TID 30 Days Qty: 90 0RF Discharge Orders: Discharge Order (Routine); Ordered 10/17/23 Ordered By: Torrey Mane Admission Data Admit Date/Time: 10/12/23 00:08 Attending Provider: Torrey Mane Admit Provider: Sloan Varghese Primary Care Provider: Linda Rendon Other Providers: [employer]; Sloan Varghese; Preeti Tucker; Ajay Mon; Giovani Shannon; Rashid Gage; Bryan Tan; Maxim Ward; Sindhu Vazquez; Latia Baez; Macey Bennett; Preeti Calix; Sai Acharya; Castro Lewis; Lelia Huang; Bridgette Rivera; Deya Echeverria; David Harding; Migue Ferrer; Sowmya Gomez; Christiano Sawyer Other Interventions: Discharge Summary Assessment (RN) Last Done: 10/17/23 17:17
== END 2023-10-17 18:03 | DRG 206 ==
LOC: ED 20:33 → 2S 10-12 00:08 → SUATTDRO 10-12 00:08 → 2S 10-12 01:44 → 3W 10-14 18:10